=== PATIENT | female | born 1975 | race African-American/Black ===

== ENCOUNTER → 2016-03-30 | Outpatient (REF) | payer MEDICAID ==
[2016-03-30 15:52] LABS: MEAN CORPUSCULAR HEMOGLOBIN 23.9 pg (27.0-33.0); MEAN CORPUSCULAR HGB CONC 29.9 g/dl (32.0-36.5); MEAN CORPUSCULAR VOLUME 79.9 fl (80.0-96.0); RED CELL DISTRIBUTION WIDTH 19.4 % (11.5-14.5); WHITE BLOOD COUNT 10.2 K/mm3 (4.0-10.0)
[2016-03-30 15:54] LABS: ALBUMIN 3.4 GM/DL (3.2-5.2); ALBUMIN/GLOBULIN RATIO 0.89 (1.00-1.93); ALKALINE PHOSPHATASE 95 U/L (45-117); ALT/SGPT 18 U/L (12-78); ANION GAP 11 MEQ/L (8-16); AST/SGOT 13 U/L (15-37); BILIRUBIN,TOTAL 0.4 MG/DL (0.2-1.0); BLOOD UREA NITROGEN 9 MG/DL (7-18); CALCIUM LEVEL 8.8 MG/DL (8.5-10.1); CARBON DIOXIDE LEVEL 27 MEQ/L (21-32); CHLORIDE LEVEL 104 MEQ/L (98-107); CHOLESTEROL LEVEL 228 MG/DL (<200); CREATININE FOR GFR 0.96 MG/DL (0.55-1.02); GLOMERULAR FILTRATION RATE > 60.0 (>58); GLUCOSE, FASTING 127 MG/DL (70-105); SODIUM LEVEL 142 MEQ/L (136-145); TOTAL PROTEIN 7.2 GM/DL (6.4-8.2); TRIGLYCERIDES LEVEL 263 MG/DL (<150)
== END ==
LOC: M SFHCLACO 15:13
PROVIDERS: ATTEND Physician Assistant
DX: J96.01 Acute respiratory failure with hypoxia (principal); I10 Essential (primary) hypertension; Z68.43 Body mass index [BMI] 50.0-59.9, adult; E11.65 Type 2 diabetes mellitus with hyperglycemia; I82.532 Chronic embolism and thrombosis of left popliteal vein; Z79.01 Long term (current) use of anticoagulants

== ENCOUNTER → 2016-04-14 | Outpatient (REF) | payer MEDICAID ==
[2016-04-14 16:00] LABS: INR 2.2
== END ==
LOC: M SFHCLACO 13:49
PROVIDERS: ATTEND Physician Assistant
DX: Z79.01 Long term (current) use of anticoagulants (principal)

== ENCOUNTER → 2016-05-02 | Outpatient (REF) | payer MEDICAID ==
[2016-05-02 15:33] LABS: INR 1.71
== END ==
LOC: M SFHCLACO 10:20
PROVIDERS: ATTEND Physician Assistant
DX: Z51.81 Encounter for therapeutic drug level monitoring (principal); Z79.01 Long term (current) use of anticoagulants

== ENCOUNTER → 2016-05-11 | Outpatient (REF) | payer OTHER ==
[2016-05-11 15:02] LABS: INR 1.97
== END ==
LOC: M SFHCLACO 10:43
PROVIDERS: ATTEND Physician Assistant
DX: Z51.81 Encounter for therapeutic drug level monitoring (principal); Z79.01 Long term (current) use of anticoagulants

== ENCOUNTER → 2016-05-23 | Outpatient (REF) | payer OTHER ==
[2016-05-23 16:31] LABS: INR 4.02
== END ==
LOC: M SFHCLACO 13:27
PROVIDERS: ATTEND Physician Assistant
DX: Z51.81 Encounter for therapeutic drug level monitoring (principal); Z79.01 Long term (current) use of anticoagulants

== ENCOUNTER → 2016-06-06 | Outpatient (REF) | payer OTHER ==
[2016-06-06 16:22] LABS: INR 3.13
== END ==
LOC: M SFHCLACO 15:21
PROVIDERS: ATTEND Physician Assistant
DX: Z51.81 Encounter for therapeutic drug level monitoring (principal); Z79.01 Long term (current) use of anticoagulants

== ENCOUNTER → 2016-07-25 | Outpatient (REF) | payer OTHER ==
[2016-07-25 15:59] LABS: ALBUMIN/GLOBULIN RATIO 1.08 (1.00-1.93); ALKALINE PHOSPHATASE 63 U/L (45-117); ALT/SGPT 20 U/L (12-78); ANION GAP 7 MEQ/L (8-16); AST/SGOT 11 U/L (15-37); BILIRUBIN,TOTAL 0.3 MG/DL (0.2-1.0); BLOOD UREA NITROGEN 15 MG/DL (7-18); CALCIUM LEVEL 9.5 MG/DL (8.5-10.1); CARBON DIOXIDE LEVEL 28 MEQ/L (21-32); CHLORIDE LEVEL 100 MEQ/L (98-107); CHOLESTEROL LEVEL 208 MG/DL (<200); GLOMERULAR FILTRATION RATE > 60.0 (>58); GLUCOSE, FASTING 136 MG/DL (70-105); SODIUM LEVEL 135 MEQ/L (136-145); TOTAL PROTEIN 7.7 GM/DL (6.4-8.2); TRIGLYCERIDES LEVEL 248 MG/DL (<150)
== END ==
LOC: M SFHCLACO 10:46
PROVIDERS: ATTEND Physician Assistant
DX: I10 Essential (primary) hypertension (principal); E11.65 Type 2 diabetes mellitus with hyperglycemia; E78.2 Mixed hyperlipidemia

== ENCOUNTER → 2016-10-17 | Outpatient (REF) | payer OTHER ==
[2016-10-17 15:53] LABS: ALBUMIN 3.7 GM/DL (3.2-5.2); ALBUMIN/GLOBULIN RATIO 0.95 (1.00-1.93); ALKALINE PHOSPHATASE 66 U/L (45-117); ALT/SGPT 18 U/L (12-78); ANION GAP 6 MEQ/L (8-16); AST/SGOT 9 U/L (15-37); BILIRUBIN,TOTAL 0.3 MG/DL (0.2-1.0); BLOOD UREA NITROGEN 8 MG/DL (7-18); CALCIUM LEVEL 8.6 MG/DL (8.5-10.1); CARBON DIOXIDE LEVEL 29 MEQ/L (21-32); CHLORIDE LEVEL 104 MEQ/L (98-107); CHOLESTEROL LEVEL 186 MG/DL (<200); CREATININE FOR GFR 0.97 MG/DL (0.55-1.02); GLOMERULAR FILTRATION RATE > 60.0 (>58); GLUCOSE, FASTING 174 MG/DL (70-105); SODIUM LEVEL 139 MEQ/L (136-145); TOTAL PROTEIN 7.6 GM/DL (6.4-8.2); TRIGLYCERIDES LEVEL 281 MG/DL (<150)
== END ==
LOC: M SFHCLACO 10:29
PROVIDERS: ATTEND Physician Assistant
DX: E11.65 Type 2 diabetes mellitus with hyperglycemia (principal); E78.2 Mixed hyperlipidemia; I10 Essential (primary) hypertension

== ENCOUNTER → 2019-11-27 | Outpatient (REF) | payer OTHER ==
[2019-11-27 14:30] LABS: BASO # 0.1 10^3/uL (0.0-0.2); BASO % 0.6 % (0.0-1.0); EOS # 0.2 10^3/uL (0.0-0.5); EOS % 2.8 % (0.0-3.0); LYMPH # 2.3 10^3/uL (1.5-5.0); MEAN CORPUSCULAR HEMOGLOBIN 30.1 pg (27.0-33.0); MEAN CORPUSCULAR HGB CONC 31.6 g/dl (32.0-36.5); MEAN CORPUSCULAR VOLUME 95.2 fl (80.0-96.0); MONO # 0.4 10^3/uL (0.0-0.8); MONO % 4.8 % (0.0-5.0); NEUTROPHILS % 62.3 % (36.0-66.0); PLATELET COUNT, AUTOMATED 170 10^3/uL (150-450); RED BLOOD COUNT 6.51 10^6/uL (4.00-5.40); WHITE BLOOD COUNT 7.9 10^3/uL (4.0-10.0)
[2019-11-27 14:42] LABS: HEMOGLOBIN 19.6 g/dl (12.0-15.5)
[2019-11-27 14:47] LABS: APPEARANCE, URINE CLOUDY (CLEAR); BACTERIA, URINE AUTO 3+ (NEGATIVE); BILIRUBIN, URINE AUTO NEGATIVE (NEGATIVE); BLOOD, URINE BLOOD NEGATIVE (NEGATIVE); COLOR, URINE YELLOW (YELLOW); GLUCOSE, URINE (UA) AUTO 1+ mg/dL (NEGATIVE); KETONE, URINE AUTO NEGATIVE (NEGATIVE); LEUKOCYTE ESTERASE, URINE AUTO TRACE (NEGATIVE); MUCUS, URINE SMALL (NEGATIVE); NITRITE, URINE AUTO NEGATIVE (NEGATIVE); PROTEIN, URINE AUTO 3+ mg/dL (NEGATIVE); RBC, URINE AUTO 7 /HPF (0-3); SPECIFIC GRAVITY URINE AUTO 1.017 (1.002-1.035); SQUAMOUS EPITHELIAL CELL UR AU 2 /HPF (0-6); UROBILINOGEN, URINE AUTO 0.2 mg/dL (0.0-2.0); WBC, URINE AUTO 28 /HPF (0-3)
[2019-11-27 15:13] LABS: HEMOGLOBIN A1c 10.1 %
[2019-11-27 15:43] LABS: CREATININE, URINE 91.7 MG/DL; MAU/CREAT RATIO 12213.7 MCG/MG (0.0-30.0)
[2019-11-27 16:32] LABS: ALBUMIN 3.4 GM/DL (3.2-5.2); ALT/SGPT 16 U/L (12-78); BILIRUBIN,TOTAL 0.8 MG/DL (0.2-1.0); BLOOD UREA NITROGEN 15 MG/DL (7-18); CALCIUM LEVEL 9.1 MG/DL (8.5-10.1); CARBON DIOXIDE LEVEL 35 MEQ/L (21-32); CHLORIDE LEVEL 94 MEQ/L (98-107); CHOLESTEROL LEVEL 244 MG/DL (<200); GLOMERULAR FILTRATION RATE > 60.0 (>58); GLUCOSE, FASTING 316 MG/DL (70-100); HDL CHOLESTEROL 31 MG/DL (>40); LDL CHOLESTEROL 158 MG/DL (<100); NON-HDL-C 213 MG/DL; POTASSIUM SERUM 5.1 MEQ/L (3.5-5.1); SODIUM LEVEL 133 MEQ/L (136-145); TOTAL 25(OH) VITAMIN D 11.9 NG/ML (30.0-100.0); TOTAL PROTEIN 7.8 GM/DL (6.4-8.2); TRIGLYCERIDES LEVEL 274 MG/DL (<150)
[2019-12-08 12:07] LABS: ANTI THROMBIN 3 ANTIGEN IMMUNO 102 % (72-124); ANTI THROMBIN 3 FUNCT ACTIVITY 110 % (75-135); PROTEIN C ANTIGEN 123 % (60-150); PROTEIN C FUNCTIONAL ACTIVITY 153 % (73-180); PROTEIN S ANTIGEN FREE 144 % (57-157); PROTEIN S ANTIGEN TOTAL 149 % (60-150); PROTEIN S FUNCTIONAL ACTIVITY 117 % (63-140)
== END ==
LOC: M SFHCADAM 10:45
PROVIDERS: ATTEND Physician Assistant Medical
DX: E11.65 Type 2 diabetes mellitus with hyperglycemia (principal); I82.532 Chronic embolism and thrombosis of left popliteal vein; E66.01 Morbid (severe) obesity due to excess calories

== ENCOUNTER 2020-01-23 13:42 | Inpatient (IN) | payer OTHER ==
[~2020-01-23] VITALS: Ht 157.5 cm; Wt 82.0 kg
[2020-01-23] MEDS ORDERED: ATOR40TA75 PO (14:04)
[2020-01-23] MEDS ORDERED: BASA100I SC (14:04)
[2020-01-23] MEDS ORDERED: VENTAER INH (14:04)
[2020-01-23] MEDS ORDERED: OMEP40CA97 PO (14:04)
[2020-01-23] MEDS ORDERED: FLUT1INH2 INH (14:04)
[2020-01-23] MEDS ORDERED: NYST1POW9 (14:04)
[2020-01-23] MEDS ORDERED: LISI20TA33 PO (14:04)
[2020-01-23] MEDS ORDERED: methylPREDNISolone 125MG 2ML VIAL IV ONE (14:30)
[2020-01-23 14:37] LABS: BASO # 0.1 10^3/uL (0.0-0.2); BASO % 0.7 % (0.0-1.0); EOS % 0.4 % (0.0-3.0); HEMATOCRIT 59.4 % (36.0-47.0); HEMOGLOBIN 18.3 g/dl (12.0-15.5); LYMPH # 2.4 10^3/uL (1.5-5.0); LYMPH % 25.5 % (24.0-44.0); MEAN CORPUSCULAR HEMOGLOBIN 31.4 pg (27.0-33.0); MEAN CORPUSCULAR HGB CONC 30.8 g/dl (32.0-36.5); MEAN CORPUSCULAR VOLUME 102.1 fl (80.0-96.0); MONO # 0.6 10^3/uL (0.0-0.8); MONO % 6.2 % (0.0-5.0); NEUTROPHILS # 6.2 10^3/uL (1.5-8.5); NEUTROPHILS % 65.7 % (36.0-66.0); PLATELET COUNT, AUTOMATED 207 10^3/uL (150-450); RED BLOOD COUNT 5.82 10^6/uL (4.00-5.40); WHITE BLOOD COUNT 9.5 10^3/uL (4.0-10.0)
--- NOTE | 2020-01-23 14:57 | REP ---
INDICATION: DYSPNEA/COUGH. COMPARISON: None. TECHNIQUE: SINGLE PORTABLE AP VIEW OF THE CHEST WAS PERFORMED. FINDINGS: There is moderate cardiomegaly. There is vascular congestion. Mildly prominent interstitial markings may represent mild interstitial edema. No definite consolidation is seen. There is mild calcification of the thoracic aorta. IMPRESSION: Moderate cardiomegaly with vascular congestion. Possible mild interstitial edema. <Electronically signed by Alonso Devine > 01/23/20 [id number]
[2020-01-23 15:09] LABS: ALBUMIN 3.5 GM/DL (3.2-5.2); ALT/SGPT 35 U/L (12-78); BILIRUBIN,DIRECT 0.3 MG/DL (0.0-0.2); BILIRUBIN,TOTAL 0.9 MG/DL (0.2-1.0); BLOOD UREA NITROGEN 21 MG/DL (7-18); CALCIUM LEVEL 8.7 MG/DL (8.5-10.1); CARBON DIOXIDE LEVEL 34 MEQ/L (21-32); CHLORIDE LEVEL 103 MEQ/L (98-107); CK-MB VALUE MASS 2.1 NG/ML (<3.6); CPK CREATINE PHOSPHOKINASE 48 U/L (26-192); CREATININE FOR GFR 1.01 MG/DL (0.55-1.30); GLOMERULAR FILTRATION RATE > 60.0 (>58); GLUCOSE, FASTING 156 MG/DL (70-100); MB/CK RELATIVE INDEX 4.38 (< OR =4); NT-PRO BNP 5646 PG/ML (<125); POTASSIUM SERUM 3.9 MEQ/L (3.5-5.1); SODIUM LEVEL 142 MEQ/L (136-145); TOTAL PROTEIN 7.6 GM/DL (6.4-8.2)
[2020-01-23] MEDS ORDERED: FUROSEMIDE 100MG/10ML VIAL (J1940) IV ONE (15:15)
[2020-01-23 15:25] LABS: HCG, SERUM QUALITATIVE NEGATIVE (NEGATIVE)
[2020-01-23] MEDS ORDERED: ALBUTEROL SULFATE 2.5 MG/0.5 ML INH NEB SOLN INH ONE (15:45)
[2020-01-23] MEDS ORDERED: DEXTROSE 50% 50 ML SYRINGE IV PRN (16:30)
[2020-01-23] MEDS ORDERED: GLUCAGON INJ 1MG VIAL SC PRN (16:30)
[2020-01-23] MEDS ORDERED: GLUCOSE 4GM CHEW TABLET PO PRN (16:30)
[2020-01-23] MEDS ORDERED: AMLO1TAB24 PO (16:34)
[2020-01-23] MEDS ORDERED: LEVO250T12 PO (16:34)
--- NOTE | 2020-01-23 16:36 | HPEPDOC ---
[facility] Medical History & Physical Date of Admission Jan 23, 2020 Date of Service: Jan 23, 2020 Primary Care Physician: KRISTINE CALLAWAY PA-C Attending Physician: JAIMIE VARGAS MD History and Physical CHIEF COMPLAINT: SOB HISTORY OF PRESENT ILLNESS: Patient is a 44-year-old -[place] female with a past medical history significant for IDDDM, HTN, HLD, Morbid Obesity and nicotine dependence who presents emergency department via EMS from [facility] for further evaluation. Per ED report, presented to her systems mechanic for evaluation of sleep apnea. Patient was found to have an SPO2 in the 70s. When she presents emergency department she continued to complain of feeling "hot and tired". No recent illnesses are as patient is aware. She is complaining of productive cough with clear sputum. In the emergency department, she was found to be afebrile, slightly tachycardic with a pulse of 101. Respiratory rate 28. Blood pressure 200/112 and maintaining a saturation of 77% on room air. Patient was placed on a nasal cannula and maintained a saturation of 93%. Placed on BiPAP with FiO2 50. CBC does demonstrate some polycythemia with an H/H of 18.3/59.4. MCV of 102.1, and an elevated RDW of 18. CMP showing a sodium of 142, potassium of 3.9. BUN/Cr of 21/1.01. No chronic kidney disease. Lactic of 0.9. Elevation of liver enzymes. Troponins of 0.1, proBNP of 5646. Tqlme-dn-jcgm blood gas showing a pH of 7.2, PO2 of 69, PCO2 of 92.6. Chest x-ray was ordered and shows cardiomegaly with vascular congestion. Possible mild essential edema. Given patient's worsening respiratory status, the hospitalist team was contacted to admit the patient further evaluation and management. PAST MEDICAL HISTORY: Hypertension Hyperlipidemia Insulin-dependent diabetes mellitus Morbid obesity Asthma, hx of status epilepticus History of acute respiratory failure, prolonged intubation with tracheotomy, 2017 DVT, provoked in 2017 HIT Nicotine dependence Hirsutism Nicotine dependence Remote history of crack cocaine use #Of historical note, patient was hospitalized from 02/21/2016 until 03/24/2016 for acute hypoxic and hypercarbic respiratory failure. She was found unresponsive by her boyfriend and was not breathing. EMS was contacted. In the hospital, she was found to have methicillin sensitive pneumonia complicated by status asthmaticus, and acute kidney injury with hyperkalemia and hyperphosphatemia that required hemodialysis for a short period. She was intubated and was not able to be weaned off of the vent due to obesity hypoventilation syndrome. She had a tracheostomy placed on 03/06/2016, and eventually was able to be removed from the ventilator. She was able to have the trach closed on 05/25/2016. PAST SURGICAL HISTORY: 3 Tonsillectomy Cholecystectomy Ventral hernia repair with hx of wound dehiscence Partial colectomy secondary to diverticulitis SOCIAL HISTORY: Given patient's current clinical condition, it was quite difficult to elicit an appropriate social history. As such, the history that follows was found in the medical record: Patient is a current smoker. She reports smokes approximately 1/2 PPD. She does not drink alcohol. Denies any recreational drug use. She is currently unemployed and does not work. She is but . Patient's healthcare proxy is her daughter, Naz Kirkland. FAMILY HISTORY: Father: Coronary artery disease Mother: Hypertension, CAD, diabetes Siblings: Alive, hypertension and cardiomyopathy Children: Plans, alive, healthy ALLERGIES: Sulfonamide antibiotics, codeine, humalog REVIEW OF SYSTEMS: Given patient's current clinical condition, a limited ROS was able to be obtained. CONSTITUTIONAL: Patient denies any recent fever or chills HEENT: Denies headache, vision changes CARDIOVASCULAR: Denies chest pain or palpitations RESPIRATORY: Reports long-standing SOB, productive-cough with clear sputum. GASTROINTESTINAL: Denies abdominal pain, diarrhea, constipation, blood stool. GENITOURINARY: Denies urinary changes MUSCULOSKELETAL: Denies muscle or joint aches and pains NEUROLOGICAL: Denies numbness or tingling in hands or arms. Legs HEMATOLOGIC/LYMPHATIC: Denies easy bruising HOME MEDICATIONS: Please see below. PHYSICAL EXAMINATION: VITAL SIGNS: Please see below GENERAL APPEARANCE: Patient is interviewed and examined in the emergency department. Patient was found to be in bed on BiPAP. She appeared quite fatigued but was easily arousable. She was able to open her eyes and to answer yes and no to questions. She was able to participate in physical examination. HEENT: Normocephalic, atraumatic, EMOI, are nonicteric without conjunctival injection or pallor. Her membranes do appear dry. Notable hirsutism. CARDIOVASCULAR: Heart sounds severely limited by patient's body habitus. Patient's pulse is regular. Unable to evaluate for JVD. LUNGS: Lung sounds limited by body habitus and sounds of mechanical ventilation. ABDOMEN: Obese, nondistended, nontender EXTREMITIES: No lower extremity edema appreciated bilaterally. NEUROLOGICAL: Arousable, able to follow commands. Able to move both upper and lower extremities, strength 5 out of 5. PSYCHIATRIC: Patient did appear anxious LABORATORY DATA: See below. IMAGING: Chest x-ray (01/23/20] is: Moderate cardiomegaly with vascular congestion. Possible mild interstitial edema. MICROBIOLOGY: Respiratory virus panel (01/23/20): Human Raynaud/enterovirus Blood cultures (01/23/20): Pending ASSESSMENT: Patient is a 44-year-old female with past medical history significant for diastolic congestive heart failure, diabetes, hypertension and morbid obesity presented to the emergency department from her systems mechanic's for hypoxia and shortness of breath. PLAN: #Acute on chronic hypercapnic hypoxemic respiratory failure -Unclear etiology, CHF exacerbation and underlying TALA/pickwickian contributing. -Patient found to be extremely hypoxemic in the outpatient clinic. -This persisted upon presentation emergency department -BiPAP started in the ED. ICU BiPAP management per neon tube pumper. We appreciate his assistance with the management of this patient. Repeat ABG in 1 hr #CHF, exacerbation -Potential exacerbation secondary to viral infection, though infectious etiology remains low in the differential given patient remains afebrile without leukocytosis. Her calcitonin pending for possible underlying bacterial cause. -Patient denies any history or known diagnosis of heart failure. BNP elevated. -Unable to locate a recent echocardiogram. Cardiomegaly on CXR. Urgent echo pending. -S/P 80 IV Lasix in ED. CXR supports vascular congestion. Continue on 80mg IV Q8H. -c/w home medications -2 gram sodium diet #Polycythemia -Patient was found to have an elevated H&H on recent outpatient lab works on 11/27/19. His consistent with the findings today in the emergency department. -Suspect this to be reactive, secondary to both patient's chronic chronic hypoxemia and her severe untreated TALA. -Continue to monitor #History of HIT -During review of patient's medical records, mention of a PMHx of HIT was noted. -Requesting old records. -Hold heparins at this time. -PF4/Heparin antibody ordered -Fondaparinux 2.5mg SC QD #Asthma, intermittent -History of status asthmaticus leading to prolonged intubation -Outpatient treatment with only AirDuo -Unable to find spirometry records #IDDM -A1c of 10.1 in 11/27/19 -AC/HS SSI -Will hold home basal -Consistent carb diet #HTN -Hypertensive in the ED -Continue with home medications -BP meds increased by PCP on 12/22/19 from 10 mg to 20 mg #Sleep apnea vs. obesity hypoventilation syndrome -Patient was at Pulmonary office for evaluation -Reports history of apneic events #GERD -Omeprazole #HLD -Continue home statin #Obesity -BMI of 57. -Significantly complicating care #History of DVT -Antiphospholipid panel performed as an outpatient with mild abdomen. -Patient scheduled for repeat on 02/21/20. DVT PROPHYLAXIS: History of HIT, will hold heparins Fondaparinux 2.5mg SC QD CODE STATUS: FULL CODE DISPOSITION: ICU, downgrade pending clinical improvement Vital Signs Vital Signs Date Time Temp Pulse Resp B/P (MAP) Pulse Ox O2 Delivery O2 Flow Rate FiO2 01/23/20 15:55 50 01/23/20 15:37 Nasal Cannula 6.0 01/23/20 13:56 97.8 101 28 200/112 77 Laboratory Data Labs 24H Laboratory Tests 2 01/23/20 13:58: Immature Granulocyte % (Auto) 1.5, Neutrophils (%) (Auto) 65.7, Lymphocytes (%) (Auto) 25.5, Monocytes (%) (Auto) 6.2H, Eosinophils (%) (Auto) 0.4, Basophils (%) (Auto) 0.7, Neutrophils # (Auto) 6.2, Lymphocytes # (Auto) 2.4, Monocytes # (Auto) 0.6, Eosinophils # (Auto) 0.0, Basophils # (Auto) 0.1, Nucleated Red Blood Cells % (auto) 2.3H, Anion Gap 5L, Glomerular Filtration Rate > 60.0, Lactic Acid Level 0.9, Calcium Level 8.7, Total Bilirubin 0.9, Direct Bilirubin 0.3H, Aspartate Amino Transf (AST/SGOT) 22, Alanine Aminotransferase (ALT/SGPT) 35, Alkaline Phosphatase 97, Total Creatine Kinase 48, Creatine Kinase MB 2.1, Creatine Kinase MB Relative Index 4.38H, Troponin I 0.10, UN-Kkk-C-Type Natriuretic Peptide 5646H, Total Protein 7.6, Albumin 3.5, Albumin/Globulin Ratio 0.9L, Human Chorionic Gonadotropin, Qual NEGATIVE 01/23/20 15:05: POC pH (Misc Panel) 7.208*L, POC Base Excess (Misc Panel) 9.0H, POC Saturated Percent O2 (Misc) 88L, POC pO2 (Misc Panel) 69.0L, POC pCO2 (Misc Panel) 92.6*H, POC HCO3 (Misc Panel) 36.9H, POC Total CO2 (Misc Panel) 40.0H CBC/BMP Laboratory Tests 01/23/20 13:58 Microbiology Microbiology 01/23/20 Respiratory Virus Panel (PCR) (SHENG) - Final, Complete Human Rhinovirus/Enterovirus 01/23/20 Blood Culture, Received Pending 01/23/20 Blood Culture, Received Pending Home Medications Scheduled Amlodipine Besylate (Amlodipine Besylate) 5 Mg Tablet, 5 MG PO DAILY HAS NOT STARTED MEDICATION Atorvastatin Calcium (Atorvastatin Calcium) 40 Mg Tablet, 40 MG PO DAILY Fluticasone Propion/Salmeterol (Fluticasone-Salmeterol 113-14) 1 Each Aer.pow.ba, 1 PUFF INH BID Insulin Glargine,Hum.rec.anlog (Basaglar Kwikpen U-100) 100 Unit/1 Ml Insuln.pen, 45 UNIT SC QHS Levofloxacin (Levofloxacin) 250 Mg Tablet, 250 MG PO DAILY HAS NOT STARTED MEDICATION Lisinopril (Lisinopril) 20 Mg Tablet, 20 MG PO DAILY Omeprazole (Omeprazole) 40 Mg Capsule.dr, 40 MG PO DAILY Scheduled PRN Albuterol Sulfate (Ventolin Hfa) 18 Gm Hfa.aer.ad, 2 PUFF INH Q4H PRN for wheezing Allergies Coded Allergies: codeine (Verified Allergy, Unknown, hives, 01/23/20) Sulfa (Sulfonamide Antibiotics) (Verified Adverse Reaction, Unknown, "it affected my liver", 01/23/20) A-FIB/CHADSVASC A-FIB History Current/History of A-Fib/PAF?: No Current PO Anticoag Therapy: No GME ATTESTATION GME ATTESTATION My faculty preceptor for this patient encounter was physically present during the encounter and was fully available. All aspects of the patient interview, examination, medical decision making process, and medical care plan development were reviewed and approved by the faculty preceptor. The faculty preceptor is aware and concurs with the plan as stated in the body of this note and will attest to such by his/her cosignature. GALILEA ROMERO DO Jan 23, 2020 16:36
[2020-01-23] MEDS ORDERED: NICOTINE 14 MG/24 HR TRANSDERMAL TD ONE (17:00)
[2020-01-23] MEDS ORDERED: HumaLOG INSULIN (NovoLOG) PER UNIT SC SCH ×2 (17:30→21:00)
[2020-01-23 17:52] LABS: ABG BASE EXCESS 3.3 (-2.0-2.0); ABG O2 SATURATION 91.8 % (95.0-99.0); ABG PARTIAL PRESSURE O2 71.2 mmHg (75.0-100.0); ABG STANDARD HCO3 27.2 MEQ/L (22.0-26.0)
[2020-01-23 17:54] LABS: ABG PARTIAL PRESSURE CO2 99.3 mmHg (35.0-45.0); ABG pH (ARTERIAL) 7.189 UNITS (7.350-7.450)
[2020-01-23 18:00] VITALS: BP 186/102
[2020-01-23] MEDS ORDERED: ALBUTEROL 90 MCG/ACT 8GM HFA INHALER INH PRN (18:00)
[2020-01-23] MEDS: IPRATROPIUM 0.5MG/ALBUTEROL 2.5MG INH SOL UD 3ML (DUONEB) NEB SCH ×2 (18:31→23:28)
[2020-01-23] MEDS ORDERED: MIDAZOLAM INJ 2MG/2ML VIAL (J2250 PER 1MG) As Ordered ONE ×4 (18:35→19:03)
[2020-01-23 19:00] VITALS: BP 206/118
[2020-01-23] MEDS ORDERED: PROPOFOL 1,000 MG/100 ML VIAL As Ordered ONE (19:07)
[2020-01-23] MEDS ORDERED: MIDAZOLAM INJ 2MG/2ML VIAL (J2250 PER 1MG) IV STA (19:24)
--- NOTE | 2020-01-23 19:57 | REP ---
INDICATION: intubation. COMPARISON: Portable chest 2:44 p.m. 01/23/2020. TECHNIQUE: SINGLE PORTABLE AP VIEW OF THE CHEST WAS PERFORMED. FINDINGS: There is placement of an endotracheal tube. The tip is at the oneal. There appears to be new consolidative opacity in the left lung representing atelectasis and or infiltrate. The heart is enlarged. No infiltrate is seen in the right lung. IMPRESSION: Endotracheal tube tip is at the oneal. There is consolidative atelectasis/infiltrate in the left lung. <Electronically signed by Alonso Devine > 01/23/201952
[2020-01-23 20:00] VITALS: BP_SYST 140; BP_SYST 154; BP_DIAS 106; BP_DIAS 86
[2020-01-23 20:26] LABS: ABG HCO3 32.8 MEQ/L (22.0-26.0); ABG O2 SATURATION 88.3 % (95.0-99.0); ABG PARTIAL PRESSURE CO2 53.1 mmHg (35.0-45.0); ABG PARTIAL PRESSURE O2 50.7 mmHg (75.0-100.0); ABG STANDARD HCO3 29.5 MEQ/L (22.0-26.0); ABG TOTAL CO2 34.4 MEQ/L (22.0-29.0); ABG pH (ARTERIAL) 7.408 UNITS (7.350-7.450)
[2020-01-23 20:49] LABS: INR 1.11; PROTHROMBIN TIME 14.5 SECONDS (12.5-14.3)
[2020-01-23 20:50] LABS: PARTIAL THROMBOPLASTIN TIME 44.7 SECONDS (24.2-38.5)
[2020-01-23] MEDS: propofoL 1,000 MG in IV 1 EA IV SCH ×3 (20:55→22:21)
[2020-01-23 21:00] VITALS: BP 142/83
[2020-01-23] MEDS ORDERED: ENOXAPARIN 40MG/0.4ML SYRINGE (J1650 PER 10MG) SC SCH (21:00)
[2020-01-23] MEDS: FUROSEMIDE 100MG/10ML VIAL (J1940) IV SCH (21:22)
[2020-01-23] MEDS: FONDAPARINUX SODIUM 2.5 MG/0.5 ML SYR (J1652 PER 0.5MG) SC SCH (21:24)
[2020-01-23] MEDS: methylPREDNISolone 125MG 2ML VIAL IV SCH (21:24)
[2020-01-23] MEDS: CHLORHEXIDINE GLUCONATE 0.12 % 15ML UDC (PERIDEX ORAL RINSE) MT SCH (21:38)
[2020-01-23] MEDS: HumuLIN R (REGULAR) INSULIN (NovoLIN R) **100U/ML** PER UNIT SC SCH (21:52)
[2020-01-23 22:00] VITALS: BP 153/88
[2020-01-23 23:30] VITALS: BP 164/89
[2020-01-24] VITALS (34 sets, daily range): BP systolic 124–183; BP diastolic 58–95
[2020-01-24] MEDS: propofoL 1,000 MG in IV 1 EA IV SCH ×14 (00:13→23:52)
[2020-01-24] MEDS: HumuLIN R (REGULAR) INSULIN (NovoLIN R) **100U/ML** PER UNIT SC SCH ×5 (00:31→23:53)
[2020-01-24] MEDS: FUROSEMIDE 100MG/10ML VIAL (J1940) IV SCH (02:00)
[2020-01-24] MEDS: methylPREDNISolone 125MG 2ML VIAL IV SCH ×3 (02:10→18:41)
[2020-01-24] MEDS: IPRATROPIUM 0.5MG/ALBUTEROL 2.5MG INH SOL UD 3ML (DUONEB) NEB SCH ×5 (03:37→20:54)
[2020-01-24 04:41] LABS: HEMATOCRIT 55.5 % (36.0-47.0); HEMOGLOBIN 17.5 g/dl (12.0-15.5); MEAN CORPUSCULAR HEMOGLOBIN 30.4 pg (27.0-33.0); MEAN CORPUSCULAR HGB CONC 31.5 g/dl (32.0-36.5); MEAN CORPUSCULAR VOLUME 96.4 fl (80.0-96.0); PLATELET COUNT, AUTOMATED 222 10^3/uL (150-450); RED BLOOD COUNT 5.76 10^6/uL (4.00-5.40); WHITE BLOOD COUNT 8.5 10^3/uL (4.0-10.0)
[2020-01-24 05:15] LABS: ALBUMIN 3.2 GM/DL (3.2-5.2); BILIRUBIN,TOTAL 1.6 MG/DL (0.2-1.0); CALCIUM LEVEL 8.6 MG/DL (8.5-10.1); CREATININE FOR GFR 1.52 MG/DL (0.55-1.30); GLOMERULAR FILTRATION RATE 47.5 (>58); MAGNESIUM LEVEL 1.7 MG/DL (1.8-2.4); POTASSIUM SERUM 3.6 MEQ/L (3.5-5.1); TOTAL PROTEIN 7.1 GM/DL (6.4-8.2)
[2020-01-24 06:03] LABS: ABG BASE EXCESS 8.4 (-2.0-2.0); ABG HCO3 26.7 MEQ/L (22.0-26.0); ABG O2 SATURATION 96.5 % (95.0-99.0); ABG PARTIAL PRESSURE CO2 23.3 mmHg (35.0-45.0); ABG STANDARD HCO3 32.2 MEQ/L (22.0-26.0); ABG TOTAL CO2 27.4 MEQ/L (22.0-29.0)
[2020-01-24 06:05] LABS: ABG pH (ARTERIAL) 7.677 UNITS (7.350-7.450)
[2020-01-24] MEDS: MAG SULF 1GM/100ML (MAG RUN) 1 GM in IV 1 EA IV SCH ×4 (06:15→09:00)
[2020-01-24] MEDS ORDERED: ATORVASTATIN 20 MG TAB PO SCH (09:00)
[2020-01-24] MEDS ORDERED: OMEPRAZOLE 20 MG CAP PO SCH (09:00)
[2020-01-24] MEDS ORDERED: amLODIPine 5 MG TAB PO SCH (09:00)
[2020-01-24] MEDS ORDERED: ENOXAPARIN 40MG/0.4ML SYRINGE (J1650 PER 10MG) SC SCH (09:00)
--- NOTE | 2020-01-24 09:04 | REP ---
INDICATION: ETT. COMPARISON: 01/23/2020. TECHNIQUE: SINGLE PORTABLE AP VIEW OF THE CHEST WAS PERFORMED. FINDINGS: Endotracheal tube is again noted. The tip is 2 cm above the oneal. A nasogastric tube traverses into the stomach. The distal end is not visualized. Cardiomegaly is again noted. There is subsegmental atelectasis in the perihilar regions bilaterally left greater than right. Consolidative opacity in the left lung has improved with mild residual. There is mild elevation left hemidiaphragm. IMPRESSION: There is no tracheal tube a nasogastric tube as above. Cardiomegaly. Bilateral atelectatic changes left greater than right. The consolidative opacity presumably representing consolidative atelectasis in the left lung has improved with mild residual. <Electronically signed by Alonso Devine > 01/24/20 [id number]
--- NOTE | 2020-01-24 09:35 | ECGEPIP ---
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
[2020-01-24 09:38] LABS: ABG BASE EXCESS 9.4 (-2.0-2.0); ABG HCO3 33.9 MEQ/L (22.0-26.0); ABG PARTIAL PRESSURE CO2 44.1 mmHg (35.0-45.0); ABG PARTIAL PRESSURE O2 77.1 mmHg (75.0-100.0); ABG STANDARD HCO3 33.2 MEQ/L (22.0-26.0); ABG TOTAL CO2 35.3 MEQ/L (22.0-29.0); ABG pH (ARTERIAL) 7.504 UNITS (7.350-7.450)
[2020-01-24] MEDS ORDERED: FUROSEMIDE 100MG/10ML VIAL (J1940) IV SCH (10:00)
[2020-01-24] MEDS: amLODIPine 5 MG TAB NG SCH (11:25)
[2020-01-24] MEDS: PANTOPRAZOLE 40MG VIAL (C9113 PER 1) IV SCH (11:26)
[2020-01-24] MEDS: FONDAPARINUX SODIUM 2.5 MG/0.5 ML SYR (J1652 PER 0.5MG) SC SCH (11:27)
[2020-01-24] MEDS: CHLORHEXIDINE GLUCONATE 0.12 % 15ML UDC (PERIDEX ORAL RINSE) MT SCH ×2 (11:42→21:18)
[2020-01-24 12:32] LABS: ABG BASE EXCESS 7.1 (-2.0-2.0); ABG HCO3 33.6 MEQ/L (22.0-26.0); ABG O2 SATURATION 90.3 % (95.0-99.0); ABG PARTIAL PRESSURE CO2 52.6 mmHg (35.0-45.0); ABG PARTIAL PRESSURE O2 59.3 mmHg (75.0-100.0); ABG STANDARD HCO3 30.7 MEQ/L (22.0-26.0); ABG TOTAL CO2 35.2 MEQ/L (22.0-29.0); ABG pH (ARTERIAL) 7.423 UNITS (7.350-7.450)
[2020-01-24] MEDS: MIDAZOLAM INJ 2MG/2ML VIAL (J2250 PER 1MG) IV PRN ×5 (17:41→21:01)
[2020-01-24] MEDS ORDERED: MORPHINE 2 MG/ML 1ML VIAL (J2270) As Ordered ONE (18:04)
[2020-01-24] MEDS: MORPHINE 2 MG/ML 1ML VIAL (J2270) IV PRN ×2 (18:08→19:01)
--- NOTE | 2020-01-24 18:48 | REP ---
INDICATION: Post intubation. COMPARISON: 01/24/2020, 6:20 a.m. TECHNIQUE: SINGLE PORTABLE AP VIEW OF THE CHEST WAS PERFORMED. FINDINGS: Bilateral atelectatic changes appear stable. The heart is again noted to be enlarged. There is calcification and tortuosity of the thoracic aorta. The mediastinal silhouette is unchanged. Endotracheal tube is unchanged in position. The previously noted nasogastric tube is not visualized. IMPRESSION: Removal of nasogastric tube. Otherwise stable exam. <Electronically signed by Alonso Devine > 01/24/20 [id number]
[2020-01-24] MEDS: MIDAZOLAM HCL 100 MG in D5W 80 ML IV SCH (20:30)
[2020-01-24] MEDS ORDERED: LEVEMIR (INSULIN DETEMIR) 1 UNITS/0.01ML SC SCH (21:00)
[2020-01-25] VITALS (24 sets, daily range): BP systolic 122–168; BP diastolic 63–90
[2020-01-25] MEDS: propofoL 1,000 MG in IV 1 EA IV SCH ×15 (01:36→23:08)
[2020-01-25] MEDS: methylPREDNISolone 125MG 2ML VIAL IV SCH ×3 (03:12→18:13)
[2020-01-25] MEDS: NYSTATIN 100,000 UNITS/GM TOPICAL PWD 15 GM TOP PRN (03:20)
[2020-01-25 04:52] LABS: BASO % 0.1 % (0.0-1.0); HEMATOCRIT 54.1 % (36.0-47.0); HEMOGLOBIN 16.4 g/dl (12.0-15.5); LYMPH % 9.9 % (24.0-44.0); MEAN CORPUSCULAR HEMOGLOBIN 30.5 pg (27.0-33.0); MEAN CORPUSCULAR HGB CONC 30.3 g/dl (32.0-36.5); MEAN CORPUSCULAR VOLUME 100.7 fl (80.0-96.0); MONO # 0.5 10^3/uL (0.0-0.8); MONO % 5.3 % (0.0-5.0); NEUTROPHILS # 8.1 10^3/uL (1.5-8.5); NEUTROPHILS % 84.1 % (36.0-66.0); PLATELET COUNT, AUTOMATED 233 10^3/uL (150-450); RED BLOOD COUNT 5.37 10^6/uL (4.00-5.40); WHITE BLOOD COUNT 9.6 10^3/uL (4.0-10.0)
[2020-01-25] MEDS: IPRATROPIUM 0.5MG/ALBUTEROL 2.5MG INH SOL UD 3ML (DUONEB) NEB SCH ×6 (05:11→23:26)
[2020-01-25 05:19] LABS: ALBUMIN 3.4 GM/DL (3.2-5.2); BILIRUBIN,TOTAL 0.9 MG/DL (0.2-1.0); CALCIUM LEVEL 9.2 MG/DL (8.5-10.1); CREATININE FOR GFR 2.15 MG/DL (0.55-1.30); GLOMERULAR FILTRATION RATE 31.8 (>58); MAGNESIUM LEVEL 2.7 MG/DL (1.8-2.4); PHOSPHORUS LEVEL 8.9 MG/DL (2.5-4.9); POTASSIUM SERUM 3.5 MEQ/L (3.5-5.1); TOTAL PROTEIN 6.9 GM/DL (6.4-8.2)
[2020-01-25 05:49] LABS: ABG HCO3 33.2 MEQ/L (22.0-26.0); ABG O2 SATURATION 96.2 % (95.0-99.0); ABG PARTIAL PRESSURE CO2 56.7 mmHg (35.0-45.0); ABG PARTIAL PRESSURE O2 85.4 mmHg (75.0-100.0); ABG STANDARD HCO3 29.9 MEQ/L (22.0-26.0); ABG pH (ARTERIAL) 7.386 UNITS (7.350-7.450)
[2020-01-25] MEDS: HumuLIN R (REGULAR) INSULIN (NovoLIN R) **100U/ML** PER UNIT SC SCH ×4 (05:58→23:33)
[2020-01-25] MEDS: FONDAPARINUX SODIUM 2.5 MG/0.5 ML SYR (J1652 PER 0.5MG) SC SCH (08:06)
[2020-01-25] MEDS: amLODIPine 5 MG TAB NG SCH (08:07)
[2020-01-25] MEDS: CHLORHEXIDINE GLUCONATE 0.12 % 15ML UDC (PERIDEX ORAL RINSE) MT SCH ×2 (09:23→20:12)
--- NOTE | 2020-01-25 09:51 | REP ---
INDICATION: ETT. COMPARISON: 01/24/2020. TECHNIQUE: SINGLE PORTABLE AP VIEW OF THE CHEST WAS PERFORMED. FINDINGS: There is cardiomegaly. Very mild linear discoid atelectasis is seen in the right lung base. Mild patchy parenchymal opacity in the left base is unchanged. There is calcification of the thoracic aorta. The mediastinal silhouette is unchanged. Endotracheal tube is seen with the tip 2.3 cm above the oneal. Nasogastric tube traverses into the stomach. IMPRESSION: Stable exam. <Electronically signed by Alonso Devine > 01/25/20 0958
[2020-01-25] MEDS: PANTOPRAZOLE 40MG VIAL (C9113 PER 1) IV SCH (12:03)
[2020-01-25] MEDS: cefTRIAXone SOD 1 GM in D5W MINI-BAG PLUS 50 ML IV SCH (14:09)
[2020-01-25] MEDS: MIDAZOLAM INJ 2MG/2ML VIAL (J2250 PER 1MG) IV PRN ×2 (14:13→22:02)
[2020-01-25] MEDS: NS 1,000 ML IV SCH (14:29)
[2020-01-25] MEDS: KETAMINE HCL 200 MG/20 ML VIAL IV PRN (15:22)
--- NOTE | 2020-01-25 15:51 | CCN ---
CRITICAL CARE NOTE DATE: 01/25/2020 SUBJECTIVE: The patient is seen in the intensive care unit intubated, mechanically ventilated, sedate with propofol and Versed. Having pulled her endotracheal tube yesterday, her sedation has been increased. This is hospital day #4, endotracheal tube day#3. OBJECTIVE: VITAL SIGNS: At bedside, her temperature is 97, pulse rate 91, respirations 18, blood pressure 124/65. I and O for the past 24 hours 1775 in, 1390 out; since midnight 705 in, 370 out. GENERAL APPEARANCE: At bedside, she is ill-appearing. HEENT: Her oral mucosa is moist. Endotracheal tube is at 24 cm. Orogastric tube is in good position. Tube feed is infusing. NECK: Roca and supple. Evidence of previous tracheostomy. HEART: Sounds are distant, but regular. LUNGS: Breath sounds coarse. Diminished in the left base. Chest is otherwise symmetric and moves symmetrically. ABDOMEN: Obese with a huge midline hernia. Bowel sounds are appreciated right lower quadrant. EXTREMITIES: Cool. Pulses diminished, but palpable. DIAGNOSTIC STUDIES: Her white cell count is 9.6 up from 8.5. Hemoglobin is down to 16.4, hemoglobin 54.1, platelet count 223,000. Differential white cell count shows 84% neutrophils, but there are 5.3% monocytes as well. Her electrolytes are sodium 141, potassium 3.5, chloride 99, CO2 of 35, BUN 38, creatinine 2.15 up from 1.52, glucose is 209, range up to 258. Calcium is 9.2, phosphorus is up to 8.9, and magnesium is up to 2.7. ALT 21, AST 12, alkaline phosphatase 77, but the LDH is 441. Albumin is 3.4. Arterial blood gases show a pH of 7.38, pCO2 of 56, and pO2 of 85. This is on pressure control mode of ventilation. Inspiratory pressure of 14 over expiratory of 5 with an FiO2 of 0.45. Chest imaging shows tubes and lines to be in good position. Aeration of the left lower lobe is somewhat better, but there remains to be some atelectasis there. Microbiology cultures: Sputum gram strain is positive for gram positive. Urinalysis was dirty, but the culture is pending and the smear is positive for rhinovirus. MEDICATIONS: On review, she is receiving amlodipine 5 mg a day, DuoNebs, propofol, Solu-Medrol every 8 hours, fondaparinux 2.5 daily, ASSESSMENT AND PLAN: The primary problem requiring critical attention is acute hypoxic hypercarbic respiratory failure. She is responding to pressure control ventilation. We will continue supportive care and follow gas exchange. Infectious disease: Smears were positive for enterovirus and there are gram-positives in her sputum. We will begin Rocephin empirically pending cultures. Urine culture is also pending. Mucous plugging: Left lower lobe remains somewhat atelectatic. We will continue with heat and humidity through the ventilator circuit. Asthma: The patient has been receiving steroids since admission and aggressive beta agonist. Air exchange has improved to some degree. Obesity hypoventilation syndrome: Her carbon dioxide is about at baseline. I will continue surveillance; however, given the patient's body habitus, she will likely require her tracheostomy be replaced. Acute kidney injury: I will increase her IV fluids and follow closely. Her lung compliance is good. I am not terribly concerned at this moment about congestive heart failure. Sedation: The patient's requirement for sedation is very high. We added intermittent doses of ketamine last evening. She has not required any of these thus far. Diabetes mellitus: Her blood sugars are in excess of our target. We will increase her long-acting insulin dose and continue fingerstick blood sugars and coverage. Nutritional support: We will increase her tube feedings to 60 mL/hour. Deep vein thrombosis (DVT) prophylaxis: This is being addressed with fondaparinux as the patient has a history of heparin-induced thrombocytopenia. Records to document this history remain pending. Ulcer prophylaxis: This is being addressed with Protonix. The patient's condition is critical. Prognosis is guarded. One hour and 37 minutes was spent in the provision of bedside critical care and coordination exclusive of procedure time. K[facility]ER[facility]OCKER HOSPITALShanthi
--- NOTE | 2020-01-25 15:51 | RO ---
OPERATIVE NOTE DATE OF OPERATION: 01/23/2020 PREOPERATIVE DIAGNOSIS: Respiratory failure with hypoxia. POSTOPERATIVE DIAGNOSIS: Respiratory failure with hypoxia. PROCEDURE PERFORMED: Emergent endotracheal tube independent. PROCEDURE NOTE: The patient was seen in the intensive care unit with progressive respiratory failure, worsening arterial blood gases and progressive somnolence. A Glidescope and direct vision laryngoscope were prepared and placed into the patient's pharynx. She received Versed for sedation. The upper airway was very congested. The epiglottis was visualized. The vocal cords were briefly visualized. There were copious bloody secretions appreciated in the upper airway. Two attempts were made unsuccessfully to place an endotracheal tube. The patient was bagged once again to obtain saturations and on the third attempt with significant effort, a #8 inch tracheal tube was placed through the vocal cords and into the trachea against significant resistance. The balloon was inflated. CO2 was appreciated on the monitor and good bilateral breath sounds were appreciated. A post-procedural chest x-ray has been performed. The results are pending and the patient was now connected to a mechanical ventilator. There were no complications.
[2020-01-25] MEDS ORDERED: LEVEMIR (INSULIN DETEMIR) 1 UNITS/0.01ML SC SCH (21:00)
--- NOTE | 2020-01-25 21:15 | CCN ---
CRITICAL CARE NOTE DATE: 01/24/2020 The patient is seen in the intensive care unit (ICU) intubated, mechanically ventilated, sedate with propofol and critically ill. This is hospital day #2, endotracheal tube day #2. Over the course of the night, she has responded to mechanical ventilation. Minute ventilation has improved to some extent. Her temperature is 98.6, pulse rate is 84, respirations 20/20 delivered, blood pressure 160/83. Intake and output for the past 24 hours: 320 in, 2325 out. Since midnight, 390 in, 920 out. At bedside, she is ill appearing. Her pupils are equal and respond to light. Oral mucosa is pink. Upper pharyngeal aperture is quite crowded. The endotracheal tube is at 26 cm. There is an orogastric tube in good position draining bilious secretions. Neck is very thick. There is evidence of remote tracheostomy scar. Heart sounds are distant but regular, monitor showing a sinus rhythm. Breath sounds are coarse. Less wheeze this morning, but coarse large airway sounds are appreciated bilaterally. Chest is symmetric, moves symmetrically. Abdomen is morbidly obese with a massive midline hernia. There are some bowel sounds in the right lower quadrant. Extremities: Left lower extremity shows bogginess. There is no gross edema. Some superficial varicosities are appreciated in the left lower extremity compared to the right. DIAGNOSTIC STUDIES: Laboratory studies were reviewed. Her sodium is 142, potassium 3.6, chloride 101, CO2 is 29, BUN is 26, creatinine is up to 1.52. Glucose is 199 with a range of 219-199. Her calcium is 8.6. Magnesium was down to 1.7. Bilirubin is up to 1.6. Liver enzymes remain normal at AST 29, ALT 30, alkaline phosphatase 92, albumin is 3.2. The white cell count is down slightly at 8.5, hemoglobin is down to 17.5, hematocrit 55.5, platelet count 222,000. Nucleated red cells measured 2.3%. Arterial blood gases this morning showed a pH of 7.67, pCO2 of 23, pO2 of 63 on pressure control mode of ventilation. Urinalysis has returned with 1+ protein, leukocyte esterase 2 positive, elevated white cells, and 2+ bacteria. Microbiology studies: Urine culture is pending. There are two blood cultures pending, and there is a sputum culture pending. Nasopharyngeal swab was positive for rhinovirus/enterovirus. Chest x-ray shows some better aeration. There is scattered atelectasis, but the left lower lobe is more inflated this morning. Endotracheal tube remains deep but above the oneal. Formal report of the x-ray is pending. On medications review, she is receiving: - Norvasc 5 mg a day - Lipitor 40 mg a daily - Lasix 60 eery 8 hours - Solu-Medrol 80 every 8 hours - DuoNeb every 4 hours - Prilosec orally - propofol drip The primary problem requiring critical attention is acute respiratory failure, type 2, with hypoxemia/hypercarbia. She is responding to mechanical ventilatory support. I will adjust the mechanical ventilator to reduce minute ventilation and recheck arterial blood gases. Congestive heart failure: Echocardiogram results are pending; however, verbal report indicates a very large inferior vena cava, thickened ventricles, but a retained ejection fraction. She diuresed well with Lasix. Her creatinine is up, however. I will hold Lasix at this point to allow for some equilibration. Asthma: The patient is receiving beta agonists and intravenous (IV) steroids. Still congested but less wheezy today. Will continue with this approach. Mucous plugging: Likely related to prolonged and excessive tobacco use. Her chest x-ray does show better aeration in the left lower lobe. Will continue with humidification of the ventilator circuit. From an infectious disease standpoint, her nasal swab was positive for rhinovirus/enterovirus. Procalcitonin was up some. Sputum and urine cultures are pending. There has been no fever and no white count. We will hold antibiotic therapy pending a source. Obesity hypoventilation syndrome: Given the very crowded upper airway, we may have to consider replacement of tracheostomy tube pending medical stabilization. Hypertension: Patient's blood pressures are better controlled. At this point we will continue with Norvasc. Likely some blood pressure control is being achieved with the propofol sedation as well. Diabetes: Her disease has been poorly controlled. A1cs have been quite elevated. I will add back some long-acting insulin in an effort to reduce her blood sugars and will continue with fingerstick blood sugars and coverage. Nutritional support will be initiated with tube feedings. We will use Glucerna. Erythrocythemia is likely secondary to chronic hypoxemia of various courses. Her hemoglobin is down some despite diuresis. Hypomagnesemia. We will replace and recheck. Vascular access is poor. She is not a good candidate for a central line. I will ask to place a peripherally inserted central catheter (PICC) line. Deep venous thrombosis (DVT) prophylaxis is being addressed with fondaparinux due to a questionable history of heparin-induced thrombocytopenia. Records from her previous hospitalizations are pending. Ulcer prophylaxis. We will change to IV Protonix. I have discussed the case in detail with the attending physician. The patient's condition is critical. Prognosis is guarded. One hour and 53 minutes was spent in the provision of bedside critical care and coordination, exclusive of an procedure time.
--- NOTE | 2020-01-25 21:15 | CCN ---
CRITICAL CARE NOTE DATE: 01/24/2020 TIME: 5:30 p.m. I was called to evaluate this 44-year-old female admitted for evaluation in light of hypoxemia and depressed level of consciousness. On my arrival, she is poorly responsive, unable to answer questions. On accessing the electronic health record, I have identified a past medical history of hypertension, diabetes, asthma, chronic left deep venous thrombosis (DVT), active smoking, prior cocaine use, diverticulitis, partial colectomy for diverticular disease, incisional hernia, and gastroesophageal reflux disease. At bedside, she is ill appearing, poorly responsive. Her temperature is 97.6, pulse rate 91, respirations 22, blood pressure 197/93. HEENT: Her pupils are midplane to small and do react to light. There is a face mask in place. Neck is krueger and supple She is hirsute. There is no meningismus. Heart sounds are regular, albeit somewhat distant. Breath sounds are diminished bilaterally. There are bilateral rales. Abdomen is soft and obese with intact bowel sounds quite distant. Extremities are edematous. Peripheral pulses are palpable times four. Her white cell count is 9.5, hemoglobin 18.3, hematocrit 59.4, platelet count 207,000. Differential white cell count shows 65.7 neutrophils. The electrolytes are sodium 142, potassium 3.9, chloride 103, CO2 is 34, BUN is 21, creatinine 1.01, glucose 156, lactic acid 0.9, calcium 8.7 with an albumin of 3.5. Her AST is 22, Alt 35, alkaline phosphatase 97. CPK 48. Troponin is 0.1. Brain natriuretic peptide 5646. An arterial blood gas showed a pH of 7.20, pCO2 of 92, pO2 of 69. Chest imaging was reviewed. She has an enlarged heart shadow, and pulmonary edema is noted bilaterally. The primary problem requiring critical attention is acute respiratory failure with hypoxemia and hypercarbia. We will initiate noninvasive positive pressure ventilation and recheck an arterial blood gas. If her CO2 continues to rise, endotracheal tube intubation and mechanical ventilation will be necessary. Congestive heart failure: I have discussed with the primary team and would recommend aggressive diuresis. History of deep venous thrombosis (DVT), left. Though I suspect her gas exchange abnormalities are related primarily to congestive heart failure, embolic disease is possible, and pending stability it may be helpful to obtain an ultrasound study of her lower extremities. Obesity hypoventilation syndrome: Her serum bicarbonate is elevated, as is her serum hemoglobin, suggesting longstanding poor gas exchange. It is likely she will require bilevel positive airway pressure (BiPAP) at night going forward. I reviewed the case with the emergency department staff, admitting attending physician, and I agree with admission to the intensive care unit. I reviewed the case otherwise with the intensive care unit (ICU) team and will facilitate admission to the intensive care unit for ventilator support and close monitoring. One hour and 24 minutes was spent in the provision of bedside critical care and coordination, exclusive of any procedure time.
[2020-01-25] MEDS: MORPHINE 2 MG/ML 1ML VIAL (J2270) IV PRN (22:40)
[2020-01-25] MEDS: MIDAZOLAM HCL 100 MG in D5W 80 ML IV SCH (23:03)
[2020-01-26] VITALS (29 sets, daily range): BP systolic 115–185; BP diastolic 57–99
[2020-01-26] MEDS: NS 1,000 ML IV SCH ×2 (00:35→14:14)
[2020-01-26] MEDS: propofoL 1,000 MG in IV 1 EA IV SCH ×14 (00:36→23:58)
[2020-01-26] MEDS: methylPREDNISolone 125MG 2ML VIAL IV SCH ×3 (02:01→18:04)
[2020-01-26] MEDS: IPRATROPIUM 0.5MG/ALBUTEROL 2.5MG INH SOL UD 3ML (DUONEB) NEB SCH ×6 (03:09→23:40)
[2020-01-26 05:34] LABS: BASO % 0.1 % (0.0-1.0); HEMOGLOBIN 17.3 g/dl (12.0-15.5); LYMPH # 0.6 10^3/uL (1.5-5.0); LYMPH % 4.6 % (24.0-44.0); MEAN CORPUSCULAR HEMOGLOBIN 31.5 pg (27.0-33.0); MEAN CORPUSCULAR HGB CONC 30.9 g/dl (32.0-36.5); MONO # 0.7 10^3/uL (0.0-0.8); MONO % 5.5 % (0.0-5.0); NEUTROPHILS # 10.8 10^3/uL (1.5-8.5); NEUTROPHILS % 89.3 % (36.0-66.0); PLATELET COUNT, AUTOMATED 214 10^3/uL (150-450); RED BLOOD COUNT 5.49 10^6/uL (4.00-5.40); WHITE BLOOD COUNT 12.1 10^3/uL (4.0-10.0)
[2020-01-26 05:53] LABS: ALBUMIN 3.4 GM/DL (3.2-5.2); BILIRUBIN,TOTAL 0.7 MG/DL (0.2-1.0); CALCIUM LEVEL 8.9 MG/DL (8.5-10.1); CREATININE FOR GFR 2.12 MG/DL (0.55-1.30); GLOMERULAR FILTRATION RATE 32.3 (>58); MAGNESIUM LEVEL 2.7 MG/DL (1.8-2.4); PHOSPHORUS LEVEL 8.5 MG/DL (2.5-4.9); POTASSIUM SERUM 3.9 MEQ/L (3.5-5.1); TOTAL PROTEIN 7.2 GM/DL (6.4-8.2)
[2020-01-26 05:56] LABS: ABG BASE EXCESS 5.5 (-2.0-2.0); ABG HCO3 33.7 MEQ/L (22.0-26.0); ABG O2 SATURATION 92.4 % (95.0-99.0); ABG PARTIAL PRESSURE O2 66.6 mmHg (75.0-100.0); ABG STANDARD HCO3 29.3 MEQ/L (22.0-26.0); ABG TOTAL CO2 35.7 MEQ/L (22.0-29.0); ABG pH (ARTERIAL) 7.353 UNITS (7.350-7.450)
[2020-01-26 05:59] LABS: ABG PARTIAL PRESSURE CO2 62.1 mmHg (35.0-45.0)
[2020-01-26] MEDS: HumuLIN R (REGULAR) INSULIN (NovoLIN R) **100U/ML** PER UNIT SC SCH ×3 (06:02→18:04)
--- NOTE | 2020-01-26 08:16 | REP ---
INDICATION: ETT. COMPARISON: 01/25/2020. TECHNIQUE: Single AP view of the chest performed portably with the patient upright. FINDINGS: The patient is rotated. Cardiac size is enlarged. The cardiac silhouette obscures the left lung inferiorly. The left upper lobe is clear. The right lung is clear. The tip of the endotracheal to terminates just above the oneal and is not selectively within either right or left main stem bronchus. The nasogastric tube terminates satisfactorily in the abdominal left upper quadrant. IMPRESSION: Cardiomegaly, unchanged. Visualized lung sheets are clear. Patient is rotated. Endotracheal tube and nasogastric tube as described. <Electronically signed by Alonso Melton > 01/26/20 0842
[2020-01-26] MEDS: FONDAPARINUX SODIUM 2.5 MG/0.5 ML SYR (J1652 PER 0.5MG) SC SCH (08:47)
[2020-01-26] MEDS: amLODIPine 5 MG TAB NG SCH (08:48)
[2020-01-26] MEDS: CHLORHEXIDINE GLUCONATE 0.12 % 15ML UDC (PERIDEX ORAL RINSE) MT SCH ×2 (10:09→21:08)
[2020-01-26] MEDS: PANTOPRAZOLE 40MG VIAL (C9113 PER 1) IV SCH (10:09)
[2020-01-26] MEDS: METOCLOPRAMIDE INJ 10MG/2ML VIAL (J2765 PER 1) IV SCH ×3 (11:00→21:15)
--- NOTE | 2020-01-26 12:11 | CCN ---
CRITICAL CARE NOTE DATE: 01/26/2020 SUBJECTIVE: The patient is seen in the intensive care unit, intubated, mechanically ventilated, sedate with propofol, Versed, and intermittent ketamine. Over the past 24 hours, she had required increasing doses of ketamine. Her tube feed tolerance has been poor. OBJECTIVE: VITAL SIGNS: At bedside, her temperature is 98.5, T-max for the past 24 hours 99, pulse rate 110, respirations 33, blood pressure 152/80. Oxygen saturation is 93% on 45% oxygen. I and O for the past 24 hours 2687 in, 1475 out; since midnight 1240 in, 405 out. Central venous pressure is pending. GENERAL APPEARANCE: She is ill-appearing. NECK: Her endotracheal tube is at 23 cm. Neck is krueger. No stridor. Orogastric tube is in place. Tube feeds infusing. HEART: Sounds are regular. LUNGS: Breath sounds coarse, but better air exchange than yesterday. Chest is symmetric and moves symmetrically. ABDOMEN: Soft with a very large midline hernia. EXTREMITIES: Edematous. Pulses are palpable. DIAGNOSTIC STUDIES: Sodium is 141, potassium 3.9, chloride is 101. CO2 of 34. BUN is up at 45. Creatinine is stable at 2.12. Glucose was 220. Her phosphorus is 8.5, magnesium is 2.7, LDH 400, albumin 3.4. White cell count is up to 12.1 from 9.6. Differential white cell count shows 89% neutrophils. Hemoglobin is 17.3, hematocrit 56, platelet count 214,000. Arterial blood gases show a pH of 7.35, pCO2 of 62, pO2 of 66 on pressure control mode of ventilation. Chest imaging shows cardiomegaly. No new infiltrates. Endotracheal and NG tubes in good position. Infectious disease: The patient has positive nasal swab for enterovirus. Sputum culture is showing Staph and strep; sensitivities are pending. MEDICATIONS: On review, she is receiving DuoNebs, Solu-Medrol 80 mg every eight hours, Arixtra 2.5 mg a day, Versed as needed, propofol drip, Versed drip, ketamine as needed, Protonix 40 mg a day, and saline IV at 80 mL/hour. ASSESSMENT AND PLAN: The primary problem requiring critical attention is acute hypoxic hypercarbic respiratory failure. She is currently compensated on the current ventilator settings. We will continue to monitor gas exchange. Infectious disease: The patient is positive for enterovirus and gram-positives. This is day #2 of Rocephin. White cell count is up slightly, but she has not had a fever. We will await sensitivities. Asthma: The patient is receiving beta agonist and steroids. There is no overt wheezing. Mucous plugging: I suspect that this is related to bronchorrhea. Anticipated with smoking cessation the aeration of her left lower lobe is slightly improved. Congestive heart failure: The patient has become a bit positive on fluids. Will cautiously reduce her saline to 60 mL/hour. Acute on chronic renal failure: Creatinine is stable at 2.1. Hypertension: Controlled with current medications. Glycemic control is less than optimal. I will increase her daily detemir. Deep vein thrombosis (DVT) prophylaxis is in place with fondaparinux pending the results of her other antibody studies for heparin antibody. Ulcer prophylaxis is being addressed with Protonix. Nutritional support: We are attempting to supply her with sufficient nutrition; however, diabetic gastroparesis is complicating this. We will begin Reglan. Her condition is critical. Prognosis is guarded. I have discussed the case with the ENT service who will be visiting her today to consider placement of a tracheostomy tube. I will attempt once again today to reach her daughter, who is her health care proxy, to update her on her status. One hour and 31 minutes was spent in the provision of bedside critical care and coordination excluding any procedure time. DIRK
[2020-01-26] MEDS: cefTRIAXone SOD 1 GM in D5W MINI-BAG PLUS 50 ML IV SCH (13:14)
[2020-01-26] MEDS: MORPHINE 2 MG/ML 1ML VIAL (J2270) IV PRN (14:10)
[2020-01-26] MEDS: KETAMINE HCL 200 MG/20 ML VIAL IV PRN (14:24)
[2020-01-26] MEDS: MIDAZOLAM INJ 2MG/2ML VIAL (J2250 PER 1MG) IV PRN (15:22)
--- NOTE | 2020-01-26 16:27 | ECHO ---
DATE OF PROCEDURE: 01/23/2020 Age: 44 Gender: Female Height: 5 feet 2 inches Weight: 313 pounds REFERRING PHYSICIAN: Luc Bravo M.D. INDICATION: Cardiomyopathy. MEASUREMENTS: 2D Measurements: Aortic root 3.5 cm Proximal ascending aorta 3.5 cm Left atrium 4.1 cm Intraventricular septum 1.75 cm Posterior wall 1.67 cm Left ventricle diastole 4.7 cm Doppler Measurements: No aortic stenosis No aortic regurgitation Aortic valve velocity 124 cm/s LVOT velocity 77.0 cm/s No mitral stenosis No mitral regurgitation Mitral E velocity 93.0 cm/s Mitral A velocity 60 cm/s Mitral deceleration time 240 msec Trace tricuspid regurgitation Mild pulmonic regurgitation Pulmonic velocity 138 cm/s Pulmonary artery acceleration time 95 msec consistent with mild pulmonary hypertension. MITRAL ANNULAR TISSUE DOPPLER E prime septal 4.6 cm/s, E prime lateral no valid DESCRIPTION: Rhythm was sinus with a wide mostly monomorphic QRS complex. Image quality was fair. This was a 2D, M-mode, color flow Doppler, and pulsed wave Doppler examination including mitral annular tissue Doppler. CONCLUSIONS: 1. Moderately-severe concentric left ventricular hypertrophy with mildly hyperdynamic left ventricular (LV) systolic function. Left ventricular ejection fraction (LVEF) 70% by visual estimate. No paradoxical septal motion. No regional wall motion abnormalities of the left ventricle. Restrictive diastolic filling pattern (grade 3 or 4 left ventricular (LV) diastolic dysfunction filling pattern). 2. Suggestive of mild elevation of pulmonary artery systolic pressure. Normal right ventricle size and systolic function. 3. Dilated inferior vena cava (2.7 cm), with marked reduction of respiratory variation suggestive of elevated central venous pressure of at least 20 mmHg. 4. Mild left atrial dilatation. 5. Small circumferential pericardial effusion without diastolic chamber collapse and no significant respiratory variation of intracardiac velocities. ADDITIONAL COMMENTS/RECOMMENDATIONS: Results of this echocardiogram were explained by telephone to Dr. Ralf Pace. [facility] CENTERShanthi
[2020-01-26] MEDS: MIDAZOLAM HCL 100 MG in D5W 80 ML IV SCH (21:00)
[2020-01-26] MEDS: LEVEMIR (INSULIN DETEMIR) 1 UNITS/0.01ML SC SCH (21:08)
[2020-01-27] VITALS (26 sets, daily range): BP systolic 113–207; BP diastolic 57–105
[2020-01-27] MEDS: HumuLIN R (REGULAR) INSULIN (NovoLIN R) **100U/ML** PER UNIT SC SCH ×4 (00:12→17:37)
[2020-01-27] MEDS: propofoL 1,000 MG in IV 1 EA IV SCH ×12 (01:38→22:29)
[2020-01-27] MEDS: NS 1,000 ML IV SCH ×2 (01:38→19:30)
[2020-01-27] MEDS: methylPREDNISolone 125MG 2ML VIAL IV SCH (03:37)
[2020-01-27] MEDS: METOCLOPRAMIDE INJ 10MG/2ML VIAL (J2765 PER 1) IV SCH ×4 (03:38→22:03)
[2020-01-27] MEDS: IPRATROPIUM 0.5MG/ALBUTEROL 2.5MG INH SOL UD 3ML (DUONEB) NEB SCH ×5 (04:00→23:43)
[2020-01-27 04:29] LABS: BASO % 0.1 % (0.0-1.0); HEMATOCRIT 55.7 % (36.0-47.0); HEMOGLOBIN 16.5 g/dl (12.0-15.5); LYMPH # 1.1 10^3/uL (1.5-5.0); LYMPH % 9.5 % (24.0-44.0); MEAN CORPUSCULAR HEMOGLOBIN 30.1 pg (27.0-33.0); MEAN CORPUSCULAR HGB CONC 29.6 g/dl (32.0-36.5); MEAN CORPUSCULAR VOLUME 101.5 fl (80.0-96.0); MONO # 0.9 10^3/uL (0.0-0.8); MONO % 7.6 % (0.0-5.0); NEUTROPHILS # 9.6 10^3/uL (1.5-8.5); NEUTROPHILS % 82.4 % (36.0-66.0); PLATELET COUNT, AUTOMATED 193 10^3/uL (150-450); RED BLOOD COUNT 5.49 10^6/uL (4.00-5.40); WHITE BLOOD COUNT 11.6 10^3/uL (4.0-10.0)
[2020-01-27 05:10] LABS: ALBUMIN 3.1 GM/DL (3.2-5.2); BILIRUBIN,TOTAL 0.5 MG/DL (0.2-1.0); CALCIUM LEVEL 8.6 MG/DL (8.5-10.1); CREATININE FOR GFR 1.96 MG/DL (0.55-1.30); GLOMERULAR FILTRATION RATE 35.4 (>58); PHOSPHORUS LEVEL 6.5 MG/DL (2.5-4.9); TOTAL PROTEIN 6.7 GM/DL (6.4-8.2)
[2020-01-27 06:33] LABS: ABG BASE EXCESS 2.4 (-2.0-2.0); ABG HCO3 30.6 MEQ/L (22.0-26.0); ABG O2 SATURATION 92.6 % (95.0-99.0); ABG PARTIAL PRESSURE O2 66.8 mmHg (75.0-100.0); ABG STANDARD HCO3 26.5 MEQ/L (22.0-26.0); ABG TOTAL CO2 32.4 MEQ/L (22.0-29.0); ABG pH (ARTERIAL) 7.322 UNITS (7.350-7.450)
[2020-01-27 06:36] LABS: ABG PARTIAL PRESSURE CO2 60.4 mmHg (35.0-45.0)
[2020-01-27] MEDS: CHLORHEXIDINE GLUCONATE 0.12 % 15ML UDC (PERIDEX ORAL RINSE) MT SCH ×2 (07:56→20:18)
[2020-01-27] MEDS: amLODIPine 5 MG TAB NG SCH (07:57)
[2020-01-27] MEDS: FONDAPARINUX SODIUM 2.5 MG/0.5 ML SYR (J1652 PER 0.5MG) SC SCH (07:57)
--- NOTE | 2020-01-27 08:12 | REP ---
INDICATION: ETT. COMPARISON: Portable chest dated 01/26/2020. TECHNIQUE: Single AP view of the chest performed portably with the patient semi upright. FINDINGS: The patient is again rotated but not quite as much as on the comparison study. There is cardiomegaly, unchanged. The heart obscures the inferior left lung as previously. The left upper lobe is clear as previously. There is increased density inferomedially in the right lung, artifact from positioning versus right lung infiltrate. The remainder of the right lung is clear. The endotracheal tube tip is above the oneal at the level of the aortic arch in satisfactory location, unchanged. The nasogastric tube terminates in the abdominal left upper quadrant. The precise location of the NG tube tip is excluded at the inferior film margin. IMPRESSION: Probable new infiltrate inferomedially in the right lung. Patient rotated. Cardiomegaly. ETT and NG tubes as described. <Electronically signed by Alonso Melton > 01/27/20 0809
[2020-01-27] MEDS: MIDAZOLAM INJ 2MG/2ML VIAL (J2250 PER 1MG) IV PRN (08:45)
[2020-01-27] MEDS: MORPHINE 2 MG/ML 1ML VIAL (J2270) IV PRN ×2 (08:47→14:23)
[2020-01-27] MEDS: KETAMINE HCL 200 MG/20 ML VIAL IV PRN ×2 (09:34→14:22)
[2020-01-27] MEDS ORDERED: LIDOCAINE 1% MDV 20ML VIAL As Ordered ONE ×2 (10:06→15:03)
--- NOTE | 2020-01-27 10:55 | IPNPDOC ---
Text Note Date of Service The patient was seen on 01/27/20. NOTE Patient remains stable and ventilated with ET tube Plan is still for OR in 48 hours for tracheotomy Still awaiting confirmation of stocking of special length tubes. Will follow. VS,Fishbone, I+O VS, Fishbone, I+O Laboratory Tests 01/27/20 04:11 Vital Signs Date Time Temp Pulse Resp B/P (MAP) Pulse Ox O2 Delivery O2 Flow Rate FiO2 01/27/20 08:57 32 01/27/20 08:47 91 Ventilator 01/27/20 08:00 45 01/27/20 08:00 98.6 97 160/88 (112) 01/23/20 15:37 6.0 I&O- Last 24 Hours up to 6 AM 01/27/20 06:00 Intake Total 4468 ml Output Total 1580 ml Balance 2888 ml DANNY LAMAS MD Jan 27, 2020 10:55
[2020-01-27] MEDS: PANTOPRAZOLE 40MG VIAL (C9113 PER 1) IV SCH (11:05)
[2020-01-27] MEDS: methylPREDNISolone 40MG 1ML VIAL IV SCH ×2 (11:05→17:45)
[2020-01-27] MEDS: cefTRIAXone SOD 1 GM in D5W MINI-BAG PLUS 50 ML IV SCH (12:49)
--- NOTE | 2020-01-27 15:26 | CCN ---
CRITICAL CARE NOTE DATE: 01/27/2020 SUBJECTIVE: The patient is seen in the intensive care unit intubated, mechanically ventilated, sedate, critically ill. This is hospital day #5, ICU day #4, endotracheal tube day #4. OBJECTIVE: VITAL SIGNS: At bedside, her temperature is 98.4, pulse rate 98, respirations 19, blood pressure 149/68. I and O for the past 24 hours 4499 in, 1575 out; since midnight 1209 in, 410 out. GENERAL APPEARANCE: She is ill-appearing, intermittently anxious requiring large doses of sedation. HEENT: Oral mucosa is pink. Her endotracheal tube is at 23 cm. Orogastric tube is in position with tube feeds flowing. NECK: Roca. HEART: Sounds distant, but regular. LUNGS: Breath sounds diminished in the bases with scattered rhonchi. ABDOMEN: Soft and obese with a massive midline hernia. EXTREMITIES: Pulses are diminished, but palpable. All four extremities do move spontaneously. DIAGNOSTIC STUDIES: Her white cell count is down slightly at 11.6, hemoglobin is down at 16.5, hematocrit 55.7, platelet count is down at 193,000. Differential white cell count shows 82% neutrophils. Electrolytes are sodium 142, potassium 4.0, chloride 104, CO2 of 35, BUN up slightly at 54, but creatinine is down slightly at 1.96. Glucose is 174 ranged as high as 239. Her phosphorus is up slightly at 6.5, AST 5, ALT 16, LDH 307. Albumin 3.1. Arterial blood gases show a pH of 7.32, pCO2 of 60, pO2 of 66. This is on a pressure control mode of ventilation rate of 16 peak of 14/PEEP 5, 45% FiO2. Heparin-associated antibodies were negative. On review of imaging studies, there is significant cardiomegaly. The left base is poorly visualized. There may be a new infiltrate in the right or accentuation of previously seen lung markings. On review of microbiology studies, her sputum is showing Staph and strep. Urine showing E. coli. Her nasal smear shows Enterococcus. MEDICATIONS: On review, she is receiving DuoNeb, fondaparinux. Propofol drip, Versed drip, and intermittent ketamine for sedation. Protonix 40 mg a day, Norvasc 5 mg a day, morphine, ceftriaxone 1 gram once daily, Reglan 5 mg every six hours, Solu-Medrol 80 mg every eight hours, detemir 25 units at bedtime. ASSESSMENT/PLAN: The primarily problem requiring critical attention is type 2 hypercarbic-hypoxic respiratory failure. Arterial blood gases are compensated on pressure control. We will continue with the current ventilator settings pending plans for tracheostomy on 01/28. From an infectious disease standpoint, she has Escherichia coli in her urine and possibly a right lower lobe pneumonia. Staph and strep are growing. She is on Rocephin that appears to be responding; we will await sensitivities. Asthma: I am not hearing wheeze today and her minute volumes are acceptable. I will reduce the Solu-Medrol to 40 mg every eight hours. Mucous plugging secondary to an expected bronchorrhea from smoking. Heat and humidity are being supplied via the ventilator circuit. Nurses note moderate amounts of secretions on suctioning. Obesity hypoventilation syndrome: The patient's CO2 is elevated at baseline. Congestive heart failure with diastolic dysfunction and significant left ventricular hypertrophy: I will decrease intravenous (IV) fluids some as her balance is positive. Acute kidney injury: Creatinine is slightly down. Will continue to monitor. Hypertension: Her blood pressures are reasonably controlled with Norvasc. I am reluctant to increase the dose much given her kidney dysfunction. Diabetes mellitus: Glucose control is okay. I will continue with detemir at 25 units a day. I expect her blood sugars may improve by reducing the steroid dose. Deep vein thrombosis (DVT) prophylaxis: This is with fondaparinux. Nutrition: The patient is tolerating tube feedings with the addition of Reglan. We will increase to optimal dose. Ulcer prophylaxis: This is being addressed with Protonix. I have reviewed the case with the ENT service who are making plans to obtain needed supplies in order that we might proceed with tracheostomy on the . I have discussed the case with the patient's daughter, Devi Fulton, who understands the complexity and severity of her mother's illness. One hour and 38 minutes was spent in the provision of bedside critical care and coordination exclusive to any procedure time.
[2020-01-27] MEDS ORDERED: LIDOCAINE 1% MDV 20ML VIAL XX ONE (16:15)
--- NOTE | 2020-01-27 17:18 | REP ---
PROCEDURE NAME: PICC LINE INSERTION W/SITERITE CLINICAL INFORMATION: poor peripheral access. COMPARISON: None. PROCEDURE DESCRIPTION: The procedure was performed by AMY Bronson, under the direct supervision of Dr. Sevilla. The risks and benefits of the procedure were explained to the patient's daughter who is also her healthcare proxy and an informed consent was obtained verbally. Directly prior to the start of the procedure a formal time-out was completed in the patient's room, as this procedure was done portably. The left basilic vein was localized using ultrasound guidance. The skin was prepped and draped in sterile fashion. One mL of 1% lidocaine 10 mg/mL was used as a local anesthetic. Using ultrasound guidance the left basilic vein was cannulated, and a 0.018 guidewire was inserted and advanced to the level of SVC using portable x-ray guidance. The needle was removed and a 5.5 British dilator and peel-away sheath was inserted over the guidewire. A 5.5 British dual lumen catheter was cut to a length of 45 cm. The dilator was removed and the catheter was inserted over the guidewire with the tip ending at the level of the SVC. The peel-away sheath was removed and the catheter was flushed with heparinized saline as per hospital protocol. The catheter was affixed to the skin and a sterile dressing was applied. The patient tolerated the procedure well and there were no immediate complications. CONCLUSION: PICC line insertion into the left basilic vein. No fluoroscopy time was utilized for this procedure. Imaging guidance was obtained using serial portable chest x-rays. <Electronically signed by Kathryn Ervin > 01/27/20 1623 <Electronically signed by Jamie Sevilla > 01/27/20 [id number]
[2020-01-27] MEDS: SODIUM CHLORIDE 0.9% INJ 10 ML SYR IV SCH (17:37)
[2020-01-27] MEDS: MIDAZOLAM HCL 100 MG in D5W 80 ML IV SCH (20:03)
[2020-01-27] MEDS: LEVEMIR (INSULIN DETEMIR) 1 UNITS/0.01ML SC SCH (20:20)
[2020-01-28] VITALS (27 sets, daily range): BP systolic 112–185; BP diastolic 55–100; O2SAT 93–96
[2020-01-28] MEDS: propofoL 1,000 MG in IV 1 EA IV SCH ×13 (00:07→22:45)
[2020-01-28] MEDS: HumuLIN R (REGULAR) INSULIN (NovoLIN R) **100U/ML** PER UNIT SC SCH ×4 (00:08→17:31)
[2020-01-28] MEDS: IPRATROPIUM 0.5MG/ALBUTEROL 2.5MG INH SOL UD 3ML (DUONEB) NEB SCH ×6 (03:11→23:46)
[2020-01-28] MEDS: METOCLOPRAMIDE INJ 10MG/2ML VIAL (J2765 PER 1) IV SCH ×4 (03:40→22:45)
[2020-01-28] MEDS: methylPREDNISolone 40MG 1ML VIAL IV SCH ×3 (03:40→18:22)
[2020-01-28 05:43] LABS: BASO % 0.1 % (0.0-1.0); HEMATOCRIT 54.3 % (36.0-47.0); HEMOGLOBIN 16.5 g/dl (12.0-15.5); LYMPH # 1.2 10^3/uL (1.5-5.0); LYMPH % 10.7 % (24.0-44.0); MEAN CORPUSCULAR HEMOGLOBIN 31.1 pg (27.0-33.0); MEAN CORPUSCULAR HGB CONC 30.4 g/dl (32.0-36.5); MEAN CORPUSCULAR VOLUME 102.5 fl (80.0-96.0); MONO % 8.2 % (0.0-5.0); NEUTROPHILS # 9.3 10^3/uL (1.5-8.5); NEUTROPHILS % 80.7 % (36.0-66.0); PLATELET COUNT, AUTOMATED 194 10^3/uL (150-450); WHITE BLOOD COUNT 11.5 10^3/uL (4.0-10.0)
[2020-01-28 05:49] LABS: ABG BASE EXCESS 2.5 (-2.0-2.0); ABG HCO3 30.1 MEQ/L (22.0-26.0); ABG O2 SATURATION 93.1 % (95.0-99.0); ABG PARTIAL PRESSURE CO2 56.9 mmHg (35.0-45.0); ABG PARTIAL PRESSURE O2 64.8 mmHg (75.0-100.0); ABG STANDARD HCO3 26.5 MEQ/L (22.0-26.0); ABG TOTAL CO2 31.8 MEQ/L (22.0-29.0); ABG pH (ARTERIAL) 7.341 UNITS (7.350-7.450)
[2020-01-28 06:01] LABS: ALBUMIN 2.8 GM/DL (3.2-5.2); BILIRUBIN,TOTAL 0.6 MG/DL (0.2-1.0); CALCIUM LEVEL 8.3 MG/DL (8.5-10.1); CREATININE FOR GFR 1.86 MG/DL (0.55-1.30); GLOMERULAR FILTRATION RATE 37.6 (>58); PHOSPHORUS LEVEL 6.1 MG/DL (2.5-4.9); POTASSIUM SERUM 4.5 MEQ/L (3.5-5.1); TOTAL PROTEIN 6.3 GM/DL (6.4-8.2)
[2020-01-28] MEDS: SODIUM CHLORIDE 0.9% INJ 10 ML SYR IV SCH ×2 (06:14→17:31)
[2020-01-28] MEDS: CHLORHEXIDINE GLUCONATE 0.12 % 15ML UDC (PERIDEX ORAL RINSE) MT SCH ×2 (07:48→21:08)
[2020-01-28] MEDS: amLODIPine 5 MG TAB NG SCH (07:48)
[2020-01-28] MEDS: FONDAPARINUX SODIUM 2.5 MG/0.5 ML SYR (J1652 PER 0.5MG) SC SCH (07:49)
--- NOTE | 2020-01-28 08:53 | REP ---
INDICATION: ETT. COMPARISON: 01/27/2020. TECHNIQUE: Single AP view of the chest performed portably with the patient sitting. FINDINGS: The patient is not rotated on the current study. There is marked cardiomegaly, unchanged. There is interstitial coarsening, however no focal infiltrates are identified. No pleural effusions are identified. There is a 1.5 cm nodule like density in the left costophrenic angle as an interval change, nonspecific, artifact in gown /clothing versus lung nodule. The ET tube tip remains in satisfactory position above the oneal at the level of the aortic arch. The NG tube terminates in the abdominal left upper quadrant however the precise location of the distal tip is again excluded at the inferior film margin. IMPRESSION: Cardiomegaly, unchanged. Interstitial coarsening. No focal infiltrate. Nodule like density left costophrenic angle, artifact versus true lung nodule. ETT and NGT as described. <Electronically signed by Alonso Melton > 01/28/20 0849
[2020-01-28] MEDS: PANTOPRAZOLE 40MG VIAL (C9113 PER 1) IV SCH (09:48)
--- NOTE | 2020-01-28 10:26 | IPNPDOC ---
Text Note Date of Service The patient was seen on 01/28/20. NOTE Plan is Trach tomorrow, Custom tube ordered from [facility] to be overnighted but should be here in AM. Will confirm Please hold any anticoagulation ie Heparin until after procedure if tolerated and safe. VS,Fishbone, I+O VS, Fishbone, I+O Laboratory Tests 01/28/20 04:47 Vital Signs Date Time Temp Pulse Resp B/P (MAP) Pulse Ox O2 Delivery O2 Flow Rate FiO2 01/28/20 10:00 91 18 128/62 (84) 93 Ventilator 45 01/28/20 08:00 99.0 01/23/20 15:37 6.0 I&O- Last 24 Hours up to 6 AM 01/28/20 06:00 Intake Total 3977.1 ml Output Total 1545 ml Balance 2432.1 ml DANNY LAMAS MD Jan 28, 2020 10:26
[2020-01-28] MEDS: cefTRIAXone SOD 1 GM in D5W MINI-BAG PLUS 50 ML IV SCH (12:36)
--- NOTE | 2020-01-28 16:47 | CCN ---
CRITICAL CARE NOTE DATE: 01/28/2020 SUBJECTIVE: The patient is seen in the Intensive Care Unit intubated and mechanically ventilated, sedate with Propofol and Versed. This is ICU day #6, endotracheal tube day #6. A PICC was placed in the left arm yesterday and is infusing well. She is receiving tube feeds at 60 mL per hour. OBJECTIVE: At bedside she is ill-appearing, sedate. Temperature is 99, T-max for the past 24 hours 99.4, pulse rate 103, respirations 20, blood pressure 162/74. Oxygen saturation 94% on 45% oxygen. Input and outpatient for the past 24 hours 4420 in, 1565 out, since midnight 1017 in, 490 out. HEENT: Oral mucosa is pink. Endotracheal tube is at 23 cm. Orogastric tube is in place infusing with tube feedings. Neck is krueger. Heart sounds regular, distant. Breath sounds diminished, coarse but no overt wheezing. Abdomen is obese with a large midline hernia. Extremities are cool. Pulses diminished. Left calf is slightly more firm than the right consistent with prior history of DVT. DIAGNOSTIC STUDIES: Her white cell count remains stable at 11.5, hemoglobin is 16.5, hematocrit 54.3, platelet count is 194,000. Differential white cell count shows 80.7 neutrophils. Sodium is 144, potassium 4.5, chloride 107, CO2 33, BUN 66, creatinine 1.89, glucose 143. Calcium is 8.3 and an albumin is 2.8. Her phosphorus is 6.1 down from 6.5. ALT 14, AST 14 and alkaline phosphatase 52. LDH is 415. CPK is 288. Arterial blood gasses show a pH of 7.34, pCO2 56, pO2 64. On review of imaging there is some improvement in aeration in the left base. Tubes and lines are in good position. On medications review, she is receiving subcutaneous Heparin 5000 every 8 hours, Solu-Medrol 40 mg every 8 hours, Reglan 5 every 6 hours, Ceftriaxone 1 gm every 24 hours, this is day number three, Versed and Propofol drips, DuoNebs with Albuterol and Atrovent, insulin via sliding scale. ASSESSMENT AND PLAN: The primary problem requiring critical attention is [id number] hypoxic hypercarbic respiratory failure. The patient does best on pressure control and gas exchange is acceptable at this time. Infectious Disease: The patient has a urinary tract infection with Escherichia (E.) coli, has pneumonia with Staph strep and enterovirus. This is day number three of Rocephin. Asthma: Lung sounds are coarse but there is no overt wheezing. At this point she is receiving steroids and beta agonist. Mucus plugging secondary to prolonged tobacco abuse. Heat and humidity through the ventilator circuit are addressing this. Obesity hypoventilation syndrome: The patient is scheduled for replacement of her tracheostomy tube tomorrow morning. I appreciate the assistance of the ENT service. Congestive heart failure: Fluids are quite positive. I will decrease fluid administration intravenously. Acute kidney injury: Creatinine is borderline. Urine output is adequate. Hypertension: Adequately controlled on current medications. Diabetes: Blood sugar is acceptable with long-acting insulin and sliding scale. DVT prophylaxis: We have changed to subcutaneous Heparin and will hold the morning dose in anticipation of surgery. Ulcer prophylaxis is being addressed with Protonix. I have reached out to the patient's daughter and left a voice mail message. She has been in communication with nursing. The patient's condition is critical. Prognosis is guarded. One hour and 53 minutes were spent in the provision of bedside critical care and coordination exclusive of any time spent for the performance of procedures.
[2020-01-28] MEDS: MORPHINE 2 MG/ML 1ML VIAL (J2270) IV PRN (17:38)
[2020-01-28] MEDS: LEVEMIR (INSULIN DETEMIR) 1 UNITS/0.01ML SC SCH (21:08)
[2020-01-28] MEDS: MIDAZOLAM HCL 100 MG in D5W 80 ML IV SCH (21:37)
[2020-01-29] VITALS (24 sets, daily range): BP systolic 121–178; BP diastolic 58–93; O2SAT 92–93
[2020-01-29] MEDS: HumuLIN R (REGULAR) INSULIN (NovoLIN R) **100U/ML** PER UNIT SC SCH ×4 (00:25→17:21)
[2020-01-29] MEDS: propofoL 1,000 MG in IV 1 EA IV SCH ×11 (00:26→23:22)
[2020-01-29] MEDS: methylPREDNISolone 40MG 1ML VIAL IV SCH ×3 (03:46→18:11)
[2020-01-29] MEDS: METOCLOPRAMIDE INJ 10MG/2ML VIAL (J2765 PER 1) IV SCH ×4 (03:46→22:24)
[2020-01-29] MEDS: IPRATROPIUM 0.5MG/ALBUTEROL 2.5MG INH SOL UD 3ML (DUONEB) NEB SCH ×5 (05:06→19:36)
[2020-01-29] MEDS: SODIUM CHLORIDE 0.9% INJ 10 ML SYR IV SCH ×2 (05:42→17:21)
[2020-01-29 06:04] LABS: BASO % 0.1 % (0.0-1.0); HEMATOCRIT 55.4 % (36.0-47.0); HEMOGLOBIN 16.8 g/dl (12.0-15.5); LYMPH # 1.1 10^3/uL (1.5-5.0); LYMPH % 8.7 % (24.0-44.0); MEAN CORPUSCULAR HEMOGLOBIN 30.8 pg (27.0-33.0); MEAN CORPUSCULAR HGB CONC 30.3 g/dl (32.0-36.5); MEAN CORPUSCULAR VOLUME 101.5 fl (80.0-96.0); MONO % 8.3 % (0.0-5.0); NEUTROPHILS % 82.6 % (36.0-66.0); PLATELET COUNT, AUTOMATED 199 10^3/uL (150-450); RED BLOOD COUNT 5.46 10^6/uL (4.00-5.40); WHITE BLOOD COUNT 12.1 10^3/uL (4.0-10.0)
[2020-01-29 06:04] LABS: ABG HCO3 28.5 MEQ/L (22.0-26.0); ABG O2 SATURATION 91.4 % (95.0-99.0); ABG PARTIAL PRESSURE CO2 50.6 mmHg (35.0-45.0); ABG PARTIAL PRESSURE O2 63.8 mmHg (75.0-100.0); ABG pH (ARTERIAL) 7.368 UNITS (7.350-7.450)
[2020-01-29 06:44] LABS: ALBUMIN 2.7 GM/DL (3.2-5.2); BILIRUBIN,TOTAL 0.5 MG/DL (0.2-1.0); CREATININE FOR GFR 1.66 MG/DL (0.55-1.30); GLOMERULAR FILTRATION RATE 42.9 (>58); PHOSPHORUS LEVEL 5.9 MG/DL (2.5-4.9); POTASSIUM SERUM 4.9 MEQ/L (3.5-5.1); TOTAL PROTEIN 6.1 GM/DL (6.4-8.2)
--- NOTE | 2020-01-29 07:45 | REP ---
INDICATION: ETT. COMPARISON: 01/28/2020. TECHNIQUE: Single AP view of the chest performed portably with the patient upright. FINDINGS: There is marked cardiomegaly, unchanged. There is an infiltrate inferiorly in the right upper lobe as an interval change. There is an infiltrate in the right lower lobe as an interval change. The nodular density in the left costophrenic angle on the comparison study is obscured on the current examination. In the ETT and NG tube remain in satisfactory locations, unchanged. IMPRESSION: New right upper lobe and right lower lobe infiltrates. No other interval change. <Electronically signed by Alonso Melton > 01/29/20 [id number]
[2020-01-29] MEDS: CHLORHEXIDINE GLUCONATE 0.12 % 15ML UDC (PERIDEX ORAL RINSE) MT SCH ×2 (09:08→21:07)
[2020-01-29] MEDS: amLODIPine 5 MG TAB NG SCH (09:09)
--- NOTE | 2020-01-29 10:31 | CCN ---
DATE: 01/23/2020 Patient seen shortly after transfer from the emergency department to the intensive care unit. She remains severely lethargic. Her temperature is 97, pulse rate 88, respirations 27, blood pressure 186/102 (noninvasive ventilation is in place via full face mask, there is some mask leak). Heart sounds are regular and distant. Breath sounds revealing diffuse coarse wheeze at this point. Air exchange is limited and she is becoming asynchronous with a noninvasive ventilator. Stat arterial blood gas was requested. The results have now returned with a pH of 7.18, pCO2 of 99, pO2 of 71. There is clear urine draining in the Leonard catheter. The primary problem requiring critical attention is acute respiratory failure. The patient continues to deteriorate despite aggressive measures and noninvasive ventilation. We will give her a stat nebulized treatment and we will increase ventilating pressures. The patient is reevaluated after these interventions and is no better. We will proceed with emergency intubation and begin mechanical ventilatory support. One hour and 15 minutes were spent in the provision of bedside critical care and coordination, exclusive of any procedure time. DIRK
--- NOTE | 2020-01-29 10:35 | CCN ---
DATE: 01/24/2020 TIME: 0540 p.m. SUBJECTIVE: I was called stat to the bedside. The patient had become light on sedation and pulled her endotracheal tubes. Saturation levels precipitously fell and a MAX cart was called. Bag valve mask ventilation was initiated with some improvement in oxygen saturation. Anesthesia responded promptly to the code and were able to replace the endotracheal tube. She is now sedate once again with propofol. OBJECTIVE: VITAL SIGNS: Temperature 98, pulse rate 85, respirations 27/16 delivered, blood pressure 132/72. HEENT: The endotracheal tube is at 24 cm. Her mucosa is moist. There is no stridor and no air leak. HEART: Sounds are regular. LUNGS: Breath sounds coarse and diminished with expiratory wheeze, more so on the right than the left. ABDOMEN: Soft with a massive midline hernia. EXTREMITIES: Pulses are palpable x4. I will continue with propofol for sedation to a Max level 3. Will adjust the mechanical ventilator to deliver adequate minute ventilation and monitor gas exchange. 41 minutes was spent in the provision of bedside critical care and coordination, exclusive of any procedure time. DIRK
--- NOTE | 2020-01-29 11:41 | IPNPDOC ---
Text Note Date of Service The patient was seen on 01/29/20. NOTE Plan for Trach has been postponed because of concerns of call coverage over the weekend starting in 24 hours. One week per month there is no call coverage for the ENT service so elective surgeries are avoided. Also, I had ordered a custom extended Shiley tube which is coming in today and had not arrived at OR when I last checked. I have discussed with Dr. Garcia and he is prepared to proceed on Sunday at 10:30 AM. Sorry for the delay and inconvenience. VS,Fishbone, I+O VS, Fishbone, I+O Laboratory Tests 01/29/20 05:23 Vital Signs Date Time Temp Pulse Resp B/P (MAP) Pulse Ox O2 Delivery O2 Flow Rate FiO2 01/29/20 09:09 87 121/58 01/29/20 09:00 92 Ventilator 45 01/29/20 08:00 99.7 18 01/23/20 15:37 6.0 I&O- Last 24 Hours up to 6 AM 01/29/20 05:59 Intake Total 3094.2 ml Output Total 1994 ml Balance 1099.2 ml DANNY LAMAS MD Jan 29, 2020 11:41
[2020-01-29] MEDS: cefTRIAXone SOD 1 GM in D5W MINI-BAG PLUS 50 ML IV SCH (13:20)
[2020-01-29] MEDS: PANTOPRAZOLE 40MG VIAL (C9113 PER 1) IV SCH (13:21)
--- NOTE | 2020-01-29 13:21 | CCN ---
CRITICAL CARE NOTE DATE: 01/29/2020 SUBJECTIVE: The patient is seen in the intensive care unit intubated, mechanically ventilated, sedate with propofol and p.r.n. Versed, critically ill. This is hospital day #7, endotracheal tube day #5. OBJECTIVE: VITAL SIGNS: At bedside, her temperature is 98.6, pulse rate 91, respirations 20, blood pressure 142/80. FiO2 of 0.45 yields a saturation of 92%. I and O for the past 24 hours 3315 in, 1930 out; since might 300 in, 370 out. GENERAL APPEARANCE: She is ill-appearing. HEENT: Oral mucosa is pink. The neck is quite krueger. There is an endotracheal tube at 24 cm. Orogastric tube in place with tube feeds infusing. HEART: Sounds are regular without appreciable murmur and somewhat distant. RESPIRATORY: Breath sounds are diminished and difficult to appreciate in the bases. ABDOMEN: Soft with a very large midline hernia. EXTREMITIES: Pulsatile x4. DIAGNOSTIC STUDIES: Her white blood cell count is stable at 12.1, hemoglobin 16.8, hematocrit 55.4, platelet count 199,000. Differential white cell count shows 82% neutrophils. Electrolytes are sodium 144, potassium 4.9, chloride 106, CO2 of 30, BUN 71, creatinine is down at 1.66, and glucose is 132 range 132 to 249. Her calcium is 8.0, phosphorus 5.9, AST 15, ALT 13, LDH down to 371, and the albumin is 2.7. Arterial blood gases show a pH of 7.36, pCO2 of 50, and pO2 of 63 on a pressure control mode of ventilation. The microbiology studies have shown Strep agalactiae and Staph aureus in her sputum oxacillin sensitive and E. coli in the urine pansensitive. She also has Enterovirus in the nasopharynx. MEDICATIONS: On review, this is day #3 of ceftriaxone. She receives Solu-Medrol 40 mg every eight hours, detemir 25 units at bedtime, Reglan 5 mg every six hours, propofol drip, Versed drip, ketamine p.r.n., sliding scale insulin. ASSESSMENT AND PLAN: The primary problem requiring critical attention is hypoxemic hypercarbic respiratory failure. The patient has done better from a ventilatory standpoint on pressure control. Her gas exchange is at its expected baseline at this point. We will continue with the current ventilator setting and follow gas exchange. She is on oximetry and continuous end-tidal CO2 monitoring. Infectious disease: She has both urinary tract and respiratory tract infections (E. coli, Staph strep, and Enterovirus). This is day #4 of IV Rocephin, her white cell count is stable, and there has been no fever. X-ray shows some increasing atelectasis in the right base, possibly early infiltrate. Asthma: The patient has a history of asthma. Early on, her breath sounds were very coarse with wheeze and now, they are less wheezy. Some mucous plugging was encountered previously. We will continue with steroids and beta agonist. Obesity hypoventilation syndrome: The patient was deteriorating progressively prior to her admission to the hospital and as she had a prior history of tracheostomy, we will arrange for this to be replaced. I have spoken with the ENT service. Unfortunately, the special tracheostomy tube that was ordered has not arrived and they are now planning for tracheostomy to be performed on Sunday. Congestive heart failure: Her gas exchange is acceptable. We decreased IV fluids yesterday and her fluid balance is better today than it had been in the past. Lung compliance remains good. Acute kidney injury: Her creatinine is down today at 1.66. Hypertension: She is intermittently hypertensive now with optimal sedation. Her blood pressures are acceptable. Diabetes: Blood sugars reasonably controlled with long-acting and short-acting insulin by scale. Deep vein thrombosis (DVT) prophylaxis: Will continue with subcutaneous heparin holding it prior to the surgery. Ulcer prophylaxis being addressed with Protonix. Nutritional support is being addressed with tube feedings. She is now tolerating them with the addition of Reglan to address what is felt to be diabetic gastroparesis. Family has been in communication with nursing and has been updated. Her condition is critical. Prognosis is guarded. One and 40 minutes were spent in the provision of bedside critical care and coordination exclusive of procedure time. DIRK
[2020-01-29] MEDS: LEVEMIR (INSULIN DETEMIR) 1 UNITS/0.01ML SC SCH (21:07)
[2020-01-29] MEDS: MIDAZOLAM HCL 100 MG in D5W 80 ML IV SCH (22:43)
[2020-01-30] VITALS (27 sets, daily range): BP systolic 122–192; BP diastolic 60–103; O2SAT 92
[2020-01-30] MEDS: IPRATROPIUM 0.5MG/ALBUTEROL 2.5MG INH SOL UD 3ML (DUONEB) NEB SCH ×7 (00:22→23:08)
[2020-01-30] MEDS: HumuLIN R (REGULAR) INSULIN (NovoLIN R) **100U/ML** PER UNIT SC SCH ×4 (00:35→18:07)
[2020-01-30] MEDS: MIDAZOLAM INJ 2MG/2ML VIAL (J2250 PER 1MG) IV PRN (00:36)
[2020-01-30] MEDS: propofoL 1,000 MG in IV 1 EA IV SCH ×12 (00:49→21:59)
[2020-01-30] MEDS: methylPREDNISolone 40MG 1ML VIAL IV SCH ×3 (02:24→18:08)
[2020-01-30] MEDS: METOCLOPRAMIDE INJ 10MG/2ML VIAL (J2765 PER 1) IV SCH ×4 (04:21→22:18)
[2020-01-30 05:10] LABS: BASO % 0.1 % (0.0-1.0); HEMATOCRIT 55.1 % (36.0-47.0); HEMOGLOBIN 16.6 g/dl (12.0-15.5); LYMPH # 0.9 10^3/uL (1.5-5.0); MEAN CORPUSCULAR HEMOGLOBIN 30.1 pg (27.0-33.0); MEAN CORPUSCULAR HGB CONC 30.1 g/dl (32.0-36.5); MEAN CORPUSCULAR VOLUME 99.8 fl (80.0-96.0); MONO % 8.3 % (0.0-5.0); NEUTROPHILS # 10.3 10^3/uL (1.5-8.5); PLATELET COUNT, AUTOMATED 231 10^3/uL (150-450); RED BLOOD COUNT 5.52 10^6/uL (4.00-5.40); WHITE BLOOD COUNT 12.2 10^3/uL (4.0-10.0)
[2020-01-30 05:37] LABS: ALBUMIN 2.9 GM/DL (3.2-5.2); BILIRUBIN,TOTAL 0.6 MG/DL (0.2-1.0); CALCIUM LEVEL 8.6 MG/DL (8.5-10.1); CREATININE FOR GFR 1.55 MG/DL (0.55-1.30); GLOMERULAR FILTRATION RATE 46.4 (>58); PHOSPHORUS LEVEL 5.7 MG/DL (2.5-4.9); TOTAL PROTEIN 6.6 GM/DL (6.4-8.2)
[2020-01-30] MEDS: SODIUM CHLORIDE 0.9% INJ 10 ML SYR IV SCH ×2 (06:00→17:31)
[2020-01-30] MEDS: HEPARIN SOD (PORCINE) 5000UNITS/ML 1ML VIAL/SYRINGE SQ SCH ×3 (06:10→22:17)
[2020-01-30 06:28] LABS: ABG BASE EXCESS 2.6 (-2.0-2.0); ABG HCO3 28.4 MEQ/L (22.0-26.0); ABG O2 SATURATION 89.1 % (95.0-99.0); ABG PARTIAL PRESSURE CO2 47.4 mmHg (35.0-45.0); ABG STANDARD HCO3 26.5 MEQ/L (22.0-26.0); ABG TOTAL CO2 29.9 MEQ/L (22.0-29.0); ABG pH (ARTERIAL) 7.396 UNITS (7.350-7.450)
--- NOTE | 2020-01-30 08:07 | REP ---
INDICATION: ETT. COMPARISON: Comparison radiograph January 29, 2020. TECHNIQUE: Portable upright AP chest radiograph. FINDINGS: Endotracheal tube is seen in good position. A left-sided PICC line is seen in place. NG tube courses into the left upper quadrant. There is moderate cardiomegaly. The patient is rotated to the right for the current exposure. There are increased markings in the left perihilar region. The right lung is less well seen.. IMPRESSION: Cardiomegaly again observed. Endotracheal and nasogastric tubes in good position. Increased pleuroparenchymal markings on the left.. <Electronically signed by Jamie Sevlila > 01/30/20 [id number]
[2020-01-30] MEDS: CHLORHEXIDINE GLUCONATE 0.12 % 15ML UDC (PERIDEX ORAL RINSE) MT SCH ×2 (09:17→20:34)
[2020-01-30] MEDS: amLODIPine 5 MG TAB NG SCH (09:18)
[2020-01-30] MEDS: PANTOPRAZOLE 40MG VIAL (C9113 PER 1) IV SCH (10:17)
[2020-01-30] MEDS: cefTRIAXone SOD 1 GM in D5W MINI-BAG PLUS 50 ML IV SCH (13:07)
--- NOTE | 2020-01-30 14:39 | CCN ---
CRITICAL CARE NOTE DATE: 01/30/2020 Critical care time was 52 minutes. This excludes all procedures. SUBJECTIVE: Critical care attendance needed for severe hypoxic hypercarbic respiratory failure in a morbidly obese patient with cardiomegaly, congestive heart failure, history of asthma, and obesity hypoventilation. Overnight the patient had some twitching movements. They did not appear to be myoclonic in nature, did not appear to be seizure activity and there was no significant tightening of the limbs. No lower extremity myoclonus. The patient is sedated on mechanical ventilation. She did pull out her tube partial way last night. However, it was easily advanced without any desaturation. This morning she remains hypoxic on mechanical ventilation requiring tracheostomy which is scheduled for early next week. She is hospital day number eight, endotracheal tube intubation day number six. PHYSICAL EXAM: Vital signs: Temperature is 99.4, pulse is 87, respiratory rate is 18, blood pressure is 122/60 with an oxygen saturation of 92% on 0.50 FiO2. General appearance: Ill-appearing on mechanical ventilation. HEENT: Oral and nasal mucosa pink and moist without lesions. Mucous membranes are moist. Oral opening is small. Oral gastric tube is in place. Neck is thick in circumference, difficult to assess JVP. Cardiac: Distant S1, S2 without audible murmur, rub, or gallop. There is peripheral edema. Pulmonary: Breath sounds are decreased throughout, especially difficult to auscultate at the bases. No dullness to percussion. No rhonchi or wheeze. Abdomen: Very large with a very large midline hernia. No masses or other lesions. No discernible hepatosplenomegaly. Extremities: No cyanosis or clubbing but there is edema. Skin is dark without cyanosis. No rashes or jaundice. Laboratory evaluation shows a white blood cell count of 12.2, hemoglobin 16.6, platelet count 231, with an arterial blood gas with pH of 7.39, pCO2 47, PaO2 of 59 on mechanical ventilation. Sodium is 145, potassium 5.0, chloride 107, bicarb 29, BUN 76, creatinine 1.55 with a glucose of 149, phosphorus 5.7. LDH 299. CK 287, albumin 2.9. Sputum cultures as mentioned on yesterday's note grew B. strep and Staph aureus. Urine culture had Escherichia (E.) coli. Chest x-ray this morning shows cardiomegaly with some shifting of cardiac silhouette to the right. No evidence of pneumothorax or new infiltrate. Endotracheal tube is in good position. IMPRESSION: 1. Primary problem requiring critical care attention is a hypoxemic hypercarbic respiratory failure. Continues on mechanical ventilation. Awaiting tracheostomy. She has traditionally been a difficult intubation per report. With the degree of obesity hypoventilation I do not think she will do well without a tracheostomy. The patient is on day number five of antibiotic therapy with ceftriaxone for positive respiratory cultures, tracheitis without overt pneumonia. There is evidence of E. coli in the urine. Therefore she is being covered without any change or increase in leukocytosis. 2. Asthma. Patient with a history of asthma. Early on breath sounds were very coarse, wheezing. I do not auscultate any wheezes today. We will continue with nebulized therapy. The patient continues on Solu-Medrol. We will start to taper this as tolerated. 3. Obesity hypoventilation syndrome. The patient continues to deteriorate at home. She did have a prior tracheostomy which I believe requires replacement. Plan is for Sunday. 4. CHF. No evidence of volume overload today. 5. Acute kidney injury. Creatinine is at 1.55 with a BUN of 76. No indication for dialysis. 6. Hypertension, intermittently hypertensive. We will add p.r.n. hydralazine. 7. Diabetes. Blood sugars under 200. 8. Nutrition, on tube feeds with Reglan. 9. DVT prophylaxis with Heparin. 10. GI prophylaxis with Protonix. The patient's prognosis remains guarded.
[2020-01-30] MEDS: ACETAMINOPHEN 325 MG/10.15 ML UDC GT PRN (20:33)
[2020-01-30] MEDS: LEVEMIR (INSULIN DETEMIR) 1 UNITS/0.01ML SC SCH (20:34)
[2020-01-30] MEDS ORDERED: METOPROLOL TART 25 MG TABLET NG ONE (22:15)
[2020-01-30] MEDS: MORPHINE 2 MG/ML 1ML VIAL (J2270) IV PRN (22:35)
[2020-01-31] VITALS (44 sets, daily range): BP systolic 108–183; BP diastolic 64–97; O2SAT 94–96
[2020-01-31] MEDS: MIDAZOLAM HCL 100 MG in D5W 80 ML IV SCH ×2 (00:03→21:30)
[2020-01-31] MEDS: HumuLIN R (REGULAR) INSULIN (NovoLIN R) **100U/ML** PER UNIT SC SCH ×5 (00:11→23:49)
[2020-01-31] MEDS: propofoL 1,000 MG in IV 1 EA IV SCH ×14 (00:55→21:23)
[2020-01-31] MEDS: ACETAMINOPHEN 325 MG/10.15 ML UDC GT PRN ×3 (00:56→20:03)
[2020-01-31] MEDS: IPRATROPIUM 0.5MG/ALBUTEROL 2.5MG INH SOL UD 3ML (DUONEB) NEB SCH ×6 (03:24→23:25)
[2020-01-31] MEDS: methylPREDNISolone 40MG 1ML VIAL IV SCH ×3 (03:28→23:49)
[2020-01-31] MEDS: METOCLOPRAMIDE INJ 10MG/2ML VIAL (J2765 PER 1) IV SCH ×4 (03:29→21:23)
[2020-01-31 04:41] LABS: BASO % 0.1 % (0.0-1.0); HEMATOCRIT 53.9 % (36.0-47.0); HEMOGLOBIN 16.7 g/dl (12.0-15.5); LYMPH # 1.6 10^3/uL (1.5-5.0); LYMPH % 14.8 % (24.0-44.0); MONO # 1.1 10^3/uL (0.0-0.8); MONO % 10.5 % (0.0-5.0); NEUTROPHILS # 7.9 10^3/uL (1.5-8.5); NEUTROPHILS % 74.1 % (36.0-66.0); PLATELET COUNT, AUTOMATED 225 10^3/uL (150-450); RED BLOOD COUNT 5.39 10^6/uL (4.00-5.40); WHITE BLOOD COUNT 10.6 10^3/uL (4.0-10.0)
[2020-01-31 05:07] LABS: ALBUMIN 2.6 GM/DL (3.2-5.2); BILIRUBIN,TOTAL 0.5 MG/DL (0.2-1.0); CALCIUM LEVEL 8.2 MG/DL (8.5-10.1); CREATININE FOR GFR 1.57 MG/DL (0.55-1.30); GLOMERULAR FILTRATION RATE 45.7 (>58); PHOSPHORUS LEVEL 5.5 MG/DL (2.5-4.9); POTASSIUM SERUM 4.8 MEQ/L (3.5-5.1); TOTAL PROTEIN 6.1 GM/DL (6.4-8.2)
[2020-01-31] MEDS: SODIUM CHLORIDE 0.9% INJ 10 ML SYR IV SCH ×2 (05:11→17:57)
[2020-01-31] MEDS: HEPARIN SOD (PORCINE) 5000UNITS/ML 1ML VIAL/SYRINGE SQ SCH ×3 (05:11→21:26)
[2020-01-31 06:27] LABS: ABG BASE EXCESS 2.1 (-2.0-2.0); ABG HCO3 26.5 MEQ/L (22.0-26.0); ABG O2 SATURATION 96.6 % (95.0-99.0); ABG PARTIAL PRESSURE CO2 40.7 mmHg (35.0-45.0); ABG PARTIAL PRESSURE O2 83.3 mmHg (75.0-100.0); ABG STANDARD HCO3 26.3 MEQ/L (22.0-26.0); ABG TOTAL CO2 27.8 MEQ/L (22.0-29.0); ABG pH (ARTERIAL) 7.432 UNITS (7.350-7.450)
--- NOTE | 2020-01-31 07:51 | REP ---
INDICATION: ETT COMPARISON: 01/30/2020, 01/29/2020 TECHNIQUE: Portable AP view of the chest FINDINGS: Endotracheal tube 1.5 cm above the oneal. Nasogastric tube courses below the left hemidiaphragm. Left PICC line with tip in the SVC. Lung sheets demonstrate mildly improved aeration although continued evidence for perihilar and bilateral lower lobe infiltrates remain obvious. Small layering effusions cannot be excluded. No pneumothorax. The mediastinum and cardiac silhouette are stable with cardiomegaly again suggested. The skeletal structures are intact. IMPRESSION: 1. Endotracheal tube 1.5 cm above the oneal. 2. Mildly improved aeration with continued perihilar and lower lobe opacities. Small layering effusions cannot be excluded. <Electronically signed by Marlo Gleason > 01/31/20 1711
[2020-01-31] MEDS: CHLORHEXIDINE GLUCONATE 0.12 % 15ML UDC (PERIDEX ORAL RINSE) MT SCH ×2 (08:24→20:02)
[2020-01-31] MEDS: amLODIPine 5 MG TAB NG SCH (08:24)
[2020-01-31] MEDS: PANTOPRAZOLE 40MG VIAL (C9113 PER 1) IV SCH (10:08)
[2020-01-31] MEDS ORDERED: FUROSEMIDE 40MG/4ML VIAL (J1940) IV ONE (12:00)
[2020-01-31] MEDS: hydrALAZINE 20MG/ML 1ML VIAL (J0360 PER 20MG) IV SCH ×3 (12:53→23:49)
[2020-01-31] MEDS: PIPERACILLIN/TAZOBACTAM SOD 4.5 GM in D5W MINI-BAG PLUS 50 ML IV SCH ×3 (12:55→23:50)
--- NOTE | 2020-01-31 13:48 | CCN ---
CRITICAL CARE NOTE DATE: 01/31/2020 CRITICAL CARE TIME: 64 minutes. This excludes all procedures. Overnight the patient was spiking fevers, having episodes of hypertension, and actually had an episode of hypoxia. Fevers have been trending down to now 100.4 rectally; however, this is with Tylenol. Hypertension improved with treatment with metoprolol, and hypoxia improved with increased positive end-expiratory pressure (PEEP). Patient is fairly large and likely needs increased positive respiratory pressure. This morning patient is sedated on mechanical ventilation. Is not moving at this point in time. Airway is somewhat compromised, therefore waiting for tracheostomy. No evidence of seizure activity. PHYSICAL EXAMINATION: Temperature is 100.4, pulse is 90, respiratory rate is 18, blood pressure is 150/77, oxygen saturation ranging 94%-99% on 0.60 FiO2. PEEP of 10. Patient has been net positive at least 6 liters since January 25. HEENT: Sclerae clear and anicteric. Pupils equal, reactive to light. Mucous membranes are moist. She is hirsute. Neck is large in circumference. No mass or palpable thyromegaly. Difficult to assess jugular venous pressure (JVP). CARDIAC: Distant S1, S2 without audible murmur, rub, or gallop. No peripheral edema. PULMONARY: Decreased breath sounds throughout without rales, rhonchi, or wheezes. No dullness to percussion. ABDOMEN: Obese with very large ventral midline hernia. No masses or other lesions. NO discernible hepatosplenomegaly; however, difficult to assess due to body habitus. EXTREMITIES: No cyanosis or clubbing, but there is some edema. SKIN: Dark. No rashes, jaundice, or bruising. NEUROLOGIC: No tremor or seizure activity. LABORATORY EVALUATION: White blood cell count 10.6, hemoglobin 16.7, platelet count of 225. Sodium 146, potassium 4.8, chloride 110, bicarbonate 27, BUN 79, creatinine 1.57 with an arterial blood gas of 7.43, pCO2 of 40, PaO2 of 83. Chest x-ray shows some vascular congestion. Some fluid in the fissure. IMPRESSION: The main issue for this patient is her acute on chronic hypoxic hypercarbic respiratory failure with obesity hypoventilation. PEEP adjusted yesterday. Waiting for tracheostomy. 1. Acute hypoxic respiratory failure. Continue mechanical ventilation. PEEP increased, as mentioned above. 2. Fever. We will repeat blood cultures. Expand antibiotic therapy. Will obtain procalcitonin. 3. Abnormal chest x-ray with volume overload. History of congestive heart failure (CHF). Net positive 6 liters over the past few days. Therefore, added Lasix. 4. Hypertension. Added as-needed hydralazine. Increase Norvasc. With the addition of Lasix hopefully this will improve her blood pressure control, especially with the sedation that she is on. 5. Hypernatremia. 6. Acute kidney injury. Creatinine is 1.57. 7. Hyperglycemia. Glucose is averaging less than 180. No indication for increased therapy; however, I am decreasing Solu-Medrol today. 8. History of asthma. No bronchospasm on exam. Will decrease Solu-Medrol. 9. Gastrointestinal (GI) prophylaxis. Patient is on Protonix. 10. Deep venous thrombosis (DVT) prophylaxis with heparin. 11. Nutrition. Patient is on tube feeds with Reglan. Prognosis remains guarded. Critical care time as mentioned above.
[2020-01-31] MEDS ORDERED: VANCOMYCIN HCL 1,000 MG, VIAL MATE ADAPTER 1 EACH in D5W 250 ML IV ONE (14:00)
[2020-01-31] MEDS: VANCOMYCIN HCL 1,000 MG, VIAL MATE ADAPTER 1 EACH in D5W 250 ML IV SCH (14:55)
[2020-01-31] MEDS: LEVEMIR (INSULIN DETEMIR) 1 UNITS/0.01ML SC SCH (20:03)
[2020-02-01] VITALS (64 sets, daily range): BP systolic 77–171; BP diastolic 42–92; O2SAT 95–99
[2020-02-01] MEDS: ACETAMINOPHEN 325 MG/10.15 ML UDC GT PRN ×2 (00:04→04:44)
[2020-02-01] MEDS: VANCOMYCIN HCL 1,000 MG, VIAL MATE ADAPTER 1 EACH in D5W 250 ML IV SCH (00:57)
[2020-02-01] MEDS: propofoL 1,000 MG in IV 1 EA IV SCH ×6 (00:58→20:09)
[2020-02-01] MEDS: IPRATROPIUM 0.5MG/ALBUTEROL 2.5MG INH SOL UD 3ML (DUONEB) NEB SCH ×6 (04:01→23:24)
[2020-02-01] MEDS: METOCLOPRAMIDE INJ 10MG/2ML VIAL (J2765 PER 1) IV SCH ×5 (04:40→21:19)
[2020-02-01] MEDS: hydrALAZINE 20MG/ML 1ML VIAL (J0360 PER 20MG) IV SCH (05:04)
[2020-02-01] MEDS: SODIUM CHLORIDE 0.9% INJ 10 ML SYR IV SCH ×2 (05:04→17:40)
[2020-02-01] MEDS: HEPARIN SOD (PORCINE) 5000UNITS/ML 1ML VIAL/SYRINGE SQ SCH ×3 (05:29→21:19)
[2020-02-01] MEDS: PIPERACILLIN/TAZOBACTAM SOD 4.5 GM in D5W MINI-BAG PLUS 50 ML IV SCH ×4 (05:29→23:45)
[2020-02-01] MEDS ORDERED: NS 1,000 ML IV ONE (05:45)
[2020-02-01 05:59] LABS: BASO # 0.1 10^3/uL (0.0-0.2); BASO % 0.5 % (0.0-1.0); EOS % 0.1 % (0.0-3.0); HEMATOCRIT 53.2 % (36.0-47.0); HEMOGLOBIN 15.8 g/dl (12.0-15.5); LYMPH # 1.4 10^3/uL (1.5-5.0); LYMPH % 13.2 % (24.0-44.0); MEAN CORPUSCULAR HEMOGLOBIN 29.9 pg (27.0-33.0); MEAN CORPUSCULAR HGB CONC 29.7 g/dl (32.0-36.5); MEAN CORPUSCULAR VOLUME 100.6 fl (80.0-96.0); MONO # 0.9 10^3/uL (0.0-0.8); MONO % 8.5 % (0.0-5.0); NEUTROPHILS # 8.3 10^3/uL (1.5-8.5); PLATELET COUNT, AUTOMATED 237 10^3/uL (150-450); RED BLOOD COUNT 5.29 10^6/uL (4.00-5.40); WHITE BLOOD COUNT 10.8 10^3/uL (4.0-10.0)
[2020-02-01] MEDS: HumuLIN R (REGULAR) INSULIN (NovoLIN R) **100U/ML** PER UNIT SC SCH ×4 (06:06→23:45)
[2020-02-01 06:28] LABS: CALCIUM LEVEL 8.2 MG/DL (8.5-10.1); CREATININE FOR GFR 1.98 MG/DL (0.55-1.30); PHOSPHORUS LEVEL 5.4 MG/DL (2.5-4.9); POTASSIUM SERUM 4.4 MEQ/L (3.5-5.1)
[2020-02-01 06:29] LABS: ALBUMIN 2.5 GM/DL (3.2-5.2); BILIRUBIN,TOTAL 0.8 MG/DL (0.2-1.0); TOTAL PROTEIN 6.1 GM/DL (6.4-8.2)
[2020-02-01] MEDS: CHLORHEXIDINE GLUCONATE 0.12 % 15ML UDC (PERIDEX ORAL RINSE) MT SCH ×2 (08:15→21:18)
[2020-02-01 08:54] LABS: ABG BASE EXCESS 0.8 (-2.0-2.0); ABG HCO3 23.8 MEQ/L (22.0-26.0); ABG O2 SATURATION 95.8 % (95.0-99.0); ABG PARTIAL PRESSURE CO2 33.9 mmHg (35.0-45.0); ABG PARTIAL PRESSURE O2 77.6 mmHg (75.0-100.0); ABG STANDARD HCO3 25.1 MEQ/L (22.0-26.0); ABG TOTAL CO2 24.8 MEQ/L (22.0-29.0); ABG pH (ARTERIAL) 7.464 UNITS (7.350-7.450)
--- NOTE | 2020-02-01 09:04 | REP ---
INDICATION: tube placement COMPARISON: 01/31/2020 TECHNIQUE: Portable AP view of the chest FINDINGS: Endotracheal tube 1.5 cm above the oneal. Nasogastric tube courses below left hemidiaphragm. Stable cardiomegaly. Diffuse right-sided alveolar infiltrates and left lower lobe/retrocardiac consolidation may be slightly increased from prior examination. Effusion cannot be excluded. IMPRESSION: 1. Endotracheal tube approaching the oneal and may warrant repositioning. 2. Limited by poor inspiratory effort although bilateral airspace disease as noted above may be slightly increased from prior examination. Effusions cannot be excluded. <Electronically signed by Marlo Gleason > 02/01/20 0901
[2020-02-01] MEDS: methylPREDNISolone 40MG 1ML VIAL IV SCH ×2 (10:51→23:45)
[2020-02-01] MEDS: PANTOPRAZOLE 40MG VIAL (C9113 PER 1) IV SCH (10:53)
--- NOTE | 2020-02-01 11:01 | CCN ---
CRITICAL CARE NOTE DATE: 02/01/2020 Critical are time was 63 minutes, this excludes all procedures. SUBJECTIVE: I was called early this morning for hypotension with a systolic blood pressure of 77. The patient does remain on propofol. Antihypertensives were actually added yesterday because she was so hypertensive, as needed hydralazine and Norvasc was increased to 10. Lasix was also given; therefore, I felt she might be dry. Gave her a liter of fluid, check the lactate, the lactate is normal. No evidence of septic shock at this point in time, although she has a fever. Fever could be drug related, but antibiotics were extended yesterday. White blood cell count is down to 10.8. The patient has no triple lumen catheters, but does have a PICC line in the left arm. She is remains on heparin for deep venous thrombosis (DVT) prophylaxis. She has a cooling blanket. After the 1 liter of saline, her blood pressure is now systolic 130. Once sedation was lifted, she had some twitching. No new findings. She has a slightly high residual this morning. Remains on mechanical ventilation. Arterial blood gas is still pending. PHYSICAL EXAMINATION: Temperature is 102.2, pulse is 85, respiratory rate is 18, blood pressure is 121/63 with a mean arterial pressure of 82 with an oxygen saturation of 97% on 0.40 FiO2. General: The patient is sedated on mechanical ventilation, does move with lightening of sedation. He has tenuous airway; therefore, sedation is being cautiously lifting during sedation vacation trials. HEENT: Sclerae clear and anicteric. Pupils are equal and reactive to light, but small approximately 3 to 4 mm. Mucus membranes are moist. Tongue is midline. Positive hirsutism. Neck is supple. No tracheal deviation. Lymphs: No cervical, supraclavicular or axillary adenopathy. Cardiac: Regular S1, S2 without rub, murmur or gallop. No discernible elevated jugular venous pressure (JVP). Pulmonary: Decreased breath sounds at the bases, otherwise clear on auscultation without rales, rhonchi or wheezes. Abdomen: Soft, nontender, non-distended with a large ventral hernia. Extremities: No cyanosis, clubbing or edema. LABORATORY EVALUATION: Shows a white blood cell count of 10.8, hemoglobin 15.8, platelet count 237. Sodium is 145, potassium is 4.4, chloride is 108, bicarbonate of 27, BUN 80, creatinine of 1.98, lactate of 1.4, albumin if 2.5. Chest x-ray is also pending. IMPRESSION: Critical illness. Critical attention required for: 1. Severe hypoxic, hypercarbic respiratory failure secondary to obesity, hyperventilation with possible tracheitis on antibiotic therapy. 2. Hypernatremia. Sodium down to 145 today. Will add additional free water to feeding tube. 3. Difficult airway, difficult extubation, prolonged mechanical ventilation on last visit requiring tracheostomy, awaiting trach. 4. Fever persisted. Will obtain another blood culture. No evidence of infection elsewhere on broad-spectrum antibiotics. Procalcitonin was ordered. If this is negative, may try off antibiotics to see if this is an antibiotic-induced fever, although a little high for an antibiotic-induced fever. 5. Hypotension. The patient actually had difficulty with hypotension. Therefore, antihypertensives were stopped yesterday, may be secondary to the amount of sedation that is required. 6. Acute kidney injury slightly worse today at 1.98 likely from Lasix administration yesterday. Fluids were added today. 7. History of bronchospasm and asthma. No evidence of bronchospasm on examination. Will continue to decrease Solu-Medrol. Will wait until after tracheostomy in order to prevent any respiratory complications around the time of tracheostomy. 8. Gastrointestinal prophylaxis on Protonix. 9. Deep venous thrombosis (DVT) prophylaxis with heparin. 10.Nutrition on tube feeds with Reglan. 11.History of congestive heart failure (CHF), does not appear to be decompensated today. Oxygen saturation improved. 12.Diabetes. Blood sugars remain less than 180. Overall prognosis is guarded. Critical care time as mentioned above.
[2020-02-01] MEDS ORDERED: BISACODYL 10 MG SUPP PR PRN (11:15)
[2020-02-01] MEDS ORDERED: VANCOMYCIN HCL 1,000 MG, VIAL MATE ADAPTER 1 EACH in D5W 250 ML IV SCH (16:00)
[2020-02-01] MEDS: MIDAZOLAM HCL 100 MG in D5W 80 ML IV SCH (19:40)
[2020-02-01] MEDS: LEVEMIR (INSULIN DETEMIR) 1 UNITS/0.01ML SC SCH (21:19)
[2020-02-02] VITALS (23 sets, daily range): BP systolic 103–165; BP diastolic 59–90; O2SAT 96–97
[2020-02-02] MEDS: propofoL 1,000 MG in IV 1 EA IV SCH ×5 (00:02→22:18)
[2020-02-02] MEDS: IPRATROPIUM 0.5MG/ALBUTEROL 2.5MG INH SOL UD 3ML (DUONEB) NEB SCH ×6 (03:29→23:14)
[2020-02-02] MEDS: HEPARIN SOD (PORCINE) 5000UNITS/ML 1ML VIAL/SYRINGE SQ SCH ×3 (05:02→22:20)
[2020-02-02] MEDS: PIPERACILLIN/TAZOBACTAM SOD 4.5 GM in D5W MINI-BAG PLUS 50 ML IV SCH ×3 (05:02→18:02)
[2020-02-02] MEDS: SODIUM CHLORIDE 0.9% INJ 10 ML SYR IV SCH ×2 (05:02→18:03)
[2020-02-02] MEDS: METOCLOPRAMIDE INJ 10MG/2ML VIAL (J2765 PER 1) IV SCH ×4 (05:02→22:20)
[2020-02-02 05:16] LABS: HEMATOCRIT 51.6 % (36.0-47.0); HEMOGLOBIN 16.3 g/dl (12.0-15.5); MEAN CORPUSCULAR HGB CONC 31.6 g/dl (32.0-36.5); MEAN CORPUSCULAR VOLUME 98.1 fl (80.0-96.0); PLATELET COUNT, AUTOMATED 234 10^3/uL (150-450); RED BLOOD COUNT 5.26 10^6/uL (4.00-5.40); WHITE BLOOD COUNT 10.8 10^3/uL (4.0-10.0)
[2020-02-02 05:43] LABS: ABG BASE EXCESS 0.5 (-2.0-2.0); ABG HCO3 22.1 MEQ/L (22.0-26.0); ABG O2 SATURATION 94.4 % (95.0-99.0); ABG PARTIAL PRESSURE CO2 28.7 mmHg (35.0-45.0); ABG PARTIAL PRESSURE O2 69.5 mmHg (75.0-100.0); ABG STANDARD HCO3 24.8 MEQ/L (22.0-26.0); ABG pH (ARTERIAL) 7.505 UNITS (7.350-7.450)
[2020-02-02 05:43] LABS: ALBUMIN 2.4 GM/DL (3.2-5.2); BILIRUBIN,TOTAL 0.9 MG/DL (0.2-1.0); CALCIUM LEVEL 8.1 MG/DL (8.5-10.1); CREATININE FOR GFR 1.65 MG/DL (0.55-1.30); GLOMERULAR FILTRATION RATE 43.2 (>58); POTASSIUM SERUM 4.5 MEQ/L (3.5-5.1); TOTAL PROTEIN 5.7 GM/DL (6.4-8.2)
[2020-02-02] MEDS: HumuLIN R (REGULAR) INSULIN (NovoLIN R) **100U/ML** PER UNIT SC SCH ×3 (05:50→18:03)
[2020-02-02] MEDS: CHLORHEXIDINE GLUCONATE 0.12 % 15ML UDC (PERIDEX ORAL RINSE) MT SCH ×2 (09:00→20:03)
--- NOTE | 2020-02-02 09:40 | REP ---
INDICATION: respiratory failure COMPARISON: 02/01/2020 TECHNIQUE: Portable AP view of the chest FINDINGS: Endotracheal tube 3 cm above the oneal. Nasogastric tube courses below left hemidiaphragm. Left perihilar and left lower lobe consolidation as well as medial right basilar atelectasis/consolidation are suggested. The cardiac silhouette is stable and within normal limits for portable technique. No pneumothorax. Skeletal structures are intact. IMPRESSION: 1. Lines and tubes in satisfactory position. 2. Primarily left lower lobe consolidation and medial right basilar atelectasis/consolidation <Electronically signed by Marlo Gleason > 02/02/20 0941
[2020-02-02] MEDS: PANTOPRAZOLE 40MG VIAL (C9113 PER 1) IV SCH (10:01)
[2020-02-02] MEDS: methylPREDNISolone 40MG 1ML VIAL IV SCH ×2 (10:01→22:20)
[2020-02-02] MEDS ORDERED: LIDOCAINE W/EPINEPHRINE 1% 20ML VIAL As Ordered ONE (10:21)
--- NOTE | 2020-02-02 10:44 | CCN ---
CRITICAL CARE NOTE DATE: 02/02/2020 CRITICAL CARE TIME: 1 hour and 7 minutes. SUBJECTIVE: Overnight patient's fever has defervesced. Leukocytosis has decreased. Blood pressure is adequate with a mean arterial pressure of 86. On sedation vacation, patient is opening her eyes. She is not yet following commands. Anticoagulation and tube feeds are held for procedure today. COVID is negative for the OR. OBJECTIVE: Vital signs: Temperature 97.8, pulse 76-82, respiratory rate 18, blood pressure 119/70 with a MAP of 86, oxygen saturation 97% on 0.40 FiO2. General: Awake, alert, and oriented. Affect and mood appropriate. Nutrition and hygiene good. Does not appear to be in distress but still sedated. HEENT: Evidence of thrush. Neck: Supple. No tracheal deviation or mass. Lymphs: No cervical, supraclavicular, or axillary adenopathy. Cardiac: Regular S1 and S2 without audible murmur, rub, or gallop. No elevated JVP but difficult to discern due to body habitus. Pulmonary: Decreased without rales, rhonchi, or wheezes. Minimal mucous secretions suctioned without any evidence of hemorrhage. Abdomen: Obese, soft, nontender with large ventral hernia. Extremities: No cyanosis, clubbing, or edema. Laboratory evaluation shows a white blood cell count of 10.8, hemoglobin 16.3, platelet count 234. Sodium 143, potassium 4.5, chloride 109, bicarb 25, BUN 79, creatinine 1.65, glucose 198. Blood cultures are negative x2. Calcium 8.1, albumin 2.4. Chest x-ray shows some improvement of the infiltrate. Some shifting of the mediastinal silhouette likely due to positioning. Endotracheal tube is in good position. ASSESSMENT/PLAN: 1. Severe hypoxic hypercarbic respiratory failure from morbid obesity awaiting trach today. 2. Hypernatremia, improved with added free water to tube feeds. 3. Fever, now afebrile. Antibiotics broadened, likely secondary to pneumonia. 4. Leukocytosis, decreased. Will continue to monitor for signs of sepsis. 5. Acute kidney injury. Creatinine decreased today. BUN slightly elevated. 6. GI prophylaxis with Protonix. 7. DVT prophylaxis with heparin. 8. Diabetes. Adequate blood glucose control. Average blood sugars less than 200. 9. Nutrition. Will start nutrition after trach is placed.
[2020-02-02] MEDS: NYSTATIN 500,000 U/5 ML SUSP UDC PO SCH ×2 (11:39→18:02)
[2020-02-02] MEDS: VANCOMYCIN HCL 1,000 MG, VIAL MATE ADAPTER 1 EACH in D5W 250 ML IV SCH (13:00)
[2020-02-02] MEDS ORDERED: ROCURONIUM BROMIDE 50 MG/5 ML VIAL As Ordered ONE (13:18)
[2020-02-02] MEDS ORDERED: fentaNYL 100 MCG/2 ML INJECTION (J3010) As Ordered ONE (13:18)
[2020-02-02] MEDS ORDERED: ONDANSETRON 4MG/2ML VIAL As Ordered ONE (13:18)
[2020-02-02] MEDS ORDERED: ONDANSETRON 4MG/2ML VIAL IV PRN (15:00)
[2020-02-02] MEDS ORDERED: METOCLOPRAMIDE INJ 10MG/2ML VIAL (J2765 PER 1) IV PRN (15:00)
[2020-02-02] MEDS ORDERED: MEPERIDINE INJ 25 MG/ML VIAL (J2175) IV PRN (15:00)
[2020-02-02] MEDS ORDERED: LR 1,000 ML IV SCH (15:00)
[2020-02-02] MEDS ORDERED: fentaNYL 100 MCG/2 ML INJECTION (J3010) IV PRN (15:00)
[2020-02-02] MEDS: LEVEMIR (INSULIN DETEMIR) 1 UNITS/0.01ML SC SCH (20:03)
[2020-02-02] MEDS: MIDAZOLAM HCL 100 MG in D5W 80 ML IV SCH (20:58)
[2020-02-03] VITALS (22 sets, daily range): BP systolic 106–154; BP diastolic 59–89
[2020-02-03] MEDS: PIPERACILLIN/TAZOBACTAM SOD 4.5 GM in D5W MINI-BAG PLUS 50 ML IV SCH ×4 (00:28→17:25)
[2020-02-03] MEDS: NYSTATIN 500,000 U/5 ML SUSP UDC PO SCH ×5 (00:28→22:56)
[2020-02-03] MEDS: HumuLIN R (REGULAR) INSULIN (NovoLIN R) **100U/ML** PER UNIT SC SCH ×4 (00:41→17:49)
[2020-02-03] MEDS: propofoL 1,000 MG in IV 1 EA IV SCH ×7 (00:57→22:56)
[2020-02-03] MEDS: IPRATROPIUM 0.5MG/ALBUTEROL 2.5MG INH SOL UD 3ML (DUONEB) NEB SCH ×5 (03:20→20:00)
[2020-02-03] MEDS: NYSTATIN 100,000 UNITS/GM TOPICAL PWD 15 GM TOP PRN (04:11)
[2020-02-03] MEDS: METOCLOPRAMIDE INJ 10MG/2ML VIAL (J2765 PER 1) IV SCH ×3 (04:31→16:58)
[2020-02-03 04:44] LABS: HEMATOCRIT 51.3 % (36.0-47.0); HEMOGLOBIN 15.4 g/dl (12.0-15.5); MEAN CORPUSCULAR HEMOGLOBIN 29.8 pg (27.0-33.0); MEAN CORPUSCULAR VOLUME 99.4 fl (80.0-96.0); PLATELET COUNT, AUTOMATED 227 10^3/uL (150-450); RED BLOOD COUNT 5.16 10^6/uL (4.00-5.40); WHITE BLOOD COUNT 11.6 10^3/uL (4.0-10.0)
[2020-02-03 05:22] LABS: ALBUMIN 2.5 GM/DL (3.2-5.2); BILIRUBIN,TOTAL 0.9 MG/DL (0.2-1.0); CALCIUM LEVEL 8.6 MG/DL (8.5-10.1); CREATININE FOR GFR 1.82 MG/DL (0.55-1.30); GLOMERULAR FILTRATION RATE 38.6 (>58); POTASSIUM SERUM 4.1 MEQ/L (3.5-5.1); TOTAL PROTEIN 6.6 GM/DL (6.4-8.2)
[2020-02-03 05:41] LABS: ABG BASE EXCESS -0.6 (-2.0-2.0); ABG HCO3 23.3 MEQ/L (22.0-26.0); ABG O2 SATURATION 96.8 % (95.0-99.0); ABG PARTIAL PRESSURE CO2 36.8 mmHg (35.0-45.0); ABG PARTIAL PRESSURE O2 89.7 mmHg (75.0-100.0); ABG STANDARD HCO3 23.9 MEQ/L (22.0-26.0); ABG TOTAL CO2 24.5 MEQ/L (22.0-29.0)
[2020-02-03] MEDS: SODIUM CHLORIDE 0.9% INJ 10 ML SYR IV SCH ×2 (05:51→18:45)
[2020-02-03] MEDS: HEPARIN SOD (PORCINE) 5000UNITS/ML 1ML VIAL/SYRINGE SQ SCH ×3 (05:51→22:12)
--- NOTE | 2020-02-03 08:39 | REP ---
INDICATION: respiratory failure COMPARISON: 02/02/2020 TECHNIQUE: Portable AP view of the chest FINDINGS: Examination is limited by positioning and underpenetration. Newly placed tracheostomy terminates approximately 2.7 cm from the oneal. Nasogastric tube courses below the left hemidiaphragm. Mild right basilar airspace disease along with moderate left lower lobe/retrocardiac consolidation and possible small left effusion are again noted. No obvious pneumothorax. Visualized skeletal structures are intact. IMPRESSION: 1. Tracheostomy 2.7 cm from the oneal. 2. Bibasilar opacities/consolidations (left greater than right) similar to prior examination. <Electronically signed by Marlo Gleason > 02/03/20 0885
--- NOTE | 2020-02-03 08:39 | CCN ---
CRITICAL CARE NOTE DATE: 02/03/2020 SUBJECTIVE: Ms. Varela is seen in the ICU. She is status post trach yesterday. She tolerated the procedure. No fevers overnight. She is on mechanical ventilation and currently sedated. OBJECTIVE: VITAL SIGNS: Temperature 98.0, pulse 89, respiratory rate 18, blood pressure 125/69. Pulse ox 98%. She is on pressure controlled mechanical ventilation. GENERAL: Patient is sedate on mechanical ventilation. HEENT: Head is normocephalic atraumatic. Moist mucous membranes. NECK: Patient has tracheostomy. Dressing in place with no obvious erythema of the surrounding skin. CHEST: Clear to auscultation bilaterally. No wheezes, rales, or rhonchi. No accessory muscle. HEART: Regular rate and rhythm. S1, S2. No murmurs. ABDOMEN: Obese. Positive bowel sounds, soft, and nontender. EXTREMITIES: No clubbing, cyanosis, or edema. SKIN: Warm and dry. LABORATORY DATA: PH 7.420, pCO2 of 36.8, pO2 of 89.7. WBC 11.6, hemoglobin 15.4, hematocrit 51.3, platelets 227,000. Sodium 143, potassium 4.1, chloride 111, carbon dioxide 26, BUN 79, creatinine 1.82, glucose 195, calcium 8.6, total bilirubin 0.9, AST 17, ALT 21, alkaline phosphatase 38, total protein 6.6, albumin 2.5. ASSESSMENT AND PLAN: 1. Severe hypoxic hypercarbic respiratory failure from morbid obesity. The patient is status post trach yesterday. She remains on mechanical ventilation. The plan will be to obtain a chest x-ray today. Continue to monitor. 2. Leukocytosis. WBCs are up slightly to 11.6 from 10.8 yesterday. Continue to monitor closely. The patient is on Zosyn and vancomycin. 3. Acute kidney injury. The patient's creatinine is 1.82 today. Continue to monitor. She did get a little Lasix two days ago. She may be a little dry. Total critical care time, excuding all procedures, was [address] [facility]
[2020-02-03] MEDS: CHLORHEXIDINE GLUCONATE 0.12 % 15ML UDC (PERIDEX ORAL RINSE) MT SCH ×2 (09:10→22:14)
[2020-02-03] MEDS: PANTOPRAZOLE 40MG VIAL (C9113 PER 1) IV SCH (11:20)
[2020-02-03] MEDS: methylPREDNISolone 40MG 1ML VIAL IV SCH ×2 (11:21→22:13)
[2020-02-03] MEDS: ACETAMINOPHEN 325 MG/10.15 ML UDC GT PRN (11:45)
[2020-02-03] MEDS: VANCOMYCIN HCL 1,000 MG, VIAL MATE ADAPTER 1 EACH in D5W 250 ML IV SCH (13:12)
[2020-02-03] MEDS: MIDAZOLAM HCL 100 MG in D5W 80 ML IV SCH (18:05)
[2020-02-03 21:16] LABS: CALCIUM LEVEL 8.4 MG/DL (8.5-10.1); CREATININE FOR GFR 1.6 MG/DL (0.55-1.30); GLOMERULAR FILTRATION RATE 44.8 (>58); MAGNESIUM LEVEL 2.6 MG/DL (1.8-2.4); TROPONIN I 0.11 NG/ML (< 0.10)
--- NOTE | 2020-02-03 21:54 | CCN ---
CRITICAL CARE NOTE DATE: 02/03/2020 Called to patient's bedside for run of ventricular tachycardia. Patient had 16 beat run of ventricular tachycardia. Electrolytes were no potassium or magnesium abnormalities. Troponin mildly elevated at 0.11. Therefore, will obtain EKG. Will serially trend her troponins. There has been no further ventricular tachycardia. She is on two potential agents that can cause QT prolongation. I have stopped her Reglan and changed her Zosyn to ceftriaxone. Will continue to monitor for further rhythm abnormalities. If this occurs again may decide to load with amiodarone. This was discussed with bedside nurse. An additional 37 minutes of critical care time was performed in addition to the 43 minutes that was done this morning. This excludes all procedures.
[2020-02-03] MEDS: LEVEMIR (INSULIN DETEMIR) 1 UNITS/0.01ML SC SCH (22:11)
[2020-02-03] MEDS: cefTRIAXone SOD 1 GM in D5W MINI-BAG PLUS 50 ML IV SCH (22:13)
[2020-02-04] VITALS (19 sets, daily range): BP systolic 117–188; BP diastolic 61–96
[2020-02-04] MEDS: HumuLIN R (REGULAR) INSULIN (NovoLIN R) **100U/ML** PER UNIT SC SCH ×5 (00:39→23:32)
[2020-02-04] MEDS: IPRATROPIUM 0.5MG/ALBUTEROL 2.5MG INH SOL UD 3ML (DUONEB) NEB SCH ×6 (00:47→20:26)
[2020-02-04] MEDS: propofoL 1,000 MG in IV 1 EA IV SCH ×6 (03:53→23:09)
[2020-02-04 05:39] LABS: HEMATOCRIT 49.5 % (36.0-47.0); HEMOGLOBIN 14.9 g/dl (12.0-15.5); MEAN CORPUSCULAR HGB CONC 30.1 g/dl (32.0-36.5); MEAN CORPUSCULAR VOLUME 99.8 fl (80.0-96.0); PLATELET COUNT, AUTOMATED 216 10^3/uL (150-450); RED BLOOD COUNT 4.96 10^6/uL (4.00-5.40); WHITE BLOOD COUNT 9.7 10^3/uL (4.0-10.0)
[2020-02-04 05:59] LABS: ABG BASE EXCESS -2.5 (-2.0-2.0); ABG HCO3 19.8 MEQ/L (22.0-26.0); ABG O2 SATURATION 97.8 % (95.0-99.0); ABG PARTIAL PRESSURE CO2 28.6 mmHg (35.0-45.0); ABG PARTIAL PRESSURE O2 98.5 mmHg (75.0-100.0); ABG STANDARD HCO3 22.4 MEQ/L (22.0-26.0); ABG TOTAL CO2 20.7 MEQ/L (22.0-29.0); ABG pH (ARTERIAL) 7.459 UNITS (7.350-7.450)
[2020-02-04 06:03] LABS: ALBUMIN 2.5 GM/DL (3.2-5.2); BILIRUBIN,TOTAL 0.8 MG/DL (0.2-1.0); CALCIUM LEVEL 8.5 MG/DL (8.5-10.1); CREATININE FOR GFR 1.51 MG/DL (0.55-1.30); GLOMERULAR FILTRATION RATE 47.9 (>58); TOTAL PROTEIN 6.6 GM/DL (6.4-8.2); TROPONIN I 0.09 NG/ML (< 0.10)
[2020-02-04] MEDS: SODIUM CHLORIDE 0.9% INJ 10 ML SYR IV SCH ×2 (06:48→18:19)
[2020-02-04] MEDS: HEPARIN SOD (PORCINE) 5000UNITS/ML 1ML VIAL/SYRINGE SQ SCH ×3 (06:48→21:22)
[2020-02-04] MEDS: NYSTATIN 500,000 U/5 ML SUSP UDC PO SCH ×3 (06:48→18:17)
--- NOTE | 2020-02-04 08:13 | REP ---
INDICATION: respiratory failure COMPARISON: 02/03/2020 TECHNIQUE: Portable AP view of the chest FINDINGS: Tracheostomy in satisfactory position. Nasogastric tube courses below left hemidiaphragm. Left subclavian catheter with tip in the brachiocephalic/SVC. Visualized portions of the mediastinum and cardiac silhouette are stable. Left lower lobe/retrocardiac consolidation and effusion along with right basilar atelectasis again noted and essentially unchanged. IMPRESSION: No significant change from prior examination. Left lower lobe consolidation and right basilar atelectasis/airspace disease again noted. <Electronically signed by Marlo Gleason > 02/04/20 [id number]
[2020-02-04] MEDS: CHLORHEXIDINE GLUCONATE 0.12 % 15ML UDC (PERIDEX ORAL RINSE) MT SCH ×2 (08:21→21:20)
[2020-02-04] MEDS: MORPHINE 2 MG/ML 1ML VIAL (J2270) IV PRN (08:37)
[2020-02-04] MEDS ORDERED: METOPROLOL 5 MG/5 ML VIAL IV STA (10:09)
[2020-02-04] MEDS: methylPREDNISolone 40MG 1ML VIAL IV SCH ×2 (10:19→23:32)
[2020-02-04] MEDS: PANTOPRAZOLE 40MG VIAL (C9113 PER 1) IV SCH (10:19)
--- NOTE | 2020-02-04 12:00 | CCN ---
CRITICAL CARE NOTE DATE: 02/04/2020 SUBJECTIVE: Ms. Varela is seen in the ICU. She remains on mechanical ventilation. She is sedated. Nursing notes that the patient really has not been tolerating tube feeds. The patient did have a run of V-tach last night that Dr. Hoover was called in for. The patient just had a 16 beat run of V-tach, but had no further episodes of V-tach after that. Potential medications that could cause QT prolongation including Reglan and Zosyn were stopped. Nursing notes no further episodes of V-tach. The patient's blood pressure has been trending up and is high this morning. She is not currently on any antihypertensive medications. Nursing notes no fevers. OBJECTIVE: VITAL SIGNS: Temperature 98.4, pulse 89, respiratory rate 18, blood pressure 188/96, pulse ox 100%. The patient is on mechanical ventilation set at pressure control with a rate of 18, PEEP of 10, and FiO2 of 40%. GENERAL: The patient is sedate on mechanical ventilation. HEENT: Head is normocephalic, atraumatic. Moist mucous membranes. NECK: The patient has a trach. There is bleeding around the site of the trach. CHEST: Clear to auscultation bilaterally. No wheezes, rales, or rhonchi. HEART: Regular rate and rhythm. S1, S2. No murmurs. ABDOMEN: Obese. Abdominal hernia noted. Positive bowel sounds, soft, and nontender. EXTREMITIES: No clubbing, cyanosis, or edema. SKIN: Warm and dry. LABORATORY DATA: WBC 9.7, hemoglobin 14.9, hematocrit 49.5, platelets 216,000. Sodium 144, potassium 4.0, chloride is 112, carbon dioxide is 23, BUN 68, creatinine 1.51, glucose 150, calcium 8.5, total bilirubin 0.8, AST 20, ALT 24, alkaline phosphatase is 47, total protein 6.6, albumin 2.5. Troponin I was 0.11 and then 0.11 and then 0.09 this morning. ASSESSMENT AND PLAN: 1. Severe hypoxic and hypercarbic respiratory failure from morbid obesity. The patient is status post trach. She remains sedated on mechanical ventilation. We will try to start to wake her up. 2. Ventricular tachycardia (V-tach). The patient did have a run of V-tach last night and potential QT prolonged medications of Reglan and Zosyn were both stopped. She has had no further episodes of V-tach. Continue to monitor closely. 3. Hypertension. The patient's blood pressure has trended up. She will be restarted on antihypertensives. She will be given a dose of metoprolol tartrate 5 mg intravenous (IV) now. She will also be placed on metoprolol tartrate 50 mg p.o. b.i.d. and amlodipine 10 mg p.o. daily. 4. Acute kidney injury. The patient's creatinine is 1.51 today, which is down from 1.82 yesterday. Continue to monitor. 5. Nutrition. The patient is getting tube feeds. She still has residuals around 120. The plan would be to consider restarting Reglan tomorrow if she continues to not tolerate tube feeds. TOTAL CRITICAL CARE TIME: Excluding all procedures was 63 minutes.
--- NOTE | 2020-02-04 12:00 | CCN ---
CRITICAL CARE ADDENDUM DATE: 02/04/2020 ADDENDUM: Dr. Hoover attempted to place the patient on pressure ventilation, which she did not tolerate with tidal volumes down into the 200 to 300s. She was returned to the prior vent settings, which was pressure control. Would try to avoid Versed in this patient and just try propofol. Will continue to monitor.
[2020-02-04] MEDS: METOPROLOL TART 50 MG TAB PO SCH (21:21)
[2020-02-04] MEDS: cefTRIAXone SOD 1 GM in D5W MINI-BAG PLUS 50 ML IV SCH (21:21)
[2020-02-04] MEDS: LEVEMIR (INSULIN DETEMIR) 1 UNITS/0.01ML SC SCH (21:22)
[2020-02-05] VITALS (19 sets, daily range): BP systolic 136–171; BP diastolic 69–127
[2020-02-05] MEDS: IPRATROPIUM 0.5MG/ALBUTEROL 2.5MG INH SOL UD 3ML (DUONEB) NEB SCH ×6 (00:30→19:19)
[2020-02-05] MEDS: NYSTATIN 500,000 U/5 ML SUSP UDC PO SCH ×5 (00:45→23:50)
[2020-02-05] MEDS: propofoL 1,000 MG in IV 1 EA IV SCH ×2 (03:11→07:12)
[2020-02-05 05:29] LABS: HEMATOCRIT 50.2 % (36.0-47.0); HEMOGLOBIN 14.8 g/dl (12.0-15.5); MEAN CORPUSCULAR HEMOGLOBIN 29.7 pg (27.0-33.0); MEAN CORPUSCULAR HGB CONC 29.5 g/dl (32.0-36.5); MEAN CORPUSCULAR VOLUME 100.6 fl (80.0-96.0); PLATELET COUNT, AUTOMATED 201 10^3/uL (150-450); RED BLOOD COUNT 4.99 10^6/uL (4.00-5.40); WHITE BLOOD COUNT 10.9 10^3/uL (4.0-10.0)
[2020-02-05 05:50] LABS: ABG BASE EXCESS -3.3 (-2.0-2.0); ABG HCO3 21.6 MEQ/L (22.0-26.0); ABG O2 SATURATION 98.1 % (95.0-99.0); ABG PARTIAL PRESSURE CO2 38.6 mmHg (35.0-45.0); ABG PARTIAL PRESSURE O2 112.2 mmHg (75.0-100.0); ABG STANDARD HCO3 21.7 MEQ/L (22.0-26.0); ABG TOTAL CO2 22.7 MEQ/L (22.0-29.0); ABG pH (ARTERIAL) 7.365 UNITS (7.350-7.450)
[2020-02-05 05:54] LABS: ALBUMIN 2.7 GM/DL (3.2-5.2); BILIRUBIN,TOTAL 0.8 MG/DL (0.2-1.0); CALCIUM LEVEL 9.2 MG/DL (8.5-10.1); CREATININE FOR GFR 1.35 MG/DL (0.55-1.30); GLOMERULAR FILTRATION RATE 54.5 (>58); POTASSIUM SERUM 4.9 MEQ/L (3.5-5.1); TOTAL PROTEIN 6.4 GM/DL (6.4-8.2)
[2020-02-05] MEDS: HEPARIN SOD (PORCINE) 5000UNITS/ML 1ML VIAL/SYRINGE SQ SCH ×3 (06:34→21:44)
[2020-02-05] MEDS: SODIUM CHLORIDE 0.9% INJ 10 ML SYR IV SCH ×2 (06:35→17:38)
[2020-02-05] MEDS: HumuLIN R (REGULAR) INSULIN (NovoLIN R) **100U/ML** PER UNIT SC SCH ×4 (06:36→23:49)
[2020-02-05] MEDS: METOPROLOL TART 50 MG TAB PO SCH ×2 (08:30→21:39)
[2020-02-05] MEDS: CHLORHEXIDINE GLUCONATE 0.12 % 15ML UDC (PERIDEX ORAL RINSE) MT SCH ×2 (08:31→21:39)
--- NOTE | 2020-02-05 08:42 | REP ---
INDICATION: respiratory failure COMPARISON: 02/04/2020, 01/31/2020 TECHNIQUE: Portable AP view of the chest FINDINGS: Tracheostomy tube approximately 4 cm above the oneal. Nasogastric tube courses below left hemidiaphragm. Left PICC line with tip in the SVC. Stable cardiomegaly with possible left lower lobe/retrocardiac opacity. Remainder lung sheets demonstrate improved aeration with decreased infiltrates. Right hemithorax is relatively clear. No pneumothorax. Skeletal structures intact. IMPRESSION: 1. Lines and tubes in satisfactory position. 2. Stable cardiomegaly. 3. Improved aeration. Cannot exclude residual opacity in the left lower lobe/retrocardiac region. <Electronically signed by Marlo Gleason > 02/05/20 [id number]
[2020-02-05 10:46] LABS: MAGNESIUM LEVEL 2.6 MG/DL (1.8-2.4)
--- NOTE | 2020-02-05 11:29 | CCN ---
CRITICAL CARE NOTE DATE: 02/05/2020 SUBJECTIVE: Postop day #3 from tracheostomy. The patient remains sedated on mechanical ventilation only on propofol so that she can be weaned easier. Slightly more hyperglycemic this morning. No fevers overnight. OBJECTIVE: VITAL SIGNS: Temperature 97.9, pulse 89, respiratory rate 18, blood pressure 150/86 with a MAP of 110. Oxygen saturation is 98% on 0.40 pressure control ventilation. Glucerna is at 1.2 calories at 30 mL/hour. GENERAL: The patient is sedated on mechanical ventilation. Minimal diaphoresis. HEENT: Sclerae clear and nonicteric. Pupils equal and reactive to light. Mucous membranes are moist. Tongue is midline. Hirsute. NECK: Large in circumference with 7.[address] Slight amount of cuff leak auscultated. LYMPH: No cervical, supraclavicular, or axillary adenopathy. CARDIAC: Distant S1, S2 without audible murmur, rub, or gallop. No significant pitting edema. PULMONARY: Decreased breath sounds throughout without rales, rhonchi, or wheezes. No dullness to percussion. No accessory muscle use. ABDOMEN: Obese with a large ventral hernia. Normoactive bowel sounds. Positive bowel movement yesterday. EXTREMITIES: No cyanosis, clubbing, or edema. SKIN: No rash, jaundice, or bruising. LABORATORY EVALUATION: Shows a white blood cell count of 10.9, hemoglobin 14.8, platelet count of 201,000. Sodium is 143, potassium is 4.9, chloride 112, bicarb of 24, BUN of 71, creatinine of 1.35 with a glucose of 171. IMAGING: Chest x-ray shows cardiomegaly without significant infiltrate or mass with some vascular congestion. ASSESSMENT AND PLAN: 1. Hypoxic hypercarbic respiratory failure requiring trach for obesity hypoventilation. Trach trials will start as soon as the patient is able to tolerate pressure support. Was unable to tolerate pressure support ventilation yesterday. Will continue efforts towards weaning off mechanical ventilation. 2. Pneumonia. Will treat for another two days with antibiotics. White blood cell count is trending down. Chest x-ray is now clear. There is no evidence of hypotension from sepsis. 3. Acute kidney injury. Creatinine 1.35. No indication for dialysis at this point in time. 4. Hypertension. Currently on Norvasc and metoprolol. 5. Hyperglycemia. I have increased Levemir. 6. Hypoalbuminemia. Tube feeds are being titrated up as she has had very high residuals and some intolerance to tube feeds. Reglan was initially on hold because of her episode of ventricular tachycardia without electrolyte abnormalities. Therefore, this may need to be added if the patient has continued issues with gastroparesis. 7. Gastrointestinal (GI) prophylaxis with Protonix. 8. DVT prophylaxis with heparin.
[2020-02-05] MEDS: PANTOPRAZOLE 40MG VIAL (C9113 PER 1) IV SCH (13:10)
[2020-02-05] MEDS: methylPREDNISolone 40MG 1ML VIAL IV SCH ×2 (13:10→22:03)
--- NOTE | 2020-02-05 19:38 | ECGEPIP ---
[facility] Test Date: 2020-02-03 Pat Name: ABEL DIGGS Department: Room: [place] [address] Gender: Female Email Marketing Executive: AYAAN GALINDOB: 1975 Requested By: REYNOLD Fonseca Order Number: [id number] Reading MD: Ralf Blunt Measurements Intervals [place] Rate: 84 P: 59 CT: 176 QRS: -70 QRSD: 129 T: 69 QT: 376 QTc: 445 Interpretive Statements SINUS RHYTHM POSSIBLE LEFT ATRIAL ENLARGEMENT LEFT BUNDLE BRANCH BLOCK Similar to tracing done 01-23-20 Electronically Signed on 02-05-2020 19:38:29 EST by Ralf Blunt
[2020-02-05] MEDS: LEVEMIR (INSULIN DETEMIR) 1 UNITS/0.01ML SC SCH (21:42)
[2020-02-05] MEDS: cefTRIAXone SOD 1 GM in D5W MINI-BAG PLUS 50 ML IV SCH (21:44)
[2020-02-06] VITALS (18 sets, daily range): BP systolic 133–182; BP diastolic 64–90; O2SAT 98–99
[2020-02-06] MEDS: IPRATROPIUM 0.5MG/ALBUTEROL 2.5MG INH SOL UD 3ML (DUONEB) NEB SCH ×6 (00:50→19:46)
[2020-02-06 05:38] LABS: ABG BASE EXCESS -4.2 (-2.0-2.0); ABG HCO3 20.2 MEQ/L (22.0-26.0); ABG O2 SATURATION 99.2 % (95.0-99.0); ABG PARTIAL PRESSURE CO2 35.4 mmHg (35.0-45.0); ABG PARTIAL PRESSURE O2 164.8 mmHg (75.0-100.0); ABG STANDARD HCO3 21.1 MEQ/L (22.0-26.0); ABG TOTAL CO2 21.3 MEQ/L (22.0-29.0); ABG pH (ARTERIAL) 7.374 UNITS (7.350-7.450)
[2020-02-06 05:41] LABS: HEMATOCRIT 48.6 % (36.0-47.0); HEMOGLOBIN 14.9 g/dl (12.0-15.5); MEAN CORPUSCULAR HEMOGLOBIN 30.8 pg (27.0-33.0); MEAN CORPUSCULAR HGB CONC 30.7 g/dl (32.0-36.5); MEAN CORPUSCULAR VOLUME 100.4 fl (80.0-96.0); PLATELET COUNT, AUTOMATED 203 10^3/uL (150-450); RED BLOOD COUNT 4.84 10^6/uL (4.00-5.40)
[2020-02-06] MEDS: HumuLIN R (REGULAR) INSULIN (NovoLIN R) **100U/ML** PER UNIT SC SCH ×3 (06:01→18:27)
[2020-02-06] MEDS: NYSTATIN 500,000 U/5 ML SUSP UDC PO SCH ×3 (06:02→18:27)
[2020-02-06] MEDS: HEPARIN SOD (PORCINE) 5000UNITS/ML 1ML VIAL/SYRINGE SQ SCH ×3 (06:02→22:02)
[2020-02-06] MEDS: SODIUM CHLORIDE 0.9% INJ 10 ML SYR IV SCH ×2 (06:03→18:28)
[2020-02-06 06:14] LABS: ALBUMIN 2.5 GM/DL (3.2-5.2); ALT/SGPT 23 U/L (12-78); BILIRUBIN,TOTAL 0.7 MG/DL (0.2-1.0); BLOOD UREA NITROGEN 64 MG/DL (7-18); CALCIUM LEVEL 8.5 MG/DL (8.5-10.1); CARBON DIOXIDE LEVEL 21 MEQ/L (21-32); CHLORIDE LEVEL 119 MEQ/L (98-107); CREATININE FOR GFR 0.97 MG/DL (0.55-1.30); GLOMERULAR FILTRATION RATE > 60.0 (>58); GLUCOSE, FASTING 148 MG/DL (70-100); POTASSIUM SERUM 4.1 MEQ/L (3.5-5.1); SODIUM LEVEL 148 MEQ/L (136-145); TOTAL PROTEIN 5.8 GM/DL (6.4-8.2)
--- NOTE | 2020-02-06 07:50 | REP ---
INDICATION: respiratory failure COMPARISON: Multiple examinations dating through 01/27/2020 TECHNIQUE: Portable AP view of the chest FINDINGS: Tracheostomy in stable position. Nasogastric tube courses below the left hemidiaphragm. Left central venous catheter with tip in the brachiocephalic vein unchanged. The mediastinum and cardiac silhouette are stable. Cardiomegaly again noted. Evaluation of the lung field is limited due to underpenetration and positioning. However, improved aeration is suggested bilaterally. The right hemithorax is relatively clear. IMPRESSION: 1. Lines and tubes as described above remains stable. 2. Findings suggest improved aeration. <Electronically signed by Marlo Gleason > 02/06/20 0738
[2020-02-06] MEDS: PANTOPRAZOLE 40MG VIAL (C9113 PER 1) IV SCH (09:54)
[2020-02-06] MEDS: NYSTATIN 100,000 UNITS/GM TOPICAL PWD 15 GM TOP PRN (09:54)
[2020-02-06] MEDS: CHLORHEXIDINE GLUCONATE 0.12 % 15ML UDC (PERIDEX ORAL RINSE) MT SCH ×2 (09:54→20:31)
[2020-02-06] MEDS: METOPROLOL TART 50 MG TAB PO SCH ×2 (09:55→20:30)
[2020-02-06] MEDS: methylPREDNISolone 40MG 1ML VIAL IV SCH ×2 (09:56→22:02)
[2020-02-06 15:17] LABS: CLOSTRIDIUM DIFFICILE PCR NEGATIVE (NEGATIVE)
[2020-02-06 16:20] LABS: BLOOD UREA NITROGEN 73 MG/DL (7-18); CALCIUM LEVEL 9.8 MG/DL (8.5-10.1); CARBON DIOXIDE LEVEL 23 MEQ/L (21-32); CHLORIDE LEVEL 116 MEQ/L (98-107); CREATININE FOR GFR 1.14 MG/DL (0.55-1.30); GLOMERULAR FILTRATION RATE > 60.0 (>58); GLUCOSE, FASTING 187 MG/DL (70-100); POTASSIUM SERUM 4.4 MEQ/L (3.5-5.1); SODIUM LEVEL 145 MEQ/L (136-145)
[2020-02-06] MEDS: LEVEMIR (INSULIN DETEMIR) 1 UNITS/0.01ML SC SCH (20:31)
[2020-02-06] MEDS: cefTRIAXone SOD 1 GM in D5W MINI-BAG PLUS 50 ML IV SCH (22:02)
[2020-02-07] VITALS (15 sets, daily range): BP systolic 160–192; BP diastolic 74–93; O2SAT 95
[2020-02-07] MEDS: IPRATROPIUM 0.5MG/ALBUTEROL 2.5MG INH SOL UD 3ML (DUONEB) NEB SCH ×6 (00:24→20:31)
[2020-02-07] MEDS: NYSTATIN 500,000 U/5 ML SUSP UDC PO SCH ×4 (01:03→18:15)
[2020-02-07] MEDS: HumuLIN R (REGULAR) INSULIN (NovoLIN R) **100U/ML** PER UNIT SC SCH ×4 (01:04→18:15)
[2020-02-07 06:26] LABS: HEMATOCRIT 49.6 % (36.0-47.0); HEMOGLOBIN 15.3 g/dl (12.0-15.5); MEAN CORPUSCULAR HEMOGLOBIN 30.7 pg (27.0-33.0); MEAN CORPUSCULAR HGB CONC 30.8 g/dl (32.0-36.5); MEAN CORPUSCULAR VOLUME 99.6 fl (80.0-96.0); PLATELET COUNT, AUTOMATED 199 10^3/uL (150-450); RED BLOOD COUNT 4.98 10^6/uL (4.00-5.40); WHITE BLOOD COUNT 11.4 10^3/uL (4.0-10.0)
[2020-02-07 06:51] LABS: ALT/SGPT 24 U/L (12-78); BILIRUBIN,TOTAL 0.6 MG/DL (0.2-1.0); BLOOD UREA NITROGEN 67 MG/DL (7-18); CALCIUM LEVEL 9.3 MG/DL (8.5-10.1); CARBON DIOXIDE LEVEL 22 MEQ/L (21-32); CHLORIDE LEVEL 117 MEQ/L (98-107); CREATININE FOR GFR 1.17 MG/DL (0.55-1.30); GLOMERULAR FILTRATION RATE > 60.0 (>58); GLUCOSE, FASTING 179 MG/DL (70-100); POTASSIUM SERUM 4.5 MEQ/L (3.5-5.1); SODIUM LEVEL 148 MEQ/L (136-145); TOTAL PROTEIN 6.9 GM/DL (6.4-8.2)
[2020-02-07 06:54] LABS: ABG BASE EXCESS -3.5 (-2.0-2.0); ABG HCO3 20.3 MEQ/L (22.0-26.0); ABG O2 SATURATION 99.5 % (95.0-99.0); ABG PARTIAL PRESSURE CO2 33.3 mmHg (35.0-45.0); ABG PARTIAL PRESSURE O2 192.6 mmHg (75.0-100.0); ABG STANDARD HCO3 21.7 MEQ/L (22.0-26.0); ABG TOTAL CO2 21.3 MEQ/L (22.0-29.0); ABG pH (ARTERIAL) 7.403 UNITS (7.350-7.450)
[2020-02-07] MEDS: SODIUM CHLORIDE 0.9% INJ 10 ML SYR IV SCH ×2 (07:13→18:16)
[2020-02-07] MEDS: HEPARIN SOD (PORCINE) 5000UNITS/ML 1ML VIAL/SYRINGE SQ SCH ×3 (07:14→22:08)
--- NOTE | 2020-02-07 07:38 | CCN ---
CRITICAL CARE NOTE DATE: 02/06/2020 START TIME: 929 STOP TIME: 1012 SUBJECTIVE: I attended Pam Varela here in the intensive care unit. The patient was examined, chart reviewed, and I spoke at length with the nurse at the bedside. The patient's is awake, alert, and follows commands. She denies any significant dyspnea. OBJECTIVE: VITAL SIGNS: T-max overnight 97.8, blood pressure 140 to 160 systolic, heart rate generally in the 70s to 90s with a sinus mechanism and a respiratory rate between 16 and 24 without obvious accessory muscle use. INTAKE AND OUTPUT: Ldmwopba-lv-wzykswas 1075 mL in with 2250 mL out. She is still having some intermittent diarrhea. GENERAL: She is easily arousable, alert, and responds appropriately. HEENT: Pupils react. Sclerae clear. Trach site shows some mild bloody secretions, but is otherwise benign in appearance. There is no obvious leak. CHEST: Shows diminished, but symmetric expansion. There are some dependent crackles, but no convincing rhonchus or wheeze. No obvious egophony, although exam is difficult in view of her body habitus. CARDIAC: Distant, but regular. Peripheral pulses palpable. No obvious edema. ABDOMEN: Morbidly obese and soft with active bowel sounds. No convincing organomegaly or masses. EXTREMITIES: No cyanosis or clubbing. NEUROLOGIC: Grossly nonfocal as outlined above. LABORATORY DATA: Most recently laboratories show a white blood cell count of 13.0, hemoglobin 14.9, platelet count 233,000. Sodium 148, potassium 4.1, chloride 119, glucose 148. Blood gas done on pressure support of 15, PEEP of 10, and FiO2 of 40% has a pH of 7.374, pCO2 of 35.4, and a PaO2 of 164.8, saturation 99.2%. No new culture results. Blood cultures done on the are negative to date. IMAGING: Done today shows no new findings. She is somewhat rotated and I cannot comment adequately on the left base. ASSESSMENT AND PLAN: The most pressing problems requiring my presence at the bedside: 1. Acute on chronic respiratory failure both hypoxemic and hypercapnic. 2. Underlying pneumonitis. 3. Acute kidney injury. 4. Hypertension, hyperglycemia, and hypoalbuminemia. At this point, she is tolerating pressure support mode, but tidal volumes remain in and around 400 and I think this will be a slow process. She is having some issues as far as electrolytes mainly on the basis of her diarrhea. We will supplement as her need be. I want to take special care to not volume overload her. I believe once we get the point we are able to mobilize her a little bit more, then we will make some progress with ventilator weaning; but for now, she is marginal in that regard. We will continue her current antimicrobials. She is on ulcer and DVT prophylaxis. She is tolerating tube feeds; but again, she had some diarrhea that has slowed down somewhat this morning and we will keep a close eye on that. I did discuss the plan with her and she nods agreement. We will proceed as outlined above. I left the bedside at 1012 hours. CRITICAL CARE TIME: 42 minutes at the bedside not including procedures.
--- NOTE | 2020-02-07 08:16 | REP ---
INDICATION: respiratory failure COMPARISON: 02/06/2020 TECHNIQUE: Portable AP view of the chest FINDINGS: Tracheostomy in satisfactory position. Nasogastric tube courses below the left hemidiaphragm. The mediastinum and cardiac silhouette are stable. Right hemithorax is relatively clear although trace right basilar atelectasis cannot be excluded. Left perihilar and retrocardiac opacity is again suggested. No obvious effusion. No pneumothorax. Skeletal structures are stable. IMPRESSION: 1. Lines and tubes in satisfactory stable position. 2. Left perihilar opacity and basilar atelectasis cannot be excluded. <Electronically signed by Marlo Gleason > 02/07/20 0871
[2020-02-07] MEDS: CHLORHEXIDINE GLUCONATE 0.12 % 15ML UDC (PERIDEX ORAL RINSE) MT SCH ×2 (09:02→22:09)
[2020-02-07] MEDS: ACETAMINOPHEN 325 MG/10.15 ML UDC GT PRN ×2 (09:03→22:47)
--- NOTE | 2020-02-07 10:06 | CCN ---
CRITICAL CARE NOTE DATE: 02/07/2020 START TIME: 909 STOP TIME: 946 SUBJECTIVE: I again attended Pam Varela here in the intensive care unit. The patient has been examined and chart reviewed. OBJECTIVE: VITAL SIGNS: T-max overnight 98.2, blood pressure generally 160/70 systolic, respiratory rate 18-22 without accessory muscle, heart rates generally in the 60s to 90s with a sinus mechanism. INTAKE AND OUTPUT: Iiyarpzq-qp-oskrumeq 1750 mL in with 2175 mL out. GENERAL APPEARANCE: She is sedate, but easily arousable. She does interact appropriately. HEENT: Pupils react. Sclerae clear. Trach site shows some mild oozing. CHEST: Shows diminished, but symmetric expansion. There is no significant rhonchi. No wheeze. CARDIAC: Distant, but regular. Peripheral pulses palpable. Trace edema. ABDOMEN: Morbidly obese. There are active bowel sounds. EXTREMITIES: Show no cyanosis or clubbing. NEUROLOGIC: As outlined above, and she does move all extremities. MEDICATIONS: List has been reviewed. She remains on Rocephin. She also remains on low dose Solu-Medrol at 30 mg IV q. 12 hours. Remains on metoprolol and amlodipine for her hypertension. She is receiving intermittent sedatives and so far has tolerated those. IMAGING: Chest x-ray done this morning and compared to prior films shows no significant change. No acute abnormalities. Her right base has cleared nicely. I am able to see the diaphragm through the cardiac shadow at the left base. LABORATORY DATA: Most laboratories show a sodium of 148, K of 4.5, chloride 117, CO2 of 22, BUN 67, creatinine 1.17, glucose 179. White blood cell count 11.4, hemoglobin 15.3, platelet count 199,000. No differential today. Blood gas done on pressure support mode of 15, PEEP of 10, FiO2 of 40% has a pH of 7.43, pCO2 of 33.3, and pO2 of 192.6. Saturation 99.5%. ASSESSMENT AND PLAN: Most pressing problems requiring my presence at the bedside: 1. Acute on chronic respiratory failure both hypoxemia and hypercapnic. 2. Pneumonitis. 3. Pickwickian syndrome. 4. Acute kidney injury. 5. Hypertension. 6. Hyperglycemia. 7. Hypoalbuminemia. At this point, she is tolerating her pressure support wean, but we clearly need her to be stronger, and I do not think we will make much headway until she is able to be mobilized. She is tolerating enteral feeds. She remains on ulcer and DVT prophylaxis. We will continue her broad-spectrum antimicrobials for now for a full 10-14 days. She has had much less trouble with secretions and her x-rays cleared nicely. My hopes is that we can avoid jail daily ventilation, but at least for now, even when mobile, I suspect she will need nighttime ventilation in the terminal carman, and we will get Emergency Department Nurse involved sooner rather than later for discharge planning. For now, we will continue as outlined above. Her prognosis remains guarded at best regarding the ability to wean. I left the bedside at 0947 hours. CRITICAL CARE TIME: 37 minutes at the bedside not including procedures.
[2020-02-07] MEDS: PANTOPRAZOLE 40MG VIAL (C9113 PER 1) IV SCH (11:59)
[2020-02-07] MEDS: methylPREDNISolone 40MG 1ML VIAL IV SCH ×2 (12:00→22:06)
[2020-02-07] MEDS: MORPHINE 2 MG/ML 1ML VIAL (J2270) IV PRN ×3 (14:17→22:07)
[2020-02-07] MEDS: cefTRIAXone SOD 1 GM in D5W MINI-BAG PLUS 50 ML IV SCH (22:06)
[2020-02-07] MEDS: METOPROLOL TART 50 MG TAB NG SCH (22:08)
[2020-02-07] MEDS: LEVEMIR (INSULIN DETEMIR) 1 UNITS/0.01ML SC SCH (22:09)
[2020-02-08] VITALS (15 sets, daily range): BP systolic 140–176; BP diastolic 63–92; O2SAT 97
[2020-02-08] MEDS: IPRATROPIUM 0.5MG/ALBUTEROL 2.5MG INH SOL UD 3ML (DUONEB) NEB SCH ×6 (00:19→20:52)
[2020-02-08] MEDS: NYSTATIN 500,000 U/5 ML SUSP UDC PO SCH ×4 (01:11→18:15)
[2020-02-08] MEDS: HumuLIN R (REGULAR) INSULIN (NovoLIN R) **100U/ML** PER UNIT SC SCH ×4 (01:11→18:15)
[2020-02-08] MEDS: MORPHINE 2 MG/ML 1ML VIAL (J2270) IV PRN ×6 (01:31→15:02)
[2020-02-08] MEDS: ACETAMINOPHEN 325 MG/10.15 ML UDC GT PRN ×2 (02:27→23:27)
[2020-02-08 04:37] LABS: HEMATOCRIT 50.8 % (36.0-47.0); HEMOGLOBIN 15.2 g/dl (12.0-15.5); MEAN CORPUSCULAR HEMOGLOBIN 30.2 pg (27.0-33.0); MEAN CORPUSCULAR HGB CONC 29.9 g/dl (32.0-36.5); MEAN CORPUSCULAR VOLUME 100.8 fl (80.0-96.0); PLATELET COUNT, AUTOMATED 186 10^3/uL (150-450); RED BLOOD COUNT 5.04 10^6/uL (4.00-5.40); WHITE BLOOD COUNT 11.1 10^3/uL (4.0-10.0)
[2020-02-08 05:09] LABS: ALBUMIN 3.3 GM/DL (3.2-5.2); BILIRUBIN,TOTAL 0.5 MG/DL (0.2-1.0); CALCIUM LEVEL 9.9 MG/DL (8.5-10.1); CREATININE FOR GFR 1.27 MG/DL (0.55-1.30); GLOMERULAR FILTRATION RATE 58.4 (>58); TOTAL PROTEIN 7.5 GM/DL (6.4-8.2)
[2020-02-08] MEDS: SODIUM CHLORIDE 0.9% INJ 10 ML SYR IV SCH ×2 (06:00→18:00)
[2020-02-08 06:06] LABS: ABG BASE EXCESS -5.3 (-2.0-2.0); ABG HCO3 19.5 MEQ/L (22.0-26.0); ABG O2 SATURATION 97.7 % (95.0-99.0); ABG PARTIAL PRESSURE CO2 36.3 mmHg (35.0-45.0); ABG PARTIAL PRESSURE O2 98.1 mmHg (75.0-100.0); ABG STANDARD HCO3 20.2 MEQ/L (22.0-26.0); ABG TOTAL CO2 20.7 MEQ/L (22.0-29.0); ABG pH (ARTERIAL) 7.349 UNITS (7.350-7.450)
[2020-02-08] MEDS: HEPARIN SOD (PORCINE) 5000UNITS/ML 1ML VIAL/SYRINGE SQ SCH ×2 (06:49→14:40)
--- NOTE | 2020-02-08 07:29 | REP ---
INDICATION: respiratory failure COMPARISON: 02/07/2020 TECHNIQUE: Portable AP view of the chest FINDINGS: Tracheostomy in satisfactory position. Left-sided central line with tip in the SVC/brachiocephalic confluence. Nasogastric tube courses below left hemidiaphragm. The mediastinum and cardiac silhouette are stable. Right hemithorax is well aerated and clear. Visualized portions of the left lung appear well aerated and clear. Left basilar/retrocardiac and perihilar opacity and small left effusion again cannot be excluded. No pneumothorax. Skeletal structures are stable. IMPRESSION: 1. Left perihilar and basilar opacities along with small left pleural effusion again cannot be excluded and remain essentially unchanged in appearance. <Electronically signed by Marlo Gleason > 02/08/20 0756
[2020-02-08] MEDS: CHLORHEXIDINE GLUCONATE 0.12 % 15ML UDC (PERIDEX ORAL RINSE) MT SCH ×2 (08:16→21:21)
[2020-02-08] MEDS: METOPROLOL TART 50 MG TAB NG SCH ×2 (08:19→21:23)
[2020-02-08] MEDS ORDERED: SILVER NITRATE APPLICATOR TOP ONE (10:30)
--- NOTE | 2020-02-08 10:51 | CCN ---
CRITICAL CARE NOTE DATE: 02/08/2020 START TIME: 40 STOP TIME: 1014 SUBJECTIVE: I again attended Pam Varela here in the intensive care unit. The patient has been examined and chart is reviewed. I spoke at length with the nurses at the bedside. She has had some bleeding around her trach site overnight. Due to the lack of availability of ENT coverage, who performed her tracheostomy, Dr. Garnica from thoracic surgery has graciously agreed to evaluate this site for me. OBJECTIVE: VITAL SIGNS: T-max overnight 100.8, blood pressure 140s to 170s, heart rate 80s to 90s with a sinus mechanism. Respiratory rate 17 to at times the upper 20s and at one point hit 35, but currently approximately 18-22 without accessory muscle use. INTAKE AND OUTPUT: Zkyqbkyc-fp-jqwydgvp 1540 mL in with 2025 mL out. GENERAL APPEARANCE: She is awake, alert, and appropriate. Moves all extremities. HEENT: Pupils react, sclerae clear. Trachea is in the midline. There is some fresh bloody drainage around her trach site. CHEST: Shows symmetric expansion with decreased breath sounds at the bases, left mildly greater than right, but no convincing egophony or rubs. CARDIAC: Distant, but regular. Peripheral pulses are palpable. Left upper extremity is more edematous than the right and does have a PICC line in place. Pulses are palpable. ABDOMEN: Morbidly obese and soft. There are active bowel sounds. No convincing organomegaly or masses. EXTREMITIES: Show her left upper extremity edema as outlined above. NEUROLOGIC: Grossly nonfocal. MEDICATION REVIEW: She remains on intermittent Versed and morphine. She has insulin coverage. She remains on broad-spectrum antimicrobials in the form of Rocephin. She is on metoprolol and Norvasc for blood pressure control. LABORATORY DATA: No new culture data. Last blood culture from the unremarkable. Most recent laboratories show white blood cell count 11.1, hemoglobin 15.2, platelet count 186,000. Sodium 148, K 5.0, chloride 117, CO2 of 22, BUN 67, creatinine 1.27. Arterial blood gas done this morning on pressure support mode PSV 15, PEEP 10, FiO2 of 40% has a pH of 7.349, pCO2 of 36.3, and a pO2 of 98.1. IMAGING: Chest x-ray is quite rotated, but I do believe she has persistent difficulties in the retrocardiac area. ASSESSMENT AND PLAN: Most pressing problems requiring my presence at the bedside: 1. Acute on chronic hypercapnic and hypoxemic respiratory failure now status post tracheostomy with continued need for ventilatory support. 2. Obstructive sleep apnea syndrome. 3. Left upper extremity edema. 4. Bleeding at the trach site. 5. Diabetes mellitus. 6. Hypertension. 7. Underlying pneumonitis. 8. Renal insufficiency, improved. At this point, we will make some mild ventilator changes in hopes of achieving some element of weaning in the future. I believe it will take being able to actually mobilize her for that to happen, but we will try gentle decreases in pressure support in hopes of achieving that goal. For recruitment and prevention of atelectasis, we will leave her PEEP as is for now. She has had some bleeding from the trach site and as outlined above, I have no ENT coverage this weekend, and therefore, Dr. Garnica from thoracic surgery will evaluate her trach site for us. It appears to be some superficial bleeding and my hopes is that just local control is all that is necessary. She is hemodynamically stable and her hemoglobin is stable as well. She has some edema of the left upper extremity where she has a PICC line in place. We will get a bedside ultrasound of that today. If there is any question of clot, we will have to establish other IV access and probably anticoagulate her, which makes evaluation and control of her trach site even more imperative. She remains mildly hypernatremic. She is auto-diuresing somewhat. She is getting free water down her tube, but I will add a little D5W in hopes of preventing a further rise in this; especially since she is mildly hyperchloremic as well. She remains on ulcer and DVT prophylaxis. We will proceed as outlined above. There is still likelihood of compromise in view of her severe comorbid and prehospital difficulties. CRITICAL CARE TIME: I left the bedside at 1014 hours. There were 34 minutes of critical care time spent at the bedside not including procedures.
[2020-02-08] MEDS: PANTOPRAZOLE 40MG VIAL (C9113 PER 1) IV SCH (11:40)
[2020-02-08] MEDS: D5W 1,000 ML IV SCH (11:40)
[2020-02-08] MEDS: methylPREDNISolone 40MG 1ML VIAL IV SCH ×2 (11:41→23:27)
--- NOTE | 2020-02-08 13:32 | RO ---
OPERATIVE NOTE DATE OF OPERATION: 02/02/2020 PREOPERATIVE DIAGNOSIS: Hypoxic hypercarbic respiratory failure requiring tracheostomy for obesity, hypoventilation. POSTOPERATIVE DIAGNOSIS: Hypoxic hypercarbic respiratory failure requiring tracheostomy for obesity, hypoventilation. PROCEDURE PERFORMED: Open tracheostomy. SURGEON: Jarad Garcia MD BIOTECH PRODUCTION SPECIALIST: Wei Henry MD CLINICAL PREAMBLE: This 44-year-old woman presented to the emergency department with acute respiratory failure. The patient was eventually intubated. The patient had a history of previous tracheostomy. As patient requires a prolonged ventilatory support, management options including tracheostomy have been discussed. The consent had been obtained from the daughter of the patient over the phone. OR NARRATION: The patient was brought into the operating room from ICU in stable condition. On the ICU bed, the patient received anesthesia via the current existing ventilatory circuit. At this time, the patient's neck was extended. The head was supported to allow exposure of the anterior neck. The sternal notch and thyroid notch were identified. At this time, a horizontal curvilinear incision was fashioned in the anterior mid area where the previous scar of the tracheostomy was present. The incision was carried through the subcutaneous and fibrofatty tissue. The strap muscles were identified in the midline and dissected to allow retraction laterally. Dense scar tissue was encountered and carefully dissected away from the anterior midline position. The dense scar tissue was encountered over the anterior surface of the tracheal wall at the level of the second and third tracheal ring. The scar tissue was then carefully dissected away and the tracheal tube cuff was then clearly visualized. At this time, Anesthesia was asked to withdraw the tube up to the level of the cricoid cartilage. A cricoid hook was used to elevate the cricoid cartilage and the trachea to allow the full visualization of the tracheal stoma. The #7 Shiley XLT cuffed tracheostomy tube was then successfully inserted into the tracheal lumen under direct visualization. At this time, the ventilatory circuit was exchanged onto the new tracheostomy tube. Good CO2 return was obtained. At this time, the tracheostomy flange was sutured to the anterior neck skin at each corner. Velcro tracheostomy tie was then applied as well. A tracheostomy sponge was then applied on the tracheostomy incision site as well. At the end of the procedure, the sponge and instrument counts were correct. No complication was encountered. Estimated blood loss was less than 10 mL. General anesthesia was reversed and the patient was then transferred back to the ICU in stable condition.
[2020-02-08] MEDS: NORCO, ANEXSIA 5/325MG TABLET (HYDROcodone/ACETAMINOPHEN) FT PRN ×2 (14:41→23:29)
--- NOTE | 2020-02-08 15:30 | REP ---
INDICATION: LUE edema with PICC line in place COMPARISON: None TECHNIQUE: Portable real time horn scale and color Doppler evaluation of the left upper extremity using linear high-frequency transducer. FINDINGS: Examination is limited by body habitus and portable technique. Occlusive thrombus is identified within the left axillary and left basilic veins. Visualized left brachial vein appears patent. Remainder of the left upper extremity venous structures could not be evaluated. IMPRESSION: 1. Evidence for occlusive thrombus in the left axillary and basilic veins. <Electronically signed by Marlo Gleason > 02/08/20 [id number]
[2020-02-08] MEDS: ENOXAPARIN 120MG/0.8ML SYRINGE (J1650 PER 10MG) SC SCH (18:15)
[2020-02-08] MEDS: LEVEMIR (INSULIN DETEMIR) 1 UNITS/0.01ML SC SCH (21:22)
[2020-02-08] MEDS: cefTRIAXone SOD 1 GM in D5W MINI-BAG PLUS 50 ML IV SCH (21:23)
[2020-02-09] VITALS (16 sets, daily range): BP systolic 115–159; BP diastolic 57–80
[2020-02-09] MEDS: IPRATROPIUM 0.5MG/ALBUTEROL 2.5MG INH SOL UD 3ML (DUONEB) NEB SCH ×6 (00:28→20:31)
[2020-02-09] MEDS: HumuLIN R (REGULAR) INSULIN (NovoLIN R) **100U/ML** PER UNIT SC SCH ×4 (01:02→18:36)
[2020-02-09] MEDS: NYSTATIN 500,000 U/5 ML SUSP UDC PO SCH ×4 (01:02→18:36)
[2020-02-09] MEDS: SODIUM CHLORIDE 0.9% INJ 10 ML SYR IV SCH ×2 (05:10→18:37)
[2020-02-09] MEDS: MORPHINE 2 MG/ML 1ML VIAL (J2270) IV PRN ×2 (06:00→10:40)
[2020-02-09 06:09] LABS: ABG pH (ARTERIAL) 7.345 UNITS (7.350-7.450)
[2020-02-09 06:10] LABS: ABG HCO3 22.6 MEQ/L (22.0-26.0); ABG O2 SATURATION 98.6 % (95.0-99.0); ABG PARTIAL PRESSURE CO2 42.3 mmHg (35.0-45.0); ABG PARTIAL PRESSURE O2 128.6 mmHg (75.0-100.0); ABG TOTAL CO2 23.9 MEQ/L (22.0-29.0)
[2020-02-09 06:24] LABS: BILIRUBIN,TOTAL 0.8 MG/DL (0.2-1.0); CREATININE FOR GFR 1.29 MG/DL (0.55-1.30); GLOMERULAR FILTRATION RATE 57.4 (>58); POTASSIUM SERUM 5.6 MEQ/L (3.5-5.1)
[2020-02-09] MEDS: D5W 1,000 ML IV SCH (06:29)
[2020-02-09] MEDS: ENOXAPARIN 120MG/0.8ML SYRINGE (J1650 PER 10MG) SC SCH ×2 (06:29→18:36)
--- NOTE | 2020-02-09 08:02 | REP ---
INDICATION: respiratory failure COMPARISON: 02/08/2020 TECHNIQUE: Portable AP view of the chest FINDINGS: Tracheostomy overlies the airway in stable position. Nasogastric tube courses below left hemidiaphragm. Previously identified PICC line appears to have been removed. Left perihilar and lower lobe opacities suggesting areas of consolidation/mass and pleural effusion again identified and essentially unchanged. IMPRESSION: 1. Previously noted left PICC line has been removed. 2. Left perihilar and lower lobe opacities unchanged. <Electronically signed by Marlo Gleason > 02/09/20 0751
[2020-02-09] MEDS: ACETAMINOPHEN 325 MG/10.15 ML UDC GT PRN (08:11)
[2020-02-09] MEDS: METOPROLOL TART 50 MG TAB NG SCH ×2 (08:12→20:19)
[2020-02-09] MEDS: CHLORHEXIDINE GLUCONATE 0.12 % 15ML UDC (PERIDEX ORAL RINSE) MT SCH ×2 (08:13→20:19)
--- NOTE | 2020-02-09 08:18 | RO ---
OPERATIVE NOTE DATE OF OPERATION: 02/08/2020 PREPROCEDURE DIAGNOSIS: Bleeding tracheostomy site. POSTPROCEDURE DIAGNOSIS: Bleeding tracheostomy site. PROCEDURE: Wound exploration. INDICATIONS FOR PROCEDURE: I was asked to see Mr. Varela by Dr. Valdes of the pulmonary service to look at her tracheostomy as it was bleeding. ENT was not available to look at the tracheostomy. Dr. Garcia of ENT undertook the procedure. DESCRIPTION OF PROCEDURE: The tracheostomy wound was larger than usual secondary to a difficult tracheostomy going through scar tissue. There was considerable clot in the depths of the wound and this was all removed both by mechanical debridement and suction. After careful inspection, I could not find an active bleeding point. The wound was therefore packed with Surgicel and then further packed with a gauze sponge 4x4. The patient tolerated the procedure well.
--- NOTE | 2020-02-09 10:11 | IPN ---
PROGRESS NOTE DATE: 02/09/2020 SUBJECTIVE: I again attended Pam Varela here in the intensive care unit. She remains sedated and mechanically ventilated through an existing tracheostomy. OBJECTIVE: VITAL SIGNS: T-max overnight 99.1, blood pressure 150 to the 160s, heart rate generally 80s to the low 100s with a sinus mechanism, respiratory rate generally in the 20s without accessory muscle use. INTAKE AND OUTPUT: Ejumjwsz-su-gteqyejm 3290 mL in with 2365 mL out. Yesterday she was found to have a significant thrombus in the left upper extremity. PICC line was removed and she was started on full-dose Lovenox. She has much less oozing from her tracheostomy site. MOST RECENT LABORATORIES: Sodium 147, K 5.6, chloride 116, CO2 of 22, BUN 69, creatinine 1.29, glucose of 170. AST 49, ALT 38, albumin 3.0. White blood cell count 11.1, hemoglobin 15.2, platelet count 186,000. Blood gas done on a pressure support mode, pressure support of 12, PEEP of 10, shows a pH of 7.345, pCO2 42.3, PaO2 of 128.6. Chest x-ray is markedly rotated this morning. Right chest is clear. I cannot make definitive comments about the left base in view of how the film was taken. She is more comfortable on the oral pain medications. MEDICATIONS: Medications have been reviewed. She is on full-dose Lovenox. Insulin coverage by sliding scale. She remains on Rocephin. She is on metoprolol and Norvasc. She remains on pain medications outlined above. PHYSICAL EXAM: GENERAL APPEARANCE: She is sedate, but arousable. Intermittently follows some commands. HEENT: Pupils react. Sclerae clear. Trach site shows no fresh bleeding today. Intermittent secretions. CHEST: Fairly clear anteriorly. Decreased at the bases, left greater than right. No convincing egophony or wheeze. No rubs. CARDIAC: Distant, but regular. Peripheral pulses are diminished. Edema is unchanged. ABDOMEN: Morbidly obese. I believe there are bowel sounds in the distance. Organomegaly and masses difficult in view of body habitus. EXTREMITIES: Her extremities show much less edema in the left upper extremity today. NEUROLOGIC: As outlined above. IMPRESSION: 1. Acute on chronic hypoxemic and hypercapnic respiratory failure now ventilator dependent. 2. Left upper extremity deep venous thrombosis (DVT). 3. Diabetes mellitus. 4. Morbid obesity. 5. Pickwickian syndrome. 6. Suspect severe obstructive sleep apnea (TALA). 7. Hypertension. 8. Global deconditioning. RECOMMENDATIONS: At this point we will decrease her sedation as needed and ask physical therapy and occupational therapy to become re-involved. If we are not able to strengthen her and get her mobilized, then the chances of weaning her from the ventilator are slim to none. She will remain on Lovenox for her left upper extremity DVT. Hopefully we can get a new PICC line on the other side, especially for her IV antibiotics Her potassium is elevated this morning, etiology of this is unclear and we will repeat her lab work. If it is remains I may have nephrology evaluate her as well. She is not on any medications that should be responsible for this. Her pain is much better today and we will decrease her medications as able. She does have the anteflexion boots on and again as outlined above, I will have physical therapy become involved with her more aggressively. Glucoses are under control. She is tolerating her tube feeds. Overall she remains marginal as far as her progress. We will proceed as outlined above. Prognosis is guarded at best. Further recommendations will be made in the progress records as new information becomes available.
[2020-02-09] MEDS: PANTOPRAZOLE 40MG VIAL (C9113 PER 1) IV SCH (10:40)
[2020-02-09] MEDS: methylPREDNISolone 40MG 1ML VIAL IV SCH ×2 (10:40→22:53)
[2020-02-09 12:45] LABS: CALCIUM LEVEL 9.8 MG/DL (8.5-10.1); CREATININE FOR GFR 1.25 MG/DL (0.55-1.30); GLOMERULAR FILTRATION RATE 59.5 (>58)
[2020-02-09] MEDS ORDERED: LIDOCAINE 1% MDV 20ML VIAL As Ordered ONE (13:06)
--- NOTE | 2020-02-09 15:50 | REP ---
INDICATION: poor IV access. COMPARISON: None. TECHNIQUE: The procedure was performed under the direct supervision of Dr. Sevilla. The risks and benefits of the procedure were explained and informed consent was obtained by healthcare proxy. The procedure was performed in the ICU at the bedside. The right basilic vein was localized using ultrasound guidance. The skin was prepped and draped in a sterile fashion. 2% lidocaine was used as a local anesthetic. Using ultrasound guidance the basilic vein was cannulated and a 0.018 guidewire was inserted. The needle was removed and a 5.5 [place] dilator and peel-away sheath was inserted over the guide wire. A 5.5 [place] dual lumen catheter was cut to length of 42 cm. The dilator was removed and the catheter was inserted over the guide wire. A portable chest x-ray was performed and the image demonstrates the catheter to be coiled on itself in the SVC. The catheter was retested and another portable chest x-ray was performed. The image demonstrates the tip of the catheter to be in the SVC. The peel-away sheath was removed and the catheter was flushed with heparinized saline as per Hospital protocol. The catheter was affixed to the skin and a sterile dressing was applied. The patient tolerated the procedure well and there were no immediate complications. FINDINGS: None IMPRESSION: PICC line insertion at the bedside. Right basilic vein with the tip ending in the SVC. <Electronically signed by Brandin Conrad > 02/09/20 1544 <Electronically signed by Jamie Sevilla > 02/09/20 1549
[2020-02-09] MEDS: LEVEMIR (INSULIN DETEMIR) 1 UNITS/0.01ML SC SCH (20:18)
[2020-02-09] MEDS: NORCO, ANEXSIA 5/325MG TABLET (HYDROcodone/ACETAMINOPHEN) FT PRN (20:19)
[2020-02-09] MEDS: cefTRIAXone SOD 1 GM in D5W MINI-BAG PLUS 50 ML IV SCH (22:53)
[2020-02-10] VITALS (12 sets, daily range): BP systolic 137–172; BP diastolic 66–86; O2SAT 97–100
[2020-02-10] MEDS: NYSTATIN 500,000 U/5 ML SUSP UDC PO SCH ×5 (00:49→23:52)
[2020-02-10] MEDS: HumuLIN R (REGULAR) INSULIN (NovoLIN R) **100U/ML** PER UNIT SC SCH ×5 (00:49→23:58)
[2020-02-10] MEDS: NYSTATIN 100,000 UNITS/GM TOPICAL PWD 15 GM TOP PRN (00:52)
[2020-02-10] MEDS: IPRATROPIUM 0.5MG/ALBUTEROL 2.5MG INH SOL UD 3ML (DUONEB) NEB SCH ×6 (00:53→19:57)
[2020-02-10] MEDS: D5W 1,000 ML IV SCH (04:19)
[2020-02-10 05:05] LABS: HEMATOCRIT 48.1 % (36.0-47.0); HEMOGLOBIN 14.9 g/dl (12.0-15.5); MEAN CORPUSCULAR HEMOGLOBIN 31.1 pg (27.0-33.0); MEAN CORPUSCULAR VOLUME 100.4 fl (80.0-96.0); PLATELET COUNT, AUTOMATED 142 10^3/uL (150-450); RED BLOOD COUNT 4.79 10^6/uL (4.00-5.40); WHITE BLOOD COUNT 13.7 10^3/uL (4.0-10.0)
[2020-02-10 05:31] LABS: ABG BASE EXCESS -3.2 (-2.0-2.0); ABG HCO3 21.3 MEQ/L (22.0-26.0); ABG O2 SATURATION 97.4 % (95.0-99.0); ABG PARTIAL PRESSURE CO2 36.8 mmHg (35.0-45.0); ABG PARTIAL PRESSURE O2 94.3 mmHg (75.0-100.0); ABG STANDARD HCO3 21.8 MEQ/L (22.0-26.0); ABG TOTAL CO2 22.4 MEQ/L (22.0-29.0)
[2020-02-10 05:37] LABS: ALBUMIN 2.8 GM/DL (3.2-5.2); BILIRUBIN,TOTAL 0.7 MG/DL (0.2-1.0); CALCIUM LEVEL 8.9 MG/DL (8.5-10.1); CREATININE FOR GFR 1.27 MG/DL (0.55-1.30); GLOMERULAR FILTRATION RATE 58.4 (>58); POTASSIUM SERUM 4.9 MEQ/L (3.5-5.1); TOTAL PROTEIN 7.1 GM/DL (6.4-8.2)
[2020-02-10] MEDS: ENOXAPARIN 120MG/0.8ML SYRINGE (J1650 PER 10MG) SC SCH ×2 (05:46→17:32)
[2020-02-10] MEDS: SODIUM CHLORIDE 0.9% INJ 10 ML SYR IV SCH ×2 (05:47→17:32)
[2020-02-10] MEDS: NORCO, ANEXSIA 5/325MG TABLET (HYDROcodone/ACETAMINOPHEN) FT PRN ×2 (05:48→17:33)
--- NOTE | 2020-02-10 07:42 | REP ---
INDICATION: respiratory failure COMPARISON: 02/09/2020 TECHNIQUE: Portable AP view of the chest FINDINGS: Tracheostomy and nasogastric tube in stable satisfactory position. New right PICC line with tip in the SVC. The mediastinum and cardiac silhouette are stable and within normal limits for portable technique. The lung sheets again suggest left lower lobe opacity and medial right basilar opacity. No new areas of consolidation or effusion. No pneumothorax. IMPRESSION: 1. Lines and tubes in satisfactory position. 2. Continued left lower lobe/retrocardiac and medial right basilar opacities suspected. 3. No new acute process. <Electronically signed by Marlo Gleason > 02/10/20 0761
[2020-02-10] MEDS: METOPROLOL TART 50 MG TAB NG SCH ×2 (08:27→21:06)
[2020-02-10] MEDS: CHLORHEXIDINE GLUCONATE 0.12 % 15ML UDC (PERIDEX ORAL RINSE) MT SCH ×2 (08:27→21:06)
[2020-02-10] MEDS: methylPREDNISolone 40MG 1ML VIAL IV SCH ×2 (10:32→23:51)
[2020-02-10] MEDS: PANTOPRAZOLE 40MG VIAL (C9113 PER 1) IV SCH (10:32)
--- NOTE | 2020-02-10 11:09 | CCN ---
PULMONARY CRITICAL PROGRESS NOTE DATE: 02/10/2020 SUBJECTIVE: I attended to Pam Varela here in the Intensive Care Unit. Patient has been examined and chart reviewed. She is on minimal sedation. She is getting pain medications. She is much more awake, alert and interactive this morning. She complains of some left arm pain, but no other significant issues. T-max overnight 99.3, blood pressure 130-160s, heart rate generally 70s-90s with a sinus mechanism, respiratory rate anywhere from 19-22 without accessory muscle use, currently 94% saturated on 35% FiO2. Most recent laboratories show white blood cell count of 13.7, hemoglobin 14.9, platelet count 142,000, no differential this morning. Sodium 145, K 4.9, chloride 113, CO2 25, BUN 71 and creatinine stable at 1.27, glucose 237. Albumin 2.8. Blood gas done this morning on a pressure support mode of 12, PEEP of 10, FiO2 of 35%: pH 7.380, PCO2 36.8, PO2 94.3. Chest x-ray again rotated and shows no significant acute changes. I do believe there is persistent left basilar atelectasis. OBJECTIVE: On exam she is awake, alert and appropriate. She responds to questioning. HEENT: Membranes are moist. Pupils react, sclerae clear. Neck: Trach site shows no active bleeding. Chest: Fairly clear anteriorly. Expansion, although diminished, is symmetric. Maybe some dependent opening crackles. Exam difficult due to her body habitus. Cardiac: Distant, but regular. Peripheral pulses diminished, but I believe are palpable. Abdomen: Morbidly obese, soft, bowel sounds are heard in the distance. Extremities: Without cyanosis or clubbing. She has much less edema in the left upper extremity compared to 2 days ago. Neurologically: Outlined above. IMPRESSIONS: 1. Acute on chronic respiratory failure, hypoxemic and hypercapnic. 2. Hypertension. 3. Left upper extremity DVT. 4. Diabetes mellitus. 5. Pneumonia. 6. TALA now with repeat tracheostomy. 7. Renal insufficiency. PLAN: At this point we will her current antimicrobials. She remains on dose adjusted Lovenox per recommendations of pharmacy for a left upper extremity DVT. Glucose control is reasonable. She remains on ulcer prophylaxis as well. Physical therapy has been consulted and I believe that she will not be able to be off the vent even to a trach collar until she is able to be up out of bed and mobile, at least up in a chair. She is tolerating enteral feeds. Her other bowel and urinary function and have been stable. At this point we will proceed as outlined above. My hope is that we will be able to achieve weaning at some point, but she needs to be much more conditioned I believe first to achieve that. Further recommendations will be made in the progress record as new information becomes available.
[2020-02-10] MEDS: LEVEMIR (INSULIN DETEMIR) 1 UNITS/0.01ML SC SCH (21:07)
[2020-02-10] MEDS: cefTRIAXone SOD 1 GM in D5W MINI-BAG PLUS 50 ML IV SCH (22:50)
[2020-02-11] VITALS (16 sets, daily range): BP systolic 159–195; BP diastolic 73–91; O2SAT 96–100
[2020-02-11] MEDS: D5W 1,000 ML IV SCH ×2 (01:49→18:50)
[2020-02-11] MEDS: IPRATROPIUM 0.5MG/ALBUTEROL 2.5MG INH SOL UD 3ML (DUONEB) NEB SCH ×6 (04:15→19:23)
[2020-02-11 05:42] LABS: ALBUMIN 2.9 GM/DL (3.2-5.2); ALT/SGPT 42 U/L (12-78); BILIRUBIN,TOTAL 0.7 MG/DL (0.2-1.0); BLOOD UREA NITROGEN 64 MG/DL (7-18); CARBON DIOXIDE LEVEL 26 MEQ/L (21-32); CHLORIDE LEVEL 111 MEQ/L (98-107); CREATININE FOR GFR 1.13 MG/DL (0.55-1.30); GLOMERULAR FILTRATION RATE > 60.0 (>58); GLUCOSE, FASTING 233 MG/DL (70-100); POTASSIUM SERUM 4.8 MEQ/L (3.5-5.1); SODIUM LEVEL 143 MEQ/L (136-145); TOTAL PROTEIN 6.8 GM/DL (6.4-8.2)
[2020-02-11] MEDS: NYSTATIN 500,000 U/5 ML SUSP UDC PO SCH ×3 (07:33→18:26)
[2020-02-11] MEDS: HumuLIN R (REGULAR) INSULIN (NovoLIN R) **100U/ML** PER UNIT SC SCH ×3 (07:34→18:26)
[2020-02-11] MEDS: ENOXAPARIN 120MG/0.8ML SYRINGE (J1650 PER 10MG) SC SCH (07:34)
[2020-02-11] MEDS: SODIUM CHLORIDE 0.9% INJ 10 ML SYR IV SCH ×2 (07:35→18:27)
--- NOTE | 2020-02-11 08:19 | REP ---
INDICATION: respiratory failure COMPARISON: 02/10/2020 TECHNIQUE: Portable AP view of the chest FINDINGS: Tracheostomy is satisfactory stable position. Nasogastric tube extends below the left hemidiaphragm. Right PICC line with tip in the SVC. Stable cardiomegaly along with perihilar and left lower lobe/retrocardiac opacities again suspected. No new acute process appreciated. IMPRESSION: 1. Lines and tubes in stable satisfactory position. 2. Stable opacities. <Electronically signed by Marlo Gleason > 02/11/20 0895
[2020-02-11] MEDS: CHLORHEXIDINE GLUCONATE 0.12 % 15ML UDC (PERIDEX ORAL RINSE) MT SCH ×2 (10:07→20:41)
[2020-02-11] MEDS: METOPROLOL TART 50 MG TAB NG SCH (10:09)
[2020-02-11] MEDS: PANTOPRAZOLE 40MG VIAL (C9113 PER 1) IV SCH (10:09)
[2020-02-11] MEDS: methylPREDNISolone 40MG 1ML VIAL IV SCH ×2 (10:09→22:19)
--- NOTE | 2020-02-11 10:22 | CCN ---
PULMONARY PROGRESS NOTE DATE: 02/11/2020 SUBJECTIVE: I again attended to Pam Varela in the Intensive Care Unit. Patient was seen and examined, chart reviewed. I spoke at length with the nurse at the bedside. She is much more awake, alert and interactive today. Answers questions appropriately and smiles and nods with interactions. T-max overnight 99.3, blood pressure generally in the 140s-150s systolic, heart rate in the 80s with a sinus mechanism, respiratory rate generally in the low to mid 20s without accessory muscle use. Ins and outs midnight to midnight 2850 mL in with 1865 mL out. She has had less in the way of diarrhea. Most recent laboratories currently are pending regarding her white count. Sodium 143, K 4.8, chloride 111, CO2 26, BUN 64, creatinine down to 1.13, glucose 233. AST 39, ALT 42. Albumin 2.9. No new blood gas this morning. Chest x-ray shows no new changes. I do believe there is atelectasis in the retrocardiac area persistent. PHYSICAL EXAM: On exam she is awake, alert and appropriate. HEENT: Pupils react, sclerae clear. Membranes are moist. Neck: Trach site shows some bloody secretions this morning with only minimal oozing. Chest: Diminished, but symmetric expansion. Fairly clear anteriorly. There are decreased breath sounds at the extreme left base, but no other focal adventitious breath sounds were identified. Cardiac: Distant, but regular. Peripheral pulses palpable. No significant edema. Extremities: Left upper extremity shows continued improvement. Without cyanosis or clubbing. Abdomen: Morbidly obese, soft, active bowel sounds, no organomegaly or masses. Neurologically: She is awake, alert and appropriate. Although globally weak does move all extremities. Psychiatric: With a reasonably normal mood and affect today. IMPRESSIONS: 1. Acute on chronic hypoxemic and hypercapnic respiratory failure. 2. Pickwickian syndrome. 3. Obstructive sleep apnea syndrome. 4. Now status post tracheostomy for a combination of the above. 5. Diabetes mellitus. 6. Global deconditioning. 7. Left upper extremity DVT. 8. Pneumonitis, improving. RECOMMENDATIONS: Medication list has been reviewed. She remains on low dose steroids which are being weaned slowly. She remains on Rocephin. We have been able to wean her morphine since the addition of hydrocodone. She remains on ulcer prophylaxis. She is on adjusted for weight Lovenox and I spoke with pharmacy this morning to see if we can decrease that dose somewhat in view of her bleeding around her trach. She does have some intermittent bloody secretions undoubtedly from her tracheostomy. Glucose control is reasonable. She has had improvement in her electrolytes. We will make some mild adjustments in her ventilator in hopes of slowly improving respiratory muscle conditioning. Physical therapy has been ordered to work with her and we will have to see the status of that. Clearly I do not believe she will progress to being able to stay off ventilatory support unless we can improve her overall muscle conditioning. Hopefully in the next several days she will be able to try a trach collar, but even on 12 of pressure support her tidal volumes are only in the 400s. At this point we will proceed as outlined above. Further recommendations will be made in the progress record as new information becomes available.
[2020-02-11] MEDS ORDERED: METOPROLOL TART 50 MG TAB NG ONE (14:30)
[2020-02-11] MEDS: ENOXAPARIN 100MG/1ML SYRINGE (J1650 PER 10MG) SC SCH (18:26)
[2020-02-11] MEDS: LEVEMIR (INSULIN DETEMIR) 1 UNITS/0.01ML SC SCH (20:41)
[2020-02-11] MEDS: METOPROLOL TARTRATE 100 MG TAB NG SCH (20:42)
[2020-02-11] MEDS: MORPHINE 2 MG/ML 1ML VIAL (J2270) IV PRN (22:18)
[2020-02-11] MEDS: cefTRIAXone SOD 1 GM in D5W MINI-BAG PLUS 50 ML IV SCH (22:19)
[2020-02-12] VITALS (13 sets, daily range): BP systolic 163–197; BP diastolic 79–92
[2020-02-12] MEDS: IPRATROPIUM 0.5MG/ALBUTEROL 2.5MG INH SOL UD 3ML (DUONEB) NEB SCH ×6 (00:26→20:06)
[2020-02-12] MEDS: HumuLIN R (REGULAR) INSULIN (NovoLIN R) **100U/ML** PER UNIT SC SCH ×5 (00:40→23:52)
[2020-02-12] MEDS: NYSTATIN 500,000 U/5 ML SUSP UDC PO SCH ×5 (00:40→23:31)
[2020-02-12] MEDS: NORCO, ANEXSIA 5/325MG TABLET (HYDROcodone/ACETAMINOPHEN) FT PRN (00:41)
[2020-02-12] MEDS: MORPHINE 2 MG/ML 1ML VIAL (J2270) IV PRN ×2 (01:01→04:23)
[2020-02-12] MEDS: ENOXAPARIN 100MG/1ML SYRINGE (J1650 PER 10MG) SC SCH ×2 (06:38→17:41)
[2020-02-12] MEDS: SODIUM CHLORIDE 0.9% INJ 10 ML SYR IV SCH ×2 (06:38→17:41)
[2020-02-12 06:45] LABS: HEMATOCRIT 46.6 % (36.0-47.0); HEMOGLOBIN 14.6 g/dl (12.0-15.5); MEAN CORPUSCULAR HEMOGLOBIN 30.7 pg (27.0-33.0); MEAN CORPUSCULAR HGB CONC 31.3 g/dl (32.0-36.5); MEAN CORPUSCULAR VOLUME 97.9 fl (80.0-96.0); PLATELET COUNT, AUTOMATED 106 10^3/uL (150-450); RED BLOOD COUNT 4.76 10^6/uL (4.00-5.40)
[2020-02-12 07:10] LABS: ALT/SGPT 47 U/L (12-78); BILIRUBIN,TOTAL 0.6 MG/DL (0.2-1.0); BLOOD UREA NITROGEN 63 MG/DL (7-18); CALCIUM LEVEL 9.1 MG/DL (8.5-10.1); CARBON DIOXIDE LEVEL 25 MEQ/L (21-32); CHLORIDE LEVEL 109 MEQ/L (98-107); CREATININE FOR GFR 1.05 MG/DL (0.55-1.30); GLOMERULAR FILTRATION RATE > 60.0 (>58); GLUCOSE, FASTING 202 MG/DL (70-100); POTASSIUM SERUM 4.5 MEQ/L (3.5-5.1); SODIUM LEVEL 141 MEQ/L (136-145); TOTAL PROTEIN 6.6 GM/DL (6.4-8.2)
[2020-02-12] MEDS: METOPROLOL TARTRATE 100 MG TAB NG SCH ×2 (08:17→20:15)
[2020-02-12] MEDS: CHLORHEXIDINE GLUCONATE 0.12 % 15ML UDC (PERIDEX ORAL RINSE) MT SCH ×2 (08:17→20:15)
[2020-02-12] MEDS ORDERED: FLUCONAZOLE 50MG TABLET PO SCH (09:00)
[2020-02-12] MEDS: FLUCONAZOLE IV SCH (09:12)
[2020-02-12] MEDS: **hydrALAZINE HCL** 25 MG TAB PO SCH ×2 (09:12→21:41)
--- NOTE | 2020-02-12 10:15 | IPN ---
PULMONARY AND CRITICAL CARE PROGRESS NOTE DATE: 02/12/2020 SUBJECTIVE: I attended Pam Varela here in the Intensive Care Unit. The patient was examined and chart reviewed. I spoke at length this morning as well with her daughter who is her health care proxy; Devi Kirkland, at [phone]. This morning she remains awake, alert, comfortable, and appropriately interactive. T-max overnight 98.9, blood pressure 170 to 190 systolic. Heart rate generally in the 70s to 90s with a sinus mechanism, respiratory rate 18 to about 20 with tidal volumes between 300 and 350 ml on a pressure support of 12 and a PEEP of 8. Pulse oximetry 93 to 98% on 30% FIO2. No chest x-ray or blood gas this morning. Other laboratories showed a white blood cell count of 12.0, hemoglobin 14.6, platelet count of 106,000. Sodium 141, K of 4.5, chloride 109, CO2 25, BUN 63, creatinine 1.05, glucose 202. Albumin of 3.0. Diarrhea has stopped. We have been able to remove her rectal tube. PHYSICAL EXAMINATION: GENERAL: She is awake, alert and appropriate. Remains globally weak. HEENT: Pupils react, sclerae clear. Neck: Trach site still has some mild oozing. Chest: Diminished, but symmetric expansion. Fairly clear anteriorly. There are decreased breath sounds at the bases, left greater than right. No convincing rhonchus. Cardiac: Distant, but regular. Peripheral pulses palpable. Trace edema. Abdomen: Morbidly obese, soft, active bowel sounds, no convincing organomegaly or masses. Extremities: No obvious cyanosis or clubbing. No significant edema. Her left upper extremity is markedly improved. Neurologically: She is awake, alert and appropriate. Psychiatric: Normal mood and affect today. MEDICATIONS: Her medication list has been reviewed. We increased her metoprolol yesterday to 100 mg twice daily. She remains on Norvasc 10 mg daily and hydralazine was added this morning. She remains on Ceftriaxone and Diflucan. Glucose has been under reasonable control. IMMPRESSION: 1. Acute on chronic respiratory failure, both hypoxemic and hypercapnic. 2. Pickwickian syndrome. 3. History of obstructive apnea sleep syndrome. 4. Diabetes mellitus. 5. Hypertension. 6. Global deconditioning. RECOMMENDATIONS: I had a long discussion with her daughter this morning who tells me that hypertension has been an issue in the past but she has never been terribly complaint. At one point she was told she had sleep apnea, had a tracheostomy in the past but reportedly had a sleep study done at [facility] which did not demonstrate this. We do not have access to that study. Her biggest issue right now is overall global deconditioning. I discussed with her daughter my concern is that until she can be mobile and with increased overall strength and conditioning we will not have significant success in being able to keep her off of ventilatory support. There is a very high likelihood she may actually require nighttime ventilatory support down the road especially in view of her physiology. We have added hydralazine to her Norvasc and Metoprolol. Additional agents may be needed and certainly agents such as Clonidine may be better served before adding either an JOSÉ MIGUEL inhibitor or an ARB. She remains fully anticoagulated for her left upper extremity DVT. She still has some oozing around her trach site but her hemoglobin has been stable. She remains on ulcer prophylaxis. She had a significant right sided infiltrate which has cleared nicely. Will continue her Rocephin for now. I do believe she has atelectasis in the retrocardiac area and again until we are able to have her up and about that will be a problem. At this point we will proceed as outlined above. She remains overall critically ill. Further recommendations will be made in the progress record as new information becomes available.
[2020-02-12] MEDS: PANTOPRAZOLE 40MG VIAL (C9113 PER 1) IV SCH (10:51)
[2020-02-12] MEDS: methylPREDNISolone 40MG 1ML VIAL IV SCH ×2 (10:51→23:32)
[2020-02-12] MEDS: LEVEMIR (INSULIN DETEMIR) 1 UNITS/0.01ML SC SCH (20:18)
[2020-02-12] MEDS: cefTRIAXone SOD 1 GM in D5W MINI-BAG PLUS 50 ML IV SCH (21:44)
[2020-02-13] VITALS (18 sets, daily range): BP systolic 154–185; BP diastolic 69–90
[2020-02-13] MEDS: IPRATROPIUM 0.5MG/ALBUTEROL 2.5MG INH SOL UD 3ML (DUONEB) NEB SCH ×6 (00:47→21:21)
[2020-02-13 06:14] LABS: ABG BASE EXCESS -2.1 (-2.0-2.0); ABG HCO3 20.6 MEQ/L (22.0-26.0); ABG PARTIAL PRESSURE CO2 30.2 mmHg (35.0-45.0); ABG PARTIAL PRESSURE O2 81.4 mmHg (75.0-100.0); ABG STANDARD HCO3 22.7 MEQ/L (22.0-26.0); ABG TOTAL CO2 21.5 MEQ/L (22.0-29.0); ABG pH (ARTERIAL) 7.452 UNITS (7.350-7.450)
[2020-02-13] MEDS: HumuLIN R (REGULAR) INSULIN (NovoLIN R) **100U/ML** PER UNIT SC SCH ×4 (06:45→23:56)
[2020-02-13] MEDS: ENOXAPARIN 100MG/1ML SYRINGE (J1650 PER 10MG) SC SCH ×2 (06:45→18:13)
[2020-02-13] MEDS: NYSTATIN 500,000 U/5 ML SUSP UDC PO SCH ×4 (06:46→23:56)
[2020-02-13] MEDS: SODIUM CHLORIDE 0.9% INJ 10 ML SYR IV SCH ×2 (06:47→18:15)
[2020-02-13] MEDS: CHLORHEXIDINE GLUCONATE 0.12 % 15ML UDC (PERIDEX ORAL RINSE) MT SCH ×2 (08:10→20:55)
[2020-02-13] MEDS: METOPROLOL TARTRATE 100 MG TAB NG SCH ×2 (08:11→21:02)
[2020-02-13] MEDS: **hydrALAZINE HCL** 25 MG TAB PO SCH ×3 (08:11→20:56)
[2020-02-13] MEDS: FLUCONAZOLE IV SCH (08:12)
[2020-02-13 08:31] LABS: HEMATOCRIT 46.7 % (36.0-47.0); HEMOGLOBIN 14.2 g/dl (12.0-15.5); MEAN CORPUSCULAR HEMOGLOBIN 29.6 pg (27.0-33.0); MEAN CORPUSCULAR HGB CONC 30.4 g/dl (32.0-36.5); MEAN CORPUSCULAR VOLUME 97.5 fl (80.0-96.0); PLATELET COUNT, AUTOMATED 126 10^3/uL (150-450); RED BLOOD COUNT 4.79 10^6/uL (4.00-5.40); WHITE BLOOD COUNT 10.7 10^3/uL (4.0-10.0)
--- NOTE | 2020-02-13 08:39 | REP ---
INDICATION: Resp Failure COMPARISON: 02/11/2020 TECHNIQUE: Portable AP view of the chest FINDINGS: Tracheostomy, nasogastric tube, and right PICC line are in stable satisfactory position. Large area of opacification involving the left hemithorax is again noted and possibly increased from prior examination. Finding likely includes areas of consolidation/collapse and pleural effusion. No pneumothorax. Right hemithorax is clear. IMPRESSION: Increasing opacity involving the left hemithorax suspected. <Electronically signed by Marlo Gleason > 02/13/20 0803
[2020-02-13 08:49] LABS: ALBUMIN 2.9 GM/DL (3.2-5.2); ALT/SGPT 43 U/L (12-78); BILIRUBIN,TOTAL 0.6 MG/DL (0.2-1.0); BLOOD UREA NITROGEN 63 MG/DL (7-18); CALCIUM LEVEL 9.1 MG/DL (8.5-10.1); CARBON DIOXIDE LEVEL 24 MEQ/L (21-32); CHLORIDE LEVEL 109 MEQ/L (98-107); CREATININE FOR GFR 1.02 MG/DL (0.55-1.30); GLOMERULAR FILTRATION RATE > 60.0 (>58); GLUCOSE, FASTING 200 MG/DL (70-100); POTASSIUM SERUM 4.5 MEQ/L (3.5-5.1); SODIUM LEVEL 139 MEQ/L (136-145); TOTAL PROTEIN 6.9 GM/DL (6.4-8.2)
[2020-02-13 09:22] LABS: MAGNESIUM LEVEL 2.4 MG/DL (1.8-2.4); PHOSPHORUS LEVEL 5.4 MG/DL (2.5-4.9)
[2020-02-13] MEDS: PANTOPRAZOLE 40MG VIAL (C9113 PER 1) IV SCH (11:25)
[2020-02-13] MEDS: methylPREDNISolone 40MG 1ML VIAL IV SCH ×2 (11:26→22:22)
[2020-02-13 11:50] LABS: ABG BASE EXCESS -0.3 (-2.0-2.0); ABG HCO3 23.1 MEQ/L (22.0-26.0); ABG O2 SATURATION 94.4 % (95.0-99.0); ABG PARTIAL PRESSURE CO2 34.3 mmHg (35.0-45.0); ABG PARTIAL PRESSURE O2 68.9 mmHg (75.0-100.0); ABG STANDARD HCO3 24.2 MEQ/L (22.0-26.0); ABG TOTAL CO2 24.1 MEQ/L (22.0-29.0); ABG pH (ARTERIAL) 7.446 UNITS (7.350-7.450)
[2020-02-13] MEDS: NORCO, ANEXSIA 5/325MG TABLET (HYDROcodone/ACETAMINOPHEN) FT PRN (12:46)
--- NOTE | 2020-02-13 16:42 | CCN ---
CRITICAL CARE NOTE DATE: 02/13/2020 Ms. Varela was seen and examined this morning during bedside rounds. Patient did not have any acute events noted overnight. This morning she is awake and alert and following commands appropriately. She denies any chest pain. No abdominal pain currently. No nausea or vomiting. She has not had any fevers. She did not have any bowel movement overnight. PHYSICAL EXAMINATION: VITAL SIGNS: Temperature 98.7, pulse 89, respirations 31, blood pressure 163/77, oxygen saturation 96% on 30% FiO2. Intake 2.4, output 1.9, net positive 460 mL. GENERAL: Patient is an obese female who is lying in bed. Appears awake, alert, and oriented. She does not appear to be in any acute respiratory distress. She does have global weakness. HEENT: Normocephalic, atraumatic. Pupils are reactive. Moist mucous membranes. NECK: Shows tracheostomy site with dried blood around the trach site with packed gauze and Surgicel. CARDIAC: Regular rate and rhythm, normal S1, S2. Somewhat distant heart Sounds. Unable to clearly appreciate any murmurs. RESPIRATORY: Diminished breath sounds on the left base. There is no wheezing noted and no significant rhonchi. ABDOMEN: Morbidly obese, soft, nontender. There is a palpable hernia, which is easily reducible. EXTREMITIES: No significant lower extremity edema noted bilaterally. The left upper extremity swelling has improved. There is no tenderness there. She has a right peripherally inserted central catheter (PICC) line in place with the dressing site appearing clean, dry, and intact. LABORATORY DATA: WBC 10.7, hemoglobin 14.2, platelets 126. Chemistry: Sodium is 139, potassium 4.5, chloride 109, bicarbonate 24, BUN 63, creatinine 1.02, glucose 200. AST and ALT within normal limits.. Albumin 2.9. ABG: A pH 7.452, pCO2 of 30.2, pO2 of 81.4. IMAGING: Chest x-ray this morning shows tracheostomy in place. There is a right PICC line in place. There is some increased left lower lobe opacity/consolidation, some of which may be due to positioning. ASSESSMENT AND PLAN: Ms. Varela is a 44-year-old female with a past medical history of insulin-dependent diabetes, hypertension, hyperlipidemia, morbid obesity, history of prior deep venous thrombosis (DVT), history of obstructive sleep apnea (TALA)/obesity hypoventilation syndrome (OHS) with a previous history of tracheostomy, who presented with acute on chronic hypoxemic respiratory failure and acute on chronic hypercapnic respiratory failure, requiring intubation and mechanical ventilation. Patient has had a prolonged hospitalization with difficulty weaning from the ventilator. She had a tracheostomy placed for her chronic respiratory failure by ENT. She has had some issues with bleeding from her tracheostomy site, as she is on full anticoagulation for a left upper extremity deep venous thrombosis (DVT). 1. Acute on chronic hypoxemic and hypercarbic respiratory failure, status post intubation and mechanical ventilation and now on tracheostomy. - Patient has been tolerating pressure support on the ventilator, however, with significant positive end-expiratory pressure (PEEP) and pressure support of 12 over PEEP of 8 with tidal volumes in the 350 range. As her mental status has improved, and while she is deconditioned, her strength has also improved slightly. Will attempt weaning patient from the ventilator to trach collar if tolerated. - Will get arterial blood gas (ABG) while patient is on the trach collar and continue her on trach collar as tolerated and place back on ventilator with pressure support for desaturation or respiratory distress as well as at bedtime. - Patient is continued on antibiotics with ceftriaxone as well as fluconazole. Her previous right-sided infiltrate had improved; however, she does have some increased atelectasis on the left side. She has been afebrile and does not have increased leukocytosis and suspect the atelectasis is due to positioning, as patient is frequently found on her left side down. - Will get a wedge and attempt to position the patient with the left side up as well as using a directional suctioning catheter. Will also attempt to get patient into a sitting position with her bed and continue working with occupational therapy (OT)/physical therapy (PT) for mobilization. - Patient has been on steroids with Solu-Medrol 30 mg twice a day since her admission. Will start weaning her steroids down to Solu-Medrol 20 mg twice a day and with a slow taper and wean. - Continue with nebulized bronchodilators. - Continue with chlorhexidine mouthwash and ventilator bundle care with head of bed elevation. 2. Tube feeds. Patient is on Glucerna tube feeds while intubated via a nasogastric (NG) tube. If she is able to be weaned to trach collar and tolerating that for most of the day, she may be able to tolerate a speech and swallow evaluation. Otherwise, she may need a potential percutaneous endoscopic gastrostomy (PEG) tube placement for feeding. Given her previous history of tracheostomy, she likely will have a prolonged course in terms of weaning. - Patient does have hyperphosphatemia. Will change her tube feeds to Nepro tube feeds for lower phosphorus content. She has been tolerating tube feeds on the current rate, so will continue with the current rate. - Will continue monitoring residuals. - Will cont patient on long-acting insulin at 40 units at bedtime with sliding-scale coverage. 3. Hypertension. Patient has continued to have episodes of hypertension and has continued to require adjustment of her antihypertensive medications. She is on metoprolol as well as amlodipine and hydralazine. Will increase hydralazine to 25 mg three times a day. 4. Upper extremity DVT, prior history of DVT in lower extremity. - Continue patient with anticoagulation with Lovenox. She is on somewhat lower dosing given continued bleeding from her tracheostomy, but she is on 90 mg twice a day. 5. GI ppx - protonix Code status. Full code. TOTAL CRITICAL CARE TIME SPENT, NOT INCLUDING PROCEDURES: Approximately 45 minutes. MTDD
[2020-02-13] MEDS: LEVEMIR (INSULIN DETEMIR) 1 UNITS/0.01ML SC SCH (20:55)
[2020-02-13] MEDS: cefTRIAXone SOD 1 GM in D5W MINI-BAG PLUS 50 ML IV SCH (22:21)
[2020-02-14] VITALS (29 sets, daily range): BP systolic 146–204; BP diastolic 55–92
[2020-02-14] MEDS: IPRATROPIUM 0.5MG/ALBUTEROL 2.5MG INH SOL UD 3ML (DUONEB) NEB SCH ×6 (00:58→20:11)
[2020-02-14 06:11] LABS: HEMATOCRIT 47.1 % (36.0-47.0); HEMOGLOBIN 14.6 g/dl (12.0-15.5); MEAN CORPUSCULAR HEMOGLOBIN 29.9 pg (27.0-33.0); MEAN CORPUSCULAR VOLUME 96.5 fl (80.0-96.0); PLATELET COUNT, AUTOMATED 115 10^3/uL (150-450); RED BLOOD COUNT 4.88 10^6/uL (4.00-5.40); WHITE BLOOD COUNT 12.3 10^3/uL (4.0-10.0)
[2020-02-14] MEDS: ENOXAPARIN 100MG/1ML SYRINGE (J1650 PER 10MG) SC SCH ×2 (06:48→18:51)
[2020-02-14] MEDS: NYSTATIN 500,000 U/5 ML SUSP UDC PO SCH ×4 (06:48→23:55)
[2020-02-14] MEDS: SODIUM CHLORIDE 0.9% INJ 10 ML SYR IV SCH ×2 (06:49→18:52)
[2020-02-14 06:50] LABS: ALBUMIN 3.1 GM/DL (3.2-5.2); ALT/SGPT 43 U/L (12-78); BILIRUBIN,TOTAL 0.6 MG/DL (0.2-1.0); BLOOD UREA NITROGEN 69 MG/DL (7-18); CALCIUM LEVEL 9.2 MG/DL (8.5-10.1); CARBON DIOXIDE LEVEL 25 MEQ/L (21-32); CHLORIDE LEVEL 111 MEQ/L (98-107); CREATININE FOR GFR 1.09 MG/DL (0.55-1.30); GLOMERULAR FILTRATION RATE > 60.0 (>58); GLUCOSE, FASTING 236 MG/DL (70-100); POTASSIUM SERUM 4.3 MEQ/L (3.5-5.1); SODIUM LEVEL 144 MEQ/L (136-145); TOTAL PROTEIN 6.7 GM/DL (6.4-8.2)
[2020-02-14] MEDS: HumuLIN R (REGULAR) INSULIN (NovoLIN R) **100U/ML** PER UNIT SC SCH ×4 (06:56→23:55)
[2020-02-14] MEDS: METOPROLOL TARTRATE 100 MG TAB NG SCH ×2 (08:39→21:22)
[2020-02-14] MEDS: **hydrALAZINE HCL** 25 MG TAB PO SCH ×3 (08:41→21:21)
[2020-02-14] MEDS: CHLORHEXIDINE GLUCONATE 0.12 % 15ML UDC (PERIDEX ORAL RINSE) MT SCH ×2 (08:41→21:22)
[2020-02-14] MEDS: FLUCONAZOLE IV SCH (08:41)
[2020-02-14] MEDS: methylPREDNISolone 40MG 1ML VIAL IV SCH ×2 (10:38→22:51)
[2020-02-14] MEDS: PANTOPRAZOLE 40MG VIAL (C9113 PER 1) IV SCH (10:39)
[2020-02-14] MEDS ORDERED: hydrALAZINE 20MG/ML 1ML VIAL (J0360 PER 20MG) IV ONE (11:15)
[2020-02-14] MEDS ORDERED: hydrALAZINE 20MG/ML 1ML VIAL (J0360 PER 20MG) IV PRN (12:45)
--- NOTE | 2020-02-14 13:21 | CCN ---
CRITICAL CARE NOTE DATE: 02/14/2020 SUBJECTIVE: The patient was seen and examined this morning during bedside rounds. There were no acute events noted overnight. The patient continues to be hypertensive, however and she was started on additional lisinopril for antihypertensive medication this morning. Yesterday, the patient was able to be weaned off the ventilator to a trach collar, which she tolerated for approximately three hours before having desaturation and fatigued and was back on the ventilator at pressure support settings, which she has continued on the for past few days. The patient is awake and alert and following commands appropriately. She denies any chest pain. No abdominal pain. No nausea or vomiting. She is weak still, but is able to squeeze her hands and does try to wiggle toes. OBJECTIVE: VITAL SIGNS: Temperature 97.8, pulse 96, respirations 30, blood pressure 180/92, O2 saturation 96% on 30% FiO2. INTAKE AND OUTPUT: In 1.8 liters, out 1.4 liters. GENERAL: The patient is an obese female who is lying in bed, appears awake, alert, and oriented. She does have global weakness. HEENT: Normocephalic, atraumatic. Pupils reactive. Mucous membranes noted. NECK: Shows a tracheostomy with dry blood around the trach site and gauze. CARDIAC: Regular rate and rhythm. Normal S1, S2 with distant heart sounds. Unable to clearly appreciate any murmurs. PULMONARY: Diminished breath sounds bilaterally, more on the left base. There is no wheezing or rhonchi noted. ABDOMEN: Morbidly obese, soft, and nontender. There is a palpable hernia, which is reducible. EXTREMITIES: There is no significant lower extremity edema noted bilaterally. The left upper extremity swelling has improved. There is a right PICC line in place. LABORATORY DATA: WBC 12.3, hemoglobin 14.6, platelets 115,000. Chemistries: sodium 144, potassium 4.3, chloride 111, bicarb 25, BUN 16, creatinine 1.09, glucose 236. AST and ALT within normal limits. Albumin is 3.1. ASSESSMENT AND PLAN: Ms. Varela is a 44-year-old female with a past medical history of insulin-dependent diabetes, hypertension, hyperlipidemia, morbid obesity, prior history of deep vein thrombosis (DVT), obstructive sleep apnea (TALA)/obesity hypoventilation syndrome (OHS) with a previous history of tracheostomy, who presented with acute on chronic hypoxemia and hypercarbic respiratory failure requiring intubation and mechanical ventilation initially. The patient has had a prolonged hospital stay and difficulty weaning from the ventilator requiring tracheostomy placement. Acute on chronic hypoxemia and hypercarbic respiratory failure status post tracheostomy. - The patient had been doing well on pressure support on the ventilator for the past few days. Yesterday, she was able to tolerate trach collar for three hours before desatting, having fatigue, and being placed back on the ventilator on pressure support settings. - Will attempt to place the patient back on trach collar again today for as long as tolerated. Will place her back on the ventilator for desaturation or respiratory distress, as well as at bedtime. She will be on pressure support on a setting of 12 over a PEEP of 8 and continue to titrate FiO2 as tolerated. - The patient is on ceftriaxone and Fluconazole for previous pneumonia. Her chest x-ray yesterday showed that the right-sided infiltrate had improved; however, she did have some increased atelectasis on the left side. We have been positioning the patient and she has been doing well with suctioning and suspect most of the atelectasis on the left side is due to positioning as she is frequently found with her left side down. - Will continue with suctioning and positioning, as well as with occupational therapy (OT) and physical therapy (PT) for mobilization. - Will get a chest x-ray tomorrow for evaluation. The patient will get imaging q. 48 hours and arterial blood gases (ABGs) as needed. - The patient is on Solu-Medrol weaned down to 20 mg b.i.d. Will attempt to wean her further with Solu-Medrol tomorrow to 20 mg daily, if tolerated. - Continue with nebulized bronchodilators. - Continue with chlorhexidine mouth wash and vent bundle care with head of bed elevation. Gastrointestinal (GI). The patient is on tube feeds, which she has been tolerating well. They were changed to Nepro tube feeds yesterday given her hyperphosphatemia. Will continue with tube feeds and monitoring residuals. - If the patient is unable to tolerate trach collar for most of the day and speech evaluation, then she will likely need percutaneous endoscopic gastrostomy (PEG) tube placement. - Will continue with long-acting insulin at 40 units at bedtime with sliding scale coverage. Hypertension. The patient has continued hypertension despite being on amlodipine, hydralazine, and metoprolol. Will add additional lisinopril at 10 mg daily and titrate up to 20 mg, depending on her response and renal function. The patient will also be given IV hydralazine p.r.n. as needed. The patient did also initially have acute kidney injury (JAZZ) and was getting diuresed. She appears to be net positive for the past few days and will closely monitor if she needs addition of diuretics with monitoring of her renal function. Upper extremity deep vein thrombosis (DVT) with a prior history of lower extremity DVT. - The patient will need continued anticoagulation even on discharge. She is currently on Lovenox on a somewhat lower dosage given bleeding issues from her tracheostomy. She is on 90 mg b.i.d. Gastrointestinal (GI) prophylaxis with Protonix. Code status: Full code. CRITICAL CARE TIME: Total time spent not including procedures approximately 40 minutes. STEVEND
[2020-02-14] MEDS: NORCO, ANEXSIA 5/325MG TABLET (HYDROcodone/ACETAMINOPHEN) FT PRN (21:20)
[2020-02-14] MEDS: LEVEMIR (INSULIN DETEMIR) 1 UNITS/0.01ML SC SCH (21:20)
[2020-02-14] MEDS: cefTRIAXone SOD 1 GM in D5W MINI-BAG PLUS 50 ML IV SCH (21:22)
[2020-02-15] VITALS (31 sets, daily range): BP systolic 138–174; BP diastolic 66–92; O2SAT 93–98
[2020-02-15] MEDS: IPRATROPIUM 0.5MG/ALBUTEROL 2.5MG INH SOL UD 3ML (DUONEB) NEB SCH ×6 (00:17→20:07)
[2020-02-15] MEDS: ENOXAPARIN 100MG/1ML SYRINGE (J1650 PER 10MG) SC SCH ×2 (05:55→17:12)
[2020-02-15] MEDS: SODIUM CHLORIDE 0.9% INJ 10 ML SYR IV SCH ×2 (05:55→17:13)
[2020-02-15] MEDS: NYSTATIN 500,000 U/5 ML SUSP UDC PO SCH ×3 (05:56→17:11)
[2020-02-15 05:59] LABS: HEMATOCRIT 48.3 % (36.0-47.0); HEMOGLOBIN 14.9 g/dl (12.0-15.5); MEAN CORPUSCULAR HEMOGLOBIN 30.2 pg (27.0-33.0); MEAN CORPUSCULAR HGB CONC 30.8 g/dl (32.0-36.5); MEAN CORPUSCULAR VOLUME 97.8 fl (80.0-96.0); PLATELET COUNT, AUTOMATED 120 10^3/uL (150-450); RED BLOOD COUNT 4.94 10^6/uL (4.00-5.40); WHITE BLOOD COUNT 14.3 10^3/uL (4.0-10.0)
[2020-02-15] MEDS: HumuLIN R (REGULAR) INSULIN (NovoLIN R) **100U/ML** PER UNIT SC SCH ×3 (06:06→17:11)
[2020-02-15 06:34] LABS: ALBUMIN 3.1 GM/DL (3.2-5.2); ALT/SGPT 43 U/L (12-78); BILIRUBIN,TOTAL 0.6 MG/DL (0.2-1.0); BLOOD UREA NITROGEN 77 MG/DL (7-18); CALCIUM LEVEL 9.1 MG/DL (8.5-10.1); CARBON DIOXIDE LEVEL 25 MEQ/L (21-32); CHLORIDE LEVEL 112 MEQ/L (98-107); CREATININE FOR GFR 1.17 MG/DL (0.55-1.30); GLOMERULAR FILTRATION RATE > 60.0 (>58); GLUCOSE, FASTING 251 MG/DL (70-100); POTASSIUM SERUM 4.3 MEQ/L (3.5-5.1); SODIUM LEVEL 143 MEQ/L (136-145); TOTAL PROTEIN 6.9 GM/DL (6.4-8.2)
[2020-02-15] MEDS: **hydrALAZINE HCL** 25 MG TAB PO SCH ×3 (08:31→20:30)
[2020-02-15] MEDS: FLUCONAZOLE IV SCH (08:32)
[2020-02-15] MEDS: CHLORHEXIDINE GLUCONATE 0.12 % 15ML UDC (PERIDEX ORAL RINSE) MT SCH ×2 (08:32→20:29)
[2020-02-15] MEDS: METOPROLOL TARTRATE 100 MG TAB NG SCH ×2 (08:32→20:30)
[2020-02-15] MEDS: NORCO, ANEXSIA 5/325MG TABLET (HYDROcodone/ACETAMINOPHEN) FT PRN (08:33)
--- NOTE | 2020-02-15 08:55 | REP ---
INDICATION: trach COMPARISON: 02/13/2020 TECHNIQUE: Portable AP view of the chest FINDINGS: Tracheostomy in stable position. Nasogastric tube courses below left hemidiaphragm. Right PICC line with tip in the SVC. Stable cardiomegaly and diffuse left perihilar/lower lobe consolidations unchanged from prior examination. Right hemithorax is clear. IMPRESSION: 1. Lines and tubes in stable satisfactory position. 2. Cardiomegaly and left perihilar/lower lobe consolidations unchanged. <Electronically signed by Marlo Gleason > 02/15/20 0851
[2020-02-15] MEDS: PANTOPRAZOLE 40MG VIAL (C9113 PER 1) IV SCH (12:26)
[2020-02-15] MEDS: methylPREDNISolone 40MG 1ML VIAL IV SCH (12:27)
--- NOTE | 2020-02-15 16:47 | CCN ---
CRITICAL CARE NOTE DATE: 02/15/2020 Patient was seen and examined this morning during bedside rounds. Patient did not have any acute events overnight. This morning, patient appears somewhat more uncomfortable and restless. She denies any pain, however, and she is awake and alert and following commands appropriately. Patient has generalized weakness and is unable to hold a pen or marker for writing or to point with her finger to images on the communication sheets. Patient was able to tolerate trach collar yesterday for 4 hours before having fatigue and desaturation. Today, however, patient was placed on trach collar in the morning but was complaining of difficulty breathing. She did have lavage and suction of large mucus plugs and dried blood clots. PHYSICAL EXAMINATION: VITAL SIGNS: Temperature 99.2, pulse 101, respirations 26, blood pressure 150/82, oxygen saturation 100% on 40% FiO2. Intake 2.2 liters, output 2 liters, net positive 240 mL. GENERAL: Patient is a morbidly obese female who is lying in bed, appears awake and alert. She does have global weakness in her extremities. HEENT: Normocephalic, atraumatic. Pupils reactive. Moist mucous membranes noted. Neck is supple, there is a tracheostomy in place with some dry blood oozing around the trach site with gauze packed. CARDIAC: Regular rate and rhythm, normal S1, S2 with distant heart sounds. Unable to clearly appreciate any murmurs. PULMONARY: Diminished breath sounds bilaterally, more on the left base. There is some increased rhonchi noted as well on exam but no significant wheezing or rales. ABDOMEN: Morbidly obese, soft, nontender. There is a palpable hernia which is reducible. EXTREMITIES: There is no significant lower extremity edema noted bilaterally. Patient's left upper extremity swelling has improved. There is a right peripherally inserted central catheter (PICC) line in place with the dressing clean, dry, and intact. LABORATORY DATA: WBC 14.3, hemoglobin 14.9, platelets 120. Chemistry: Sodium is 143, potassium 4.3, chloride 112, bicarbonate 25, BUN 77, creatinine is 1.17, glucose is 251, albumin 3.1. IMAGING: Chest x-ray: There is a tracheostomy in position. There is a right PICC line in place. There is cardiomegaly. There is persistent right lower lobe consolidation. ASSESSMENT AND PLAN: Ms. Varela is a 44-year-old female with a past medical history of insulin-dependent diabetes, hypertension, hyperlipidemia, morbid obesity, prior history of deep venous thrombosis (DVT), obstructive sleep apnea (TALA)/obesity hypoventilation syndrome (OHS), with a previous history of tracheostomy who presented with acute on chronic hypoxemic and hypercarbic respiratory failure requiring intubation and mechanical ventilation and ultimately tracheostomy. Acute on chronic hypoxemic and hypercarbic respiratory failure status post tracheostomy. - Patient has been continued on pressure support mode on the ventilator which she has been tolerating well. We have attempted in the past few days to place patient on trach collar which she is able to tolerate for a few hours before having issues with fatigue and desaturation. Today, she had more difficulty tolerating the trach collar due to sensation of difficulty breathing. She did appear to have more rhonchi and some dried blood clot secretions on suctioning. - Will continue to attempt to place patient on trach collar throughout the day as tolerated. She will be on the ventilator for desaturation and respiratory distress as well as bedtime on pressure support mode with settings of 12 over positive end-expiratory pressure (PEEP) of 8 and weaned down FiO2 as tolerated. - Patient's chest x-ray continues to show persistent left-sided opacity and infiltrate. When she did have her tracheostomy placed, patient did have significant bleeding postoperatively and suspect she does have some dried blood secretions and clots. She is also frequently on her left side down as well although we have been positioning her more now with the left side up and with suctioning have been able to get out some good amounts of clot and secretions. - Will continue with positioning and suctioning. We did discuss with the patient, however, that she may potentially need a bronchoscopy for clearance although she is somewhat resistant. - Patient is on ceftriaxone and fluconazole for antibiotics. She does have persistent leukocytosis and a low-grade temperature but no fever. Her procalcitonin today is mildly elevated. Will continue with antibiotics for now. Patient also does have a nasogastric (NG) tube that has been in place for almost 2 weeks and suspect she may have a component of sinusitis as well. - Will continue to wean down steroids. Will change patient to Solu-Medrol 20 mg IV daily. - Continue with nebulized bronchodilators. - Continue with chlorhexidine mouthwash and vent bundle care with head of bed elevation. Gastrointestinal (GI). Patient is on nasogastric (NG) tube feeds with Nepro which she has been tolerating. As patient is having difficulty weaning to trach collar, she will need a percutaneous endoscopic gastrostomy (PEG) tube placement for feeding as her NG tube has been in now for almost 2 weeks since she had her trach placed. - Patient has a history of insulin-dependent diabetes. Her finger stick glucoses have improved so will continue with insulin long-acting coverage as well as sliding scale coverage and finger stick glucose checks. Hypertension. Patient has a history of hypertension which has required significant medications to control. With the addition of lisinopril yesterday she did have improvement in her blood pressure and only mild increase in her creatinine. Will continue with amlodipine, hydralazine, metoprolol, and lisinopril with as needed hydralazine as needed. - Will continue to monitor renal function as well as her intake and output. Patient is still mildly net positive but does not appear overtly fluid overloaded. If there is concern then she may need potential diuretics. Upper extremity deep venous thrombosis (DVT) with a previous history of lower extremity DVT. - Patient is on anticoagulation currently with Lovenox at a somewhat lower dosage given issues of bleeding with her tracheostomy. Gastrointestinal (GI) prophylaxis Protonix. Code status. FULL CODE. Total critical care time spent not including procedures approximately 40 minutes.
[2020-02-15] MEDS: LEVEMIR (INSULIN DETEMIR) 1 UNITS/0.01ML SC SCH (20:31)
[2020-02-15] MEDS: ACETAMINOPHEN 325 MG/10.15 ML UDC GT PRN (20:32)
[2020-02-15] MEDS: cefTRIAXone SOD 1 GM in D5W MINI-BAG PLUS 50 ML IV SCH (21:59)
[2020-02-16] VITALS (14 sets, daily range): BP systolic 134–158; BP diastolic 73–89; O2SAT 98
[2020-02-16] MEDS: HumuLIN R (REGULAR) INSULIN (NovoLIN R) **100U/ML** PER UNIT SC SCH ×4 (00:34→18:10)
[2020-02-16] MEDS: NYSTATIN 500,000 U/5 ML SUSP UDC PO SCH ×4 (00:34→18:08)
[2020-02-16] MEDS: NORCO, ANEXSIA 5/325MG TABLET (HYDROcodone/ACETAMINOPHEN) FT PRN (00:35)
[2020-02-16] MEDS: IPRATROPIUM 0.5MG/ALBUTEROL 2.5MG INH SOL UD 3ML (DUONEB) NEB SCH ×6 (01:18→19:03)
[2020-02-16 05:10] LABS: HEMATOCRIT 48.2 % (36.0-47.0); HEMOGLOBIN 14.7 g/dl (12.0-15.5); MEAN CORPUSCULAR HEMOGLOBIN 30.1 pg (27.0-33.0); MEAN CORPUSCULAR HGB CONC 30.5 g/dl (32.0-36.5); MEAN CORPUSCULAR VOLUME 98.8 fl (80.0-96.0); PLATELET COUNT, AUTOMATED 132 10^3/uL (150-450); RED BLOOD COUNT 4.88 10^6/uL (4.00-5.40); WHITE BLOOD COUNT 15.4 10^3/uL (4.0-10.0)
[2020-02-16 05:20] LABS: ALBUMIN 3.1 GM/DL (3.2-5.2); ALT/SGPT 40 U/L (12-78); BILIRUBIN,TOTAL 0.5 MG/DL (0.2-1.0); BLOOD UREA NITROGEN 72 MG/DL (7-18); CALCIUM LEVEL 9.5 MG/DL (8.5-10.1); CARBON DIOXIDE LEVEL 25 MEQ/L (21-32); CHLORIDE LEVEL 111 MEQ/L (98-107); CREATININE FOR GFR 1.11 MG/DL (0.55-1.30); GLOMERULAR FILTRATION RATE > 60.0 (>58); GLUCOSE, FASTING 166 MG/DL (70-100); POTASSIUM SERUM 3.7 MEQ/L (3.5-5.1); SODIUM LEVEL 144 MEQ/L (136-145); TOTAL PROTEIN 6.6 GM/DL (6.4-8.2)
[2020-02-16] MEDS: MORPHINE 2 MG/ML 1ML VIAL (J2270) IV PRN ×6 (05:23→22:30)
[2020-02-16] MEDS: ENOXAPARIN 100MG/1ML SYRINGE (J1650 PER 10MG) SC SCH ×2 (05:24→18:09)
[2020-02-16] MEDS: SODIUM CHLORIDE 0.9% INJ 10 ML SYR IV SCH ×2 (05:24→18:10)
[2020-02-16] MEDS: methylPREDNISolone 40MG 1ML VIAL IV SCH (08:31)
[2020-02-16] MEDS: CHLORHEXIDINE GLUCONATE 0.12 % 15ML UDC (PERIDEX ORAL RINSE) MT SCH ×2 (08:31→20:13)
[2020-02-16] MEDS: ACETAMINOPHEN 325 MG/10.15 ML UDC GT PRN (08:32)
[2020-02-16] MEDS: METOPROLOL TARTRATE 100 MG TAB NG SCH ×2 (08:36→20:16)
[2020-02-16] MEDS: FLUCONAZOLE IV SCH (08:38)
[2020-02-16] MEDS: **hydrALAZINE HCL** 25 MG TAB NG SCH ×3 (08:59→20:17)
[2020-02-16] MEDS: NYSTATIN 100,000 UNITS/GM TOPICAL PWD 15 GM TOP PRN (11:09)
[2020-02-16] MEDS: PANTOPRAZOLE 40MG VIAL (C9113 PER 1) IV SCH (12:05)
--- NOTE | 2020-02-16 15:22 | CCN ---
CRITICAL CARE NOTE DATE: 02/16/2020 SUBJECTIVE: Patient was seen and examined this morning during bedside rounds. Overnight, patient did not have any acute events except for an episode where her tracheostomy tube had come out slightly. It was able to be repositioned and patient did not have any respiratory distress during this and no desaturation, it was resecured. Patient has not had any fevers overnight. She denies any complaints currently. OBJECTIVE: VITAL SIGNS: Temperature 98.2, pulse 73, respirations 19, blood pressure 148/80, O2 saturation 100% on 40% FiO2. INTAKE AND OUTPUT: In 2.2, out 1.9, net positive 350 mL. GENERAL: Patient is a morbidly obese female who is lying in bed, appears awake and alert. She does have global weakness in her extremities. HEENT: Normocephalic, atraumatic. Pupils are reactive. Moist mucous membranes noted. NECK: Supple. There is a tracheostomy in place with some bloody secretions oozing around the trach site with packed gauze. CARDIAC: Regular rate and rhythm. Normal S1, S2 with distant heart sounds. Unable to appreciate any murmurs. PULMONARY: Diminished breath sounds bilaterally more so on the left base. There are some rhonchi occasionally, but no wheezing or rales. ABDOMEN: Morbidly obese, soft, and nontender. There is a palpable hernia, which is reducible. EXTREMITIES: There is no significant lower extremity edema noted bilaterally. Patient has generalized weakness in all four extremities. There is a right PICC line in place with a dressing clean, dry, and intact. LABORATORY DATA: WBC 15.4, hemoglobin 14.7, platelets 132,0000. Chemistries: sodium 144, potassium 3.7, chloride 111, bicarb 25, BUN 72, creatinine 1.11, glucose 106. AST and ALT within normal limits. Albumin 3.1. ASSESSMENT AND PLAN: Ms. Varela is a 44-year-old female with a past medical history of insulin-dependent diabetes, hypertension, hyperlipidemia, morbid obesity, prior history of deep vein thrombosis (DVT), obstructive sleep apnea (TALA)/obesity hypoventilation syndrome (OHS) with a previous history of tracheostomy placement, who presented with acute on chronic hypoxemia and hypercarbic respiratory failure requiring intubation and mechanical ventilation and ultimately tracheostomy placement. Acute on chronic hypoxemic hypercarbic respiratory failure status post tracheostomy. - Patient has been continued on pressor support mode on the ventilator, which she has been tolerating well. She was also able to tolerate trach collar for a few hours during the day, although she does require the ventilator due to fatigue and desaturation. - Patient will be continued to attempt to be weaned from the ventilator as much as tolerated to trach collar. She should be on the ventilator for respiratory distress or desaturation and at bedtime with settings of 12/8. - Will continue positioning with the patient left side up as she does have persistent left-sided atelectasis on her imaging. She was able to have more suctioning of blood clots and this morning, she does have some blood tinged sputum on suctioning. - Continue with ceftriaxone and Fluconazole. Patient does have persistent leukocytosis, which may also be in the setting of possible sinusitis given her nasogastric (NG) tube placed that has been in place for almost two weeks now. - Will continue to wean down her steroids. She is on Solu-Medrol 20 mg IV daily currently. - Continue with nebulized bronchodilators. - Continue with chlorhexidine mouthwash and vent bundle care with head bed elevation. Gastrointestinal. Patient is on nasogastric (NG) tube feeds with Nepro, which he is tolerating. - Patient's daughter was updated on her status and is agreeable for placement of a percutaneous endoscopic gastrostomy tube (PEG) or jejunostomy tube (J) for feeding. - Continue fingerstick glucose checks with long-acting insulin and sliding scale coverage for history of insulin-dependent diabetes. - Hypertension. Patient's blood pressure has been more controlled now. She is on lisinopril, amlodipine, hydralazine, and metoprolol. - Will continue to monitor renal function, as well as her ins and outs. She does have an elevated BUN, but does continue to have good urine output. - Prior history of deep vein thrombosis (DVT) with an upper extremity DVT on this admission. - Continue anticoagulation with Lovenox, although at a somewhat lower dosage given issues of bleeding with her tracheostomy. She will need lifelong anticoagulation at this point. Gastrointestinal (GI) prophylaxis with Protonix. Code status: FULL CODE. Patient will likely need placement in a [facility] intermedi[facility] acute care facility, which we did discuss with the daughter and updated her on her status. CRITICAL CARE TIME: Total time spent not including procedures approximately 40 minutes.
[2020-02-16 19:47] LABS: ABG BASE EXCESS -3.6 (-2.0-2.0); ABG HCO3 21.5 MEQ/L (22.0-26.0); ABG O2 SATURATION 97.7 % (95.0-99.0); ABG PARTIAL PRESSURE CO2 39.2 mmHg (35.0-45.0); ABG PARTIAL PRESSURE O2 100.9 mmHg (75.0-100.0); ABG STANDARD HCO3 21.5 MEQ/L (22.0-26.0); ABG TOTAL CO2 22.7 MEQ/L (22.0-29.0); ABG pH (ARTERIAL) 7.357 UNITS (7.350-7.450)
[2020-02-16] MEDS: LEVEMIR (INSULIN DETEMIR) 1 UNITS/0.01ML SC SCH (20:17)
[2020-02-16] MEDS: cefTRIAXone SOD 1 GM in D5W MINI-BAG PLUS 50 ML IV SCH (22:29)
[2020-02-17] VITALS (24 sets, daily range): BP systolic 84–138; BP diastolic 50–78; O2SAT 99
[2020-02-17] MEDS: NYSTATIN 500,000 U/5 ML SUSP UDC PO SCH ×4 (00:23→18:09)
[2020-02-17] MEDS: HumuLIN R (REGULAR) INSULIN (NovoLIN R) **100U/ML** PER UNIT SC SCH ×4 (00:23→18:09)
[2020-02-17] MEDS: MORPHINE 2 MG/ML 1ML VIAL (J2270) IV PRN ×8 (00:26→22:06)
[2020-02-17] MEDS: IPRATROPIUM 0.5MG/ALBUTEROL 2.5MG INH SOL UD 3ML (DUONEB) NEB SCH ×6 (04:00→19:55)
[2020-02-17] MEDS: ENOXAPARIN 100MG/1ML SYRINGE (J1650 PER 10MG) SC SCH (04:46)
[2020-02-17] MEDS: NORCO, ANEXSIA 5/325MG TABLET (HYDROcodone/ACETAMINOPHEN) FT PRN (05:04)
[2020-02-17] MEDS: SODIUM CHLORIDE 0.9% INJ 10 ML SYR IV SCH ×2 (05:05→18:09)
--- NOTE | 2020-02-17 08:02 | REP ---
INDICATION: trach COMPARISON: 02/15/2020 TECHNIQUE: Portable AP view of the chest FINDINGS: Endotracheal tube in satisfactory position. Right PICC line with tip in the SVC. Stable cardiomegaly. Left perihilar and lower lobe consolidation along with medial right basilar atelectasis/consolidation are similar to prior examination. No new acute process appreciated. IMPRESSION: No significant change from prior examination. <Electronically signed by Marlo Gleason > 02/17/20 0218
[2020-02-17] MEDS: CHLORHEXIDINE GLUCONATE 0.12 % 15ML UDC (PERIDEX ORAL RINSE) MT SCH ×2 (08:18→20:57)
[2020-02-17] MEDS: methylPREDNISolone 40MG 1ML VIAL IV SCH (08:19)
[2020-02-17] MEDS: FLUCONAZOLE IV SCH (08:25)
[2020-02-17] MEDS: **hydrALAZINE HCL** 25 MG TAB NG SCH (09:00)
[2020-02-17] MEDS: METOPROLOL TARTRATE 100 MG TAB NG SCH ×2 (09:00→20:58)
[2020-02-17] MEDS: PANTOPRAZOLE 40MG VIAL (C9113 PER 1) IV SCH (12:14)
[2020-02-17 13:00] LABS: BASO # 0.1 10^3/uL (0.0-0.2); BASO % 0.4 % (0.0-1.0); EOS % 0.2 % (0.0-3.0); HEMATOCRIT 47.7 % (36.0-47.0); HEMOGLOBIN 14.4 g/dl (12.0-15.5); LYMPH # 1.1 10^3/uL (1.5-5.0); LYMPH % 7.1 % (24.0-44.0); MEAN CORPUSCULAR HEMOGLOBIN 30.1 pg (27.0-33.0); MEAN CORPUSCULAR HGB CONC 30.2 g/dl (32.0-36.5); MEAN CORPUSCULAR VOLUME 99.6 fl (80.0-96.0); MONO # 0.7 10^3/uL (0.0-0.8); MONO % 4.1 % (0.0-5.0); NEUTROPHILS # 13.7 10^3/uL (1.5-8.5); NEUTROPHILS % 86.4 % (36.0-66.0); PLATELET COUNT, AUTOMATED 130 10^3/uL (150-450); RED BLOOD COUNT 4.79 10^6/uL (4.00-5.40); WHITE BLOOD COUNT 15.9 10^3/uL (4.0-10.0)
[2020-02-17 13:31] LABS: CALCIUM LEVEL 9.8 MG/DL (8.5-10.1); CREATININE FOR GFR 1.5 MG/DL (0.55-1.30); GLOMERULAR FILTRATION RATE 48.2 (>58); MAGNESIUM LEVEL 2.7 MG/DL (1.8-2.4); PHOSPHORUS LEVEL 5.9 MG/DL (2.5-4.9); POTASSIUM SERUM 4.6 MEQ/L (3.5-5.1)
[2020-02-17] MEDS ORDERED: busPIRone 5 MG TAB PO SCH (16:00)
[2020-02-17] MEDS: busPIRone 5 MG TAB NG SCH ×2 (17:13→20:57)
[2020-02-17 17:45] LABS: RSV AMPLIFICATION NEGATIVE (NEGATIVE)
[2020-02-17] MEDS: NS 0.45% 1,000 ML IV SCH (20:57)
[2020-02-17] MEDS: LEVEMIR (INSULIN DETEMIR) 1 UNITS/0.01ML SC SCH (20:58)
[2020-02-17] MEDS: cefTRIAXone SOD 1 GM in D5W MINI-BAG PLUS 50 ML IV SCH (21:00)
[2020-02-18] VITALS (24 sets, daily range): BP systolic 89–142; BP diastolic 36–81; O2SAT 96–100
[2020-02-18] MEDS: MORPHINE 2 MG/ML 1ML VIAL (J2270) IV PRN ×5 (00:29→21:06)
[2020-02-18] MEDS: IPRATROPIUM 0.5MG/ALBUTEROL 2.5MG INH SOL UD 3ML (DUONEB) NEB SCH ×6 (00:33→20:44)
[2020-02-18] MEDS: NYSTATIN 500,000 U/5 ML SUSP UDC PO SCH ×4 (01:39→18:37)
[2020-02-18] MEDS: HumuLIN R (REGULAR) INSULIN (NovoLIN R) **100U/ML** PER UNIT SC SCH ×4 (01:39→18:00)
[2020-02-18] MEDS: SODIUM CHLORIDE 0.9% INJ 10 ML SYR IV SCH ×2 (05:33→18:38)
[2020-02-18 05:37] LABS: BASO # 0.1 10^3/uL (0.0-0.2); BASO % 0.4 % (0.0-1.0); EOS # 0.1 10^3/uL (0.0-0.5); EOS % 0.7 % (0.0-3.0); HEMATOCRIT 46.3 % (36.0-47.0); HEMOGLOBIN 13.8 g/dl (12.0-15.5); LYMPH # 2.6 10^3/uL (1.5-5.0); LYMPH % 16.2 % (24.0-44.0); MEAN CORPUSCULAR HEMOGLOBIN 29.9 pg (27.0-33.0); MEAN CORPUSCULAR HGB CONC 29.8 g/dl (32.0-36.5); MEAN CORPUSCULAR VOLUME 100.2 fl (80.0-96.0); MONO # 1.1 10^3/uL (0.0-0.8); MONO % 7.1 % (0.0-5.0); NEUTROPHILS % 74.4 % (36.0-66.0); PLATELET COUNT, AUTOMATED 121 10^3/uL (150-450); RED BLOOD COUNT 4.62 10^6/uL (4.00-5.40); WHITE BLOOD COUNT 16.1 10^3/uL (4.0-10.0)
[2020-02-18 05:49] LABS: INR 1.09; PARTIAL THROMBOPLASTIN TIME 22.5 SECONDS (24.2-38.5); PROTHROMBIN TIME 14.3 SECONDS (12.5-14.3)
[2020-02-18 06:00] LABS: CALCIUM LEVEL 9.6 MG/DL (8.5-10.1); CREATININE FOR GFR 1.35 MG/DL (0.55-1.30); GLOMERULAR FILTRATION RATE 54.5 (>58); POTASSIUM SERUM 4.2 MEQ/L (3.5-5.1)
[2020-02-18] MEDS ORDERED: LIDOCAINE 2% 100MG/5ML SDV (FOR ANES.) As Ordered ONE (07:12)
[2020-02-18] MEDS ORDERED: propofoL 200 MG/20 ML VIAL As Ordered ONE (07:12)
--- NOTE | 2020-02-18 08:38 | IPNPDOC ---
Text Note Date of Service The patient was seen on 02/18/20. NOTE No acute events overnight. Plan is for bedside PEG tube placement today in the ICU. Consent was obtained by the daughter over the phone yesterday AYAAN CHIANG A) 44y/o with dysphagia secondary to trach P) bedside PEG placement today no changes to H+P. David Campbell DO VS,Fishbone, I+O VS, Fishbone, I+O Laboratory Tests 02/17/20 12:39 02/18/20 05:19 Vital Signs Date Time Temp Pulse Resp B/P (MAP) Pulse Ox O2 Delivery O2 Flow Rate FiO2 02/18/20 04:24 102 37 96 40 02/18/20 04:24 Ventilator 02/18/20 00:29 118/64 02/17/20 16:00 97.2 02/17/20 14:36 10.0 I&O- Last 24 Hours up to 6 AM 02/18/20 06:00 Intake Total 2520 ml Output Total 945 ml Balance 1575 ml AYANNA CAMPBELL DO Feb 18, 2020 08:38
[2020-02-18] MEDS: methylPREDNISolone 40MG 1ML VIAL IV SCH (09:19)
[2020-02-18] MEDS: FLUCONAZOLE IV SCH (09:20)
[2020-02-18] MEDS: PANTOPRAZOLE 40MG VIAL (C9113 PER 1) IV SCH (09:20)
[2020-02-18] MEDS: CHLORHEXIDINE GLUCONATE 0.12 % 15ML UDC (PERIDEX ORAL RINSE) MT SCH ×2 (09:21→20:39)
[2020-02-18] MEDS: busPIRone 5 MG TAB NG SCH ×3 (09:22→20:39)
[2020-02-18] MEDS: METOPROLOL TARTRATE 100 MG TAB NG SCH (09:24)
[2020-02-18] MEDS: NS 0.45% 1,000 ML IV SCH (10:30)
--- NOTE | 2020-02-18 15:33 | RO ---
OPERATIVE NOTE DATE OF OPERATION: 02/18/2020 PREOPERATIVE DIAGNOSIS: Obesity hypoventilation syndrome with dysphagia. POSTOPERATIVE DIAGNOSIS: Obesity hypoventilation syndrome with dysphagia. PROCEDURE: Bedside placement of PEG tube with upper endoscopy. SURGEON: Alonso Campbell DO SKIN PILER: None. ANESTHESIA: IV sedation with propofol with TANKMAN at the bedside and also 5 mL of 1% Lidocaine local to the abdominal wall. COMPLICATIONS: None. ESTIMATED BLOOD LOSS: 2 mL. INDICATIONS FOR PROCEDURE: The patient is a 44-year-old female with dysphagia and currently has a trach in place. The recommendation is to proceed with PEG tube. Risks and benefits of the procedure not limited to, but including bleeding, infection, damage to surrounding structures, and need for further surgery were discussed in detail with the patient and the patient's daughter and consent was obtained. DESCRIPTION OF PROCEDURE: The patient's upper abdomen was sterilely prepped and draped with chlorhexidine. Next, a time-out was done with a bedside nurse to confirm proper patient and proper procedure. Following that once she was sedated, the endoscope was passed down through the esophagus into the stomach. The entire stomach was examined. I was able to palpate over the epigastric abdominal wall and visualize directly through the gastric lumen. Next, Lidocaine was injected into the skin and subcutaneous tissue to the abdominal wall. An 11-blade scalpel was then used to make a 1 cm incision and a cannulation needle was passed through the abdominal wall into the stomach. The guidewire was then passed through the needle, grabbed with a snare, and brought out through the mouth. The 20-Upper Sorbian feeding tube was then passed over top of the guidewire and brought out through the abdominal wall. A bumper was placed at the abdominal wall and the caps were placed on the feeding tube. The patient tolerated the feeding tube placement well and was awakened from anesthesia in stable condition.
--- NOTE | 2020-02-18 16:07 | CR ---
CONSULTATION DATE: 02/17/2020 REASON FOR CONSULTATION: Percutaneous endoscopic gastrostomy (PEG) tube placement. HISTORY OF PRESENT ILLNESS: Patient is a 44-year-old female, currently in the hospital for pneumonia. She is trached due to a history of obesity hypoventilation syndrome. She is still having difficulty with weaning off of the ventilator, and she has had an nasogastric (NG) tube in for 2 weeks now for tube feeds. They would like to have a feeding tube placed so they can transition her to a long-term rehabilitation. Patient is able to answer a few questions just by shaking her head. The rest of the history was obtained from the chart, and I was also able to talk to her daughter, Devi, on the phone, who is her power of consumer attorney. MEDICAL HISTORY: 1. Hypertension. 2. Hyperlipidemia. 3. Diabetes. 4. Morbid obesity. 5. Asthma. 6. Deep venous thrombosis (DVT). 7. Nicotine dependence. 8. Hirsutism. SURGICAL HISTORY: 1. section. 2. Tonsillectomy. 3. Cholecystectomy. 4. Ventral hernia repair with wound dehiscence. 5. Partial colectomy secondary to diverticulitis. FAMILY HISTORY: Noncontributory. SOCIAL HISTORY: Denies drug, alcohol, tobacco abuse. ALLERGIES: SULFA, CODEINE, HUMALOG. MEDICATIONS: Please see medications rec. REVIEW OF SYSTEMS: Difficult to obtain at this time. Patient denies any complaints and no abdominal pains. PHYSICAL EXAMINATION: Patient is awake and alert. VITAL SIGNS: Stable. Temperature 97.6, pulse 98, respirations 22, blood pressure 96/50, pulse oximetry 98% on the ventilator. HEENT: Pupils equal, round and reactive to light. HEART: S1, S2, regular rate and rhythm. LUNGS: Decreased breath sounds bilateral. ABDOMEN: Soft, nontender, nondistended, obese. Very large ventral incisional hernia that is nontender. EXTREMITIES: Bilateral lower extremity pitting edema. LABORATORY DATA: White count 15.9, hemoglobin 14.4, platelets 130. ASSESSMENT AND PLAN: Patient is a 44-year-old female with obesity hypoventilation syndrome, currently on trach with an NG tube in place with tube feeds running. Recommendation is to proceed with PEG tube placement. Risks and benefits of the procedure not limited to, but including, bleeding, infection, damage to surrounding structures, need for further surgery were discussed in detail with the patient as well as the patient's daughter, Devi Kirkland, over the phone. Informed consent was obtained with phone consent. Procedure will be planned for tomorrow early afternoon at the bedside.
--- NOTE | 2020-02-18 20:20 | CCN ---
CRITICAL CARE NOTE DATE: 02/18/2020 SUBJECTIVE: The patient was seen and examined this morning during bedside rounds. The patient did not have any acute events noted overnight. Today, she does continue to have episodes where she has been flailing her arms around. When asked, she cannot quantify exactly why she is moving her arms and she appears to indicate that she just does this periodically. She does sometimes want to be adjusted in her position, but she is denying any pain or anxiety currently. The patient has not had any fevers overnight. OBJECTIVE: VITAL SIGNS: Temperature 99, pulse 104, blood pressure 120/68, O2 saturation 99% on 40% FiO2. INTAKE AND OUTPUT: In 2.9, out 1.3. GENERAL: The patient is a morbidly obese female who is lying in bed, appears awake and alert. She does have weakness more in her lower extremities than in her upper extremities, but she does follow commands appropriately. HEENT: Normocephalic, atraumatic. Pupils reactive. Moist mucous membranes. NECK: Supple. There is a tracheostomy in place with some dry bloody secretions. Oozing around the trach site with packed gauze. CARDIAC: Regular rate and rhythm. Normal S1, S2 with distant heart sounds. Unable to appreciate any murmurs. PULMONARY: Diminished breath sounds bilaterally. There has been improvement in her rhonchi. There are still some occasional rhonchi, but no wheezing or rales. ABDOMEN: Morbidly obese, soft, and nontender. There is a palpable hernia, which is reducible. EXTREMITIES: There is no lower extremity edema in the bilateral lower extremities. The patient has a right PICC line in place with a dressing, which is clean, dry, and intact. LABORATORY DATA: WBC 16.1, platelets 13.8, hemoglobin is . Chemistries with sodium 143, potassium 4.2, chloride 112, bicarb 25, BUN 87, creatinine 1.35, glucose 158. INR is 1.09. COVID test was negative. ASSESSMENT AND PLAN: Ms. Varela is a 44-year-old female with a past medical history of insulin-dependent diabetes, hypertension, hyperlipidemia, morbid obesity, prior history of deep vein thrombosis (DVT), obstructive sleep apnea (TALA)/obesity hypoventilation syndrome (OHS) with a previous tracheostomy placement, who presented with acute on chronic hypoxemic and hypercarbic respiratory failure requiring intubation and mechanical ventilation and ultimately tracheostomy placement. Acute on chronic hypoxemia and hypercarbic respiratory failure status post tracheostomy. - The patient has been doing well on the ventilator in pressure support mode at night and with trach collar during the day for a few hours. Will continue to wean her off of the ventilator to trach collar as much as tolerated. She does require the ventilator still at night and when she has episodes of fatigue and desaturations. - The patient's repeat chest x-ray does show improvement in her left-sided airspace disease. She does have some persistent atelectasis on the left side and so we will continue positioning and left side up with suctioning as tolerated. - The patient is still on ceftriaxone and Fluconazole. She has persistent leukocytosis, which suspect is in the setting of possible sinusitis given her nasogastric (NG) tube that has been in place for more than two weeks now. If there is persistent leukocytosis would repeat sputum culture and consider broadening antibiotic coverage for HCA organisms. - Will continue to wean down her steroids. She will need a continued slow taper off steroids. - Continue with nebulized bronchodilator. - Continue with chlorhexidine mouth wash and vent bundle care with head of bed elevation. Gastrointestinal (GI). The patient is on tube feed with Nepro currently, which she has been tolerating. She is planned for a PEG tube placement today by surgery. She has been NPO for the procedure - Continue with fingerstick glucose checks with long-acting insulin and sliding scale coverage. - Hypertension. The patient's blood pressure has been more controlled now. She has had some episodes of hypotension even. Her hydralazine has been discontinued and her metoprolol was decreased. She is still on lisinopril and amlodipine, and we will continue to monitor blood pressure and adjust medications as needed Prior history of deep vein thrombosis (DVT) and with recurrent upper extremity DVT on this admission. - Continue with Lovenox for anticoagulation. Once the patient is closer to discharge, can change her to a direct oral anticoagulant (DOAC). She will need lifelong anticoagulation at this point. GI prophylaxis with Protonix. Code status is FULL CODE. The patient will likely need placement in a care home acute care facility. CRITICAL CARE TIME: Total critical care time spent not including procedures approximately 40 minutes. Patient was signed out to the hospitalist service. Please do not hesitate to call however if there are any questions or concerns. DIRK
[2020-02-18] MEDS: METOPROLOL TART 50 MG TAB NG SCH (20:31)
[2020-02-18] MEDS: LEVEMIR (INSULIN DETEMIR) 1 UNITS/0.01ML SC SCH (20:39)
[2020-02-18] MEDS: cefTRIAXone SOD 1 GM in D5W MINI-BAG PLUS 50 ML IV SCH (21:06)
[2020-02-19] VITALS (22 sets, daily range): BP systolic 106–151; BP diastolic 57–93
[2020-02-19] MEDS: IPRATROPIUM 0.5MG/ALBUTEROL 2.5MG INH SOL UD 3ML (DUONEB) NEB SCH ×7 (00:07→23:46)
[2020-02-19] MEDS: NYSTATIN 500,000 U/5 ML SUSP UDC PO SCH ×4 (00:16→18:13)
[2020-02-19] MEDS: MORPHINE 2 MG/ML 1ML VIAL (J2270) IV PRN ×3 (00:16→20:51)
[2020-02-19] MEDS: HumuLIN R (REGULAR) INSULIN (NovoLIN R) **100U/ML** PER UNIT SC SCH ×4 (00:17→18:14)
[2020-02-19 05:21] LABS: BASO # 0.1 10^3/uL (0.0-0.2); BASO % 0.4 % (0.0-1.0); EOS % 0.2 % (0.0-3.0); HEMATOCRIT 48.7 % (36.0-47.0); HEMOGLOBIN 14.6 g/dl (12.0-15.5); LYMPH # 1.6 10^3/uL (1.5-5.0); LYMPH % 7.9 % (24.0-44.0); MEAN CORPUSCULAR HEMOGLOBIN 29.6 pg (27.0-33.0); MEAN CORPUSCULAR VOLUME 98.6 fl (80.0-96.0); MONO # 1.2 10^3/uL (0.0-0.8); MONO % 5.9 % (0.0-5.0); NEUTROPHILS # 16.9 10^3/uL (1.5-8.5); NEUTROPHILS % 84.5 % (36.0-66.0); PLATELET COUNT, AUTOMATED 140 10^3/uL (150-450); RED BLOOD COUNT 4.94 10^6/uL (4.00-5.40); WHITE BLOOD COUNT 20.1 10^3/uL (4.0-10.0)
[2020-02-19] MEDS: SODIUM CHLORIDE 0.9% INJ 10 ML SYR IV SCH ×2 (05:21→18:14)
[2020-02-19 05:46] LABS: BLOOD UREA NITROGEN 85 MG/DL (7-18); CALCIUM LEVEL 9.4 MG/DL (8.5-10.1); CARBON DIOXIDE LEVEL 22 MEQ/L (21-32); CHLORIDE LEVEL 114 MEQ/L (98-107); CREATININE FOR GFR 1.21 MG/DL (0.55-1.30); GLOMERULAR FILTRATION RATE > 60.0 (>58); GLUCOSE, FASTING 139 MG/DL (70-100); POTASSIUM SERUM 4.6 MEQ/L (3.5-5.1); SODIUM LEVEL 144 MEQ/L (136-145)
[2020-02-19] MEDS: NORCO, ANEXSIA 5/325MG TABLET (HYDROcodone/ACETAMINOPHEN) FT PRN ×2 (07:55→14:37)
[2020-02-19] MEDS: busPIRone 5 MG TAB NG SCH ×3 (07:56→20:52)
[2020-02-19] MEDS: METOPROLOL TART 50 MG TAB NG SCH ×2 (07:57→20:53)
[2020-02-19] MEDS: FLUCONAZOLE IV SCH (07:59)
[2020-02-19] MEDS: methylPREDNISolone 40MG 1ML VIAL IV SCH (08:00)
[2020-02-19] MEDS: CHLORHEXIDINE GLUCONATE 0.12 % 15ML UDC (PERIDEX ORAL RINSE) MT SCH ×2 (09:00→20:50)
--- NOTE | 2020-02-19 09:30 | IPNPDOC ---
Text Note Date of Service The patient was seen on 02/19/20. NOTE No acute events overnight. Nursing have been able to use the feeding tube for meds without any problems. VSSAF NAD abd - soft, nt, nd, obese, PEG tube is in place without any signs of leakage or infection. labs - below A) 44y/o female POD#1 s/p PEG placement at the bedside P) ok to start tube feeds back at her previous goal. will be available as needed. David Campbell DO VS,Zaynab, I+O VS, Fishbone, I+O Laboratory Tests 02/19/20 05:10 Vital Signs Date Time Temp Pulse Resp B/P (MAP) Pulse Ox O2 Delivery O2 Flow Rate FiO2 02/19/20 07:57 133 02/19/20 07:55 28 Ventilator 40 02/19/20 07:55 122/81 02/19/20 06:00 97 40.0 02/19/20 04:00 98.7 I&O- Last 24 Hours up to 6 AM 02/19/20 06:00 Intake Total 130 ml Output Total 1675 ml Balance -1545 ml AYANNA CAMPBELL DO Feb 19, 2020 09:30
[2020-02-19] MEDS: PANTOPRAZOLE 40MG VIAL (C9113 PER 1) IV SCH (12:47)
[2020-02-19] MEDS: ENOXAPARIN 100MG/1ML SYRINGE (J1650 PER 10MG) SC SCH (18:14)
[2020-02-19] MEDS: LEVEMIR (INSULIN DETEMIR) 1 UNITS/0.01ML SC SCH (20:51)
[2020-02-19] MEDS: cefTRIAXone SOD 1 GM in D5W MINI-BAG PLUS 50 ML IV SCH (21:00)
--- NOTE | 2020-02-19 21:45 | IPNPDOC ---
Subjective Date Seen The patient was seen on 02/19/20. Subjective Chief Complaint/HPI Ms. Varela is a 44 year old female who's here with acute hypercapnic hypoxemic respiratory failure s/p peg and trach. Trach was placed by Dr. Garcia on 02/02/2020. PEG was placed by Dr. Campbell on 02/18/2020. When I saw patient in the morning. She was awake and moving limbs. Nurse reported that she can answer yes and no answers, but that is the extent of her communication. Planned to start tube feeds today using new PEG. Objective Physical Examination Eye Exam: Negative: Sclera icteric Neck Exam: Positive: Other (Trach in place. Still has blood around site.) Chest Exam: Positive: Diminished Heart Exam: Positive: Tachycardic, Regular Rhythm Abdomen Exam: Positive: BS Hypoactive, Other (PEG placed epigastric area) Extremity Exam: Positive: Edema Psych Exam: Negative: Mental status NL Assessment /Plan Assessment Ms. Varela is a 44 year old female who's here with acute hypercapnic hypoxemic respiratory failure s/p peg and trach. Currently on Ceftriaxone and Fluconazole for pneumonia. Leukocytosis increasing. May be secondary to surgery vs. worsening pneumonia. May need to expand coverage if WBC continues to increase. Repeat procalcitonin today has increased from 0.65 to 0.95. Otherwise, steroids will need to be weaned down. Ultimately, she will need to be placed at LTAC Plan/VTE VTE Prophylaxis Ordered?: Yes Plan 1. Acute hypercapnic hypoxic respiratory failure -Secondary to obesity hypoventilation syndrome and pneumonia -Trach and PEG -Will need LTAC -On prednisone, will need to wean off prednisone per Pulm (Dr. Whitfield) 2. Pneumonia -CXR demonstrates bilateral consolidations -Leukocytosis increasing. May be 2/2 surgery vs worsening infection -Continue Rocephin and fluconazole 3. Hypertension -BP controlled -Currently on Lopressor, Lisinopril, Hydralazine, and amlodipine 4. DM -Basal insulin and sliding scale insulin 5. DVT ppx -Lovenox Disposition: Patient will ultimately need LTAC. VS, I&O, 24H, Fishbone Vital Signs/I&O Vital Signs Date Time Temp Pulse Resp B/P (MAP) Pulse Ox O2 Delivery O2 Flow Rate FiO2 02/19/20 21:01 23 Ventilator 02/19/20 20:53 120 136/88 02/19/20 19:52 99 40 02/19/20 15:00 97.6 40.0 I&O- Last 24 Hours up to 6 AM 02/19/20 06:00 Intake Total 130 ml Output Total 1675 ml Balance -1545 ml Laboratory Data 24H LABS Laboratory Tests 2 02/19/20 00:11: Bedside Glucose (Misc Panel) 133H 02/19/20 05:00: Procalcitonin 0.95 02/19/20 05:05: Bedside Glucose (Misc Panel) 54L 02/19/20 05:10: Immature Granulocyte % (Auto) 1.1, Neutrophils (%) (Auto) 84.5H, Lymphocytes (%) (Auto) 7.9L, Monocytes (%) (Auto) 5.9H, Eosinophils (%) (Auto) 0.2, Basophils (%) (Auto) 0.4, Neutrophils # (Auto) 16.9H, Lymphocytes # (Auto) 1.6, Monocytes # (Auto) 1.2H, Eosinophils # (Auto) 0.0, Basophils # (Auto) 0.1, Nucleated Red Blood Cells % (auto) 0.0, Anion Gap 8, Glomerular Filtration Rate > 60.0, Héctor cium Level 9.4 02/19/20 05:35: Bedside Glucose (Misc Panel) 130H 02/19/20 10:49: Bedside Glucose (Misc Panel) 202H 02/19/20 18:06: Bedside Glucose (Misc Panel) 179H 02/19/20 20:49: Bedside Glucose (Misc Panel) 194H CBC/BMP Laboratory Tests 02/19/20 05:10 MELANY CROWELL DO Feb 19, 2020 21:45
[2020-02-19] MEDS ORDERED: LORazepam 2 MG/ML VIAL IV STA (22:26)
[2020-02-20] VITALS (26 sets, daily range): BP systolic 92–150; BP diastolic 53–83; O2SAT 91–99
[2020-02-20] MEDS: NYSTATIN 500,000 U/5 ML SUSP UDC PO SCH ×4 (00:18→17:23)
[2020-02-20] MEDS: HumuLIN R (REGULAR) INSULIN (NovoLIN R) **100U/ML** PER UNIT SC SCH ×4 (00:18→17:33)
[2020-02-20] MEDS: IPRATROPIUM 0.5MG/ALBUTEROL 2.5MG INH SOL UD 3ML (DUONEB) NEB SCH ×6 (04:05→23:12)
[2020-02-20] MEDS ORDERED: LORazepam 2 MG/ML VIAL IM STA (04:08)
[2020-02-20] MEDS ORDERED: LORazepam 2 MG/ML VIAL IV STA (04:28)
[2020-02-20 04:55] LABS: BASO # 0.1 10^3/uL (0.0-0.2); BASO % 0.3 % (0.0-1.0); EOS # 0.1 10^3/uL (0.0-0.5); EOS % 0.2 % (0.0-3.0); HEMATOCRIT 47.4 % (36.0-47.0); HEMOGLOBIN 14.2 g/dl (12.0-15.5); LYMPH % 13.9 % (24.0-44.0); MEAN CORPUSCULAR HEMOGLOBIN 29.8 pg (27.0-33.0); MEAN CORPUSCULAR VOLUME 99.4 fl (80.0-96.0); MONO # 1.3 10^3/uL (0.0-0.8); MONO % 5.9 % (0.0-5.0); NEUTROPHILS # 17.2 10^3/uL (1.5-8.5); NEUTROPHILS % 78.5 % (36.0-66.0); PLATELET COUNT, AUTOMATED 153 10^3/uL (150-450); RED BLOOD COUNT 4.77 10^6/uL (4.00-5.40); WHITE BLOOD COUNT 21.9 10^3/uL (4.0-10.0)
[2020-02-20 05:26] LABS: CALCIUM LEVEL 9.4 MG/DL (8.5-10.1); CREATININE FOR GFR 1.54 MG/DL (0.55-1.30); GLOMERULAR FILTRATION RATE 46.8 (>58); POTASSIUM SERUM 4.9 MEQ/L (3.5-5.1)
[2020-02-20] MEDS: ENOXAPARIN 100MG/1ML SYRINGE (J1650 PER 10MG) SC SCH ×2 (05:50→17:23)
[2020-02-20] MEDS: SODIUM CHLORIDE 0.9% INJ 10 ML SYR IV SCH ×2 (05:50→17:24)
[2020-02-20] MEDS: MORPHINE 2 MG/ML 1ML VIAL (J2270) IV PRN ×2 (05:51→11:58)
[2020-02-20] MEDS ORDERED: SODIUM CHLORIDE 0.9% 1000ML IV ONE (06:15)
[2020-02-20] MEDS ORDERED: PIPERACILLIN/TAZOBACTAM SOD 4.5 GM in D5W MINI-BAG PLUS 50 ML IV SCH (06:30)
[2020-02-20] MEDS ORDERED: LACTATED RINGER'S 1000 ML IV ONE (06:30)
[2020-02-20 06:58] LABS: C REACTIVE PROTEIN QUANTITATIV 14.3 MG/DL (0.00-0.30)
[2020-02-20 07:28] LABS: ERYTHROCYTE SEDIMENTATION RATE 43 mm/hr (0-20)
[2020-02-20] MEDS: METOPROLOL TART 50 MG TAB NG SCH ×2 (09:00→20:57)
[2020-02-20] MEDS ORDERED: LR 1,000 ML IV ONE (10:15)
[2020-02-20] MEDS: CHLORHEXIDINE GLUCONATE 0.12 % 15ML UDC (PERIDEX ORAL RINSE) MT SCH ×2 (10:29→21:11)
[2020-02-20] MEDS: busPIRone 5 MG TAB NG SCH ×3 (10:30→21:11)
[2020-02-20] MEDS: methylPREDNISolone 40MG 1ML VIAL IV SCH (10:31)
[2020-02-20] MEDS: FLUCONAZOLE IV SCH (10:31)
[2020-02-20] MEDS: PANTOPRAZOLE 40MG VIAL (C9113 PER 1) IV SCH (10:32)
[2020-02-20] MEDS: LR 1,000 ML IV SCH ×2 (11:39→19:48)
[2020-02-20] MEDS: metroNIDAZOLE 500 MG in IV 1 EA IV SCH ×2 (11:39→19:49)
--- NOTE | 2020-02-20 12:04 | IPNPDOC ---
Date Seen The patient was seen on 02/20/20. Progress Note SUBJECTIVE: - overnight patient became tachycardic, hypotensive with increased oxygen requirements. - She is also tachypneic. - tube feeds were held overnight, vomited feeds yesterday, ?aspiration - moving extremities, doesn't open eyes or follow commands. - she remains on the vent, PS/CPAP, 02/10. OBJECTIVE PHYSICAL EXAMINATION: VITAL SIGNS: Please see below. GENERAL: on mechanical ventilation HEENT: Trach in place CARDIOVASCULAR: Tachycardic RESPIRATORY: scattered rhonchi ABDOMINAL: soft, large hernia EXTREMITIES: no edema NEUROLOGICAL: unable to assess LABORATORY DATA, IMAGING STUDIES, MICROBIOLOGY: Please see below. DVT prophylaxis ordered?: Yes ASSESSMENT AND PLAN: 44 y.o female w/ prolonged hospitalization due to respiratory failure s/p trach & PEG with acute worsening in symptoms overnight after aspiration of tube feeds yesterday. PROBLEMS: 1. Respiratory failure - vent dependent for most of the day, s/p trach & PEG. - tachycardic, hypotensive & tachypneic overnight. - concerned about aspiration pneumonia as patient vomited her tube feeds yesterday. - Repeat blood cultures, Vancomycin, cefepime & Falgyl. - s/p IV fluid bolus overnight, bolus 1L LR now followed by maintenance LR. - will obtain CT chest, abdomen & pelvis. Patient is oliguric today, suspect from hypoperfusion related to sepsis but would like to r/o other pathology given her abdominal anatomy. - continue solu-medrol 15 mg daily for now, will consider stress dose steroids based on clinical progression & workup. 2. HTN: Hold meds until BP improves, will restart BB first. 3. DM: Decrease Lantus to 20 units as tube feeds are on hold, continue sliding scale insulin w/ fingersticks q6h, will adjust regimen as needed. 4. DVT: on Lovenox 90 mg BID, ?underdosed, will adjust based on renal function. DVT Prophylaxis: on full dose Lovenox. GI Prophylaxis: PPI VS, I&O, 24H, Fishbone Vital Signs/I&O Vital Signs Date Time Temp Pulse Resp B/P (MAP) Pulse Ox O2 Delivery O2 Flow Rate FiO2 02/20/20 10:00 130 30 97/56 (70) 90 Ventilator 75.0 02/20/20 10:00 60 02/20/20 08:00 99.3 I&O- Last 24 Hours up to 6 AM 02/20/20 05:59 Intake Total 395 ml Output Total 1060 ml Balance -665 ml Laboratory Data 24H LABS Laboratory Tests 2 02/19/20 18:06: Bedside Glucose (Misc Panel) 179H 02/19/20 20:49: Bedside Glucose (Misc Panel) 194H 02/20/20 00:15: Bedside Glucose (Misc Panel) 157H 02/20/20 04:40: Immature Granulocyte % (Auto) 1.2, Neutrophils (%) (Auto) 78.5H, Lymphocytes (%) (Auto) 13.9L, Monocytes (%) (Auto) 5.9H, Eosinophils (%) (Auto) 0.2, Basophils (%) (Auto) 0.3, Neutrophils # (Auto) 17.2H, Lymphocytes # (Auto) 3.0, Monocytes # (Auto) 1.3H, Eosinophils # (Auto) 0.1, Basophils # (Auto) 0.1, Nucleated Red Blood Cells % (auto) 0.0, Erythrocyte Sedimentation Rate 43H, Anion Gap 6L, Glomerular Filtration Rate 46.8L, Calcium Level 9.4, C-Reactive Protein, Quanti tative 14.30H 02/20/20 06:40: Lactic Acid Level 1.2 CBC/BMP Laboratory Tests 02/20/20 04:40 Microbiology Microbiology 02/20/20 Blood Culture, Received Pending 02/20/20 Blood Culture, Received Pending TITO WERN MD Feb 20, 2020 12:04
[2020-02-20] MEDS: dexmedeTOMidine 200 MCG in IV 1 EA IV SCH ×4 (13:31→22:11)
[2020-02-20] MEDS: CEFEPIME HCL 2 GM in D5W MINI-BAG PLUS 50 ML IV SCH (13:40)
[2020-02-20] MEDS ORDERED: VANCOMYCIN HCL 1,000 MG, VIAL MATE ADAPTER 1 EACH in D5W 250 ML IV ONE (14:00)
[2020-02-20] MEDS ORDERED: VANCOMYCIN HCL 500 MG in D5W MINI-BAG PLUS 100 ML IV ONE (15:00)
--- NOTE | 2020-02-20 15:28 | REP ---
INDICATION: long duration hospital stay.. COMPARISON: Comparison is made with chest x-ray from 17 February 2020.. TECHNIQUE: Helical scanning is acquired. 3 mm axial images are generated. Coronal and sagittal MPR and coronal MIP images are generated. FINDINGS: Preliminary digital sales appointment coordinator radiograph demonstrates tracheostomy tube. Helical CT images show virtually lobar atelectasis in the left lower lobe with air bronchograms. There is segmental atelectatic change in the right lower lobe. The main pulmonary artery appears dilated as do the central pulmonary arteries bilaterally question pulmonary arterial hypertension. Main pulmonary artery measures 4.3 cm in right to left dimension. The ascending aorta measures 3.4 cm in AP dimension. Tracheostomy tube is in good position above the oneal. Some vascular calcification is noted. The lungs are otherwise well inflated. There is no evidence of pleural or pericardial effusion. There is left coronary artery vascular calcification. A small quantity of right pleural fluid is visible. Gaseous distention of the stomach is seen. There is a homogeneous fat density mass in the right adrenal gland consistent with adrenal lipoma or angiomyolipoma. This measures 5 cm in diameter. There is a right sided PICC line in place terminating in the superior vena cava. IMPRESSION: Tracheostomy and PICC lines noted. Virtually lobar atelectasis left lower lobe. Segmental atelectasis right lower lobe. Air bronchograms. Small sliver of pleural fluid on the right. Centrally prominent pulmonary arteries question pulmonary arterial hypertension. Vascular calcification. Gaseous distention of the stomach and a 5 cm benign right adrenal mass. <Electronically signed by Jamie Sevilla > 02/20/20 1521
--- NOTE | 2020-02-20 15:46 | REP ---
INDICATION: large hernia, decreased urine output, worsening sepsis. Postoperative day 2 status post gastrostomy feeding tube placement. COMPARISON: No comparison CT study.. TECHNIQUE: Helical scanning is acquired in 4 mm axial images were reformatted. Coronal and sagittal MPR images were generated and reviewed. FINDINGS: Preliminary digital automatic lathe tender radiograph demonstrates marked gaseous distention of the stomach. There is an ileus pattern in the bowel gas with gaseous distention of multiple small and large bowel loops. There is evidence of a large abdominal hernia presenting over the pelvis on the automatic lathe tender view. On axial helical scans a gastrostomy tube is noted in place. There is a small quantity of free intraperitoneal air along the anterior abdomen centered about the gastrostomy tube. The retention balloon for the gastrostomy tube is in good position along the anterior wall of the stomach. There is air and fluid distention of the duodenal C-loop and the entire small intestine. There is moderate gaseous distention of the right colon. This patient's body habitus would not allow the entire anterior abdomen to fit in the scanned field of view. Small bowel and large bowel loops are seen extending into a large ventral hernia in the lower abdominal midline and draped off to the right. This hernia is is incompletely included in the field of view. A portion of the right and transverse colon are included in this hernia sac in addition to small bowel loops. No obstructive lesion is appreciated in the bowel gas pattern is more consistent with ileus. The ascending, Paddock flexure, transverse and left colon loops are unremarkable. There is a Leonard catheter in the urinary bladder. There are calcifications in the right adnexa adjacent to the uterine fundus which may be a pedunculated fibroid versus calcifications in the right ovary. Kidneys, spleen, and liver are unremarkable. There is a 5 cm homogeneously fat density mass in the right adrenal gland consistent with lipoma versus myelolipoma. IMPRESSION: Moderate ileus pattern in the bowel gas with a marked gaseous distention of the stomach, right colon, and small bowel. No obstructive lesion is seen. A gastrostomy tube is seen in good position. There is a small amount of free intraperitoneal which is felt to be postoperative. This patient had a G-tube placed 2 days prior. No evidence of abscess. Benign right adrenal tumor. Post cholecystectomy. Vascular calcification. Large ventral hernia containing small and large bowel loops. <Electronically signed by Jamie Sevilla > 02/20/20 [id number]
[2020-02-20] MEDS ORDERED: LEVEMIR (INSULIN DETEMIR) 1 UNITS/0.01ML SC SCH (21:00)
[2020-02-21] VITALS (34 sets, daily range): BP systolic 104–168; BP diastolic 58–86
[2020-02-21] MEDS: MORPHINE 2 MG/ML 1ML VIAL (J2270) IV PRN (00:30)
[2020-02-21] MEDS: CEFEPIME HCL 2 GM in D5W MINI-BAG PLUS 50 ML IV SCH ×2 (00:31→13:06)
[2020-02-21] MEDS: NYSTATIN 500,000 U/5 ML SUSP UDC PO SCH ×4 (00:31→17:45)
[2020-02-21] MEDS: dexmedeTOMidine 200 MCG in IV 1 EA IV SCH ×4 (02:56→12:00)
[2020-02-21] MEDS: IPRATROPIUM 0.5MG/ALBUTEROL 2.5MG INH SOL UD 3ML (DUONEB) NEB SCH ×6 (03:24→23:08)
[2020-02-21] MEDS: LR 1,000 ML IV SCH (04:30)
[2020-02-21] MEDS: metroNIDAZOLE 500 MG in IV 1 EA IV SCH ×3 (04:30→20:44)
[2020-02-21] MEDS: ENOXAPARIN 100MG/1ML SYRINGE (J1650 PER 10MG) SC SCH (05:35)
[2020-02-21] MEDS: SODIUM CHLORIDE 0.9% INJ 10 ML SYR IV SCH ×2 (06:00→17:46)
[2020-02-21] MEDS: HumuLIN R (REGULAR) INSULIN (NovoLIN R) **100U/ML** PER UNIT SC SCH ×4 (06:00→17:46)
[2020-02-21 06:13] LABS: BASO % 0.2 % (0.0-1.0); EOS % 0.1 % (0.0-3.0); HEMATOCRIT 41.7 % (36.0-47.0); HEMOGLOBIN 12.7 g/dl (12.0-15.5); LYMPH # 2.1 10^3/uL (1.5-5.0); LYMPH % 12.7 % (24.0-44.0); MEAN CORPUSCULAR HEMOGLOBIN 31.1 pg (27.0-33.0); MEAN CORPUSCULAR HGB CONC 30.5 g/dl (32.0-36.5); MONO % 6.3 % (0.0-5.0); NEUTROPHILS # 13.2 10^3/uL (1.5-8.5); NEUTROPHILS % 79.8 % (36.0-66.0); PLATELET COUNT, AUTOMATED 148 10^3/uL (150-450); RED BLOOD COUNT 4.09 10^6/uL (4.00-5.40); WHITE BLOOD COUNT 16.6 10^3/uL (4.0-10.0)
[2020-02-21 06:30] LABS: CALCIUM LEVEL 9.2 MG/DL (8.5-10.1); CREATININE FOR GFR 1.48 MG/DL (0.55-1.30); POTASSIUM SERUM 5.2 MEQ/L (3.5-5.1)
[2020-02-21 08:35] LABS: ABG BASE EXCESS -3.7 (-2.0-2.0); ABG HCO3 21.9 MEQ/L (22.0-26.0); ABG O2 SATURATION 90.6 % (95.0-99.0); ABG PARTIAL PRESSURE CO2 41.7 mmHg (35.0-45.0); ABG PARTIAL PRESSURE O2 60.8 mmHg (75.0-100.0); ABG STANDARD HCO3 21.3 MEQ/L (22.0-26.0); ABG TOTAL CO2 23.2 MEQ/L (22.0-29.0); ABG pH (ARTERIAL) 7.339 UNITS (7.350-7.450)
[2020-02-21] MEDS: CHLORHEXIDINE GLUCONATE 0.12 % 15ML UDC (PERIDEX ORAL RINSE) MT SCH ×2 (08:49→20:44)
[2020-02-21] MEDS: METOPROLOL TART 50 MG TAB NG SCH ×2 (08:50→20:46)
[2020-02-21] MEDS: busPIRone 5 MG TAB NG SCH ×3 (08:50→21:56)
[2020-02-21] MEDS: FLUCONAZOLE 200 MG in IV 1 EA IV SCH (08:51)
[2020-02-21] MEDS: methylPREDNISolone 40MG 1ML VIAL IV SCH (08:52)
--- NOTE | 2020-02-21 09:06 | REP ---
INDICATION: hypoxemia COMPARISON: 02/17/2020 TECHNIQUE: Portable AP view of the chest FINDINGS: Tracheostomy overlies the airway. Right-sided PICC line in stable position. Stable cardiomegaly is appreciated. Evaluation is otherwise relatively limited and essentially nondiagnostic due to positioning and technique. Lower lobe opacities cannot be excluded no obvious effusion. No obvious pneumothorax. IMPRESSION: Limited examination. Cannot exclude bibasilar opacities. No obvious effusion or pneumothorax. <Electronically signed by Marlo Gleason > 02/21/20 0903
[2020-02-21] MEDS: PANTOPRAZOLE 40MG VIAL (C9113 PER 1) IV SCH (10:49)
--- NOTE | 2020-02-21 11:17 | ECGEPIP ---
[facility] Test Date: 2020-02-20 Pat Name: ABEL DIGGS Department: Room: [place] [address] Gender: Female Final Inspector: CATA : [id number] Requested By: Radha Welsh Order Number: [id number] Reading MD: Cullen Rey Measurements Intervals [place] Rate: 95 P: -28 [place]: 200 QRS: -31 QRSD: 142 T: 106 QT: 307 QTc: 388 Interpretive Statements Sinus tachycardia (recorded rate is incorrect) Left axis deviation Very prominent voltages likely reflective of LEFT VENTRICULAR HYPERTROPHY despite underlying left bundle branch block Increased rate from 02/03/20 Clinical correlation advised Electronically Signed on 02-21-2020 11:17:45 EST by Cullen Rey
[2020-02-21] MEDS ORDERED: D5W 1,000 ML IV SCH (13:00)
[2020-02-21] MEDS ORDERED: VANCOMYCIN HCL 750 MG, VIAL MATE ADAPTER 1 EACH in D5W 250 ML IV SCH (14:00)
[2020-02-21] MEDS ORDERED: VANCOMYCIN HCL 500 MG in D5W MINI-BAG PLUS 100 ML IV SCH (15:00)
[2020-02-21] MEDS ORDERED: FUROSEMIDE 100MG/10ML VIAL (J1940) IV ONE (15:00)
--- NOTE | 2020-02-21 16:00 | CCN ---
CRITICAL CARE NOTE DATE: 02/21/2020 SUBJECTIVE: I was called to the intensive care unit to evaluate this patient for progressive hypoxemia. Admitted on 01/21 with acute on chronic respiratory failure relating to obesity hypoventilation syndrome, asthma, ongoing tobacco use, she also has a history of congestive heart failure, DVT, diabetes, and a massive midline hernia. She has had a prolonged and complicated hospital stay. She had been requiring mechanical ventilatory support and underwent tracheostomy on 02/01. She was weaned off mechanical ventilation to just pressure support with trach collar intermittent use. On 02/17, she had a PEG tube placed and following this, an episode of worsening hypoxemia was seen. Imaging was performed and her oxygen saturations have remained low. OBJECTIVE: VITAL SIGNS: At bedside, her temperature is 97, pulse rate is 89, respirations 33, blood pressure 144/76. INTAKE AND OUTPUT: For the past 24 hours 2870 in and 1200 out; since midnight 1067 in and 660 out. GENERAL APPEARANCE: At bedside, she is ill-appearing. She does respond to voice and follows some simple commands. HEENT: Oral mucosa is pink. Her tracheostomy site is indurated. There are blood secretions in the tracheostomy tube and the ventilator tubing. NECK: [place]. With the cicatrix, the jugular veins are not able to be appreciated. HEART: Sounds are distant, but appear regular. LUNGS: Breath sounds diminished with focal squeaking particularly in the bases, left greater than right, during inspiratory phase. CHEST: Symmetric. There is no accessory muscle engagement. ABDOMEN: Soft and morbidly obese with an enormous midline hernia. DIAGNOSTIC STUDIES: Her white cell count is 16.6 down from 21.9, hemoglobin is down to 12.7, hematocrit 41.7, and platelet count 148,000. Differential white cell count shows 78% neutrophils. Electrolytes are sodium 148, potassium up to 5.2, chloride 119, CO2 of 21, BUN 99, creatinine is down at 1.48 from 1.54, glucose 134. Arterial blood gas showed a pH of 7.33, pCO2 of 41, and pO2 of 60. This is on a pressure support mode of ventilation. Her imaging studies were reviewed and show patchy atelectasis left base most prominently. ASSESSMENT AND PLAN: The primary problem requiring critical attention is hypoxic respiratory failure. I suspect this is multifactorial. Exam suggests mucous plugging, and we will initiate aggressive suctioning with instillation of saline. The patient has an underlying diagnosis of asthma and her steroids have been progressively weaned. I will add an inhaled steroid to address airway inflammation. The patient has severe obesity hypoventilation syndrome and we will increase her pressure window. Some respiratory suppressant medications have been prescribed and I will recommend that they be weaned. Fluid volume This is very difficult to assess clinically; however, she does appear to have some edema and this could certainly complicate her hypoxemia. I will administer a single dose of Lasix and monitor her urine output. Tracheostomy bleeding The patient has had intermittent problems with bleeding from her tracheostomy site and bloody plugs are appreciated in the tubing. It may be necessary to have surgery reevaluate the tracheostomy to determine if there is any cauterization that can be performed. Attempts to initiate tube feeding resulted in aspiration. Previously during hospital stay, she required Reglan for gastroparesis and perhaps this could be restarted. Another consideration would be to replace the G-tube with a J-tube to reduce the risk of aspiration. Deep vein thrombosis (DVT) and ulcer prophylaxis are in place. The patient's condition remains critical. CRITICAL CARE TIME: 97 minutes was spent in the provision of bedside critical care and coordination, excluding any procedure time.
[2020-02-21] MEDS: BUDESONIDE 0.5 MG/2 ML INHALATION SUSPENSION INH SCH (20:19)
--- NOTE | 2020-02-21 20:35 | IPNPDOC ---
Date Seen The patient was seen on 02/21/20. Progress Note SUBJECTIVE: - hypoxemia worsening, requiring increased supplemental oxygen, currently on 70% FiO2 via NC. - CXR obtained w/ possible mucus plugging/PNA - Pulmonary reconsulted to assist with further management. - opens eyes, unable to follow commands. OBJECTIVE PHYSICAL EXAMINATION: VITAL SIGNS: Please see below. GENERAL: on mechanical ventilation HEENT: Trach in place CARDIOVASCULAR: Tachycardic RESPIRATORY: scattered rhonchi ABDOMINAL: soft, large hernia, PEG in place EXTREMITIES: trace edema NEUROLOGICAL: unable to assess LABORATORY DATA, IMAGING STUDIES, MICROBIOLOGY: Please see below. DVT prophylaxis ordered?: Yes ASSESSMENT AND PLAN: 44 y.o female w/ prolonged hospitalization due to respiratory failure s/p trach & PEG with acute worsening in symptoms overnight after aspiration of tube feeds yesterday. PROBLEMS: 1. Acute on chronic Respiratory failure - 2/2 OHS & Asthma - unable to wean off the ventilator, s/p trach & PEG. - vent requirements were decreasing up until ~48 hours ago, likely related to aspiration of tube feeds. - on Vancomycin, cefepime & Falgyl, Procal trending up, repeat cultures pending. - Pulmonary consulted for further assistance. - Currently on PS/CPAP 20/8 @ 70% FiO2 2. HTN: - continue Metoprolol & Norvasc 3. DM: - Decrease Lantus to 10 units as tube feeds are on hold, continue sliding scale insulin w/ fingersticks q6h, will adjust regimen as needed. 4. DVT: - changed Lovenox to 120 mg BID based on current weight. DVT Prophylaxis: on full dose Lovenox. GI Prophylaxis: PPI VS, I&O, 24H, [place] Vital Signs/I&O Vital Signs Date Time Temp Pulse Resp B/P (MAP) Pulse Ox O2 Delivery O2 Flow Rate FiO2 02/21/20 20:20 111 25 98 80 02/21/20 18:30 130/77 (94) Ventilator 80.0 02/21/20 16:00 97.4 I&O- Last 24 Hours up to 6 AM 02/21/20 06:00 Intake Total 3814.8 ml Output Total 1485 ml Balance 2329.8 ml Laboratory Data 24H LABS Laboratory Tests 2 02/21/20 00:16: Bedside Glucose (Misc Panel) 122H 02/21/20 05:45: Immature Granulocyte % (Auto) 0.9, Neutrophils (%) (Auto) 79.8H, Lymphocytes (%) (Auto) 12.7L, Monocytes (%) (Auto) 6.3H, Eosinophils (%) (Auto) 0.1, Basophils (%) (Auto) 0.2, Neutrophils # (Auto) 13.2H, Lymphocytes # (Auto) 2.1, Monocytes # (Auto) 1.0H, Eosinophils # (Auto) 0.0, Basophils # (Auto) 0.0, Nucleated Red Blood Cells % (auto) 0.0, Anion Gap 8, Glomerular Filtration Rate 49.0L, Calcium Level 9.2 02/21/20 05:52: Bedside Glucose (Misc Panel) 131H 02/21/20 08:27: Blood Gas Bicarbonate Standard 21.3L, Arterial Blood pH 7.339L, Arterial Blood Partial Pressure CO2 41.7, Arterial Blood Partial Pressure O2 60.8L, Arterial Blood Total CO2 23.2, Arterial Blood HCO3 21.9L, Arterial Blood Base Excess - 3.7L, Arterial Blood Oxygen Saturation 90.6L, Procalcitonin 1.08 02/21/20 11:46: Bedside Glucose (Misc Panel) 203H 02/21/20 17:40: Bedside Glucose (Misc Panel) 135H CBC/BMP Laboratory Tests 02/21/20 05:45 Microbiology Microbiology 02/20/20 Gram Stain - Final, Resulted 02/20/20 Sputum Culture, Resulted Pending 02/20/20 Blood Culture - Preliminary, Resulted No growth after 24 hours . All specim... 02/20/20 Blood Culture - Preliminary, Resulted No growth after 24 hours . All specim... TITO WREN MD Feb 21, 2020 20:35
[2020-02-21] MEDS: LEVEMIR (INSULIN DETEMIR) 1 UNITS/0.01ML SC SCH (20:45)
[2020-02-21] MEDS: ENOXAPARIN 120MG/0.8ML SYRINGE (J1650 PER 10MG) SC SCH (20:46)
[2020-02-22] VITALS (24 sets, daily range): BP systolic 106–178; BP diastolic 57–89
[2020-02-22] MEDS: CEFEPIME HCL 2 GM in D5W MINI-BAG PLUS 50 ML IV SCH ×2 (00:54→15:30)
[2020-02-22] MEDS: NYSTATIN 500,000 U/5 ML SUSP UDC PO SCH ×3 (00:54→14:12)
[2020-02-22] MEDS: IPRATROPIUM 0.5MG/ALBUTEROL 2.5MG INH SOL UD 3ML (DUONEB) NEB SCH ×6 (03:27→23:23)
[2020-02-22] MEDS: metroNIDAZOLE 500 MG in IV 1 EA IV SCH ×3 (04:29→20:52)
[2020-02-22 04:51] LABS: BASO % 0.2 % (0.0-1.0); EOS # 0.1 10^3/uL (0.0-0.5); EOS % 0.3 % (0.0-3.0); HEMATOCRIT 41.3 % (36.0-47.0); HEMOGLOBIN 12.8 g/dl (12.0-15.5); LYMPH # 2.4 10^3/uL (1.5-5.0); LYMPH % 14.8 % (24.0-44.0); MEAN CORPUSCULAR HEMOGLOBIN 31.1 pg (27.0-33.0); MEAN CORPUSCULAR VOLUME 100.5 fl (80.0-96.0); MONO % 6.2 % (0.0-5.0); NEUTROPHILS # 12.8 10^3/uL (1.5-8.5); NEUTROPHILS % 77.6 % (36.0-66.0); PLATELET COUNT, AUTOMATED 163 10^3/uL (150-450); RED BLOOD COUNT 4.11 10^6/uL (4.00-5.40); WHITE BLOOD COUNT 16.5 10^3/uL (4.0-10.0)
[2020-02-22] MEDS: SODIUM CHLORIDE 0.9% INJ 10 ML SYR IV SCH ×2 (05:34→17:13)
[2020-02-22 05:42] LABS: CALCIUM LEVEL 8.9 MG/DL (8.5-10.1); CREATININE FOR GFR 1.3 MG/DL (0.55-1.30); GLOMERULAR FILTRATION RATE 56.9 (>58); POTASSIUM SERUM 4.3 MEQ/L (3.5-5.1)
[2020-02-22] MEDS: HumuLIN R (REGULAR) INSULIN (NovoLIN R) **100U/ML** PER UNIT SC SCH ×5 (06:00→21:00)
[2020-02-22] MEDS: MORPHINE 2 MG/ML 1ML VIAL (J2270) IV PRN (06:12)
[2020-02-22] MEDS: BUDESONIDE 0.5 MG/2 ML INHALATION SUSPENSION INH SCH ×2 (07:32→19:47)
[2020-02-22] MEDS: ENOXAPARIN 120MG/0.8ML SYRINGE (J1650 PER 10MG) SC SCH ×2 (08:12→20:53)
[2020-02-22] MEDS: FLUCONAZOLE 200 MG in IV 1 EA IV SCH (08:12)
[2020-02-22] MEDS: methylPREDNISolone 40MG 1ML VIAL IV SCH (08:12)
[2020-02-22] MEDS: METOPROLOL TART 50 MG TAB NG SCH ×2 (08:13→20:53)
[2020-02-22] MEDS: CHLORHEXIDINE GLUCONATE 0.12 % 15ML UDC (PERIDEX ORAL RINSE) MT SCH ×2 (08:14→20:52)
[2020-02-22] MEDS: busPIRone 5 MG TAB NG SCH ×3 (08:14→20:52)
--- NOTE | 2020-02-22 09:19 | REP ---
INDICATION: hypoxemia COMPARISON: None. TECHNIQUE: Portable AP view of the chest FINDINGS: Tracheostomy in satisfactory position. Right PICC line with tip in the SVC. Stable cardiomegaly. Moderate right basilar opacity suggesting effusion and atelectasis. IMPRESSION: Right basilar opacity as above. <Electronically signed by Marlo Gleason > 02/22/20 0900
[2020-02-22] MEDS: PANTOPRAZOLE 40MG VIAL (C9113 PER 1) IV SCH (11:17)
--- NOTE | 2020-02-22 13:33 | IPNPDOC ---
Date Seen The patient was seen on 02/22/20. Progress Note SUBJECTIVE: - Doing better today, awake, able to the conversation, without any complaints at this time. Vent requirements of gone down as well, currently on 40% FiO2. OBJECTIVE PHYSICAL EXAMINATION: VITAL SIGNS: Please see below. GENERAL: on mechanical ventilation HEENT: Trach in place CARDIOVASCULAR: S1, S2 RESPIRATORY: scattered rhonchi ABDOMINAL: soft, large hernia, PEG in place EXTREMITIES: trace edema NEUROLOGICAL: unable to assess LABORATORY DATA, IMAGING STUDIES, MICROBIOLOGY: Please see below. DVT prophylaxis ordered?: Yes ASSESSMENT AND PLAN: 44 y.o female w/ prolonged hospitalization due to respiratory failure s/p trach & PEG with acute worsening in symptoms overnight a fter aspiration of tube feeds yesterday. PROBLEMS: 1. Acute on chronic Respiratory failure - 2/2 OHS & Asthma - unable to wean off the ventilator, s/p trach & PEG. - Respiratory status improving over the past 24 hours, currently on 40% FiO2 - Likelihood of infection is lower, more likely mucous plugging with possible aspiration pneumonitis, discontinue vancomycin, will continue cefepime and Flagy l. 2. HTN: - continue Metoprolol & Norvasc 3. DM: -Continue Lantus to 10 units and sliding scale insulin w/ fingersticks q6h, will adjust regimen as needed. 4. DVT: -Continue Lovenox to 120 mg BID based on current weight. DVT Prophylaxis: on full dose Lovenox. GI Prophylaxis: PPI VS, I&O, 24H, Fishbone Vital Signs/I&O Vital Signs Date Time Temp Pulse Resp B/P (MAP) Pulse Ox O2 Delivery O2 Flow Rate FiO2 02/22/20 10:00 85 21 140/83 (102) 95 Ventilator 40 02/22/20 08:00 98.0 02/22/20 01:00 70.0 I&O- Last 24 Hours up to 6 AM 02/22/20 06:00 Intake Total 3235 ml Output Total 3070 ml Balance 165 ml Laboratory Data 24H LABS Laboratory Tests 2 02/21/20 17:40: Bedside Glucose (Misc Panel) 135H 02/22/20 00:38: Bedside Glucose (Misc Panel) 113H 02/22/20 04:35: Immature Granulocyte % (Auto) 0.9, Neutrophils (%) (Auto) 77.6H, Lymphocytes (%) (Auto) 14.8L, Monocytes (%) (Auto) 6.2H, Eosinophils (%) (Auto) 0.3, Basophils (%) (Auto) 0.2, Neutrophils # (Auto) 12.8H, Lymphocytes # (Auto) 2.4, Monocytes # (Auto) 1.0H, Eosinophils # (Auto) 0.1, Basophils # (Auto) 0.0, Nucleated Red Blood Cells % (auto) 0.0, Anion Gap 8, Glomerular Filtration Rate 56.9L, Calcium Level 8.9 CBC/BMP Laboratory Tests 02/22/20 04:35 Microbiology Microbiology 02/20/20 Gram Stain - Final, Complete 02/20/20 Sputum Culture - Final, Complete 02/20/20 Blood Culture - Preliminary, Resulted No Growth after 48 hours. All Specime... 02/20/20 Blood Culture - Preliminary, Resulted No Growth after 48 hours. All Specime... TITO WREN MD Feb 22, 2020 13:33
[2020-02-22] MEDS ORDERED: FUROSEMIDE 40MG/4ML VIAL (J1940) IV ONE (16:00)
[2020-02-22] MEDS: LEVEMIR (INSULIN DETEMIR) 1 UNITS/0.01ML SC SCH (20:54)
[2020-02-22] MEDS ORDERED: HumuLIN R (REGULAR) INSULIN (NovoLIN R) **100U/ML** PER UNIT SC SCH (21:00)
[2020-02-22] MEDS: RAMELTEON 8 MG TAB (ROZEREM) PO PRN (23:13)
[2020-02-22] MEDS: NORCO, ANEXSIA 5/325MG TABLET (HYDROcodone/ACETAMINOPHEN) FT PRN (23:14)
[2020-02-23] VITALS (26 sets, daily range): BP systolic 114–160; BP diastolic 63–91; O2SAT 98
[2020-02-23] MEDS: CEFEPIME HCL 2 GM in D5W MINI-BAG PLUS 50 ML IV SCH ×2 (01:57→12:42)
[2020-02-23] MEDS: IPRATROPIUM 0.5MG/ALBUTEROL 2.5MG INH SOL UD 3ML (DUONEB) NEB SCH ×5 (03:33→20:22)
[2020-02-23] MEDS: metroNIDAZOLE 500 MG in IV 1 EA IV SCH ×3 (04:45→20:35)
[2020-02-23 05:07] LABS: HEMATOCRIT 40.8 % (36.0-47.0); HEMOGLOBIN 12.8 g/dl (12.0-15.5); MEAN CORPUSCULAR HEMOGLOBIN 30.9 pg (27.0-33.0); MEAN CORPUSCULAR HGB CONC 31.4 g/dl (32.0-36.5); MEAN CORPUSCULAR VOLUME 98.6 fl (80.0-96.0); PLATELET COUNT, AUTOMATED 172 10^3/uL (150-450); RED BLOOD COUNT 4.14 10^6/uL (4.00-5.40); WHITE BLOOD COUNT 18.5 10^3/uL (4.0-10.0)
[2020-02-23 05:34] LABS: BLOOD UREA NITROGEN 79 MG/DL (7-18); CALCIUM LEVEL 8.9 MG/DL (8.5-10.1); CARBON DIOXIDE LEVEL 21 MEQ/L (21-32); CHLORIDE LEVEL 112 MEQ/L (98-107); CREATININE FOR GFR 1.02 MG/DL (0.55-1.30); GLOMERULAR FILTRATION RATE > 60.0 (>58); GLUCOSE, FASTING 102 MG/DL (70-100); POTASSIUM SERUM 3.9 MEQ/L (3.5-5.1); SODIUM LEVEL 145 MEQ/L (136-145)
[2020-02-23] MEDS: SODIUM CHLORIDE 0.9% INJ 10 ML SYR IV SCH ×2 (06:38→17:56)
[2020-02-23] MEDS: BUDESONIDE 0.5 MG/2 ML INHALATION SUSPENSION INH SCH ×2 (07:11→20:22)
[2020-02-23] MEDS ORDERED: HumuLIN R (REGULAR) INSULIN (NovoLIN R) **100U/ML** PER UNIT SC SCH (07:30)
[2020-02-23] MEDS: HumuLIN R (REGULAR) INSULIN (NovoLIN R) **100U/ML** PER UNIT SC SCH ×4 (07:40→20:21)
[2020-02-23] MEDS: VANICREAM MOISTURIZING SKIN CREAM 113GM TUBE TOP PRN (08:53)
[2020-02-23] MEDS: CHLORHEXIDINE GLUCONATE 0.12 % 15ML UDC (PERIDEX ORAL RINSE) MT SCH ×2 (08:53→20:38)
[2020-02-23] MEDS: NORCO, ANEXSIA 5/325MG TABLET (HYDROcodone/ACETAMINOPHEN) FT PRN ×2 (08:54→21:50)
[2020-02-23] MEDS: ENOXAPARIN 120MG/0.8ML SYRINGE (J1650 PER 10MG) SC SCH ×2 (08:54→20:38)
[2020-02-23] MEDS: busPIRone 5 MG TAB NG SCH ×3 (08:55→20:37)
[2020-02-23] MEDS: METOPROLOL TART 50 MG TAB NG SCH ×2 (08:56→20:36)
--- NOTE | 2020-02-23 09:42 | CCN ---
CRITICAL CARE NOTE DATE: 02/22/2020 SUBJECTIVE: The patient is seen in the intensive care unit intubated, mechanically ventilated, more comfortable today and with aggressive suctioning, we have been able to wean the oxygen flow rates lower. She has been able to take liquids and now, diet is advancing. OBJECTIVE: VITAL SIGNS: Temperature 98, pulse rate 85, respirations 21, blood pressure 140/83, 40% oxygen is yielding a saturation of 95%. INTAKE AND OUTPUT: For the past 24 hours, 3362 in and 3110 out; since midnight 2120 in and 795 out. GENERAL APPEARANCE: At bedside, she is more comfortable. Synchronized with the ventilator on pressure support mode. She had been off to a trach collar for a period of time and was tolerating this. HEENT: Oral mucosa is pink. NECK: The trach site is clean. There is no longer any active bleeding today. Jugular veins are difficult to appreciate as her neck is quite krue[place]. HEART: Sounds are regular, distant. No appreciable murmur. LUNGS: Breath sounds diminished. Some rhonchi in the right lower lobe, less so on the left side today. ABDOMEN: Soft and obese with a large hernia. EXTREMITIES: Cool. Muscle tone diminished. DIAGNOSTIC STUDIES: Her white count is 16.5, hemoglobin 12.8, hematocrit 41.3, platelet count 163,000. Differential white cell count shows 77.6% neutrophils. Her electrolytes are sodium 146, potassium 4.3, chloride 116, CO2 of 22, BUN 91, creatinine is down to 1.3, and glucose 98. IMAGING STUDIES: Chest imaging shows nothing new to my eye. A formal report is pending. MEDICATIONS: On review, she is receiving multiple antibiotics with Flagyl, fluconazole, Cefepime, vancomycin. She is also on a minimal dose of Solu-Medrol 15 mg a day. Lovenox 120 mg q. 12 hours, budesonide via nebulizer and DuoNeb q. 4 hours. ASSESSMENT AND PLAN: The primary problem requiring critical attention is hypoxic respiratory failure. This is multifactorial. Significant component was mucous plugging. She is responding to aggressive instillation with saline and suctioning, asthma Inhaled steroids were started yesterday and she is tolerating them well. There is no obvious wheezing. We will discontinue the Solu-Medrol, obesity hypoventilation syndrome will continue with ventilator support at bedtime. Fluid volume The patient responded favorably to Lasix yesterday. Her creatinine actually improved. I will give an additional 40 mg today and we will closely monitor intake and output (I&0). Nutritional support The patient has begun to eat with improved ventilatory status and time off ventilation, and she should be able to increase her diet. There was no choking noted and no aspiration noted during swallowing. Deep vein thrombosis (DVT) and ulcer prophylaxis are in place. The patient's condition remains critical. Prognosis is guarded. CRITICAL CARE TIME: 77 minutes was spent in the provision of bedside critical care and coordination, exclusive of any procedure times.
--- NOTE | 2020-02-23 11:19 | IPN ---
PROGRESS NOTE DATE: 02/23/2020 SUBJECTIVE: Pam is seen in the PCU. No change in status today. She is on a vent through a trach, apparently awaiting placement for a ventilator compatible rehab. She has had hypoxic respiratory failure from mucous plugging. She had to be diuresed yesterday for some volume overload. This is the first day I have seen her and the nursing staff thought she was stable. PHYSICAL EXAMINATION: VITAL SIGNS: Afebrile, blood pressure 144/78. O2 saturation 98%. GENERAL: Alert, follows commands. LUNGS: Decreased breath sounds, a few rhonchi. HEART: Regular rhythm. ABDOMEN: Soft, nontender. EXTREMITIES: Trace peripheral edema. LABORATORY DATA: White count is 18.5 (had received Solumedrol yesterday). Hemoglobin 12.8, platelets 172,000. Sodium 125, potassium 3.9, BUN 79, creatinine 1.0, glucose 102. IMPRESSION: 1. Acute on chronic respiratory failure on ventilator trach with a PEG. Pulmonary is following her. She had mucous plugging yesterday. Aggressive pulmonary toilet has been ordered, on IV Cefepime and Metronidazole for presumed aspiration pneumonitis. 2. Hypertension, well-controlled on current regimen. 3. Diabetes/sliding scale insulin with basal insulin. 4. DVT prophylaxis, full dose Lovenox 120 mg b.i.d. has been ordered.
[2020-02-23] MEDS: PANTOPRAZOLE 40MG VIAL (C9113 PER 1) IV SCH (11:40)
--- NOTE | 2020-02-23 13:31 | CCN ---
CRITICAL CARE NOTE DATE: 02/23/2020 SUBJECTIVE: Pam was seen and examined in the intensive care unit this morning. She is currently on BiLevel at night; however, reportedly the patient was placed on the ventilator last night. According to the nursing report, the patient did not have any respiratory distress that required this. The patient is currently off of the ventilator when awake and on trach collar. She does appear comfortable today. She should continue to have aggressive suctioning. She is requiring less oxygen. The patient continues to have liquids. Diet was tried to be advanced to mechanical soft; however, the patient had some difficulty. OBJECTIVE: VITAL SIGNS: Temperature 98.1, pulse 73, respiratory rate 18, pulse oximetry 99% with FiO2 of 30 and trach collar. GENERAL APPEARANCE: The patient appears comfortable. She is not in any acute distress. She is awake, alert, and oriented. HEENT: Mucous membranes are pink and moist. Head is atraumatic/normocephalic. Eyes nonicteric. Trachea is midline. There is a tracheostomy tube in place. CARDIOVASCULAR: There is normal S1, S2. There is a regular rate and rhythm. Heart sounds are somewhat distant. PULMONARY: Patient has bilateral diminished breath sounds. There are some rhonchi scattered on the right. ABDOMEN: Soft and nondistended. She is morbidly obese. There is a large left incisional hernia. There is an area of ecchymosis on the right side where she is receiving her Lovenox shots. EXTREMITIES: They are cool. She has full and equal pulses. She has a foot drop on the right. LABORATORY STUDIES: Hematology: White blood cell 18.5, hemoglobin 12.8, hematocrit 40.8, platelet count 172,000. Chemistries: Sodium 145, potassium 3.9, chloride 112, CO2 of 21, BUN 79, creatinine 1.02, fasting glucose 102, calcium 8.9. INPATIENT MEDICATIONS: - Rozerem 8 mg at bedtime - Lovenox 120 mg q. 12. - Levemir insulin 10 units at h.s. - Pulmicort 0.5 mg required b.i.d. - Cefepime 2 grams every 12 hours - [place] one tab every 6 hours p.r.n. - morphine 2 mg q. 4 hours p.r.n. - Flagyl 500 mg every 8 hours - Lopressor 50 mg b.i.d. - BuSpar 5 mg t.i.d. - Norvasc 10 mg daily - Dulcolax 10 mg daily p.r.n. - Tylenol 650 mg - Protonix 40 mg every 24 hours IV - Nystatin b.i.d. p.r.n. - DuoNeb ever 4 hours required ASSESSMENT AND PLAN: Ms. Varela is a 44-year-old female with morbid obesity and obesity hypoventilation syndrome, who had presented with hypoxic respiratory failure, which is most likely multifactorial. The patient was thought to have some mucous plugging and was given aggressive suctioning and instillation with saline with improvement in her oxygenation. In addition, the patient was to have a G-tube placed previously and was noted to have some aspiration and possibly developed an aspiration pneumonitis versus pneumonia. Currently, the patient remains on trach collar only requiring pressure support at night for her obesity hypoventilation syndrome. 1. Acute hypoxemic respiratory failure. The patient developed hypoxemic respiratory failure likely multifactorial. Her biggest issue is likely her obesity hypoventilation syndrome. She has had a tracheostomy tube placed during her hospitalization. Currently, she is on trach collar and is placed on BiLevel at night. We will get her a Passe-Jarrell valve today to help with speech. Additionally, recommend physical therapy in order to help prevent further atelectasis. Given her recent aspiration, the patient is currently covered with Flagyl and Cefepime. She has remained afebrile. We will complete the course of her antibiotics and then likely discontinue. 2. Deep vein thrombosis (DVT) prophylaxis. The patient is currently on Lovenox. 3. Gastrointestinal (GI) prophylaxis. The patient is on Protonix and will continue. DISPOSITION: The patient has shown some improvement. From respiratory standpoint once she can remain on just pressure support at night Dictated by Mitul Pringle DO in conjunction with Ralf Pace M.D. Dr. Pace: I participated in the mello components of the above documented evaluation and I agree with that which has been documented. She remains critically ill at this time and ICU care is appropriate. Forty minutes was spent in the provision of critical care and coordination of care exclusive of any procedure time. DIRK
[2020-02-23] MEDS: METOCLOPRAMIDE HCL LIQUID 10 MG/10 ML UDC GT SCH ×2 (17:54→20:37)
[2020-02-23] MEDS: LEVEMIR (INSULIN DETEMIR) 1 UNITS/0.01ML SC SCH (20:26)
[2020-02-24] VITALS (16 sets, daily range): BP systolic 118–160; BP diastolic 73–85; O2SAT 94–100
[2020-02-24] MEDS: IPRATROPIUM 0.5MG/ALBUTEROL 2.5MG INH SOL UD 3ML (DUONEB) NEB SCH ×6 (00:16→19:39)
[2020-02-24] MEDS: CEFEPIME HCL 2 GM in D5W MINI-BAG PLUS 50 ML IV SCH ×2 (00:26→14:32)
[2020-02-24] MEDS: RAMELTEON 8 MG TAB (ROZEREM) PO PRN (00:34)
[2020-02-24] MEDS: metroNIDAZOLE 500 MG in IV 1 EA IV SCH ×3 (04:45→20:43)
[2020-02-24] MEDS: SODIUM CHLORIDE 0.9% INJ 10 ML SYR IV SCH ×2 (06:05→18:29)
[2020-02-24 06:22] LABS: BASO # 0.1 10^3/uL (0.0-0.2); BASO % 0.5 % (0.0-1.0); EOS # 0.1 10^3/uL (0.0-0.5); EOS % 1.1 % (0.0-3.0); HEMATOCRIT 39.9 % (36.0-47.0); HEMOGLOBIN 12.6 g/dl (12.0-15.5); LYMPH # 1.9 10^3/uL (1.5-5.0); LYMPH % 16.9 % (24.0-44.0); MEAN CORPUSCULAR HEMOGLOBIN 30.5 pg (27.0-33.0); MEAN CORPUSCULAR HGB CONC 31.6 g/dl (32.0-36.5); MEAN CORPUSCULAR VOLUME 96.6 fl (80.0-96.0); MONO # 0.7 10^3/uL (0.0-0.8); MONO % 5.9 % (0.0-5.0); NEUTROPHILS # 8.2 10^3/uL (1.5-8.5); NEUTROPHILS % 72.2 % (36.0-66.0); PLATELET COUNT, AUTOMATED 168 10^3/uL (150-450); RED BLOOD COUNT 4.13 10^6/uL (4.00-5.40); WHITE BLOOD COUNT 11.3 10^3/uL (4.0-10.0)
[2020-02-24 06:43] LABS: BLOOD UREA NITROGEN 63 MG/DL (7-18); CALCIUM LEVEL 8.8 MG/DL (8.5-10.1); CARBON DIOXIDE LEVEL 23 MEQ/L (21-32); CHLORIDE LEVEL 110 MEQ/L (98-107); CREATININE FOR GFR 0.92 MG/DL (0.55-1.30); GLOMERULAR FILTRATION RATE > 60.0 (>58); GLUCOSE, FASTING 99 MG/DL (70-100); POTASSIUM SERUM 3.9 MEQ/L (3.5-5.1); SODIUM LEVEL 141 MEQ/L (136-145)
[2020-02-24] MEDS: HumuLIN R (REGULAR) INSULIN (NovoLIN R) **100U/ML** PER UNIT SC SCH ×4 (07:30→20:21)
[2020-02-24] MEDS: BUDESONIDE 0.5 MG/2 ML INHALATION SUSPENSION INH SCH ×2 (07:33→19:39)
[2020-02-24] MEDS: ENOXAPARIN 120MG/0.8ML SYRINGE (J1650 PER 10MG) SC SCH ×2 (08:27→20:43)
[2020-02-24] MEDS: busPIRone 5 MG TAB NG SCH ×3 (08:28→20:44)
[2020-02-24] MEDS: CHLORHEXIDINE GLUCONATE 0.12 % 15ML UDC (PERIDEX ORAL RINSE) MT SCH ×2 (08:28→20:43)
[2020-02-24] MEDS: METOCLOPRAMIDE HCL LIQUID 10 MG/10 ML UDC GT SCH ×3 (08:28→20:44)
[2020-02-24] MEDS: METOPROLOL TART 50 MG TAB NG SCH ×2 (08:29→20:44)
[2020-02-24] MEDS: PANTOPRAZOLE 40MG VIAL (C9113 PER 1) IV SCH (12:41)
--- NOTE | 2020-02-24 13:49 | CCN ---
CRITICAL CARE NOTE DATE: 02/24/2020 SUBJECTIVE: Pam was seen and examined this morning in the intensive care unit. There have been no adverse events reported overnight. She is currently on trach collar. She is placed on pressure support at night. The patient herself has no complaints. She does state that she feels somewhat nauseous, which has been a chronic issue due to her gastroparesis. She has been started on Reglan yesterday. The patient's diet continues to be advanced, which she appears to be tolerating well. OBJECTIVE: VITAL SIGNS: Temperature 96.6, pulse 92, respiratory rate 19, blood pressure 128/73, pulse oximetry 97% on room air with trach collar. GENERAL: The patient is awake, alert, and oriented. She is not in any acute distress. She is lying in bed and appears comfortable. HEENT: Atraumatic/normocephalic. Her eyes are nonicteric. Her trachea is midline. She has a tracheostomy tube in place with a Passy-Jarrell valve in place as well. CARDIOVASCULAR: The patient's heart sounds are distant. There is normal S1 and S2. There is a regular rate and rhythm. There are no clicks, rubs, or murmurs auscultated. RESPIRATORY: The patient has somewhat diminished breath sounds overall, but good respiratory effort and there are clear vesicular breath sounds. No wheezes, rhonchi, or rales are noted. ABDOMEN: The patient's abdomen is soft and nondistended. She is morbidly obese. There is a large left-sided incisional hernia present. There are also some areas of ecchymosis on the right lower quadrant where she had received her Lovenox shots. There is some mild tenderness throughout that the patient states is chronic. There is no rebound tenderness or guarding. EXTREMITIES: The patient 's extremities are void of any edema. There are full and equal pulses bilaterally. She does have a right-sided foot drop it appears. NEUROLOGIC: There are no focal neurological deficits. PSYCHIATRIC: Mood and affect appear appropriate for the situation. LABORATORY STUDIES: Hematology: White blood cell 11.3, hemoglobin 12.6, hematocrit 39.9, and platelet count 168,000. Chemistries: Sodium 141, potassium 3.9, chloride 110, CO2 of 23, BUN 63, creatinine 0.92, calcium 8.8. INPATIENT MEDICATIONS: - Reglan 5 mg t.i.d. - Humulin insulin a.c. - Rozerem 8 mg q. h.s. p.r.n. - Lovenox 120 mg q. 12 hours - Levemir insulin 10 units q. h.s. - Pulmicort 0.5 mg required b.i.d. - Cefepime 2 grams every 12 hours - [place] one tab every 6 hours p.r.n. - morphine 2 mg every 4 hours p.r.n. - Flagyl 500 mg every 8 hours - Lopressor 50 mg b.i.d. - BuSpar 5 mg t.i.d. - Norvasc 10 mg daily - Dulcolax 10 mg daily p.r.n. - Tylenol 650 q. 4 hours p.r.n. - Protonix 40 mg every 24 hours - Nystatin b.i.d. p.r.n. - DuoNeb 3 mL every 4 hours ASSESSMENT AND PLAN: Ms. Varela is a 44-year-old female with morbid obesity and obesity hypoventilation syndrome who presented with hypoxic respiratory failure, likely multifactorial. The patient was found to be mucous plugging and had received normal saline instillation and aggressive suctioning of her trach with improvement in oxygenation. Additionally, the patient had a G-tube placed previously and was noted to have aspiration and possibly developed aspiration pneumonitis versus pneumonia. The patient was transferred back to the intensive care unit (ICU) and placed on the ventilator mode. Since that time, the patient has demonstrated improvement and currently on only a trach collar with pressure support at night. 1. Acute hypoxemic and hypercarbic respiratory failure. The patient as stated developed hypoxemic and hypercarbic respiratory failure likely multifactorial. Her biggest issue is likely obesity hypoventilation syndrome with this concomitant aspiration event. She has had a tracheostomy tube earlier on during her hospitalization. She is currently on trach collar at room air. She has been using BiLevel/pressure support at night. She had received a Pass[place] valve yesterday, which does help with her speech. Currently, I will recommend continued physical therapy as a large amount of the patient's issues is with her deconditioning. She did apparently have an aspiration event when placing her G-tube. She is currently covered with Flagyl and Cefepime for aspiration pneumonia, although this does appear to be a pneumonitis; however, this is resolving. Will recommend continuing the course of antibiotics. 2. Aspiration pneumonitis versus pneumonia. As stated previously, the patient had an aspiration event when she was laid to have her G-tube placed. At this time, she is covered with Cefepime and Flagyl. Once she has completed this course, she can be discontinued. Currently on oxygenation is at 100% on room air with trach collar. 3. Nausea and vomiting. The patient had some nausea and vomiting likely secondary to her gastroparesis. She was started on Reglan t.i.d. yesterday. Will continue. 4. Deep vein thrombosis (DVT) prophylaxis. The patient is currently on Lovenox 120 mg. She is on therapeutic dosing as previously in her hospitalization, she had a left arm DVT that was noted. 5. Gastrointestinal (GI) prophylaxis. The patient is continued on Protonix. DISPOSITION: Currently the patient is showing significant clinical improvement. On room air with trach collar, she is satting at 100%. Currently we will transition the patient back to the hospital service and likely sign off, as her oxygenation has improved significantly. The patient will need to continue with physical therapy. Dr. Pace: Much improvement. Her OHS is addressed by the tracheostomy and so long as she has an open airway at night (i.e. no passe' mure valve) she will not require ventilation. Using the valve in the day has allowed her to cough more effectively and clear secretions. She will need surgery for her massive abdominal hernia and she was to be seen in [place] by a surgical group before her respiratory deterioration. It may be prudent to reestablish that connection and see if they would take her now or after rehab. DIRK
--- NOTE | 2020-02-24 20:14 | IPNPDOC ---
Subjective Date Seen The patient was seen on 02/24/20. Subjective Chief Complaint/HPI Does no offer any complaints this morning. no overnight events. Objective Physical Examination General Exam: Positive: Alert, Cooperative, No Acute Distress Eye Exam: Negative: Sclera icteric ENT Exam: Positive: Tongue Midline, Other ENT (tracheostomy) Neck Exam: Positive: Supple, Other (Trach in place. Short neck) Chest Exam: Positive: Diminished Heart Exam: Positive: Rate Normal, Regular Rhythm Abdomen Exam: Positive: Normal bowel sounds, Soft, Other (PEG placed epigastric area) Extremity Exam: Negative: Clubbing, Cyanosis, Edema Psych Exam: Positive: Oriented x 3 Assessment /Plan Assessment 44 y.o female w/ prolonged hospitalization since 01/23/20 due to Acute respiratory failure s/p trach & PEG with acute worsening in symptoms after aspiration of tube feeds recently. Acute on chronic Respiratory failure with hypoxia ad hypercarbia 2/2 OHS & Asthma. Needed prolonged intubation and ventilation now s/p trach with Passy-beatrice valve & PEG. On Pressure support ventilation at night and trach collar during the day. Budesonide nebs and duonebs. Recent Aspiration Pneumonitis continue cefepime and Flagyl. HTN with hypertensive heart disease continue Metoprolol & Norvasc DM: Continue levemir and sliding scale insulin w/ fingersticks q6h, will adjust regimen as needed. Diastolic CHF euvolemic Morbid obesity with Obesity hypoventilation s/p left arm DVT earlier in hospitalization Continue Lovenox BID Depression an insomnia continue current meds. Plan/VTE VTE Prophylaxis Ordered?: Yes VS, I&O, [facility] Signs/I&O Vital Signs Date Time Temp Pulse Resp B/P (MAP) Pulse Ox O2 Delivery O2 Flow Rate FiO2 02/24/20 16:00 35 02/24/20 12:00 98.2 78 20 155/77 (103) 100 Ventilator 02/23/20 20:23 8.0 I&O- Last 24 Hours up to 6 AM0 02/24/20 07:00 Intake Total 1960 ml Output Total 1825 ml Balance 135 ml Laboratory Data 24H LABS Laboratory Tests 2 02/23/20 20:18: Bedside Glucose (Misc Panel) 113H 02/24/20 06:05: Immature Granulocyte % (Auto) 3.4H, Neutrophils (%) (Auto) 72.2H, Lymphocytes (%) (Auto) 16.9L, Monocytes (%) (Auto) 5.9H, Eosinophils (%) (Auto) 1.1, Basophils (%) (Auto) 0.5, Neutrophils # (Auto) 8.2, Lymphocytes # (Auto) 1.9, Monocytes # (Auto) 0.7, Eosinophils # (Auto) 0.1, Basophils # (Auto) 0.1, Nucleated Red Blood Cells % (auto) 0.0, Anion Gap 8, Glomerular Filtration Rate > 60.0, Calcium Level 8.8 02/24/20 12:00: Bedside Glucose (Misc Panel) 121H 02/24/20 17:56: Bedside Glucose (Misc Panel) 128H CBC/BMP Laboratory Tests 02/24/20 06:05 Microbiology Microbiology 02/20/20 Gram Stain - Final, Complete 02/20/20 Sputum Culture - Final, Complete 02/20/20 Blood Culture - Preliminary, Resulted No Growth after 72 hours. All specime... 02/20/20 Blood Culture - Preliminary, Resulted No Growth after 72 hours. All specime... LLOYD BERG MD Feb 24, 2020 20:14
[2020-02-24] MEDS: LEVEMIR (INSULIN DETEMIR) 1 UNITS/0.01ML SC SCH (20:25)
[2020-02-25] VITALS (14 sets, daily range): BP systolic 113–155; BP diastolic 65–84; O2SAT 94–99
[2020-02-25] MEDS: IPRATROPIUM 0.5MG/ALBUTEROL 2.5MG INH SOL UD 3ML (DUONEB) NEB SCH ×6 (00:19→20:08)
[2020-02-25] MEDS: CEFEPIME HCL 2 GM in D5W MINI-BAG PLUS 50 ML IV SCH ×2 (00:29→13:49)
[2020-02-25] MEDS: RAMELTEON 8 MG TAB (ROZEREM) PO PRN ×2 (03:30→21:39)
[2020-02-25] MEDS: metroNIDAZOLE 500 MG in IV 1 EA IV SCH ×3 (03:30→21:36)
[2020-02-25 04:41] LABS: BASO # 0.1 10^3/uL (0.0-0.2); BASO % 0.9 % (0.0-1.0); EOS # 0.1 10^3/uL (0.0-0.5); HEMATOCRIT 44.8 % (36.0-47.0); HEMOGLOBIN 14.1 g/dl (12.0-15.5); LYMPH # 1.7 10^3/uL (1.5-5.0); LYMPH % 13.7 % (24.0-44.0); MEAN CORPUSCULAR HEMOGLOBIN 30.5 pg (27.0-33.0); MEAN CORPUSCULAR HGB CONC 31.5 g/dl (32.0-36.5); MEAN CORPUSCULAR VOLUME 96.8 fl (80.0-96.0); MONO # 0.8 10^3/uL (0.0-0.8); MONO % 6.4 % (0.0-5.0); NEUTROPHILS # 9.2 10^3/uL (1.5-8.5); NEUTROPHILS % 73.2 % (36.0-66.0); PLATELET COUNT, AUTOMATED 202 10^3/uL (150-450); RED BLOOD COUNT 4.63 10^6/uL (4.00-5.40); WHITE BLOOD COUNT 12.6 10^3/uL (4.0-10.0)
[2020-02-25] MEDS: SODIUM CHLORIDE 0.9% INJ 10 ML SYR IV SCH ×2 (04:44→17:32)
[2020-02-25 04:57] LABS: BLOOD UREA NITROGEN 51 MG/DL (7-18); CALCIUM LEVEL 9.4 MG/DL (8.5-10.1); CARBON DIOXIDE LEVEL 25 MEQ/L (21-32); CHLORIDE LEVEL 110 MEQ/L (98-107); CREATININE FOR GFR 0.89 MG/DL (0.55-1.30); GLOMERULAR FILTRATION RATE > 60.0 (>58); GLUCOSE, FASTING 155 MG/DL (70-100); POTASSIUM SERUM 4.3 MEQ/L (3.5-5.1); SODIUM LEVEL 139 MEQ/L (136-145)
[2020-02-25] MEDS: HumuLIN R (REGULAR) INSULIN (NovoLIN R) **100U/ML** PER UNIT SC SCH ×4 (07:03→21:00)
[2020-02-25] MEDS: BUDESONIDE 0.5 MG/2 ML INHALATION SUSPENSION INH SCH ×2 (07:15→20:08)
[2020-02-25] MEDS: METOCLOPRAMIDE HCL LIQUID 10 MG/10 ML UDC GT SCH ×3 (09:50→21:36)
[2020-02-25] MEDS: CHLORHEXIDINE GLUCONATE 0.12 % 15ML UDC (PERIDEX ORAL RINSE) MT SCH ×2 (09:50→21:00)
[2020-02-25] MEDS: busPIRone 5 MG TAB NG SCH ×3 (09:51→21:39)
[2020-02-25] MEDS: PANTOPRAZOLE 40MG VIAL (C9113 PER 1) IV SCH (09:51)
[2020-02-25] MEDS: METOPROLOL TART 50 MG TAB NG SCH ×2 (09:55→21:39)
[2020-02-25] MEDS: ENOXAPARIN 120MG/0.8ML SYRINGE (J1650 PER 10MG) SC SCH ×2 (09:56→21:38)
--- NOTE | 2020-02-25 09:58 | IPNPDOC ---
Subjective Date Seen The patient was seen on 02/25/20. Subjective Chief Complaint/HPI No new complaints this morning. Patient very motivated to work with PT however very dizzy on sitting up. Needs total assist. Objective Physical Examination General Exam: Positive: Alert, Cooperative, No Acute Distress Eye Exam: Negative: Sclera icteric ENT Exam: Positive: Tongue Midline, Other ENT (tracheostomy) Neck Exam: Positive: Supple, Other (Trach in place. Short neck) Chest Exam: Positive: Diminished Heart Exam: Positive: Rate Normal, Regular Rhythm Abdomen Exam: Positive: Normal bowel sounds, Soft, Other (PEG placed epigastric area) Extremity Exam: Negative: Clubbing, Cyanosis, Edema Psych Exam: Positive: Oriented x 3 Assessment /Plan Assessment 44 y.o female w/ prolonged hospitalization since 01/23/20 due to Acute respiratory failure and prolonged ventilation now s/p trach & PEG. Hospitalization was complicated by left upper arm DVT Axillary and basilic veins on 02/08/20, aspiration of tube feeds on 02/20/20 with aspiration pneumonitis. Acute on chronic Respiratory failure with hypoxia and hypercarbia 2/2 Obesity hypoventilation & Asthma. Needed prolonged intubation and ventilation now s/p trach with Passy-beatrice valve & PEG. On Pressure support ventilation at night and trach collar during the day. Budesonide nebs and duonebs. Having oral diet. Aspiration Pneumonitis continue cefepime and Flagyl to finish 7 day course HTN with hypertensive heart disease continue Metoprolol & Norvasc DM Continue levemir and sliding scale insulin w/ fingersticks q6h, will adjust regimen as needed. Diastolic CHF euvolemic Morbid obesity with Obesity hypoventilation pressure support ventilation at night. s/p left arm DVT earlier in hospitalization Continue Lovenox BID Depression an insomnia continue current meds. Immobile and bed bound at present severely deconditioned. Bilateral MPO boots Back care. Continued rehab. Pressure ulcers skin tears on bilateral buttocks, coccyx and right upper back. speciality mattress, 2 hour repositioning. MPO boots. Plan/VTE VTE Prophylaxis Ordered?: Yes VS, I&O, 24H, Fishbone Vital Signs/I&O Vital Signs Date Time Temp Pulse Resp B/P (MAP) Pulse Ox O2 Delivery O2 Flow Rate FiO2 02/25/20 06:00 97 Trach Collar 5.0 28 02/25/20 04:00 96.4 96 20 147/76 (99) I&O- Last 24 Hours up to 6 AM 02/25/20 06:00 Intake Total 300 ml Output Total 950 ml Balance -650 ml Laboratory Data 24H LABS Laboratory Tests 2 02/24/20 12:00: Bedside Glucose (Misc Panel) 121H 02/24/20 17:56: Bedside Glucose (Misc Panel) 128H 02/24/20 19:36: Bedside Glucose (Misc Panel) 111H 02/25/20 04:20: Immature Granulocyte % (Auto) 4.8H, Neutrophils (%) (Auto) 73.2H, Lymphocytes (%) (Auto) 13.7L, Monocytes (%) (Auto) 6.4H, Eosinophils (%) (Auto) 1.0, Basophils (%) (Auto) 0.9, Neutrophils # (Auto) 9.2H, Lymphocytes # (Auto) 1.7, Monocytes # (Auto) 0.8, Eosinophils # (Auto) 0.1, Basophils # (Auto) 0.1, Nucleated Red Blood Cells % (auto) 0.0, Anion Gap 4L, Glomerular Filtration Rate > 60.0, Calcium Level 9.4 CBC/BMP Laboratory Tests 02/25/20 04:20 Microbiology Microbiology 02/20/20 Gram Stain - Final, Complete 02/20/20 Sputum Culture - Final, Complete 02/20/20 Blood Culture - Preliminary, Resulted No Growth after 72 hours. All specime... 02/20/20 Blood Culture - Preliminary, Resulted No Growth after 72 hours. All specime... LLOYD BERG MD Feb 25, 2020 09:58
[2020-02-25 12:07] LABS: BODY FLUID CULTURE Not indicated. (.); LEGIONELLA ANTIGEN URINE Negative (Negative); ORGANISM ID Not indicated. (.); SPECIMEN SOURCE Urine (.); URINE STREP PNEUMONIAE ANTIGEN Negative (Negative)
[2020-02-25] MEDS: ONDANSETRON 4 MG ORAL DISINTEGRATING TAB SL PRN (16:38)
[2020-02-25] MEDS: LEVEMIR (INSULIN DETEMIR) 1 UNITS/0.01ML SC SCH (21:38)
[2020-02-25] MEDS: NORCO, ANEXSIA 5/325MG TABLET (HYDROcodone/ACETAMINOPHEN) FT PRN (21:40)
[2020-02-25 21:59] LABS: CLOSTRIDIUM DIFFICILE PCR NEGATIVE (NEGATIVE)
[2020-02-26] VITALS (14 sets, daily range): BP systolic 94–125; BP diastolic 53–80; O2SAT 94
[2020-02-26] MEDS: IPRATROPIUM 0.5MG/ALBUTEROL 2.5MG INH SOL UD 3ML (DUONEB) NEB SCH ×6 (00:05→21:11)
[2020-02-26] MEDS: CEFEPIME HCL 2 GM in D5W MINI-BAG PLUS 50 ML IV SCH ×2 (00:38→14:27)
[2020-02-26] MEDS: metroNIDAZOLE 500 MG in IV 1 EA IV SCH ×3 (04:22→20:00)
[2020-02-26] MEDS: NORCO, ANEXSIA 5/325MG TABLET (HYDROcodone/ACETAMINOPHEN) FT PRN ×4 (04:23→21:49)
[2020-02-26] MEDS: SODIUM CHLORIDE 0.9% INJ 10 ML SYR IV SCH ×2 (05:45→17:32)
[2020-02-26] MEDS ORDERED: MORPHINE 2 MG/ML 1ML VIAL (J2270) IV ONE (05:45)
[2020-02-26 06:00] LABS: HEMATOCRIT 40.6 % (36.0-47.0); HEMOGLOBIN 12.9 g/dl (12.0-15.5); MEAN CORPUSCULAR HEMOGLOBIN 31.2 pg (27.0-33.0); MEAN CORPUSCULAR HGB CONC 31.8 g/dl (32.0-36.5); MEAN CORPUSCULAR VOLUME 98.1 fl (80.0-96.0); PLATELET COUNT, AUTOMATED 190 10^3/uL (150-450); RED BLOOD COUNT 4.14 10^6/uL (4.00-5.40); WHITE BLOOD COUNT 13.9 10^3/uL (4.0-10.0)
[2020-02-26 06:35] LABS: BLOOD UREA NITROGEN 51 MG/DL (7-18); CALCIUM LEVEL 9.1 MG/DL (8.5-10.1); CARBON DIOXIDE LEVEL 20 MEQ/L (21-32); CHLORIDE LEVEL 110 MEQ/L (98-107); CREATININE FOR GFR 0.98 MG/DL (0.55-1.30); GLOMERULAR FILTRATION RATE > 60.0 (>58); GLUCOSE, FASTING 187 MG/DL (70-100); POTASSIUM SERUM 4.3 MEQ/L (3.5-5.1); SODIUM LEVEL 139 MEQ/L (136-145)
[2020-02-26 07:02] LABS: ATYPICAL LYMPH 5 % (0-5); EOSINOPHILS 2 % (0-3); LYMPHOCYTES 12 % (16-44); METAMYELOCYTES 1 % (0-0); MONOCYTES 9 % (0-5); NEUTROPHILS 70 % (28-66)
[2020-02-26 07:03] LABS: PLATELET ESTIMATE NORMAL (NORMAL)
[2020-02-26] MEDS: BUDESONIDE 0.5 MG/2 ML INHALATION SUSPENSION INH SCH ×2 (07:20→21:12)
[2020-02-26] MEDS: HumuLIN R (REGULAR) INSULIN (NovoLIN R) **100U/ML** PER UNIT SC SCH ×4 (08:07→21:00)
[2020-02-26] MEDS ORDERED: APIXABAN 5 MG TAB (ELIQUIS) PO SCH (09:00)
[2020-02-26] MEDS: CHLORHEXIDINE GLUCONATE 0.12 % 15ML UDC (PERIDEX ORAL RINSE) MT SCH ×2 (09:41→21:47)
[2020-02-26] MEDS: METOCLOPRAMIDE HCL LIQUID 10 MG/10 ML UDC GT SCH ×3 (09:41→21:47)
[2020-02-26] MEDS: PANTOPRAZOLE 40MG VIAL (C9113 PER 1) IV SCH (09:42)
[2020-02-26] MEDS: METOPROLOL TART 50 MG TAB NG SCH ×2 (09:43→21:49)
[2020-02-26] MEDS: busPIRone 5 MG TAB NG SCH ×3 (09:43→21:48)
--- NOTE | 2020-02-26 11:40 | IPNPDOC ---
Subjective Date Seen The patient was seen on 02/26/20. Subjective Chief Complaint/HPI Complains of back pain and persistent nausea. She also has been have loose stools . C diff has been negative. Small amount of blood was noted in the stool yesterday. She has chronic abdominal pain. Hb stable. Objective Physical Examination General Exam: Positive: Alert, Cooperative, No Acute Distress Eye Exam: Negative: Sclera icteric ENT Exam: Positive: Tongue Midline, Other ENT (tracheostomy) Neck Exam: Positive: Supple, Other (Trach in place. Short neck) Chest Exam: Positive: Diminished Heart Exam: Positive: Rate Normal, Regular Rhythm Abdomen Exam: Positive: Normal bowel sounds, Soft, Hernia (very large incisional hernias.), Other (PEG placed epigastric area) Extremity Exam: Positive: Other (significant loss of muscle mass in both the thighs and legs and also inteh upper extremities. ); Negative: Clubbing, Cyanosis, Edema Skin Exam: Positive: Other skin issue (sacral decubitii) Neuro Exam: Positive: Normal Speech, Other (2/5 power in al 4 extremities, decreased tone) Psych Exam: Positive: Oriented x 3 Assessment /Plan Assessment 44 y.o female w/ prolonged hospitalization since 01/23/20 due to Acute respiratory failure and prolonged ventilation now s/p trach & PEG. Hospitalization was complicated by left upper arm DVT Axillary and basilic veins on 02/08/20, aspiration of tube feeds on 02/20/20 with aspiration pneumonitis. Acute on chronic Respiratory failure with hypoxia and hypercarbia 2/2 Obesity hypoventilation & Asthma. Needed prolonged intubation and ventilation now s/p trach with Passy-beatrice valve & PEG. On Pressure support ventilation at night and trach collar during the day. Budesonide nebs and duonebs. Having oral diet. Aspiration Pneumonitis continue cefepime and Flagyl to finish 7 day course Critical care myopathy with functional quadriparesis MPO boots, frequent change of posture, special mattress. PT and OT. HTN with hypertensive heart disease continue Metoprolol & Norvasc DM Continue levemir and sliding scale insulin w/ fingersticks q6h, will adjust regimen as needed. Diastolic CHF euvolemic Morbid obesity with Obesity hypoventilation pressure support ventilation at night. s/p left arm DVT earlier in hospitalization Lovenox was changed to Eliquis. If more blood noted in stools will hold it. Depression an insomnia continue current meds. Immobile and bed bound at present severely deconditioned. Bilateral MPO boots Back care. Continued rehab. Sacral decubitii ulcers 8x 10cm sacral decubitus unstagable. stage 2 small ones on bilateral buttock and thigh crease speciality mattress, 2 hour repositioning. MPO boots. Large abdominal hernias looks incisional hernias with chronic abdominal pain and chronic nausea. Plan/VTE VTE Prophylaxis Ordered?: Yes VS, I&O, 24H, Fishbone Vital Signs/I&O Vital Signs Date Time Temp Pulse Resp B/P (MAP) Pulse Ox O2 Delivery O2 Flow Rate FiO2 02/26/20 05:45 22 02/26/20 04:00 97.9 93 123/70 (87) 98 Trach Collar 5.0 28 I&O- Last 24 Hours up to 6 AM 02/26/20 05:59 Intake Total 1840 ml Output Total 1200 ml Balance 640 ml Laboratory Data 24H LABS Laboratory Tests 2 02/25/20 12:40: Bedside Glucose (Misc Panel) 184H 02/25/20 17:07: Bedside Glucose (Misc Panel) 145H 02/25/20 20:16: Bedside Glucose (Misc Panel) 148H 02/25/20 21:14: Clostridium difficile [id number]-[id number] PRESUMPTIVE NEGATIVE, Clostridium difficile Toxin (PCR) NEGATIVE 02/26/20 05:30: Immature Granulocyte % (Auto) , Neutrophils (%) (Auto) , Nucleated Red Blood Cells % (auto) 0.1H, Neutrophils 70H, Band Neutrophils 1, Lymphocytes (Manual) 12L, Monocytes (Manual) 9H, Eosinophils (Manual) 2, Metamyelocytes 1H, Atypical Lymphocytes 5, Red Blood Cell Morphology NORMAL, Platelet Estimate NORMAL, Anion Gap 9, Glomerular Filtration Rate > 60.0, Calcium Level 9.1 02/26/20 08:03: Bedside Glucose (Misc Panel) 168H CBC/BMP Laboratory Tests 02/26/20 05:30 Microbiology Microbiology 02/20/20 Gram Stain - Final, Complete 02/20/20 Sputum Culture - Final, Complete 02/20/20 Blood Culture - Final, Complete NO GROWTH AFTER 5 DAYS 02/20/20 Blood Culture - Final, Complete NO GROWTH AFTER 5 DAYS LLOYD BERG MD Feb 26, 2020 11:40
--- NOTE | 2020-02-26 12:30 | IPNPDOC ---
Subjective Date Seen The patient was seen on 02/26/20. Subjective Chief Complaint/HPI Feeling Ok except for some intermittent abdominal pain and nausea. She had a small bloody stool last night and another one this morning. Hb stable. Will hold anticoagulation. Objective Physical Examination General Exam: Positive: Alert, Cooperative, No Acute Distress Eye Exam: Negative: Sclera icteric ENT Exam: Positive: Tongue Midline, Other ENT (tracheostomy) Neck Exam: Positive: Supple, Other (Trach in place. Short neck) Chest Exam: Positive: Diminished Heart Exam: Positive: Rate Normal, Regular Rhythm Abdomen Exam: Positive: Normal bowel sounds, Soft, Other (PEG placed epigastric area) Extremity Exam: Negative: Clubbing, Cyanosis, Edema Psych Exam: Positive: Oriented x 3 Assessment /Plan Assessment 44 y.o female w/ prolonged hospitalization since 01/23/20 due to Acute resp iratory failure and prolonged ventilation now s/p trach & PEG. Hospitalization was complicated by left upper arm DVT Axillary and basilic veins on 02/08/20, aspiration of tube feeds on 02/20/20 with aspiration pneumonitis. Acute on chronic Respiratory failure with hypoxia and hypercarbia 2/2 Obesity hypoventilation & Asthma. Needed prolonged intubation and ventilation now s/p trach with Passy-beatrice valve & PEG. On Pressure support ventilation at night and trach collar during the day. Budesonide nebs and duonebs. Having oral diet. Aspiration Pneumonitis continue cefepime and Flagyl to finish 7 day course Critical care myopathy with functional quadriparesis severe loss of muscle mass in the upper and lower extremities. Bilateral MPO boots, Back care. Continued rehab. HTN with hypertensive heart disease continue Metoprolol & Norvasc DM Continue levemir and sliding scale insulin w/ fingersticks q6h, will adjust regimen as needed. Diastolic CHF euvolemic Morbid obesity with Obesity hypoventilation pressure support ventilation at night. s/p left arm DVT earlier in hospitalization Lovenox changed to eliquis. Will hold tonight dose. Depression an insomnia continue current meds. Pressure ulcers Large sacral decubitii skin tears on bilateral buttocks, coccyx and right upper back. speciality mattress, 2 hour repositioning. MPO boots. Plan/VTE VTE Prophylaxis Ordered?: Yes VS, I&O, 24H, Fishbone Vital Signs/I&O Vital Signs Date Time Temp Pulse Resp B/P (MAP) Pulse Ox O2 Delivery O2 Flow Rate FiO2 02/26/20 09:42 95 122/58 02/26/20 05:45 22 02/26/20 04:00 97.9 98 Trach Collar 5.0 28 I&O- Last 24 Hours up to 6 AM 02/26/20 06:00 Intake Total 2080 ml Output Total 1150 ml Balance 930 ml Laboratory Data 24H LABS Laboratory Tests 2 02/25/20 12:40: Bedside Glucose (Misc Panel) 184H 02/25/20 17:07: Bedside Glucose (Misc Panel) 145H 02/25/20 20:16: Bedside Glucose (Misc Panel) 148H 02/25/20 21:14: Clostridium difficile [id number]-NAP1-B1 PRESUMPTIVE NEGATIVE, Clostridium difficile Toxin (PCR) NEGATIVE 02/26/20 05:30: Immature Granulocyte % (Auto) , Neutrophils (%) (Auto) , Nucleated Red Blood Cells % (auto) 0.1H, Neutrophils 70H, Band Neutrophils 1, Lymphocytes (Manual) 12L, Monocytes (Manual) 9H, Eosinophils (Manual) 2, Metamyelocytes 1H, Atypical Lymphocytes 5, Red Blood Cell Morphology NORMAL, Platelet Estimate NORMAL, Anion Gap 9, Glomerular Filtration Rate > 60.0, Calcium Level 9.1 02/26/20 08:03: Bedside Glucose (Misc Panel) 168H CBC/BMP Laboratory Tests 02/26/20 05:30 Microbiology Microbiology 02/20/20 Gram Stain - Final, Complete 02/20/20 Sputum Culture - Final, Complete 02/20/20 Blood Culture - Final, Complete NO GROWTH AFTER 5 DAYS 02/20/20 Blood Culture - Final, Complete NO GROWTH AFTER 5 DAYS LLOYD BERG MD Feb 26, 2020 10:54
[2020-02-26] MEDS: ONDANSETRON 4 MG ORAL DISINTEGRATING TAB SL PRN (18:32)
[2020-02-26] MEDS: LEVEMIR (INSULIN DETEMIR) 1 UNITS/0.01ML SC SCH (21:47)
[2020-02-26] MEDS: RAMELTEON 8 MG TAB (ROZEREM) PO PRN (21:48)
[2020-02-27] VITALS (53 sets, daily range): BP systolic 69–140; BP diastolic 46–82
[2020-02-27] MEDS: IPRATROPIUM 0.5MG/ALBUTEROL 2.5MG INH SOL UD 3ML (DUONEB) NEB SCH ×6 (00:37→20:41)
[2020-02-27] MEDS: CEFEPIME HCL 2 GM in D5W MINI-BAG PLUS 50 ML IV SCH ×2 (01:56→13:45)
[2020-02-27] MEDS: metroNIDAZOLE 500 MG in IV 1 EA IV SCH ×3 (04:00→21:07)
[2020-02-27] MEDS: SODIUM CHLORIDE 0.9% INJ 10 ML SYR IV SCH ×2 (05:20→18:44)
[2020-02-27 05:27] LABS: HEMATOCRIT 39.1 % (36.0-47.0); HEMOGLOBIN 12.3 g/dl (12.0-15.5); MEAN CORPUSCULAR HEMOGLOBIN 30.9 pg (27.0-33.0); MEAN CORPUSCULAR HGB CONC 31.5 g/dl (32.0-36.5); MEAN CORPUSCULAR VOLUME 98.2 fl (80.0-96.0); PLATELET COUNT, AUTOMATED 189 10^3/uL (150-450); RED BLOOD COUNT 3.98 10^6/uL (4.00-5.40)
[2020-02-27 05:45] LABS: BLOOD UREA NITROGEN 58 MG/DL (7-18); CALCIUM LEVEL 8.3 MG/DL (8.5-10.1); CARBON DIOXIDE LEVEL 20 MEQ/L (21-32); CHLORIDE LEVEL 111 MEQ/L (98-107); CREATININE FOR GFR 1.21 MG/DL (0.55-1.30); GLOMERULAR FILTRATION RATE > 60.0 (>58); GLUCOSE, FASTING 161 MG/DL (70-100); POTASSIUM SERUM 4.7 MEQ/L (3.5-5.1); SODIUM LEVEL 138 MEQ/L (136-145)
[2020-02-27 05:56] LABS: ATYPICAL LYMPH 2 % (0-5); BASOPHILS 1 % (0-1); EOSINOPHILS 1 % (0-3); LYMPHOCYTES 15 % (16-44); METAMYELOCYTES 3 % (0-0); MONOCYTES 7 % (0-5); NEUTROPHILS 71 % (28-66)
[2020-02-27 05:57] LABS: PLATELET CLUMPS SMALL AMT; PLATELET ESTIMATE NORMAL (NORMAL)
[2020-02-27] MEDS: ONDANSETRON 4 MG ORAL DISINTEGRATING TAB SL PRN (06:11)
[2020-02-27] MEDS: NORCO, ANEXSIA 5/325MG TABLET (HYDROcodone/ACETAMINOPHEN) FT PRN (06:11)
[2020-02-27] MEDS: BUDESONIDE 0.5 MG/2 ML INHALATION SUSPENSION INH SCH ×2 (07:19→20:41)
[2020-02-27] MEDS: HumuLIN R (REGULAR) INSULIN (NovoLIN R) **100U/ML** PER UNIT SC SCH ×4 (07:30→23:57)
[2020-02-27 07:43] LABS: ABG BASE EXCESS -9.4 (-2.0-2.0); ABG HCO3 19.2 MEQ/L (22.0-26.0); ABG O2 SATURATION 97.4 % (95.0-99.0); ABG PARTIAL PRESSURE CO2 53.3 mmHg (35.0-45.0); ABG PARTIAL PRESSURE O2 99.5 mmHg (75.0-100.0); ABG TOTAL CO2 20.9 MEQ/L (22.0-29.0)
[2020-02-27 07:44] LABS: ABG pH (ARTERIAL) 7.175 UNITS (7.350-7.450)
[2020-02-27] MEDS ORDERED: NS 1,000 ML IV ONE (08:30)
[2020-02-27] MEDS: CHLORHEXIDINE GLUCONATE 0.12 % 15ML UDC (PERIDEX ORAL RINSE) MT SCH ×2 (09:00→21:07)
[2020-02-27] MEDS: GASTROGRAFIN SOLUTION 30ML PO SCH ×2 (09:41→10:14)
[2020-02-27] MEDS: PANTOPRAZOLE 40MG VIAL (C9113 PER 1) IV SCH ×2 (10:40→23:50)
[2020-02-27] MEDS: OCTREOTIDE ACETATE 100MCG/ML VIAL (J2354 PER 25MCG) IV SCH ×2 (10:44→18:47)
[2020-02-27] MEDS ORDERED: ISOVUE-370 76% 100ML VIAL As Ordered ONE (10:51)
--- NOTE | 2020-02-27 11:50 | IPNPDOC ---
Subjective Date Seen The patient was seen on 02/27/20. Subjective Chief Complaint/HPI Patient with chronic abdominal pain and chronic nausea was on anticoagulation with lovenox followed by toby for an upper extremity DVT. Started having bloody stools from yesterday with 1 episode of moreno. Her eliquis was held. Overnight she had 2 more bloody stools. All night she had been uncomfortable and restless. Her Hb remains stable. This am she was noted to be mildy confused, cold and clammy with hypotension. She was given IVF boluses, and ABG done showed severe acidosis. She was connected back to vent. She then had a very large bloody bowel movement. She was ordered for CT abdomen and pelvis and Dr Fischer consulted. Will repeat labs at noon. Noted to have droppig urine output since this morning. Objective Physical Examination General Exam: Positive: Cooperative, Mild Distress Eye Exam: Negative: Sclera icteric ENT Exam: Positive: Tongue Midline, Other ENT (tracheostomy) Neck Exam: Positive: Supple, Other (Trach in place. Short neck) Chest Exam: Positive: Diminished Heart Exam: Positive: Tachycardic, Regular Rhythm; Negative: Gallops, Murmurs, Rubs Telemetry: Positive: No significant arrhythmia Abdomen Exam: Positive: BS Hypoactive, Soft, Hernia, Other (PEG placed epigastric area); Negative: Tenderness Extremity Exam: Negative: Clubbing, Cyanosis, Edema Skin Exam: Positive: Other skin issue (sacral decubitii) Neuro Exam: Positive: Other (2/5 power in al 4 extremities, decreased tone) Assessment /Plan Assessment 44 y.o female w/ prolonged hospitalization since 01/23/20 due to Acute respiratory failure and prolonged ventilation now s/p trach & PEG. Hospitalization was complicated by left upper arm DVT Axillary and basilic veins on 02/08/20, aspiration of tube feeds on 02/20/20 with aspiration pneumonitis. Now she is having GIB. Metabolic and respiratory acidosis ABG this Am with pH of 7.175 with pCO2 of 53. patient was put back on ventilation I think her major issue is GI at present but because of her chronic resp issues she is unable to appropriately compensate for it so the pH went down so much Dr Valdes for vent settings GIB. ? from anticoagulation ? bowel ischemia continue cefipime and metronidazole. lactate OK. CT abd and pelvis with oral contrast. She has a massive incisional hernia. NPO. Gtube to gravity Dr Salinas consulted. Eliquis stopped continue Pantoprazole. Hypotension due to GIB and acidosis IVF boluses Acute on chronic Respiratory failure with hypoxia and hypercarbia 2/2 Obesity hypoventilation & Asthma. Needed prolonged intubation and ventilation now s/p trach with Passy-beatrice valve & PEG. Back on vent support now due to severe combined metabolic and respiratory acidosis. Budesonide nebs and duonebs. Aspiration Pneumonitis continue cefepime and Flagyl Critical care myopathy with functional quadriparesis severe loss of muscle mass in the upper and lower extremities. Bilateral MPO boots, Back care. Continued rehab. HTN with hypertensive heart disease Now hypotensive Hold Metoprolol & Norvasc DM levemir hold as going to be NPO Lispro q 6 hours. Diastolic CHF euvolemic Morbid obesity with Obesity hypoventilation has tracheostomy. s/p left arm DVT earlier in hospitalization Hold eliquis due to GIB. Depression an insomnia Hold meds. . Pressure ulcers Large sacral decubitii skin tears on bilateral buttocks, coccyx and right upper back. speciality mattress, 2 hour repositioning. MPO boots. Plan/VTE VTE Prophylaxis Ordered?: Yes VS, I&O, 24H, Fishbone Vital Signs/I&O Vital Signs Date Time Temp Pulse Resp B/P (MAP) Pulse Ox O2 Delivery O2 Flow Rate FiO2 02/27/20 06:41 20 02/27/20 06:00 100 107/66 (80) 96 Trach Collar 5.0 28 02/27/20 04:00 98.2 I&O- Last 24 Hours up to 6 AM 02/27/20 06:00 Intake Total 2020 ml Output Total 860 ml Balance 1160 ml Laboratory Data 24H LABS Laboratory Tests 2 02/26/20 13:22: Bedside Glucose (Misc Panel) 131H 02/26/20 17:27: Bedside Glucose (Misc Panel) 167H 02/26/20 21:27: Bedside Glucose (Misc Panel) 132H 02/27/20 05:02: Immature Granulocyte % (Auto) , Neutrophils (%) (Auto) , Nucleated Red Blood Cells % (auto) 0.2H, Neutrophils 71H, Lymphocytes (Manual) 15L, Monocytes (Manual) 7H, Eosinophils (Manual) 1, Basophils (Manual) 1, Metamyelocytes 3H, Atypical Lymphocytes 2, Red Blood Cell Morphology NORMAL, Platelet Estimate NORMAL, Clumped Platelets SMALL AMT, Anion Gap 7L, Glomerular Filtration Rate > 60.0, Calcium Level 8.3L 02/27/20 07:26: Bedside Glucose (Misc Panel) 188H 02/27/20 07:28: Blood Gas Bicarbonate Standard 17.0L, Arterial Blood pH 7.175*L, Arterial Blood Partial Pressure CO2 53.3H, Arterial Blood Partial Pressure O2 99.5, Arterial Blood Total CO2 20.9L, Arterial Blood HCO3 19.2L, Arterial Blood Base Excess - 9.4L, Arterial Blood Oxygen Saturation 97.4 02/27/20 08:13: Lactic Acid Level 0.7 CBC/BMP Laboratory Tests 02/27/20 05:02 Microbiology Microbiology 02/20/20 Gram Stain - Final, Complete 02/20/20 Sputum Culture - Final, Complete 02/20/20 Blood Culture - Final, Complete NO GROWTH AFTER 5 DAYS 02/20/20 Blood Culture - Final, Complete NO GROWTH AFTER 5 DAYS LLOYD BERG MD Feb 27, 2020 11:50
--- NOTE | 2020-02-27 12:02 | REP ---
INDICATION: bowel ischemia contrast via G Tube COMPARISON: 02/20/2020. TECHNIQUE: CT Scan of the abdomen and pelvis was performed without intravenous contrast. Oral contrast was administered. Sagittal and coronal reconstruction images performed. FINDINGS: Lung bases: Consolidative infiltrate or atelectasis is again seen in the visualized left lower lobe. The previously noted right lower lobe consolidation has improved with mild residual. There is moderate cardiomegaly. Liver: Grossly unremarkable. Gallbladder: Cholecystectomy. Spleen: Grossly unremarkable.. 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 Pancreas: Grossly unremarkable.. Kidneys: No hydronephrosis or nephrolithiasis. Ureters demonstrate no dilatation or calculus. Small and large bowel: Moderate diffuse dilatation of proximal small bowel is noted, with air and fluid. Multiple air-fluid levels are seen. The stomach is only mildly distended. The large inferior abdominal wall hernia. The dilated small bowel loops extend into the hernia. The more distal loops of ileum are relatively small in caliber. Findings may represent a resolving ileus, but some degree of partial small bowel obstruction within the hernia cannot be excluded. There is no bowel wall thickening. There is no free intraperitoneal air... A gastrostomy tube is present. Free fluid: None. Abdominal aorta: No aneurysm. Adenopathy: None. Appendix: Not inflamed. Osseous structures: There are degenerative changes of the spine. Pelvis: There is a partially calcified fundal uterine fibroid.. There is a Leonard catheter in a collapsed urinary bladder. IMPRESSION: Persistent consolidation in the visualized left lower lung. Improved consolidation right lower lung. Moderate diffuse dilatation of proximal small bowel has improved, as has the distension of the stomach. Small bowel extends into the large anterior abdominal wall hernia with relatively gradual decrease in small bowel caliber and small caliber of loops of distal ileum. The findings may represent resolving ileus, 20 partial small-bowel obstruction in the hernia cannot be excluded. Previously noted free intraperitoneal air has resolved. <Electronically signed by Alonso Devine > 02/27/20 [id number]
[2020-02-27 12:31] LABS: HEMATOCRIT 34.7 % (36.0-47.0); MEAN CORPUSCULAR HEMOGLOBIN 30.9 pg (27.0-33.0); MEAN CORPUSCULAR HGB CONC 31.7 g/dl (32.0-36.5); MEAN CORPUSCULAR VOLUME 97.5 fl (80.0-96.0); PLATELET COUNT, AUTOMATED 194 10^3/uL (150-450); RED BLOOD COUNT 3.56 10^6/uL (4.00-5.40); WHITE BLOOD COUNT 14.2 10^3/uL (4.0-10.0)
[2020-02-27] MEDS: METOCLOPRAMIDE INJ 10MG/2ML VIAL (J2765 PER 1) IV SCH ×2 (12:33→18:43)
[2020-02-27] MEDS: SUCRALFATE SUSP 1GM/10ML UD GT SCH ×3 (12:33→23:51)
[2020-02-27 12:56] LABS: ABG BASE EXCESS -10.3 (-2.0-2.0); ABG HCO3 15.4 MEQ/L (22.0-26.0); ABG O2 SATURATION 96.9 % (95.0-99.0); ABG PARTIAL PRESSURE CO2 33.3 mmHg (35.0-45.0); ABG PARTIAL PRESSURE O2 86.3 mmHg (75.0-100.0); ABG STANDARD HCO3 16.3 MEQ/L (22.0-26.0); ABG TOTAL CO2 16.4 MEQ/L (22.0-29.0); ABG pH (ARTERIAL) 7.282 UNITS (7.350-7.450)
[2020-02-27 13:01] LABS: CALCIUM LEVEL 8.5 MG/DL (8.5-10.1); CREATININE FOR GFR 1.3 MG/DL (0.55-1.30); GLOMERULAR FILTRATION RATE 56.9 (>58); POTASSIUM SERUM 4.9 MEQ/L (3.5-5.1)
[2020-02-27] MEDS: MORPHINE 2 MG/ML 1ML VIAL (J2270) IV PRN ×3 (13:50→23:51)
[2020-02-27] MEDS: D5W/0.9% SODIUM CHLORIDE 1,000 ML IV SCH ×2 (13:51→23:50)
[2020-02-28] VITALS (37 sets, daily range): BP systolic 91–157; BP diastolic 44–94
[2020-02-28] MEDS: IPRATROPIUM 0.5MG/ALBUTEROL 2.5MG INH SOL UD 3ML (DUONEB) NEB SCH ×6 (00:36→20:53)
[2020-02-28] MEDS: METOCLOPRAMIDE INJ 10MG/2ML VIAL (J2765 PER 1) IV SCH ×3 (02:24→16:07)
[2020-02-28] MEDS: OCTREOTIDE ACETATE 100MCG/ML VIAL (J2354 PER 25MCG) IV SCH ×2 (02:24→10:22)
[2020-02-28] MEDS: SUCRALFATE SUSP 1GM/10ML UD GT SCH ×4 (05:17→23:58)
[2020-02-28] MEDS: SODIUM CHLORIDE 0.9% INJ 10 ML SYR IV SCH ×2 (05:18→18:15)
[2020-02-28] MEDS: MORPHINE 2 MG/ML 1ML VIAL (J2270) IV PRN ×4 (05:18→21:21)
[2020-02-28 05:37] LABS: HEMATOCRIT 32.2 % (36.0-47.0); HEMOGLOBIN 9.9 g/dl (12.0-15.5); MEAN CORPUSCULAR HEMOGLOBIN 30.6 pg (27.0-33.0); MEAN CORPUSCULAR HGB CONC 30.7 g/dl (32.0-36.5); MEAN CORPUSCULAR VOLUME 99.4 fl (80.0-96.0); PLATELET COUNT, AUTOMATED 175 10^3/uL (150-450); RED BLOOD COUNT 3.24 10^6/uL (4.00-5.40); WHITE BLOOD COUNT 10.8 10^3/uL (4.0-10.0)
[2020-02-28] MEDS: HumuLIN R (REGULAR) INSULIN (NovoLIN R) **100U/ML** PER UNIT SC SCH ×3 (06:13→18:15)
[2020-02-28 06:14] LABS: CALCIUM LEVEL 8.1 MG/DL (8.5-10.1); CREATININE FOR GFR 1.41 MG/DL (0.55-1.30); GLOMERULAR FILTRATION RATE 51.8 (>58); POTASSIUM SERUM 4.5 MEQ/L (3.5-5.1)
[2020-02-28 06:18] LABS: EOSINOPHILS 1 % (0-3); MONOCYTES 9 % (0-5)
[2020-02-28 06:20] LABS: LYMPHOCYTES 18 % (16-44); METAMYELOCYTES 3 % (0-0); NEUTROPHILS 68 % (28-66)
[2020-02-28 06:22] LABS: PLATELET CLUMPS SMALL AMT; PLATELET ESTIMATE NORMAL (NORMAL)
[2020-02-28] MEDS: BUDESONIDE 0.5 MG/2 ML INHALATION SUSPENSION INH SCH ×2 (07:32→20:53)
[2020-02-28] MEDS: CHLORHEXIDINE GLUCONATE 0.12 % 15ML UDC (PERIDEX ORAL RINSE) MT SCH ×2 (08:57→21:20)
[2020-02-28] MEDS: metroNIDAZOLE 500 MG in IV 1 EA IV SCH ×3 (08:57→23:59)
[2020-02-28] MEDS: NS 1,000 ML IV SCH ×2 (08:59→21:20)
[2020-02-28] MEDS: CEFEPIME HCL 1 GM in D5W MINI-BAG PLUS 50 ML IV SCH ×2 (10:22→21:20)
--- NOTE | 2020-02-28 11:39 | IPNPDOC ---
Subjective Date Seen The patient was seen on 02/28/20. Subjective Chief Complaint/HPI Better this morning. Still with some diarrhea with some blood. was on pressure support overnight. Though noted resp to drop to 8 -10 when asleep. Objective Physical Examination General Exam: Positive: Alert, Cooperative, No Acute Distress Eye Exam: Negative: Sclera icteric ENT Exam: Positive: Tongue Midline, Other ENT (tracheostomy) Neck Exam: Positive: Supple, Other (Trach in place. Short neck) Chest Exam: Positive: Diminished Heart Exam: Positive: Rate Normal, Regular Rhythm Telemetry: Positive: No significant arrhythmia Abdomen Exam: Positive: Normal bowel sounds, Soft, Hernia (very large incisional hernias.), Other (PEG placed epigastric area); Negative: Tenderness, Hepatospenomegaly Extremity Exam: Positive: Other (significant loss of muscle mass in both the thighs and legs and also inteh upper extremities. ); Negative: Clubbing, Cyanosis, Edema Skin Exam: Positive: Other skin issue (sacral decubitii) Neuro Exam: Positive: Normal Speech, Other (2/5 power in al 4 extremities, decreased tone) Psych Exam: Positive: Oriented x 3 Assessment /Plan Assessment 44 y.o female w/ prolonged hospitalization since 01/23/20 due to Acute respiratory failure and prolonged ventilation now s/p trach & PEG. Hospi talization was complicated by left upper arm DVT Axillary and basilic veins on 02/08/20, aspiration of tube feeds on 02/20/20 with aspiration pneumonitis. Now she is having GIB. Metabolic and respiratory acidosis This from Diarrhea and GIB and unable to do resp compensation. Better now will place back on trach collar. will check ABG in the PM. GIB. ? from anticoagulation CT abd did not show any definite obstruction or strangulation of jessica hernia or features of bowel ischemia continue cefipime and metronidazole. lactate OK. Dr Salinas consulted. Eliquis stopped continue Pantoprazole. Feeding to be resumed if OK with Dr Fischer. Hypotension due to GIB and acidosis now BP better though soft . Acute on chronic Respiratory failure with hypoxia and hypercarbia 2/2 Obesity hypoventilation & Asthma with now acute GIB and diarrhea. Needed prolonged intubation and ventilation now s/p trach with Passy-beatrice valve & PEG. Was back on vent support due to severe combined metabolic and respiratory acidosis. Budesonide nebs and duonebs. chronic Respiratory failure with hypoxia and hypercarbia 2/2 Obesity hypoventilation & Asthma Aspiration Pneumonitis continue cefepime and Flagyl Critical care myopathy with functional quadriparesis severe loss of muscle mass in the upper and lower extremities. Bilateral MPO boots, Back care. Continued rehab. HTN with hypertensive heart disease Now hypotensive Hold Metoprolol & Norvasc DM levemir hold as going to be NPO Lispro q 6 hours. Diastolic CHF euvolemic Morbid obesity with Obesity hypoventilation has tracheostomy. s/p left arm DVT earlier in hospitalization Hold eliquis due to GIB. Depression an insomnia Hold meds. . Pressure ulcers Large sacral decubitii skin tears on bilateral buttocks, coccyx and right upper back. speciality mattress, 2 hour repositioning. MPO boots. Plan/VTE VTE Prophylaxis Ordered?: Yes VS, I&O, 24H, Fishbone Vital Signs/I&O Vital Signs Date Time Temp Pulse Resp B/P (MAP) Pulse Ox O2 Delivery O2 Flow Rate FiO2 02/28/20 09:08 14 02/28/20 08:58 100 Ventilator 02/28/20 08:00 97.2 74 104/54 (71) 30 02/27/20 06:00 5.0 I&O- Last 24 Hours up to 6 AM 02/28/20 06:00 Intake Total 3400 ml Output Total 1445 ml Balance 1955 ml Laboratory Data 24H LABS Laboratory Tests 2 02/27/20 12:25: Nucleated Red Blood Cells % (auto) 0.2H, Anion Gap 7L, Glomerular Filtration Rate 56.9L, Calcium Level 8.5 02/27/20 12:31: Bedside Glucose (Misc Panel) 148H 02/27/20 12:40: Blood Gas Bicarbonate Standard 16.3L, Arterial Blood pH 7.282L, Arterial Blood Partial Pressure CO2 33.3L, Arterial Blood Partial Pressure O2 86.3, Arterial Blood Total CO2 16.4L, Arterial Blood HCO3 15.4L, Arterial Blood Base Excess - 10.3L, Arterial Blood Oxygen Saturation 96.9 02/27/20 18:34: Bedside Glucose (Misc Panel) 239H 02/27/20 23:49: Bedside Glucose (Misc Panel) 246H 02/28/20 05:28: Bedside Glucose (Misc Panel) 271H 02/28/20 05:30: Immature Granulocyte % (Auto) , Neutrophils (%) (Auto) , Nucleated Red Blood Cells % (auto) 0.2H, Neutrophils 68H, Band Neutrophils 1, Lymphocytes (Manual) 18, Monocytes (Manual) 9H, Eosinophils (Manual) 1, Metamyelocytes 3H, Platelet Estimate NORMAL, Clumped Platelets SMALL AMT, Anion Gap 8, Glomerular Filtration Rate 51.8L, Calcium Level 8.1L CBC/BMP Laboratory Tests 02/27/20 12:25 02/28/20 05:30 Microbiology Microbiology 02/20/20 Gram Stain - Final, Complete 02/20/20 Sputum Culture - Final, Complete 02/20/20 Blood Culture - Final, Complete NO GROWTH AFTER 5 DAYS 02/20/20 Blood Culture - Final, Complete NO GROWTH AFTER 5 DAYS LLOYD BERG MD Feb 28, 2020 11:39
[2020-02-28] MEDS: PANTOPRAZOLE 40MG VIAL (C9113 PER 1) IV SCH ×2 (12:15→21:21)
--- NOTE | 2020-02-28 13:40 | CR ---
CONSULTATION DATE: 02/27/2020 HISTORY OF PRESENT ILLNESS: The patient has had numerous medical issues associated with her hospitalization. Most recently was put on anticoagulation for an upper extremity DVT and yesterday had one bout of melena and her Eliquis was held. However, overnight/this morning she had some what appeared to be vagal response with some confusion, was cold, clammy, hypotension and essentially had some blood bowel movements. She had an acidosis and I was asked to see the patient for additional recommendations. The patient was given some fluid boluses, seemed to have made some progress improvement with this. She went down for CT scan which showed no significant abnormality, i.e. etiology for bleeding. She did have some dilated small bowel which may be secondary to blood within it, although partial bowel obstruction could not be excluded at this time. In general, no inflamed or thickened small bowel was appreciated. The patient's hematocrit early in the morning was stable. However, with those bloody bowel movements her hematocrit dropped down to 35. PAST MEDICAL HISTORY: Significant for history of hypertension, hyperlipidemia, insulin-dependent diabetes mellitus, morbid obesity, history of asthma, status epilepticus, history of respiratory failure with intubation and tracheostomy, history of DVT, history of HIT, history of nicotine dependence, history of hirsutism, nicotine dependence, remote history of crack cocaine use, history of tonsillectomy, , cholecystectomy, ventral hernia repair with wound dehiscence, partial colectomy secondary to diverticulitis, PEG tube placement. PHYSICAL EXAMINATION: GENERAL: 44-year-old black female who is morbidly obese, does respond to my questions appropriately with her vent in place. LUNGS: Clear anteriorly with a few rhonchi appreciated. HEART: Regular. ABDOMEN: Obese, nontender, mildly uncomfortable where the hernia is but she has an easily reducible ventral hernia in the infraumbilical site. She has had some bloody stool. This was quite melanotic in appearance. IMPRESSION/PLAN: The patient has GI bleed most likely an upper GI bleed given the issues with poor PO intake and I anticipate this is probably some gastritis that is most likely the etiology and thus we have ordered some medications for this, i.e. Octreotide, Carafate, proton pump inhibitors and will see how she does with this. Given that she is a poor operative candidate I would recommend at this point and she is on anticoagulation, if she resolves her bleeding with being off the Eliquis then I would forego any aggressive investigation with endoscopy, etc. However, if she has some persistence of anemia or needs further workup we could also perform upper GI via the gastrostomy tube. If she has more active bleeding issues then I would of course recommend progressing with upper and lower endoscopy, with the most likely etiology being the upper GI source.
--- NOTE | 2020-02-28 14:52 | IPN ---
PROGRESS NOTE DATE: 02/28/2020 Patient seems to be doing well overnight. She has not had any more bloody bowel movements and overall seems to be doing well. She is hoping to have some food today and gastrointestinal (GI) bleeding seems to have "resolved" or at least stabilized. Her hematocrit is slightly down this morning, although once again not having any further GI bleeding symptoms. Her abdomen is soft, nontender, nondistended. IMPRESSION/PLAN: Patient had gastrointestinal (GI) bleeding and I anticipate this was an upper GI source and at this point seems to have resolved/be currently resolving. Would recommend continuing the Carafate as well as the twice a day dosing of the pantoprazole. We can stop the octreotide and from my standpoint clamp the gastrostomy (G) tube and advance her diet. If she has ongoing issues, please re-consult me, I would be glad to see her and possibly, if necessary, proceed with an upper endoscopy as well as a possible colonoscopy, but obviously proceeding with an upper GI via the gastrostomy tube is also a reasonable alternative should you desire further evaluation.
[2020-02-28 17:32] LABS: ABG HCO3 15.5 MEQ/L (22.0-26.0); ABG O2 SATURATION 98.3 % (95.0-99.0); ABG PARTIAL PRESSURE CO2 36.9 mmHg (35.0-45.0); ABG PARTIAL PRESSURE O2 121.7 mmHg (75.0-100.0); ABG STANDARD HCO3 15.8 MEQ/L (22.0-26.0); ABG TOTAL CO2 16.6 MEQ/L (22.0-29.0)
[2020-02-28 17:37] LABS: ABG pH (ARTERIAL) 7.241 UNITS (7.350-7.450)
[2020-02-28] MEDS: RAMELTEON 8 MG TAB (ROZEREM) PO PRN (21:22)
[2020-02-28] MEDS ORDERED: GLUCOSE 4GM CHEW TABLET PO PRN (22:00)
[2020-02-28] MEDS ORDERED: GLUCAGON INJ 1MG VIAL SC PRN (22:00)
[2020-02-28] MEDS ORDERED: DEXTROSE 50% 50 ML SYRINGE IV PRN (22:00)
[2020-02-29] VITALS (9 sets, daily range): BP systolic 82–158; BP diastolic 55–72
[2020-02-29] MEDS: LEVEMIR (INSULIN DETEMIR) 1 UNITS/0.01ML SC SCH ×2 (00:05→20:53)
[2020-02-29] MEDS: METOCLOPRAMIDE INJ 10MG/2ML VIAL (J2765 PER 1) IV SCH ×3 (00:06→15:55)
[2020-02-29] MEDS: MORPHINE 2 MG/ML 1ML VIAL (J2270) IV PRN ×3 (00:07→11:10)
[2020-02-29] MEDS: IPRATROPIUM 0.5MG/ALBUTEROL 2.5MG INH SOL UD 3ML (DUONEB) NEB SCH ×6 (00:21→20:13)
[2020-02-29] MEDS: SODIUM CHLORIDE 0.9% INJ 10 ML SYR IV SCH ×2 (05:25→17:44)
[2020-02-29] MEDS: SUCRALFATE SUSP 1GM/10ML UD GT SCH ×4 (05:25→23:02)
[2020-02-29 05:35] LABS: HEMATOCRIT 33.9 % (36.0-47.0); HEMOGLOBIN 10.1 g/dl (12.0-15.5); MEAN CORPUSCULAR HEMOGLOBIN 30.8 pg (27.0-33.0); MEAN CORPUSCULAR HGB CONC 29.8 g/dl (32.0-36.5); MEAN CORPUSCULAR VOLUME 103.4 fl (80.0-96.0); PLATELET COUNT, AUTOMATED 176 10^3/uL (150-450); RED BLOOD COUNT 3.28 10^6/uL (4.00-5.40); WHITE BLOOD COUNT 10.2 10^3/uL (4.0-10.0)
[2020-02-29 05:50] LABS: EOSINOPHILS 2 % (0-3); LYMPHOCYTES 19 % (16-44); METAMYELOCYTES 3 % (0-0); MONOCYTES 6 % (0-5); MYELOCYTES 2 % (0-0); NEUTROPHILS 64 % (28-66)
[2020-02-29 05:52] LABS: PLATELET ESTIMATE NORMAL (NORMAL)
[2020-02-29 06:08] LABS: BLOOD UREA NITROGEN 53 MG/DL (7-18); CALCIUM LEVEL 8.5 MG/DL (8.5-10.1); CARBON DIOXIDE LEVEL 17 MEQ/L (21-32); CHLORIDE LEVEL 113 MEQ/L (98-107); CREATININE FOR GFR 1.18 MG/DL (0.55-1.30); GLOMERULAR FILTRATION RATE > 60.0 (>58); GLUCOSE, FASTING 158 MG/DL (70-100); POTASSIUM SERUM 4.2 MEQ/L (3.5-5.1); SODIUM LEVEL 138 MEQ/L (136-145)
[2020-02-29] MEDS ORDERED: HumaLOG INSULIN (NovoLOG) PER UNIT SC SCH ×2 (07:30→21:00)
[2020-02-29] MEDS: NS 1,000 ML IV SCH (08:19)
[2020-02-29] MEDS: HumuLIN R (REGULAR) INSULIN (NovoLIN R) **100U/ML** PER UNIT SC SCH ×3 (08:20→17:44)
[2020-02-29] MEDS: metroNIDAZOLE 500 MG in IV 1 EA IV SCH ×3 (08:20→23:02)
[2020-02-29] MEDS: CHLORHEXIDINE GLUCONATE 0.12 % 15ML UDC (PERIDEX ORAL RINSE) MT SCH ×2 (08:21→20:52)
[2020-02-29] MEDS: BUDESONIDE 0.5 MG/2 ML INHALATION SUSPENSION INH SCH ×2 (09:19→20:13)
[2020-02-29] MEDS: CEFEPIME HCL 1 GM in D5W MINI-BAG PLUS 50 ML IV SCH ×2 (10:02→20:52)
[2020-02-29] MEDS: PANTOPRAZOLE 40MG VIAL (C9113 PER 1) IV SCH ×2 (10:02→21:57)
--- NOTE | 2020-02-29 12:52 | IPNPDOC ---
Subjective Date Seen The patient was seen on 02/29/20. Subjective Chief Complaint/HPI Patient alert and oriented having ora diet. Her G tube was clamped since yesterday afternoon. This morning she was complaining of nausea so her G tube was opened to gravity and about 300 ml of gastric fluid drained. After that her nausea resolved. She denied any abdominal pain. Objective Physical Examination General Exam: Positive: Alert, Cooperative, No Acute Distress Eye Exam: Negative: Sclera icteric ENT Exam: Positive: Tongue Midline, Other ENT (tracheostomy) Neck Exam: Positive: Supple, Other (Trach in place. Short neck) Chest Exam: Positive: Diminished Heart Exam: Positive: Rate Normal, Regular Rhythm Telemetry: Positive: No significant arrhythmia Abdomen Exam: Positive: Normal bowel sounds, Soft, Hernia (very large incisional hernias.), Other (PEG placed epigastric area); Negative: Tenderness, Hepatospenomegaly Extremity Exam: Positive: Other (significant loss of muscle mass in both the thighs and legs and also inteh upper extremities. ); Negative: Clubbing, Cyanosis, Edema Skin Exam: Positive: Other skin issue (sacral decubitii) Neuro Exam: Positive: Normal Speech, Other (2/5 power in al 4 extremities, decreased tone) Psych Exam: Positive: Oriented x 3 Assessment /Plan Assessment 44 y.o female w/ prolonged hospitalization since 01/23/20 due to Acute respiratory failure and prolonged ventilation now s/p trach & PEG. Hospitalization was complicated by left upper arm DVT Axillary and basilic veins on 02/08/20, aspiration of tube feeds on 02/20/20 with aspiration pneumonitis. Now she is having GIB. Metabolic acidosis Nonaion gap This from Diarrhea and GIB and unable to do Resp compensation. continues to have low bicarb may be from G tube drainage and IVF will stop IVF. Diarrhea a little better today will recheck ABG tomorrow GIB. ? from anticoagulation with gastritis / stress ulceration CT abd did not show any definite obstruction or strangulation of the hernia or features of bowel ischemia continue cefipime and metronidazole. lactate OK. Dr Salinas was consulted. Eliquis stopped continue Pantoprazole. Feeding to be resumed Hypotension due to GIB and acidosis now resolved. Acute on chronic Respiratory failure with hypoxia and hypercarbia 2/2 Obesity hypoventilation & Asthma with now acute GIB and diarrhea. Needed prolonged intubation and ventilation now s/p trach with Passy-beatrice valve & PEG. Was back on vent support due to severe combined metabolic and respiratory acidosis. Now back to trach collar during the day and pressure support at night. Budesonide nebs and duonebs. Chronic Respiratory failure with hypoxia and hypercarbia 2/2 Obesity hypoventilation & Asthma Aspiration Pneumonitis treated. Critical care myopathy with functional quadriparesis severe loss of muscle mass in the upper and lower extremities. Bilateral MPO boots, Back care. Continued rehab. HTN with hypertensive heart disease will slowly resume norvasc and metoprolol as BP rises DM Lispro and levemir. FS Ac and HS. Diastolic CHF Volume difficult to manager outpatient with her body habitus. No edema. Morbid obesity with Obesity hypoventilation has tracheostomy. s/p left arm DVT earlier in hospitalization eliquis stopped due to GIB. Depression an insomnia restarted buspirone Pressure ulcers Large sacral decubitii skin tears on bilateral buttocks, coccyx and right upper back. speciality mattress, 2 hour repositioning. MPO boots. Pain control with [place]. Plan/VTE VTE Prophylaxis Ordered?: Yes VS, I&O, 24H, Fishbone Vital Signs/I&O Vital Signs Date Time Temp Pulse Resp B/P (MAP) Pulse Ox O2 Delivery O2 Flow Rate FiO2 02/29/20 11:20 16 02/29/20 10:00 99 142/65 (90) 99 Trach Collar 5.0 28 02/29/20 08:00 97.0 I&O- Last 24 Hours up to 6 AM 02/29/20 06:00 Intake Total 4235 ml Output Total 2225 ml Balance 2010 ml Laboratory Data 24H LABS Laboratory Tests 2 02/28/20 17:14: Blood Gas Bicarbonate Standard 15.8L, Arterial Blood pH 7.241*L, Arterial Blood Partial Pressure CO2 36.9, Arterial Blood Partial Pressure O2 121.7H, Arterial Blood Total CO2 16.6L, Arterial Blood HCO3 15.5L, Arterial Blood Base Excess - 11.0L, Arterial Blood Oxygen Saturation 98.3 02/28/20 18:11: Bedside Glucose (Misc Panel) 204H 02/29/20 00:05: Bedside Glucose (Misc Panel) 195H 02/29/20 05:15: Immature Granulocyte % (Auto) , Neutrophils (%) (Auto) , Nucleated Red Blood Cells % (auto) 0.7H, Neutrophils 64, Band Neutrophils 4, Lymphocytes (Manual) 19, Monocytes (Manual) 6H, Eosinophils (Manual) 2, Metamyelocytes 3H, Myelocytes 2H, Macrocytosis 1+, Platelet Estimate NORMAL, Anion Gap 8, Glomerular Filtration Rate > 60.0, Calcium Level 8.5 02/29/20 12:17: Bedside Glucose (Misc Panel) 153H CBC/BMP Laboratory Tests 02/29/20 05:15 Microbiology Microbiology 02/20/20 Gram Stain - Final, Complete 02/20/20 Sputum Culture - Final, Complete 02/20/20 Blood Culture - Final, Complete NO GROWTH AFTER 5 DAYS 02/20/20 Blood Culture - Final, Complete NO GROWTH AFTER 5 DAYS LLOYD BERG MD Feb 29, 2020 12:52
[2020-02-29] MEDS: ANEXSIA, NORCO 7.5MG/325MG TABLET(HYDROCODONE/APAP) PO PRN (13:35)
[2020-02-29] MEDS: clonazePAM 0.5 MG TAB PO PRN (20:55)
[2020-02-29] MEDS: NORCO, ANEXSIA 5/325MG TABLET (HYDROcodone/ACETAMINOPHEN) PO PRN (20:59)
[2020-02-29] MEDS ORDERED: HumuLIN R (REGULAR) INSULIN (NovoLIN R) **100U/ML** PER UNIT SC SCH (21:00)
[2020-02-29] MEDS: SODIUM CHLORIDE 0.9% INJ 10 ML SYR IV PRN (22:03)
[2020-03-01] VITALS (26 sets, daily range): BP systolic 72–135; BP diastolic 44–69
[2020-03-01] MEDS: IPRATROPIUM 0.5MG/ALBUTEROL 2.5MG INH SOL UD 3ML (DUONEB) NEB SCH ×7 (00:18→23:21)
[2020-03-01] MEDS: METOCLOPRAMIDE INJ 10MG/2ML VIAL (J2765 PER 1) IV SCH ×3 (00:31→17:02)
[2020-03-01] MEDS: SODIUM CHLORIDE 0.9% INJ 10 ML SYR IV PRN (00:32)
[2020-03-01] MEDS: RAMELTEON 8 MG TAB (ROZEREM) PO PRN ×2 (03:55→20:22)
[2020-03-01] MEDS: ANEXSIA, NORCO 7.5MG/325MG TABLET(HYDROCODONE/APAP) PO PRN ×2 (03:58→18:44)
[2020-03-01] MEDS: SODIUM CHLORIDE 0.9% INJ 10 ML SYR IV SCH ×3 (05:49→18:38)
[2020-03-01] MEDS: SUCRALFATE SUSP 1GM/10ML UD GT SCH ×4 (06:05→23:26)
[2020-03-01] MEDS: HumuLIN R (REGULAR) INSULIN (NovoLIN R) **100U/ML** PER UNIT SC SCH ×4 (07:30→23:58)
[2020-03-01] MEDS: BUDESONIDE 0.5 MG/2 ML INHALATION SUSPENSION INH SCH ×2 (07:44→21:20)
[2020-03-01 08:33] LABS: HEMATOCRIT 31.1 % (36.0-47.0); MEAN CORPUSCULAR HGB CONC 32.2 g/dl (32.0-36.5); MEAN CORPUSCULAR VOLUME 96.3 fl (80.0-96.0); PLATELET COUNT, AUTOMATED 198 10^3/uL (150-450); RED BLOOD COUNT 3.23 10^6/uL (4.00-5.40); WHITE BLOOD COUNT 9.6 10^3/uL (4.0-10.0)
[2020-03-01] MEDS: busPIRone 5 MG TAB NG SCH ×3 (09:00→20:23)
--- NOTE | 2020-03-01 09:00 | ECGEPIP ---
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
[2020-03-01 09:03] LABS: BLOOD UREA NITROGEN 51 MG/DL (7-18); CALCIUM LEVEL 8.6 MG/DL (8.5-10.1); CARBON DIOXIDE LEVEL 15 MEQ/L (21-32); CHLORIDE LEVEL 114 MEQ/L (98-107); CREATININE FOR GFR 0.98 MG/DL (0.55-1.30); GLOMERULAR FILTRATION RATE > 60.0 (>58); GLUCOSE, FASTING 103 MG/DL (70-100); POTASSIUM SERUM 3.9 MEQ/L (3.5-5.1); SODIUM LEVEL 138 MEQ/L (136-145)
[2020-03-01 09:04] LABS: ANISOCYTOSIS 1+; EOSINOPHILS 1 % (0-3); LYMPHOCYTES 31 % (16-44); METAMYELOCYTES 4 % (0-0); MONOCYTES 1 % (0-5); MYELOCYTES 2 % (0-0); NEUTROPHILS 57 % (28-66); PLATELET ESTIMATE NORMAL (NORMAL)
[2020-03-01] MEDS: metroNIDAZOLE 500 MG in IV 1 EA IV SCH ×3 (11:15→23:26)
[2020-03-01] MEDS ORDERED: NS 1,000 ML IV ONE (11:15)
[2020-03-01] MEDS: CHLORHEXIDINE GLUCONATE 0.12 % 15ML UDC (PERIDEX ORAL RINSE) MT SCH ×2 (11:16→20:22)
[2020-03-01] MEDS: CEFEPIME HCL 1 GM in D5W MINI-BAG PLUS 50 ML IV SCH ×2 (11:16→20:22)
[2020-03-01] MEDS: PANTOPRAZOLE 40MG VIAL (C9113 PER 1) IV SCH ×2 (11:19→23:26)
--- NOTE | 2020-03-01 11:51 | IPNPDOC ---
Subjective Date Seen The patient was seen on 03/01/20. Subjective Chief Complaint/HPI Again having moreno. 2 huge episodes of melena this am. Patient tachycardic, very uncomfortable, complains of severe pain in the legs. No fever or chills. Was on pressure support ventilation at night. Continues to have metabolic acidosis. Discussed with GI . Will arrange for a bed side EGD+/-colonoscopy today. NPO, IVF bolus. will repeat CBC at noon, lactate. Objective Physical Examination General Exam: Positive: Alert, Cooperative, Moderate Distress (pain in legs, moreno) Eye Exam: Negative: Sclera icteric ENT Exam: Positive: Tongue Midline, Other ENT (tracheostomy) Neck Exam: Positive: Supple, Other (Trach in place. Short neck) Chest Exam: Positive: Diminished Heart Exam: Positive: Tachycardic, Regular Rhythm, Normal S1, Normal S2 Telemetry: Positive: Sinus, Tachycardia Abdomen Exam: Positive: BS Hyperactive, Soft, Tenderness, Hernia (very large incisional hernias.), Other (PEG placed epigastric area); Negative: Hepatospenomegaly Extremity Exam: Positive: Other (significant loss of muscle mass in both the thighs and legs and also inteh upper extremities. ); Negative: Clubbing, Cyanosis, Edema Skin Exam: Positive: Other skin issue (sacral decubitii) Neuro Exam: Positive: Normal Speech, Other (2/5 power in the lower ex and 3/5 in the upper extremities all 4 extremities.) Psych Exam: Positive: Oriented x 3 Assessment /Plan Assessment 44 y.o female w/ prolonged hospitalization since 01/23/20 due to Acute respiratory failure and prolonged ventilation now s/p trach & PEG. Hospitalization was complicated by left upper arm DVT Axillary and basilic veins on 02/08/20, aspiration of tube feeds on 02/20/20 with aspiration pneumonitis. Now she is having GIB. GIB Melena. Stress ulceration/ PEG site bleeding/ colonic bleed CT abd did not show any definite obstruction or strangulation of the hernia or features of bowel ischemia continue cefipime and metronidazole. Eliquis stopped continue Pantoprazole, sucralfate. planned for bedside EGD today. HH q 6 hours. PRBC prn, Lactate IVF 1 liter bolus now. Metabolic acidosis Nonanion gap This from Diarrhea and GIB and unable to do Resp compensation. continues to have low bicarb may be from G tube drainage and IVF Had Hypotension due to GIB and acidosis Acute on chronic Respiratory failure with hypoxia and hypercarbia recent worsening on 02/27/20 due to GIB and diarrhea. 2/2 Obesity hypoventilation & Asthma Needed prolonged intubation and ventilation now s/p trach with Passy-beatrice valve & PEG. Was back on vent support due to severe combined metabolic and respiratory acidosis. Now back to trach collar during the day and pressure support at night. Budesonide nebs and duonebs. Chronic Respiratory failure with hypoxia and hypercarbia 2/2 Obesity hypoventilation & Asthma Aspiration Pneumonitis treated. Critical care myopathy with functional quadriparesis severe loss of muscle mass in the upper and lower extremities. Bilateral MPO boots, Back care. Continued rehab. HTN with hypertensive heart disease will slowly resume norvasc and metoprolol as BP rises DM Lispro and levemir. FS Ac and HS. 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 No edema. Morbid obesity with Obesity hypoventilation has tracheostomy. s/p left arm DVT earlier in hospitalization eliquis stopped due to GIB. Depression an insomnia restarted buspirone Pressure ulcers Large sacral decubitii skin tears on bilateral buttocks, coccyx and right upper back. speciality mattress, 2 hour repositioning. MPO boots. Pain control with [place]. Dr Fischer to evaluate the decubiti. Plan/VTE VTE Prophylaxis Ordered?: Yes VS, I&O, 24H, Fishbone Vital Signs/I&O Vital Signs Date Time Temp Pulse Resp B/P (MAP) Pulse Ox O2 Delivery O2 Flow Rate FiO2 03/01/20 06:00 21 03/01/20 04:28 16 03/01/20 04:00 97.4 108 112/67 (82) 98 Ventilator 02/29/20 20:00 5.0 I&O- Last 24 Hours up to 6 AM 03/01/20 06:00 Intake Total 1880 ml Output Total 3865 ml Balance -1985 ml Laboratory Data 24H LABS Laboratory Tests 2 02/29/20 12:17: Bedside Glucose (Misc Panel) 153H 02/29/20 17:40: Bedside Glucose (Misc Panel) 117H 02/29/20 20:43: Bedside Glucose (Misc Panel) 92 03/01/20 07:48: Immature Granulocyte % (Auto) , Neutrophils (%) (Auto) , Nucleated Red Blood Cells % (auto) 0.7H, Neutrophils 57, Band Neutrophils 4, Lymphocytes (Manual) 31, Monocytes (Manual) 1, Eosinophils (Manual) 1, Metamyelocytes 4H, Myelocytes 2H, Anisocytosis 1+, Microcytosis , Macrocytosis 1+, Platelet Estimate NORMAL, Anion Gap 9, Glomerular Filtration Rate > 60.0, Calcium Level 8.6 CBC/BMP Laboratory Tests 03/01/20 07:48 Microbiology Microbiology 02/20/20 Gram Stain - Final, Complete 02/20/20 Sputum Culture - Final, Complete 02/20/20 Blood Culture - Final, Complete NO GROWTH AFTER 5 DAYS 02/20/20 Blood Culture - Final, Complete NO GROWTH AFTER 5 DAYS LLOYD BERG MD Mar 01, 2020 11:25
[2020-03-01 11:52] LABS: ABG BASE EXCESS -12.5 (-2.0-2.0); ABG HCO3 13.8 MEQ/L (22.0-26.0); ABG O2 SATURATION 97.2 % (95.0-99.0); ABG PARTIAL PRESSURE CO2 33.3 mmHg (35.0-45.0); ABG PARTIAL PRESSURE O2 94.5 mmHg (75.0-100.0); ABG STANDARD HCO3 14.7 MEQ/L (22.0-26.0); ABG TOTAL CO2 14.8 MEQ/L (22.0-29.0)
[2020-03-01 12:08] LABS: ABG pH (ARTERIAL) 7.236 UNITS (7.350-7.450)
[2020-03-01] MEDS ORDERED: SILVER NITRATE APPLICATOR TOP STA (12:32)
--- NOTE | 2020-03-01 12:44 | CR.PDOC ---
General Date of Consultation: Mar 01, 2020 Referring Provider: ANIYA HURTADO MD Attending Physician: CESIA HINOJOSA MD Consultation Referring physician / PCP : Dr. Aniya Hurtado Reason for consult: upper GI bleeding. HPI: 44 year old female patient with prolonged hospitalization since 01/23/20 due to Acute respiratory failure and prolonged ventilation now s/p tracheostomy in Jan 2020 and PEG tube placement ( by surgery on 02/18/2020), hospital course complicated by left upper arm DVT in Axillary and basilic veins on Eliquis ( which was held since last 4 days due to melena), aspiration of tube feeds on 02/20/20 with aspiration pneumonitis, was noted with melanotic stools for the past few days. GI was consulted for the same. Patient was noted to have slight drop in Hemoglobin levels from baseline. Patient reports some generalized abdominal discomfort and on examination noted some tenderness with pressure around the PEG tube insertion site. Patient also reports some nausea but no vomiting and is able to tolerate oral diet. ( not using PEG tube). Currently on trach collar. OFF note: patient had large lower abdominal incisional hernia, reducible and containing bowel loops. Pertinent negative GI symptoms: Patient denies nausea, vomiting, abdominal pain, loss of appetite, early satiety or unintentional weight loss, hematemesis, melena or hematochezia. 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 . : No blood in urine, No burning sensation of the urine ENT: No ear discharge/ pain, No dysphagia. Eyes: No photophobia. Home medications: reviewed. No Plavix and No anticoagulants Medical h/o: As above. Surgical h/o: None on abdomen. Social h/o: Denies Alcohol, smoking, IVDA/ drugs. Family h/o of GI cancers - None Prior Endoscopies: --- EGD with PEG tube placement on 02/18/2020 by surgery team in [facility]. Prior GI evaluation: None in [facility] Exam: Vitals: reviewed General: Alert and oriented x 3, not in acute distress HEENT: No pallor, no icterus. Normal oropharynx, NO cervical lymphadenopathy. Chest: symmetric with bilateral air entry, CVS: S1, S2 heard, Abdomen: non-distended, morbidly obese, soft, mild tenderness around the PEG tube insertion site, no external bleeding, not freely moving, no rigidity or guarding, noted large incisional hernia in lower abdomen, reducible but spontaneously fills, No other palpable masses, normal bowel sounds heard. Rectal exam: Patient refused. Extremities: pulses palpable, no pedal edema, DIRECTOR [employer]: no focal motor or sensory deficits. Moves all extremities Skin: noted bilateral flank ecchymoses ( likely secondary to the Subcutaneous injections).. Labs: reviewed. Imaging: none / reviewed. Impression: -- Acute onset melanotic stools with drop in hemoglobin and hematocrit in patient on ICU with prolonged hospital course and on anticoagulants and PEG tube placement DDx- Likely PUD with bleeding vs rule out AVMs vs stress gastritis. -- Bilateral flank echymoses with palpable subcutaneous small hematomas ( likely multifactorial - Subcutaneous injections and use of anticoagulation). Recommendations: -- Patient educated about the prior test results and all questions answered. -- Keep NPO for now. -- Monitor Hemoglobin and hematocrit and transfuse as needed. -- Avoid NSAIDs. Hold eliquis if not contraindicated for now. -- Give IV pantoprazole 40 mg twice daily for now. -- Will schedule for urgent EGD for further evaluation. -- Patient educated about the procedure(s), indications, risks (including but not limited to bleeding, infection, perforation, anesthesia risks, including ), benefits and all alternatives including conservative measures without intervention. Patient verbalized understanding and consented for the procedure(s). -- Please follow operative note for post procedure recommendations. -- Plan of care educated to patient and patient verbalized understanding and agreed. All questions answered. -- Recommendations communicated to primary team. Patient to follow with PCP upon discharge for routine medical care. Vital Signs/I&O Vital Signs Date Time Temp Pulse Resp B/P (MAP) Pulse Ox O2 Delivery O2 Flow Rate FiO2 03/01/20 06:00 21 03/01/20 04:28 16 03/01/20 04:00 97.4 108 112/67 (82) 98 Ventilator 02/29/20 20:00 5.0 I&O- Last 24 Hours up to 6 AM 03/01/20 06:00 Intake Total 1880 ml Output Total 3865 ml Balance -1985 ml Laboratory Data Labs 24H Laboratory Tests 2 02/29/20 17:40: Bedside Glucose (Misc Panel) 117H 02/29/20 20:43: Bedside Glucose (Misc Panel) 92 03/01/20 07:48: Immature Granulocyte % (Auto) , Neutrophils (%) (Auto) , Nucleated Red Blood Cells % (auto) 0.7H, Neutrophils 57, Band Neutrophils 4, Lymphocytes (Manual) 31, Monocytes (Manual) 1, Eosinophils (Manual) 1, Metamyelocytes 4H, Myelocytes 2H, Anisocytosis 1+, Microcytosis , Macrocytosis 1+, Platelet Estimate NORMAL, Anion Gap 9, Glomerular Filtration Rate > 60.0, Calcium Level 8.6 03/01/20 11:39: Blood Gas Bicarbonate Standard 14.7L, Arterial Blood pH 7.236*L, Arterial Blood Partial Pressure CO2 33.3L, Arterial Blood Partial Pressure O2 94.5, Arterial Blood Total CO2 14.8L, Arterial Blood HCO3 13.8L, Arterial Blood Base Excess - 12.5L, Arterial Blood Oxygen Saturation 97.2 03/01/20 12:28: Bedside Glucose (Misc Panel) 128H CBC/BMP Laboratory Tests 03/01/20 07:48 Microbiology Microbiology 02/20/20 Gram Stain - Final, Complete 02/20/20 Sputum Culture - Final, Complete 02/20/20 Blood Culture - Final, Complete NO GROWTH AFTER 5 DAYS 02/20/20 Blood Culture - Final, Complete NO GROWTH AFTER 5 DAYS Allergies Coded Allergies: insulin lispro (Verified Allergy, Intermediate, HIVES,EYE SWELLING, 01/23/20) codeine (Verified Allergy, Unknown, hives, 01/23/20) Sulfa (Sulfonamide Antibiotics) (Verified Adverse Reaction, Unknown, "it affected my liver", 01/23/20) Home Medications Scheduled Amlodipine Besylate (Amlodipine Besylate) 5 Mg Tablet, 5 MG PO DAILY, (Reported) HAS NOT STARTED MEDICATION Atorvastatin Calcium (Atorvastatin Calcium) 40 Mg Tablet, 40 MG PO DAILY, (Reported) Fluticasone Propion/Salmeterol (Fluticasone-Salmeterol 113-14) 1 Each Aer.pow.ba, 1 PUFF INH BID, (Reported) Insulin Glargine,Hum.rec.anlog (Basaglar Kwikpen U-100) 100 Unit/1 Ml Insuln.pen, 45 UNIT SC QHS, (Reported) Levofloxacin (Levofloxacin) 250 Mg Tablet, 250 MG PO DAILY, (Reported) HAS NOT STARTED MEDICATION Lisinopril (Lisinopril) 20 Mg Tablet, 20 MG PO DAILY, (Reported) Omeprazole (Omeprazole) 40 Mg Capsule.dr, 40 MG PO DAILY, (Reported) Scheduled PRN Albuterol Sulfate (Ventolin Hfa) 18 Gm Hfa.aer.ad, 2 PUFF INH Q4H PRN for wheezing, (Reported) CESIA HINOJOSA MD Mar 01, 2020 12:44
[2020-03-01 13:00] LABS: HEMATOCRIT 38.1 % (36.0-47.0); HEMOGLOBIN 11.9 g/dl (12.0-15.5); MEAN CORPUSCULAR HEMOGLOBIN 30.4 pg (27.0-33.0); MEAN CORPUSCULAR HGB CONC 31.2 g/dl (32.0-36.5); MEAN CORPUSCULAR VOLUME 97.4 fl (80.0-96.0); PLATELET COUNT, AUTOMATED 231 10^3/uL (150-450); RED BLOOD COUNT 3.91 10^6/uL (4.00-5.40); WHITE BLOOD COUNT 12.1 10^3/uL (4.0-10.0)
[2020-03-01] MEDS ORDERED: propofoL 200 MG/20 ML VIAL As Ordered ONE (13:04)
[2020-03-01] MEDS ORDERED: PHENYLephrine 500MCG 5ML (100MCG/ML) SYRINGE As Ordered ONE (13:04)
[2020-03-01] MEDS ORDERED: LIDOCAINE 2% INJ 100 MG/5 ML SYRINGE As Ordered ONE (13:04)
[2020-03-01] MEDS ORDERED: ePHEDrine SULFATE 25 MG/5 ML(5MG/ML) SYRINGE As Ordered ONE (13:04)
[2020-03-01] MEDS ORDERED: SILVER NITRATE APPLICATOR As Ordered ONE (13:13)
[2020-03-01] MEDS ORDERED: METOCLOPRAMIDE INJ 10MG/2ML VIAL (J2765 PER 1) IV ONE (13:45)
--- NOTE | 2020-03-01 14:48 | ROOR ---
" Patient Name: Pam Varela Procedure Date: 03/01/2020 1:39 PM Date of : 1975 Age: 44 Room: ICU Gender: Female Note Status: Finalized Procedure: Upper GI endoscopy Indications: Acute post hemorrhagic anemia, Melena Providers: Travis Ramirez MD Referring MD: 2. Inpatient 2. Inpatient Requesting Provider: Medicines: Monitored Anesthesia Care Complications: No immediate complications. Procedure: Pre-Anesthesia Assessment: - Prior to the procedure, a History and Physical was performed, and patient medications and allergies were reviewed. The patient is competent. The risks and benefits of the procedure and the sedation options and risks were discussed with the patient. All questions were answered and informed consent was obtained. Patient identification and proposed procedure were verified by the physician, the nurse and the anesthesiologist in the procedure room. Mental Status Examination: alert and oriented. Airway Examination: normal oropharyngeal airway and neck mobility. Respiratory Examination: clear to auscultation. CV Examination: normal. Prophylactic Antibiotics: The patient does not require prophylactic antibiotics. Prior Anticoagulants: The patient has taken Eliquis (apixaban), last dose was 3 days prior to procedure. ASA Grade Assessment: III - A patient with severe systemic disease. After reviewing the risks and benefits, the patient was deemed in satisfactory condition to undergo the procedure. The anesthesia plan was to use monitored anesthesia care (MAC). Immediately prior to administration of medications, the patient was re-assessed for adequacy to receive sedatives. The heart rate, respiratory rate, oxygen saturations, blood pressure, adequacy of pulmonary ventilation, and response to care were monitored throughout the procedure. The physical status of the patient was re-assessed after the procedure. The Endoscope was introduced through the mouth, and advanced to the second part of duodenum. The upper GI endoscopy was accomplished without difficulty. The patient tolerated the procedure well. Findings: The examined esophagus was normal. There was evidence of an eroding gastrostomy tube present on the anterior wall of the gastric body. This was characterized by |congestion, edema and ulceration|. The Gastrostomy tube bumper was repositioned using a rat tooth grasping forceps. One non-obstructing non-bleeding cratered gastric ulcer of moderate to significant severity with a clean ulcer base (Gianluca Class III) was found on the anterior wall of the gastric body, at the PEG tube inner bumper site. The lesion was 15 mm in largest dimension. There is no evidence of perforation. A large amount of food (residue) was found in the gastric fundus, in the gastric body and in the gastric antrum. No gross lesions were noted in the duodenal bulb and in the second portion of the duodenum. Impression: - Normal esophagus. - Gastrostomy tube present, with internal bumper aroding into anterior abdominal wall, characterized by congestion, edema and ulceration. The Gastrostomy tube bumper was repositioned using a rat tooth grasping forceps. - Non-obstructing non-bleeding gastric ulcer with a clean ulcer base (Gianluca Class III). There is no evidence of perforation. - A large amount of food (residue) in the stomach. - No gross lesions in the duodenal bulb and in the second portion of the duodenum. - No specimens collected. Recommendation: - Patient has a contact number available for emergencies. The signs and symptoms of potential delayed complications were discussed with the patient. Return to normal activities tomorrow. Written discharge instructions were provided to the patient. - NPO for 1 day, then advance as tolerated to clear liquid diet for 1 day. - Advance diet as tolerated after 48 hours of above. - Continue present medications. - Use sucralfate suspension 1 gram through PEG tube QID for 4 weeks. - Use Protonix (pantoprazole) 40 mg PO twice daily - to be taken in morning (1/2 hour before breakfast) and at bedtime ( atleast 3 hours after last meal) for 8 weeks. - Resume Eliquis (apixaban) at prior dose in 2 days. Refer to primary physician for further adjustment of therapy. - Return to primary care physician. Procedure Code(s): --- Professional --- 17799, Esophagogastroduodenoscopy, flexible, transoral; diagnostic, including collection of specimen(s) by brushing or washing, when performed (separate procedure) Diagnosis Code(s): --- Professional --- K94.23, Gastrostomy malfunction K25.9, Gastric ulcer, unspecified as acute or chronic, without hemorrhage or perforation D62, Acute posthemorrhagic anemia K92.1, Melena (includes Hematochezia) CPT copyright 2019 [employer]. All rights reserved. The codes documented in this report are preliminary and upon deputy coroner investigator review may be revised to meet current compliance requirements. Travis Ramirez MD Travis Ramirez MD 03/01/2020 2:48:36 PM Electronically signed by Travis Ramirez MD Number of Addenda: 0 Note Initiated On: 03/01/2020 1:39 PM Estimated Blood Loss: Estimated blood loss: none."
[2020-03-01] MEDS: clonazePAM 0.5 MG TAB PO PRN (20:22)
[2020-03-01] MEDS: LEVEMIR (INSULIN DETEMIR) 1 UNITS/0.01ML SC SCH (20:26)
[2020-03-02] VITALS (13 sets, daily range): BP systolic 81–122; BP diastolic 50–62; O2SAT 98
[2020-03-02] MEDS: METOCLOPRAMIDE INJ 10MG/2ML VIAL (J2765 PER 1) IV SCH ×3 (00:35→17:50)
[2020-03-02] MEDS: IPRATROPIUM 0.5MG/ALBUTEROL 2.5MG INH SOL UD 3ML (DUONEB) NEB SCH ×5 (04:00→20:13)
[2020-03-02 05:29] LABS: HEMATOCRIT 34.7 % (36.0-47.0); HEMOGLOBIN 10.6 g/dl (12.0-15.5); MEAN CORPUSCULAR HEMOGLOBIN 30.4 pg (27.0-33.0); MEAN CORPUSCULAR HGB CONC 30.5 g/dl (32.0-36.5); MEAN CORPUSCULAR VOLUME 99.4 fl (80.0-96.0); PLATELET COUNT, AUTOMATED 210 10^3/uL (150-450); RED BLOOD COUNT 3.49 10^6/uL (4.00-5.40); WHITE BLOOD COUNT 10.7 10^3/uL (4.0-10.0)
[2020-03-02 05:46] LABS: BLOOD UREA NITROGEN 49 MG/DL (7-18); CALCIUM LEVEL 8.6 MG/DL (8.5-10.1); CARBON DIOXIDE LEVEL 16 MEQ/L (21-32); CHLORIDE LEVEL 116 MEQ/L (98-107); CREATININE FOR GFR 1.09 MG/DL (0.55-1.30); GLOMERULAR FILTRATION RATE > 60.0 (>58); GLUCOSE, FASTING 129 MG/DL (70-100); POTASSIUM SERUM 4.1 MEQ/L (3.5-5.1); SODIUM LEVEL 140 MEQ/L (136-145)
[2020-03-02] MEDS: HumuLIN R (REGULAR) INSULIN (NovoLIN R) **100U/ML** PER UNIT SC SCH ×4 (05:48→23:43)
[2020-03-02 05:55] LABS: ABG BASE EXCESS -13.1 (-2.0-2.0); ABG HCO3 12.3 MEQ/L (22.0-26.0); ABG O2 SATURATION 98.7 % (95.0-99.0); ABG PARTIAL PRESSURE CO2 27.2 mmHg (35.0-45.0); ABG PARTIAL PRESSURE O2 135.2 mmHg (75.0-100.0); ABG STANDARD HCO3 14.2 MEQ/L (22.0-26.0); ABG TOTAL CO2 13.1 MEQ/L (22.0-29.0); ABG pH (ARTERIAL) 7.272 UNITS (7.350-7.450)
[2020-03-02 06:09] LABS: ATYPICAL LYMPH 1 % (0-5); BASOPHILS 1 % (0-1); EOSINOPHILS 4 % (0-3); LYMPHOCYTES 18 % (16-44); METAMYELOCYTES 1 % (0-0); MONOCYTES 2 % (0-5); MYELOCYTES 2 % (0-0); NEUTROPHILS 69 % (28-66); PLATELET ESTIMATE NORMAL (NORMAL); POLYCHROMASIA 1+
[2020-03-02] MEDS: SUCRALFATE SUSP 1GM/10ML UD GT SCH ×4 (06:10→23:42)
[2020-03-02] MEDS: SODIUM CHLORIDE 0.9% INJ 10 ML SYR IV SCH ×2 (06:10→17:51)
[2020-03-02] MEDS: ANEXSIA, NORCO 7.5MG/325MG TABLET(HYDROCODONE/APAP) PO PRN ×2 (06:11→12:32)
[2020-03-02] MEDS: BUDESONIDE 0.5 MG/2 ML INHALATION SUSPENSION INH SCH ×2 (07:54→20:13)
[2020-03-02] MEDS: CHLORHEXIDINE GLUCONATE 0.12 % 15ML UDC (PERIDEX ORAL RINSE) MT SCH ×2 (09:00→20:32)
[2020-03-02] MEDS: metroNIDAZOLE 500 MG in IV 1 EA IV SCH ×3 (09:14→23:42)
[2020-03-02] MEDS: CEFEPIME HCL 1 GM in D5W MINI-BAG PLUS 50 ML IV SCH ×2 (09:14→20:32)
[2020-03-02] MEDS: busPIRone 5 MG TAB NG SCH ×3 (12:31→20:31)
[2020-03-02] MEDS: PANTOPRAZOLE 40MG VIAL (C9113 PER 1) IV SCH ×2 (12:32→23:42)
--- NOTE | 2020-03-02 15:01 | IPNPDOC ---
Text Note Date of Service The patient was seen on 03/02/20. NOTE SUBJECTIVE: -No fever or chills. -Back on trach collar this AM -EGD+ showed deep ulcer at PEG insertion site per Dr. Ramirez and he repositioned it yesterday --> slightly tugged overnight with some leakage around it -> per surgery to keep her NPO today and start nutrition tomorrow. OBJECTIVE: General: Alert, Cooperative, NAD this AM while nursing was giving her care. Mor bidly obese Eyes: EOMI, anicteric ENT: Tongue Midline,tracheostomy in place, on trach collar Neck: Supple Chest: Diminished, with some transmitted upper airway sounds Heart: Tachycardic, Regular Rhythm, Normal S1, Normal S2 Abdomen: Obese, Hyperactive bowel sounds, Soft, very large incisional hernia, tender, PEG in place Extremities: Disproportionately thin thighs and legs as well as upper extrem ities with significant muscle wasting Skin: has large stage 4 sacral decubitus ulcer as well as bilateral ischial ulcers as well Neuro Exam: Positive: Normal Speech, 2/5 power in the lower ex and 3/5 in the upper extremities Psych Exam: Positive: AO x 3 Labs and imaging: reviewed Assessment: 44 y.o W w/ prolonged hospitalization since 01/23/20 due to acute respiratory failure and prolonged ventilation now s/p trach & PEG with course c/b left upper arm DVT Axillary and basilic veins on 02/08/20, aspiration of tube feeds on 02/20/20 with aspiration pneumonitis and GIB 2/2 PEG site ulcer. GIB 2/2 PEG site ulcer. -s/p EGD with Dr. Newsome that showed PEG site ulceration, not high risk for p erf per GI -CT abd did not show any definite obstruction or strangulation of the hernia or features of bowel ischemia -continue cefipime and metronidazole. -Eliquis held, per GI may resume 03/03 PM if no further significant bleeding occurs -continue IV pantoprazole for 48h BID, and sucralfate. Then switch to PO Metabolic acidosis -Nonanion gap from Diarrhea and GIB and unable to compensate, continues to have low bicarb may be from G tube drainage Had Hypotension due to GIB and acidosis: resolved Acute on chronic Respiratory failure with hypoxia and hypercarbia -2/2 Obesity hypoventilation & Asthma -Needed prolonged intubation and ventilation now s/p trach with Passy-beatrice valve & PEG. -Was back on vent support due to severe combined metabolic and respiratory acidosis, now back to trach collar during the day and pressure support at night. -Budesonide nebs and duonebs. Aspiration Pneumonitis -treated. Critical care myopathy with functional quadriparesis -severe loss of muscle mass in the upper and lower extremities. -Bilateral MPO boots, Back care. -Continued rehab. HTN with hypertensive heart disease -Resume norvasc and metoprolol as BP rises DM -Lispro and levemir. -FS Ac and HS. -Hypoglycemia protocol Diastolic CHF -Volume difficult to block handler with her body habitus. No edema. Morbid obesity -with Obesity hypoventilation now has tracheostomy. complicating care s/p left arm DVT earlier in hospitalization -eliquis stopped due to GIB. -will plan to resume 20 PM if no further bleeding Depression an insomnia -cont buspirone Pressure ulcers -Large sacral decubitus ulcer -skin tears on bilateral buttocks, coccyx and right upper back. -speciality mattress, 2 hour repositioning. MPO boots. -Pain control with [place]. -Dr Fischer on board VS,Fishbone, I+O VS, Fishbone, I+O Laboratory Tests 03/02/20 05:00 Vital Signs Date Time Temp Pulse Resp B/P (MAP) Pulse Ox O2 Delivery O2 Flow Rate FiO2 03/02/20 13:02 22 03/02/20 12:00 5.0 28 03/02/20 12:00 97.6 106 95/52 (66) 100 Trach Collar I&O- Last 24 Hours up to 6 AM 03/02/20 06:00 Intake Total 1330 ml Output Total 2009 ml Balance -680 ml GABY SPARKS MD Mar 02, 2020 15:01
[2020-03-02 16:47] LABS: C REACTIVE PROTEIN QUANTITATIV 1.04 MG/DL (0.00-0.30)
[2020-03-02] MEDS: LEVEMIR (INSULIN DETEMIR) 1 UNITS/0.01ML SC SCH (20:41)
[2020-03-02] MEDS: RAMELTEON 8 MG TAB (ROZEREM) PO PRN (20:52)
[2020-03-02] MEDS: clonazePAM 0.5 MG TAB PO PRN (20:52)
[2020-03-03] VITALS (7 sets, daily range): BP systolic 91–122; BP diastolic 54–72; O2SAT 100
[2020-03-03] MEDS: METOCLOPRAMIDE INJ 10MG/2ML VIAL (J2765 PER 1) IV SCH ×3 (01:07→16:19)
[2020-03-03] MEDS: IPRATROPIUM 0.5MG/ALBUTEROL 2.5MG INH SOL UD 3ML (DUONEB) NEB SCH ×6 (03:53→21:03)
[2020-03-03] MEDS: SODIUM CHLORIDE 0.9% INJ 10 ML SYR IV SCH ×2 (05:29→17:53)
[2020-03-03] MEDS: SUCRALFATE SUSP 1GM/10ML UD GT SCH ×3 (05:29→17:52)
[2020-03-03] MEDS: HumuLIN R (REGULAR) INSULIN (NovoLIN R) **100U/ML** PER UNIT SC SCH ×3 (05:39→17:29)
[2020-03-03 06:35] LABS: HEMATOCRIT 27.5 % (36.0-47.0); MEAN CORPUSCULAR HGB CONC 30.5 g/dl (32.0-36.5); MEAN CORPUSCULAR VOLUME 98.2 fl (80.0-96.0); PLATELET COUNT, AUTOMATED 201 10^3/uL (150-450); WHITE BLOOD COUNT 9.7 10^3/uL (4.0-10.0)
[2020-03-03 06:48] LABS: ALBUMIN 1.8 GM/DL (3.2-5.2); BILIRUBIN,TOTAL 0.3 MG/DL (0.2-1.0); CALCIUM LEVEL 8.4 MG/DL (8.5-10.1); CREATININE FOR GFR 1.31 MG/DL (0.55-1.30); GLOMERULAR FILTRATION RATE 56.4 (>58); MAGNESIUM LEVEL 1.7 MG/DL (1.8-2.4); PHOSPHORUS LEVEL 2.7 MG/DL (2.5-4.9); TOTAL PROTEIN 4.4 GM/DL (6.4-8.2)
[2020-03-03 06:59] LABS: HEMOGLOBIN 8.4 g/dl (12.0-15.5)
[2020-03-03] MEDS: BUDESONIDE 0.5 MG/2 ML INHALATION SUSPENSION INH SCH ×2 (08:37→21:03)
[2020-03-03] MEDS: metroNIDAZOLE 500 MG in IV 1 EA IV SCH (08:58)
[2020-03-03] MEDS: CHLORHEXIDINE GLUCONATE 0.12 % 15ML UDC (PERIDEX ORAL RINSE) MT SCH ×2 (08:58→20:53)
[2020-03-03] MEDS: busPIRone 5 MG TAB NG SCH ×3 (08:58→20:52)
[2020-03-03] MEDS: CEFEPIME HCL 1 GM in D5W MINI-BAG PLUS 50 ML IV SCH (10:15)
[2020-03-03] MEDS: PANTOPRAZOLE 40MG VIAL (C9113 PER 1) IV SCH (10:15)
--- NOTE | 2020-03-03 15:18 | IPNPDOC ---
Text Note Date of Service The patient was seen on 03/03/20. NOTE SUBJECTIVE: -No fever or chills. -Back on trach collar this AM -H/H dropped again to 8.4/27.5 OBJECTIVE: General: Alert, Cooperative, NAD, morbidly obese Eyes: EOMI, anicteric ENT: Tongue Midline,tracheostomy in place, on trach collar Neck: Supple Chest: Diminished, with some transmitted upper airway sounds Heart: Tachycardic, Regular Rhythm, Normal S1, Normal S2 Abdomen: Obese, Hyperactive bowel sounds, Soft, very large incisional hernia, tender, PEG in place Extremities: Disproportionately thin thighs and legs as well as upper extremities with significant muscle wasting Skin: has large stage 4 sacral decubitus ulcer as well as bilateral ischial ulcers as well Neuro Exam: Positive: Normal Speech, 2/5 power in the lower ex and 3/5 in the upper extremities Psych Exam: Positive: AO x 3 Labs and imaging: reviewed H/H dropped again significantly to 8.4/27.5 Cr bumped to 1.31 Assessment: 44 y.o W w/ prolonged hospitalization since 01/23/20 due to acute respiratory failure and prolonged ventilation now s/p trach & PEG with course c/b left upper arm DVT Axillary and basilic veins on 02/08/20, aspiration of tube feeds on 02/20/20 with aspiration pneumonitis and GIB 2/2 PEG site ulcer. GIB 2/2 PEG site ulcer. -s/p EGD with Dr. Ramirez that showed PEG site ulceration, not high risk for perf per GI -CT abd did not show any definite obstruction or strangulation of the hernia or features of bowel ischemia -continue cefipime and metronidazole, ending today. -Eliquis held, per GI may to resume if no further significant bleeding occurs, however with H/H drop will hold -continue IV pantoprazole for 48h BID, and sucralfate. Metabolic acidosis -Nonanion gap from Diarrhea and GIB and unable to compensate, continues to have low bicarb may be from G tube drainage JAZZ: likely prerenal with low PO and high robust UOP - encourage PO, will likely give blood, so will hold on fluids Had Hypotension due to GIB and acidosis: resolved Acute on chronic Respiratory failure with hypoxia and hypercarbia -2/2 Obesity hypoventilation & Asthma -Needed prolonged intubation and ventilation now s/p trach with Passy-beatrice valve & PEG. -Was back on vent support due to severe combined metabolic and respiratory acidosis, now back to trach collar during the day and pressure support at night. -Budesonide nebs and duonebs. Aspiration Pneumonitis -treated. Critical care myopathy with functional quadriparesis -severe loss of muscle mass in the upper and lower extremities. -Bilateral MPO boots, Back care. -Continued rehab. HTN with hypertensive heart disease -Resume norvasc and metoprolol as BP rises DM -Lispro and levemir. -FS Ac and HS. -Hypoglycemia protocol Diastolic CHF -Volume difficult to director voice with her body habitus. No edema. Morbid obesity -with Obesity hypoventilation now has tracheostomy. complicating care s/p left arm DVT earlier in hospitalization -eliquis stopped due to GIB. -will plan to resume 03/03 PM if no further bleeding Depression an insomnia -cont buspirone Pressure ulcers -Large sacral decubitus ulcer -skin tears on bilateral buttocks, coccyx and right upper back. -speciality mattress, 2 hour repositioning. MPO boots. -Pain control with [place]. -Dr Fischer on board VS,Fishbone, I+O VS, Fishbone, I+O Laboratory Tests 03/03/20 05:47 Vital Signs Date Time Temp Pulse Resp B/P (MAP) Pulse Ox O2 Delivery O2 Flow Rate FiO2 03/03/20 08:37 100 Trach Collar 5.0 28 03/03/20 08:00 97.3 92 16 119/61 (80) I&O- Last 24 Hours up to 6 AM 03/03/20 06:00 Intake Total 580 ml Output Total 1090 ml Balance -510 ml GABY SPARKS MD Mar 03, 2020 09:44
[2020-03-03] MEDS: RAMELTEON 8 MG TAB (ROZEREM) PO PRN (20:52)
[2020-03-03] MEDS: clonazePAM 0.5 MG TAB PO PRN (20:52)
[2020-03-03] MEDS: LEVEMIR (INSULIN DETEMIR) 1 UNITS/0.01ML SC SCH (20:53)
[2020-03-03] MEDS: NORCO, ANEXSIA 5/325MG TABLET (HYDROcodone/ACETAMINOPHEN) PO PRN (20:53)
[2020-03-04] VITALS (7 sets, daily range): BP systolic 107–128; BP diastolic 56–73; O2SAT 97
[2020-03-04] MEDS: IPRATROPIUM 0.5MG/ALBUTEROL 2.5MG INH SOL UD 3ML (DUONEB) NEB SCH ×7 (00:41→23:33)
[2020-03-04] MEDS: METOCLOPRAMIDE INJ 10MG/2ML VIAL (J2765 PER 1) IV SCH ×3 (01:21→17:05)
[2020-03-04] MEDS: PANTOPRAZOLE 40MG VIAL (C9113 PER 1) IV SCH ×3 (01:22→23:42)
[2020-03-04] MEDS: SUCRALFATE SUSP 1GM/10ML UD GT SCH ×5 (01:22→23:42)
[2020-03-04 03:13] LABS: HEMATOCRIT 28.6 % (36.0-47.0); HEMOGLOBIN 8.6 g/dl (12.0-15.5)
[2020-03-04] MEDS: HumuLIN R (REGULAR) INSULIN (NovoLIN R) **100U/ML** PER UNIT SC SCH ×4 (06:00→18:00)
[2020-03-04] MEDS: SODIUM CHLORIDE 0.9% INJ 10 ML SYR IV SCH ×2 (06:34→18:31)
[2020-03-04 06:56] LABS: CREATININE FOR GFR 1.51 MG/DL (0.55-1.30); GLOMERULAR FILTRATION RATE 47.9 (>58); POTASSIUM SERUM 3.7 MEQ/L (3.5-5.1)
[2020-03-04] MEDS: CHLORHEXIDINE GLUCONATE 0.12 % 15ML UDC (PERIDEX ORAL RINSE) MT SCH ×2 (08:01→20:30)
[2020-03-04] MEDS: busPIRone 5 MG TAB NG SCH ×3 (08:01→20:29)
[2020-03-04] MEDS: BUDESONIDE 0.5 MG/2 ML INHALATION SUSPENSION INH SCH ×2 (08:28→19:37)
[2020-03-04] MEDS: ANEXSIA, NORCO 7.5MG/325MG TABLET(HYDROCODONE/APAP) PO PRN ×3 (11:15→22:39)
--- NOTE | 2020-03-04 13:13 | IPN ---
PROGRESS NOTE DATE: 03/02/2020 SUBJECTIVE: I was asked to reevaluate Ms. Varela's G-tube. It had some drainage from around the G-tube site as well as had issues with a developing decubiti. A new bed has been ordered for her, that should help with turning her and alleviate some of the pressure. PHYSICAL EXAMINATION: She has bilious drainage around the G-tube site. There is mild erythema to the skin but no evidence of cellulitis and it is most likely inflamed secondary to drainage from this area. It is draining more now given that the pressure is off the stomach given there was some necrosis associated with tension of the gastrostomy tube up against the abdominal wall. On her perineal exam/decubiti evaluation, she has some very superficial skin breakdown at the ischial tuberosity bilaterally, however this is relatively superficial, not extending into deep tissue. The one on the sacrum, however is much deeper and probably is a Stage III ulcer, currently not infected. No evidence of cellulitis, no evidence of subcutaneous abscess at this time. There is some necrotic skin over the top of this but otherwise she has a rectal tube in place with a Leonard catheter. IMPRESSION/PLAN: The patient has currently Optifoam on the sites and these are appropriately in place. I do feel that the new bed will make a huge difference with these healing and I would recommend seeing how that works for a few days prior to proceeding with the next step which is a debridement and possible Wound-Vac, etc to help close this area which might be extremely difficult given her morbid obesity, chronic diarrhea issues, etc. In any case, from her G-tube standpoint, there will be some leakage around it as long as it has been loose. There is going to be a fine line between keeping it tight enough so that it does not leak and recreating the ulceration at the abdominal wall. I do feel at some point though that if she is tolerating a diet that proceeding with removal of this G-tube may be the appropriate next step for her.
--- NOTE | 2020-03-04 14:05 | IPNPDOC ---
Text Note Date of Service The patient was seen on 03/04/20. NOTE SUBJECTIVE: -No fever or chills. -No pressure support overnight, did well on trach collar -H/H stable -Awake, alert, asking for PO -Had old blood/melenic stool OBJECTIVE: General: Alert, Cooperative, NAD, morbidly obese Eyes: EOMI, anicteric ENT: Tongue Midline,tracheostomy in place, on trach collar Neck: Supple Chest: Diminished, with some transmitted upper airway sounds Heart: Regular Rhythm, Normal S1, Normal S2 Abdomen: Obese, Normoactive bowel sounds, Soft, very large incisional hernia, tender, PEG in place with some leakage around it Extremities: Disproportionately thin thighs and legs as well as upper extremities with significant muscle wasting Skin: has large stage 4 sacral decubitus ulcer as well as bilateral ischial ulcers as well Neuro Exam: Positive: Normal Speech, 2/5 power in the lower ex and 3/5 in the upper extremities Psych Exam: Positive: AO x 3 Labs and imaging: reviewed Hgb stable at 8.6 Cr bumped further to 1.51 Assessment: 44 y.o W w/ prolonged hospitalization since 01/23/20 due to acute respiratory failure and prolonged ventilation now s/p trach & PEG with course c/b left upper arm DVT Axillary and basilic veins on 02/08/20, aspiration of tube feeds on 02/20/20 with aspiration pneumonitis and GIB 2/2 PEG site ulcer. GIB 2/2 PEG site ulcer. -s/p EGD with Dr. Ramirez that showed PEG site ulceration, not high risk for perf per GI -CT abd did not show any definite obstruction or strangulation of the hernia or features of bowel ischemia -s/p cefepime and metronidazole -Eliquis held, per GI may to resume if no further significant bleeding occurs. Will plan to restart tomorrow AM (03/05) after H/H check -continue IV pantoprazole for 48h BID, and sucralfate. Metabolic acidosis: resolved -Nonanion gap from Diarrhea and GIB and unable to compensate, continues to have low bicarb may be from G tube drainage JAZZ: likely prerenal with low PO and high robust UOP - encourage PO, will give 1L of fluids at 100cc/hr Had Hypotension due to GIB and acidosis: resolved Acute on chronic Respiratory failure with hypoxia and hypercarbia -2/2 Obesity hypoventilation & Asthma -Needed prolonged intubation and ventilation now s/p trach with Passy-beatrice valve & PEG. -Was back on vent support due to severe combined metabolic and respiratory acidosis, now back to trach collar. -Budesonide nebs and duonebs. Aspiration Pneumonitis -treated. Critical care myopathy with functional quadriparesis -severe loss of muscle mass in the upper and lower extremities. -Bilateral MPO boots, Back care. -Continued rehab. HTN with hypertensive heart disease -Resume norvasc and metoprolol as BP rises DM -Lispro and levemir. -FS Ac and HS. 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 No edema. Morbid obesity -with Obesity hypoventilation now has tracheostomy. complicating care s/p left arm DVT earlier in hospitalization -eliquis stopped due to GIB. -will plan to resume 1/20 PM if no further bleeding Depression an insomnia -cont buspirone Pressure ulcers -Large sacral decubitus ulcer -skin tears on bilateral buttocks, coccyx and right upper back. -speciality mattress, 2 hour repositioning. MPO boots. -Pain control with [place]. -Dr Fischer on board VS,Zay[place], I+O VS, [place], I+O Laboratory Tests 03/04/20 02:51 03/04/20 06:09 Vital Signs Date Time Temp Pulse Resp B/P (MAP) Pulse Ox O2 Delivery O2 Flow Rate FiO2 03/04/20 13:00 114 20 95 Trach Collar 28 03/04/20 12:00 98.6 127/73 (91) 03/03/20 08:37 5.0 I&O- Last 24 Hours up to 6 AM 03/04/20 06:00 Intake Total 210 ml Output Total 2610 ml Balance -2400 ml GABY SPARKS MD Mar 04, 2020 14:05
[2020-03-04] MEDS: NS 1,000 ML IV SCH ×2 (16:42→22:45)
[2020-03-04] MEDS: clonazePAM 0.5 MG TAB PO PRN (20:30)
[2020-03-04] MEDS: RAMELTEON 8 MG TAB (ROZEREM) PO PRN (20:30)
[2020-03-04] MEDS: LEVEMIR (INSULIN DETEMIR) 1 UNITS/0.01ML SC SCH (21:00)
[2020-03-05] VITALS (7 sets, daily range): BP systolic 122–142; BP diastolic 60–80
[2020-03-05] MEDS: METOCLOPRAMIDE INJ 10MG/2ML VIAL (J2765 PER 1) IV SCH ×3 (00:02→16:34)
[2020-03-05] MEDS: IPRATROPIUM 0.5MG/ALBUTEROL 2.5MG INH SOL UD 3ML (DUONEB) NEB SCH ×6 (04:00→21:37)
[2020-03-05 05:32] LABS: BASO # 0.1 10^3/uL (0.0-0.2); BASO % 0.7 % (0.0-1.0); EOS # 0.1 10^3/uL (0.0-0.5); EOS % 1.3 % (0.0-3.0); HEMATOCRIT 28.2 % (36.0-47.0); HEMOGLOBIN 8.9 g/dl (12.0-15.5); LYMPH # 2.1 10^3/uL (1.5-5.0); LYMPH % 24.6 % (24.0-44.0); MEAN CORPUSCULAR HEMOGLOBIN 30.9 pg (27.0-33.0); MEAN CORPUSCULAR HGB CONC 31.6 g/dl (32.0-36.5); MEAN CORPUSCULAR VOLUME 97.9 fl (80.0-96.0); MONO % 11.4 % (0.0-5.0); NEUTROPHILS % 57.8 % (36.0-66.0); PLATELET COUNT, AUTOMATED 215 10^3/uL (150-450); RED BLOOD COUNT 2.88 10^6/uL (4.00-5.40); WHITE BLOOD COUNT 8.6 10^3/uL (4.0-10.0)
[2020-03-05] MEDS: HumuLIN R (REGULAR) INSULIN (NovoLIN R) **100U/ML** PER UNIT SC SCH ×5 (05:57→23:48)
[2020-03-05] MEDS: SUCRALFATE SUSP 1GM/10ML UD GT SCH ×3 (05:57→18:00)
[2020-03-05] MEDS: SODIUM CHLORIDE 0.9% INJ 10 ML SYR IV SCH ×2 (05:57→18:00)
[2020-03-05 06:01] LABS: CALCIUM LEVEL 8.6 MG/DL (8.5-10.1); CREATININE FOR GFR 1.41 MG/DL (0.55-1.30); GLOMERULAR FILTRATION RATE 51.8 (>58); POTASSIUM SERUM 3.8 MEQ/L (3.5-5.1)
[2020-03-05] MEDS: BUDESONIDE 0.5 MG/2 ML INHALATION SUSPENSION INH SCH ×2 (07:38→19:53)
[2020-03-05] MEDS: CHLORHEXIDINE GLUCONATE 0.12 % 15ML UDC (PERIDEX ORAL RINSE) MT SCH (08:23)
[2020-03-05] MEDS: busPIRone 5 MG TAB NG SCH ×3 (08:24→21:30)
[2020-03-05] MEDS: PANTOPRAZOLE 40MG VIAL (C9113 PER 1) IV SCH (11:57)
--- NOTE | 2020-03-05 14:22 | IPNPDOC ---
Text Note Date of Service The patient was seen on 03/05/20. NOTE SUBJECTIVE: -No fever or chills. -Doing well on trach collar -H/H stable -Awake, alert, tolerating clears OBJECTIVE: General: Alert, Cooperative, NAD, morbidly obese Eyes: EOMI, anicteric ENT: Tongue Midline,tracheostomy in place, on trach collar Neck: Supple Chest: Diminished, with some transmitted upper airway sounds, no wheezing Heart: Regular Rhythm, Normal S1, Normal S2 Abdomen: Obese, Normoactive bowel sounds, Soft, very large incisional hernia, tender, PEG in place with some leakage around it Extremities: Disproportionately thin thighs and legs as well as upper extremities with significant muscle wasting Skin: has large stage 4 sacral decubitus ulcer as well as bilateral ischial ulcers as well Neuro Exam: Positive: Normal Speech, 3/5 power in the lower ex and 4/5 in the upper extremities Psych Exam: Positive: AO x 3 Labs and imaging: reviewed Cr now downtrending, 1.41 Assessment: 44 y.o W w/ prolonged hospitalization since 01/23/20 due to acute respiratory failure and prolonged ventilation now s/p trach & PEG with course c/b left upper arm DVT Axillary and basilic veins on 02/08/20, aspiration of tube feeds on 02/20/20 with aspiration pneumonitis and GIB 2/2 PEG site ulcer. GIB 2/2 PEG site ulcer. -s/p EGD with Dr. Ramirez that showed PEG site ulceration, not high risk for perf per GI -CT abd did not show any definite obstruction or strangulation of the hernia or features of bowel ischemia -s/p cefepime and metronidazole -Eliquis held, per GI may to resume if no further significant bleeding occurs. Will restart today -switch IV pantoprazole to PO BID, and continue sucralfate. Metabolic acidosis: resolved -Nonanion gap from Diarrhea and GIB and unable to compensate, continues to have low bicarb may be from G tube drainage JAZZ: likely prerenal with low PO and high robust UOP - encourage PO, will give 1L of fluids at 100cc/hr Had Hypotension due to GIB and acidosis: resolved Acute on chronic Respiratory failure with hypoxia and hypercarbia -2/2 Obesity hypoventilation & Asthma -Needed prolonged intubation and ventilation now s/p trach with Passy-beatrice valve & PEG. -Was back on vent support due to severe combined metabolic and respiratory acidosis, now back to trach collar on 28%. -Budesonide nebs and duonebs. Aspiration Pneumonitis -treated. Critical care myopathy with functional quadriparesis -severe loss of muscle mass in the upper and lower extremities. -Bilateral MPO boots, Back care. -Continued rehab. HTN with hypertensive heart disease -Resume norvasc and metoprolol as BP rises DM -Lispro and levemir. -FS Ac and HS. 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 No edema. Morbid obesity -with Obesity hypoventilation now has tracheostomy. complicating care s/p left arm DVT earlier in hospitalization -eliquis stopped due to GIB. -will plan to resume 03/03 PM if no further bleeding Depression an insomnia -cont buspirone Pressure ulcers -Large sacral decubitus ulcer -skin tears on bilateral buttocks, coccyx and right upper back. -speciality mattress, 2 hour repositioning. MPO boots. -Pain control with [place]. -Dr Fischer on board Dispo: downgrade to medsurg VS,Fishbone, I+O VS, Fishbone, I+O Laboratory Tests 03/05/20 04:38 Vital Signs Date Time Temp Pulse Resp B/P (MAP) Pulse Ox O2 Delivery O2 Flow Rate FiO2 03/05/20 12:00 98.4 103 23 141/65 (90) 98 Trach Collar 5.0 28 I&O- Last 24 Hours up to 6 AM 03/05/20 06:00 Intake Total 1960 ml Output Total 2050 ml Balance -90 ml GABY SPARKS MD Mar 05, 2020 14:22
[2020-03-05] MEDS: LEVEMIR (INSULIN DETEMIR) 1 UNITS/0.01ML SC SCH (21:00)
[2020-03-05] MEDS: APIXABAN 5 MG TAB (ELIQUIS) PO SCH (21:31)
[2020-03-05] MEDS: PANTOPRAZOLE 40MG TAB (PROTONIX) PO SCH (21:31)
[2020-03-05] MEDS: RAMELTEON 8 MG TAB (ROZEREM) PO PRN (21:34)
[2020-03-05] MEDS: NORCO, ANEXSIA 5/325MG TABLET (HYDROcodone/ACETAMINOPHEN) PO PRN (21:36)
[2020-03-05] MEDS: clonazePAM 0.5 MG TAB PO PRN (21:37)
[2020-03-06] MEDS: SUCRALFATE SUSP 1GM/10ML UD GT SCH ×4 (00:18→17:57)
[2020-03-06] MEDS: CHLORHEXIDINE GLUCONATE 0.12 % 15ML UDC (PERIDEX ORAL RINSE) MT SCH ×3 (00:19→21:19)
[2020-03-06] MEDS: METOCLOPRAMIDE INJ 10MG/2ML VIAL (J2765 PER 1) IV SCH ×3 (00:35→17:55)
[2020-03-06] MEDS: SODIUM CHLORIDE 0.9% INJ 10 ML SYR IV PRN (00:37)
[2020-03-06] MEDS: IPRATROPIUM 0.5MG/ALBUTEROL 2.5MG INH SOL UD 3ML (DUONEB) NEB SCH ×5 (03:15→20:12)
[2020-03-06] MEDS: SODIUM CHLORIDE 0.9% INJ 10 ML SYR IV SCH ×2 (05:19→17:56)
[2020-03-06 06:00] VITALS: BP 138/75
[2020-03-06] MEDS: HumuLIN R (REGULAR) INSULIN (NovoLIN R) **100U/ML** PER UNIT SC SCH ×3 (06:00→17:57)
[2020-03-06 06:50] LABS: BASO # 0.1 10^3/uL (0.0-0.2); BASO % 0.6 % (0.0-1.0); EOS # 0.1 10^3/uL (0.0-0.5); EOS % 1.3 % (0.0-3.0); HEMATOCRIT 29.1 % (36.0-47.0); LYMPH % 25.6 % (24.0-44.0); MEAN CORPUSCULAR HEMOGLOBIN 30.3 pg (27.0-33.0); MEAN CORPUSCULAR HGB CONC 30.9 g/dl (32.0-36.5); MONO % 12.9 % (0.0-5.0); NEUTROPHILS # 4.4 10^3/uL (1.5-8.5); NEUTROPHILS % 56.4 % (36.0-66.0); PLATELET COUNT, AUTOMATED 235 10^3/uL (150-450); RED BLOOD COUNT 2.97 10^6/uL (4.00-5.40); WHITE BLOOD COUNT 7.8 10^3/uL (4.0-10.0)
[2020-03-06 07:18] LABS: CALCIUM LEVEL 8.5 MG/DL (8.5-10.1); CREATININE FOR GFR 1.27 MG/DL (0.55-1.30); GLOMERULAR FILTRATION RATE 58.4 (>58); POTASSIUM SERUM 3.6 MEQ/L (3.5-5.1)
[2020-03-06] MEDS: BUDESONIDE 0.5 MG/2 ML INHALATION SUSPENSION INH SCH ×2 (07:22→20:12)
[2020-03-06] MEDS: busPIRone 5 MG TAB NG SCH ×3 (09:57→21:20)
[2020-03-06] MEDS: APIXABAN 5 MG TAB (ELIQUIS) PO SCH ×2 (09:57→21:20)
[2020-03-06] MEDS: PANTOPRAZOLE 40MG TAB (PROTONIX) PO SCH ×2 (09:57→21:20)
[2020-03-06] MEDS: NORCO, ANEXSIA 5/325MG TABLET (HYDROcodone/ACETAMINOPHEN) PO PRN ×2 (11:18→17:58)
--- NOTE | 2020-03-06 11:55 | IPNPDOC ---
Text Note Date of Service The patient was seen on 03/06/20. NOTE SUBJECTIVE: -No fever or chills. -Doing well on trach collar -H/H stable -Awake, alert, tolerating full liquid diet OBJECTIVE: General: Alert, Cooperative, NAD, morbidly obese Eyes: EOMI, anicteric ENT: Tongue Midline,tracheostomy in place, on trach collar Neck: Supple Chest: Diminished, with some transmitted upper airway sounds, no wheezing Heart: Regular Rhythm, Normal S1, Normal S2 Abdomen: Obese, Normoactive bowel sounds, Soft, very large incisional hernia, tender, PEG in place with some leakage around it Extremities: Disproportionately thin thighs and legs as well as upper extremities with significant muscle wasting Skin: has large stage 4 sacral decubitus ulcer as well as bilateral ischial ulcers as well Neuro: Positive: Normal Speech, 3/5 power in the lower ex and 4/5 in the upper extremities Psych: Positive: AO x 3 Labs and imaging: reviewed Assessment: 44 y.o W w/ prolonged hospitalization since 01/23/20 due to acute respiratory failure and prolonged ventilation now s/p trach & PEG with course c/b left upper arm DVT Axillary and basilic veins on 02/08/20, aspiration of tube feeds on 02/20/20 with aspiration pneumonitis and GIB 2/2 PEG site ulcer. GIB 2/2 PEG site ulcer: resolved at this time -s/p EGD with Dr. Ramirez that showed PEG site ulceration, not high risk for perf per GI -CT abd did not show any definite obstruction or strangulation of the hernia or features of bowel ischemia -s/p cefepime and metronidazole -Eliquis held when she had the bleeding, restarted now -Pantoprazole PO BID and sucralfate. -Surgery following, likely to DC PEG if she continues to do well with PO diet Metabolic acidosis: resolved -Nonanion gap from Diarrhea and GIB and unable to compensate, continues to have low bicarb may be from G tube drainage JAZZ: likely prerenal with low PO and high robust UOP, resolving -Continue to encourage PO Had Hypotension due to GIB and acidosis: resolved Acute on chronic Respiratory failure with hypoxia and hypercarbia -2/2 Obesity hypoventilation & Asthma -Needed prolonged intubation and ventilation now s/p trach with Passy-beatrice valve & PEG. -Was back on vent support due to severe combined metabolic and respiratory acidosis, now back to trach collar on 28%. -Budesonide nebs and duonebs. Aspiration Pneumonitis -treated. Critical care myopathy with functional quadriparesis -severe loss of muscle mass in the upper and lower extremities. -Bilateral MPO boots, Back care. -Continued rehab. HTN with hypertensive heart disease -Resume norvasc and metoprolol as BP rises DM -Lispro and levemir. -FS Ac and HS. 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 No edema. Morbid obesity -with Obesity hypoventilation now has tracheostomy. complicating care s/p left arm DVT earlier in hospitalization -eliquis stopped due to GIB. -will plan to resume 03/03 PM if no further bleeding Depression an insomnia -cont buspirone Pressure ulcers -Large sacral decubitus ulcer -skin tears on bilateral buttocks, coccyx and right upper back. -speciality mattress, 2 hour repositioning. MPO boots. -Pain control with [place]. -Dr Fischer on board Dispo: Medsurg VS,Fishbone, I+O VS, Fishbone, I+O Laboratory Tests 03/06/20 06:32 Vital Signs Date Time Temp Pulse Resp B/P (MAP) Pulse Ox O2 Delivery O2 Flow Rate FiO2 03/06/20 06:00 97.2 102 22 138/75 (96) 97 Trach Collar 5.0 03/05/20 22:00 28 I&O- Last 24 Hours up to 6 AM 03/06/20 06:00 Intake Total 2050 ml Output Total 2750 ml Balance -700 ml GABY SPARKS MD Mar 06, 2020 09:24
[2020-03-06 14:00] VITALS: BP 142/74
[2020-03-06] MEDS: LEVEMIR (INSULIN DETEMIR) 1 UNITS/0.01ML SC SCH (21:00)
[2020-03-06 22:00] VITALS: BP 133/73
[2020-03-07] MEDS: SUCRALFATE SUSP 1GM/10ML UD GT SCH ×5 (00:02→23:22)
[2020-03-07] MEDS: NORCO, ANEXSIA 5/325MG TABLET (HYDROcodone/ACETAMINOPHEN) PO PRN ×3 (00:02→19:01)
[2020-03-07] MEDS: METOCLOPRAMIDE INJ 10MG/2ML VIAL (J2765 PER 1) IV SCH ×3 (00:07→18:03)
[2020-03-07] MEDS: SODIUM CHLORIDE 0.9% INJ 10 ML SYR IV PRN (00:08)
[2020-03-07] MEDS: IPRATROPIUM 0.5MG/ALBUTEROL 2.5MG INH SOL UD 3ML (DUONEB) NEB SCH ×7 (00:25→23:10)
[2020-03-07] MEDS: SODIUM CHLORIDE 0.9% INJ 10 ML SYR IV SCH ×2 (05:35→18:03)
[2020-03-07 06:00] VITALS: BP 135/78
[2020-03-07 06:58] LABS: BASO % 0.6 % (0.0-1.0); EOS # 0.1 10^3/uL (0.0-0.5); EOS % 1.3 % (0.0-3.0); HEMATOCRIT 30.5 % (36.0-47.0); HEMOGLOBIN 9.3 g/dl (12.0-15.5); LYMPH # 2.2 10^3/uL (1.5-5.0); LYMPH % 31.7 % (24.0-44.0); MEAN CORPUSCULAR HEMOGLOBIN 29.8 pg (27.0-33.0); MEAN CORPUSCULAR HGB CONC 30.5 g/dl (32.0-36.5); MEAN CORPUSCULAR VOLUME 97.8 fl (80.0-96.0); MONO # 0.8 10^3/uL (0.0-0.8); MONO % 11.8 % (0.0-5.0); NEUTROPHILS # 3.6 10^3/uL (1.5-8.5); NEUTROPHILS % 52.9 % (36.0-66.0); PLATELET COUNT, AUTOMATED 240 10^3/uL (150-450); RED BLOOD COUNT 3.12 10^6/uL (4.00-5.40); WHITE BLOOD COUNT 6.9 10^3/uL (4.0-10.0)
[2020-03-07 07:17] LABS: BLOOD UREA NITROGEN 58 MG/DL (7-18); CALCIUM LEVEL 8.9 MG/DL (8.5-10.1); CARBON DIOXIDE LEVEL 18 MEQ/L (21-32); CHLORIDE LEVEL 115 MEQ/L (98-107); CREATININE FOR GFR 1.23 MG/DL (0.55-1.30); GLOMERULAR FILTRATION RATE > 60.0 (>58); GLUCOSE, FASTING 104 MG/DL (70-100); POTASSIUM SERUM 3.6 MEQ/L (3.5-5.1); SODIUM LEVEL 144 MEQ/L (136-145)
[2020-03-07] MEDS: BUDESONIDE 0.5 MG/2 ML INHALATION SUSPENSION INH SCH ×2 (07:29→20:04)
[2020-03-07] MEDS: HumuLIN R (REGULAR) INSULIN (NovoLIN R) **100U/ML** PER UNIT SC SCH ×4 (07:30→21:00)
[2020-03-07] MEDS: CHLORHEXIDINE GLUCONATE 0.12 % 15ML UDC (PERIDEX ORAL RINSE) MT SCH ×2 (09:01→21:56)
[2020-03-07] MEDS: APIXABAN 5 MG TAB (ELIQUIS) PO SCH ×2 (09:02→21:57)
[2020-03-07] MEDS: PANTOPRAZOLE 40MG TAB (PROTONIX) PO SCH ×2 (09:02→21:57)
[2020-03-07] MEDS: busPIRone 5 MG TAB NG SCH ×3 (09:02→21:57)
--- NOTE | 2020-03-07 13:04 | IPNPDOC ---
Text Note Date of Service The patient was seen on 03/07/20. NOTE SUBJECTIVE: -No fever or chills. -Doing well on trach collar -Awake, alert, tolerating consistent carb diet -c/o pain at the sacral wound. OBJECTIVE: General: Alert, Cooperative, NAD, morbidly obese Eyes: EOMI, anicteric ENT: Tongue Midline,tracheostomy in place, on trach collar Neck: Supple Chest: Diminished, with some transmitted upper airway sounds, no wheezing Heart: Regular Rhythm, Normal S1, Normal S2 Abdomen: Obese, Normoactive bowel sounds, Soft, very large incisional hernia, tender, PEG in place with some leakage around it Extremities: Disproportionately thin thighs and legs as well as upper extremities with significant muscle wasting Skin: has large stage 4 sacral decubitus ulcer as well as bilateral ischial ulcers as well Neuro: Positive: Normal Speech, 3/5 power in the lower ex and 4/5 in the upper extremities Psych: Positive: AO x 3 Labs and imaging: reviewed Assessment: 44 y.o W w/ prolonged hospitalization since 01/23/20 due to acute respiratory failure and prolonged ventilation now s/p trach & PEG with course c/b left upper arm DVT Axillary and basilic veins on 02/08/20, aspiration of tube feeds on 02/20/20 with aspiration pneumonitis and GIB 2/2 PEG site ulcer. GIB 2/2 PEG site ulcer: resolved at this time -s/p EGD with Dr. Ramirez that showed PEG site ulceration, not high risk for perf per GI -CT abd did not show any definite obstruction or strangulation of the hernia or features of bowel ischemia -s/p cefepime and metronidazole -Eliquis held when she had the bleeding, restarted now -Pantoprazole PO BID and sucralfate. -Surgery following, likely to DC PEG as she is doing well with PO diet Metabolic acidosis: resolved -Nonanion gap from Diarrhea and GIB and unable to compensate, continues to have low bicarb may be from G tube drainage JAZZ: likely prerenal with low PO and high robust UOP, resolving -Continue to encourage PO Had Hypotension due to GIB and acidosis: resolved Acute on chronic Respiratory failure with hypoxia and hypercarbia -2/2 Obesity hypoventilation & Asthma -Needed prolonged intubation and ventilation now s/p trach with Passy-beatrice valve & PEG. -Was back on vent support due to severe combined metabolic and respiratory acidosis, now back to trach collar on 28%. -Budesonide nebs and duonebs. Aspiration Pneumonitis -treated. Critical care myopathy with functional quadriparesis -severe loss of muscle mass in the upper and lower extremities. -Bilateral MPO boots, Back care. -Continued rehab. HTN with hypertensive heart disease -Resume norvasc and metoprolol as BP rises DM -Lispro and levemir. -FS Ac and HS. 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 No edema. Morbid obesity -with Obesity hypoventilation now has tracheostomy. complicating care s/p left arm DVT earlier in hospitalization -eliquis stopped due to GIB, resumed 03/06, doing well. Depression an insomnia -cont buspirone Pressure ulcers -Large sacral decubitus ulcer -skin tears on bilateral buttocks, coccyx and right upper back. -speciality mattress, 2 hour repositioning. MPO boots. -Pain control with [place]. -Dr Fischer on board Dispo: Medsurg VS,Fishbone, I+O VS, Fishbone, I+O Laboratory Tests 03/07/20 06:28 Vital Signs Date Time Temp Pulse Resp B/P (MAP) Pulse Ox O2 Delivery O2 Flow Rate FiO2 03/07/20 09:45 18 03/07/20 09:00 5.0 28 03/07/20 06:00 98.0 16 135/78 (97) 97 Trach Collar I&O- Last 24 Hours up to 6 AM 03/07/20 06:00 Intake Total 1690 ml Output Total 2600 ml Balance -910 ml GABY SPARKS MD Mar 07, 2020 13:04
[2020-03-07] MEDS ORDERED: oxyCODONE 5MG TAB PO ONE (13:15)
[2020-03-07 14:00] VITALS: BP 134/66
[2020-03-07] MEDS: LEVEMIR (INSULIN DETEMIR) 1 UNITS/0.01ML SC SCH (21:00)
[2020-03-07 22:00] VITALS: BP 149/89
[2020-03-07] MEDS: clonazePAM 0.5 MG TAB PO PRN (23:22)
[2020-03-07] MEDS: RAMELTEON 8 MG TAB (ROZEREM) PO PRN (23:23)
[2020-03-08] MEDS: METOCLOPRAMIDE INJ 10MG/2ML VIAL (J2765 PER 1) IV SCH ×3 (01:28→17:19)
[2020-03-08] MEDS: SODIUM CHLORIDE 0.9% INJ 10 ML SYR IV PRN ×2 (01:29→09:28)
[2020-03-08] MEDS: IPRATROPIUM 0.5MG/ALBUTEROL 2.5MG INH SOL UD 3ML (DUONEB) NEB SCH ×6 (03:00→23:32)
[2020-03-08] MEDS: SUCRALFATE SUSP 1GM/10ML UD GT SCH ×3 (05:24→17:18)
[2020-03-08] MEDS: SODIUM CHLORIDE 0.9% INJ 10 ML SYR IV SCH ×2 (05:25→17:18)
[2020-03-08 06:00] VITALS: BP 131/68
[2020-03-08 06:51] LABS: BASO # 0.1 10^3/uL (0.0-0.2); BASO % 0.8 % (0.0-1.0); EOS # 0.1 10^3/uL (0.0-0.5); EOS % 1.3 % (0.0-3.0); HEMATOCRIT 27.5 % (36.0-47.0); HEMOGLOBIN 8.6 g/dl (12.0-15.5); LYMPH % 33.1 % (24.0-44.0); MEAN CORPUSCULAR HEMOGLOBIN 30.6 pg (27.0-33.0); MEAN CORPUSCULAR HGB CONC 31.3 g/dl (32.0-36.5); MEAN CORPUSCULAR VOLUME 97.9 fl (80.0-96.0); MONO # 0.8 10^3/uL (0.0-0.8); MONO % 12.4 % (0.0-5.0); NEUTROPHILS # 3.1 10^3/uL (1.5-8.5); NEUTROPHILS % 50.7 % (36.0-66.0); PLATELET COUNT, AUTOMATED 223 10^3/uL (150-450); RED BLOOD COUNT 2.81 10^6/uL (4.00-5.40)
[2020-03-08 07:10] LABS: BLOOD UREA NITROGEN 52 MG/DL (7-18); CALCIUM LEVEL 8.8 MG/DL (8.5-10.1); CARBON DIOXIDE LEVEL 20 MEQ/L (21-32); CHLORIDE LEVEL 115 MEQ/L (98-107); CREATININE FOR GFR 1.16 MG/DL (0.55-1.30); GLOMERULAR FILTRATION RATE > 60.0 (>58); GLUCOSE, FASTING 115 MG/DL (70-100); POTASSIUM SERUM 3.2 MEQ/L (3.5-5.1); SODIUM LEVEL 142 MEQ/L (136-145)
[2020-03-08] MEDS: HumuLIN R (REGULAR) INSULIN (NovoLIN R) **100U/ML** PER UNIT SC SCH ×4 (07:30→20:53)
[2020-03-08] MEDS: BUDESONIDE 0.5 MG/2 ML INHALATION SUSPENSION INH SCH ×2 (07:56→19:45)
[2020-03-08] MEDS ORDERED: POTASSIUM CHLORIDE 10 MEQ SR TABLET PO ONE (09:00)
[2020-03-08] MEDS: CHLORHEXIDINE GLUCONATE 0.12 % 15ML UDC (PERIDEX ORAL RINSE) MT SCH ×2 (09:23→21:06)
[2020-03-08] MEDS: APIXABAN 5 MG TAB (ELIQUIS) PO SCH ×2 (09:24→21:06)
[2020-03-08] MEDS: PANTOPRAZOLE 40MG TAB (PROTONIX) PO SCH ×2 (09:24→21:06)
[2020-03-08] MEDS: busPIRone 5 MG TAB NG SCH ×3 (09:24→21:06)
[2020-03-08] MEDS: ANEXSIA, NORCO 7.5MG/325MG TABLET(HYDROCODONE/APAP) PO PRN (10:52)
--- NOTE | 2020-03-08 18:42 | IPNPDOC ---
Text Note Date of Service The patient was seen on 03/08/20. NOTE SUBJECTIVE: -No fever or chills. -Doing well on trach collar -Tolerating consistent carb diet OBJECTIVE: General: Alert, Cooperative, NAD, morbidly obese Eyes: EOMI, anicteric ENT: Tongue Midline,tracheostomy in place, on trach collar Neck: Supple Chest: Diminished, with some transmitted upper airway sounds, no wheezing Heart: Regular Rhythm, Normal S1, Normal S2 Abdomen: Obese, Normoactive bowel sounds, Soft, very large incisional hernia, tender, PEG in place with some leakage around it Extremities: Disproportionately thin thighs and legs as well as upper extremities with significant muscle wasting Skin: has large stage 4 sacral decubitus ulcer as well as bilateral ischial ulcers as well Neuro: Positive: Normal Speech, 3/5 power in the lower ex and 4/5 in the upper extremities Psych: Positive: AO x 3 Labs and imaging: reviewed Assessment: 44 y.o W w/ prolonged hospitalization since 01/23/20 due to acute respiratory failure and prolonged ventilation now s/p trach & PEG with course c/b left upper arm DVT Axillary and basilic veins on 02/08/20, aspiration of tube feeds on 02/20/20 with aspiration pneumonitis and GIB 2/2 PEG site ulcer. GIB 2/2 PEG site ulcer: resolved at this time -s/p EGD with Dr. Ramirez that showed PEG site ulceration, not high risk for perf per GI -CT abd did not show any definite obstruction or strangulation of the hernia or features of bowel ischemia -s/p cefepime and metronidazole -Eliquis held when she had the bleeding, restarted now doing well with stable H/H -Pantoprazole PO BID and sucralfate. -Surgery following, to DC PEG as she is doing well with PO diet Metabolic acidosis: resolved -Nonanion gap from Diarrhea and GIB and unable to compensate, continues to have low bicarb may be from G tube drainage JAZZ: likely prerenal with low PO and high robust UOP, resolved. Had Hypotension due to GIB and acidosis: resolved Acute on chronic Respiratory failure with hypoxia and hypercarbia -2/2 Obesity hypoventilation & Asthma -Needed prolonged intubation and ventilation now s/p trach with Passy-beatrice valve & PEG. -Was back on vent support due to severe combined metabolic and respiratory acidosis, now back to trach collar on %. -Budesonide nebs and duonebs. Aspiration Pneumonitis -treated. Critical care myopathy with functional quadriparesis -severe loss of muscle mass in the upper and lower extremities. -Bilateral MPO boots, Back care. -Continued rehab. HTN with hypertensive heart disease -Resume norvasc and metoprolol as BP rises DM -Lispro and levemir. -FS Ac and HS. 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 No edema. Morbid obesity -with Obesity hypoventilation now has tracheostomy. complicating care s/p left arm DVT earlier in hospitalization -eliquis stopped due to GIB, resumed 03/06, doing well. Depression an insomnia -cont buspirone Pressure ulcers -Large sacral decubitus ulcer -skin tears on bilateral buttocks, coccyx and right upper back. -speciality mattress, 2 hour repositioning. MPO boots. -Pain control with [place]. -Dr Fischer on board Dispo: Medsurg VS,Fishbone, I+O VS, [place], I+O Laboratory Tests 03/08/20 06:19 Vital Signs Date Time Temp Pulse Resp B/P (MAP) Pulse Ox O2 Delivery O2 Flow Rate FiO2 03/08/20 07:58 Trach Collar 28 03/08/20 06:00 97.6 101 21 131/68 (89) 95 5.0 I&O- Last 24 Hours up to 6 AM 03/08/20 06:00 Intake Total 1590 ml Output Total 2050 ml Balance -460 ml GABY SPARKS MD Mar 08, 2020 08:31
[2020-03-08 19:02] VITALS: BP 143/80
[2020-03-08] MEDS: LEVEMIR (INSULIN DETEMIR) 1 UNITS/0.01ML SC SCH (20:54)
[2020-03-08] MEDS: NORCO, ANEXSIA 5/325MG TABLET (HYDROcodone/ACETAMINOPHEN) PO PRN (21:07)
[2020-03-08 22:00] VITALS: BP 143/76
[2020-03-09] MEDS: SUCRALFATE SUSP 1GM/10ML UD GT SCH ×5 (00:17→23:29)
[2020-03-09] MEDS: SODIUM CHLORIDE 0.9% INJ 10 ML SYR IV PRN ×2 (00:21→09:21)
[2020-03-09] MEDS: METOCLOPRAMIDE INJ 10MG/2ML VIAL (J2765 PER 1) IV SCH ×3 (00:21→17:47)
[2020-03-09] MEDS: IPRATROPIUM 0.5MG/ALBUTEROL 2.5MG INH SOL UD 3ML (DUONEB) NEB SCH ×6 (03:47→23:22)
[2020-03-09] MEDS: SODIUM CHLORIDE 0.9% INJ 10 ML SYR IV SCH ×2 (05:55→17:49)
[2020-03-09 06:00] VITALS: BP 133/77
[2020-03-09] MEDS: HumuLIN R (REGULAR) INSULIN (NovoLIN R) **100U/ML** PER UNIT SC SCH ×4 (07:30→21:00)
[2020-03-09 07:42] LABS: BASO % 0.8 % (0.0-1.0); EOS # 0.1 10^3/uL (0.0-0.5); EOS % 1.4 % (0.0-3.0); HEMATOCRIT 27.5 % (36.0-47.0); HEMOGLOBIN 8.5 g/dl (12.0-15.5); LYMPH # 1.7 10^3/uL (1.5-5.0); LYMPH % 33.3 % (24.0-44.0); MEAN CORPUSCULAR HGB CONC 30.9 g/dl (32.0-36.5); MEAN CORPUSCULAR VOLUME 97.2 fl (80.0-96.0); MONO # 0.5 10^3/uL (0.0-0.8); MONO % 9.8 % (0.0-5.0); NEUTROPHILS # 2.6 10^3/uL (1.5-8.5); NEUTROPHILS % 52.7 % (36.0-66.0); PLATELET COUNT, AUTOMATED 220 10^3/uL (150-450); RED BLOOD COUNT 2.83 10^6/uL (4.00-5.40)
[2020-03-09] MEDS: BUDESONIDE 0.5 MG/2 ML INHALATION SUSPENSION INH SCH ×2 (07:42→19:47)
[2020-03-09 08:05] LABS: BLOOD UREA NITROGEN 47 MG/DL (7-18); CALCIUM LEVEL 9.2 MG/DL (8.5-10.1); CARBON DIOXIDE LEVEL 20 MEQ/L (21-32); CHLORIDE LEVEL 115 MEQ/L (98-107); CREATININE FOR GFR 1.08 MG/DL (0.55-1.30); GLOMERULAR FILTRATION RATE > 60.0 (>58); GLUCOSE, FASTING 110 MG/DL (70-100); POTASSIUM SERUM 3.8 MEQ/L (3.5-5.1); SODIUM LEVEL 143 MEQ/L (136-145)
[2020-03-09] MEDS: CHLORHEXIDINE GLUCONATE 0.12 % 15ML UDC (PERIDEX ORAL RINSE) MT SCH ×2 (09:00→22:20)
[2020-03-09] MEDS: busPIRone 5 MG TAB NG SCH ×3 (09:21→22:04)
[2020-03-09] MEDS: APIXABAN 5 MG TAB (ELIQUIS) PO SCH ×2 (09:21→22:04)
[2020-03-09] MEDS: PANTOPRAZOLE 40MG TAB (PROTONIX) PO SCH ×2 (09:21→22:04)
[2020-03-09] MEDS: ANEXSIA, NORCO 7.5MG/325MG TABLET(HYDROCODONE/APAP) PO PRN ×2 (11:49→17:48)
--- NOTE | 2020-03-09 13:14 | IPNPDOC ---
Text Note Date of Service The patient was seen on 03/09/20. NOTE SUBJECTIVE: -No fever or chills. -Doing well on trach collar -Tolerating consistent carb diet OBJECTIVE: General: Alert, Cooperative, NAD, morbidly obese Eyes: EOMI, anicteric ENT: Tongue Midline,tracheostomy in place, on trach collar Neck: Supple Chest: Diminished, with some transmitted upper airway sounds, no wheezing Heart: Regular Rhythm, Normal S1, Normal S2 Abdomen: Obese, Normoactive bowel sounds, Soft, very large incisional hernia, tender, PEG in place with some leakage around it Extremities: Disproportionately thin thighs and legs as well as upper extremities with significant muscle wasting Skin: has large stage 4 sacral decubitus ulcer as well as bilateral ischial ulcers as well Neuro: Positive: Normal Speech, 3/5 power in the lower ex and 4/5 in the upper extremities Psych: Positive: AO x 3 Labs and imaging: reviewed Assessment: 44 y.o W w/ prolonged hospitalization since 01/23/20 due to acute respiratory failure and prolonged ventilation now s/p trach & PEG with course c/b left upper arm DVT Axillary and basilic veins on 02/08/20, aspiration of tube feeds on 02/20/20 with aspiration pneumonitis and GIB 2/2 PEG site ulcer. GIB 2/2 PEG site ulcer: resolved at this time -s/p EGD with Dr. Ramirez that showed PEG site ulceration, not high risk for perf per GI -CT abd did not show any definite obstruction or strangulation of the hernia or features of bowel ischemia -s/p cefepime and metronidazole -Eliquis held when she had the bleeding, restarted now doing well with stable H/H -Pantoprazole PO BID and sucralfate. -Surgery following, discussed discontinuation of PEG as she is doing well with PO diet with Dr. Campbell but he recommended leaving it in for at least a few more weeks because it was c/b an associated ulcer. Suggests that if she has to go to rehab, she should be discharged with it and have it removed by surgery in the outpatient setting. Metabolic acidosis: resolved -Nonanion gap from Diarrhea and GIB and unable to compensate, continues to have low bicarb may be from G tube drainage JAZZ: likely prerenal with low PO and high robust UOP, resolved. Had Hypotension due to GIB and acidosis: resolved Acute on chronic Respiratory failure with hypoxia and hypercarbia -2/2 Obesity hypoventilation & Asthma -Needed prolonged intubation and ventilation now s/p trach with Passy-beatrice valve & PEG. -Was back on vent support due to severe combined metabolic and respiratory acidosis, now back to trach collar on 28%. -Budesonide nebs and duonebs. Aspiration Pneumonitis -treated. Critical care myopathy with functional quadriparesis -severe loss of muscle mass in the upper and lower extremities. -Bilateral MPO boots, Back care. -Continued rehab. HTN with hypertensive heart disease -Resume norvasc and metoprolol as BP rises DM -Lispro and levemir. -FS Ac and HS. -Hypoglycemia protocol Diastolic CHF -Volume difficult to slps with her body habitus. No edema. Morbid obesity -with Obesity hypoventilation now has tracheostomy. complicating care s/p left arm DVT earlier in hospitalization -eliquis stopped due to GIB, resumed 03/06, doing well. Depression an insomnia -cont buspirone Pressure ulcers -Large sacral decubitus ulcer -skin tears on bilateral buttocks, coccyx and right upper back. -speciality mattress, 2 hour repositioning. MPO boots. -Pain control with [place]. -surgery onboard Dispo: [facility] [place], I+O VSZaynab I+O Laboratory Tests 03/09/20 07:22 Vital Signs Date Time Temp Pulse Resp B/P (MAP) Pulse Ox O2 Delivery O2 Flow Rate FiO2 03/09/20 12:30 18 03/09/20 09:00 5.0 28 03/09/20 08:34 Trach Collar 03/09/20 06:00 98.0 103 133/77 (95) 99 I&O- Last 24 Hours up to 6 AM 03/09/20 06:00 Intake Total 2070 ml Output Total 2550 ml Balance -480 ml GABY SPARKS MD Mar 09, 2020 13:14
[2020-03-09] MEDS: clonazePAM 0.5 MG TAB PO PRN (14:57)
[2020-03-09 16:37] VITALS: BP 168/87
[2020-03-09 17:56] VITALS: BP 158/86
[2020-03-09] MEDS: LEVEMIR (INSULIN DETEMIR) 1 UNITS/0.01ML SC SCH (21:00)
[2020-03-09 22:00] VITALS: BP 153/84; O2SAT 97
[2020-03-09] MEDS: METOCLOPRAMIDE 5 MG TAB PO SCH (22:06)
[2020-03-09] MEDS: NORCO, ANEXSIA 5/325MG TABLET (HYDROcodone/ACETAMINOPHEN) PO PRN (23:29)
[2020-03-10] MEDS: IPRATROPIUM 0.5MG/ALBUTEROL 2.5MG INH SOL UD 3ML (DUONEB) NEB SCH ×6 (04:04→23:14)
[2020-03-10] MEDS: SUCRALFATE SUSP 1GM/10ML UD GT SCH ×3 (05:58→17:28)
[2020-03-10 06:00] VITALS: BP 147/76
[2020-03-10] MEDS: METOCLOPRAMIDE 5 MG TAB PO SCH ×3 (06:00→21:37)
[2020-03-10] MEDS: SODIUM CHLORIDE 0.9% INJ 10 ML SYR IV SCH ×2 (06:20→17:28)
[2020-03-10 06:21] LABS: BASO % 0.7 % (0.0-1.0); EOS # 0.1 10^3/uL (0.0-0.5); EOS % 1.6 % (0.0-3.0); HEMATOCRIT 27.9 % (36.0-47.0); HEMOGLOBIN 8.6 g/dl (12.0-15.5); LYMPH % 35.8 % (24.0-44.0); MEAN CORPUSCULAR HEMOGLOBIN 29.9 pg (27.0-33.0); MEAN CORPUSCULAR HGB CONC 30.8 g/dl (32.0-36.5); MEAN CORPUSCULAR VOLUME 96.9 fl (80.0-96.0); MONO # 0.6 10^3/uL (0.0-0.8); MONO % 10.7 % (0.0-5.0); NEUTROPHILS # 2.8 10^3/uL (1.5-8.5); NEUTROPHILS % 49.8 % (36.0-66.0); PLATELET COUNT, AUTOMATED 221 10^3/uL (150-450); RED BLOOD COUNT 2.88 10^6/uL (4.00-5.40); WHITE BLOOD COUNT 5.6 10^3/uL (4.0-10.0)
[2020-03-10 06:42] LABS: BLOOD UREA NITROGEN 41 MG/DL (7-18); CALCIUM LEVEL 8.9 MG/DL (8.5-10.1); CARBON DIOXIDE LEVEL 22 MEQ/L (21-32); CHLORIDE LEVEL 114 MEQ/L (98-107); CREATININE FOR GFR 0.99 MG/DL (0.55-1.30); GLOMERULAR FILTRATION RATE > 60.0 (>58); GLUCOSE, FASTING 111 MG/DL (70-100); POTASSIUM SERUM 3.3 MEQ/L (3.5-5.1); SODIUM LEVEL 143 MEQ/L (136-145)
[2020-03-10] MEDS: HumuLIN R (REGULAR) INSULIN (NovoLIN R) **100U/ML** PER UNIT SC SCH ×4 (07:30→21:38)
[2020-03-10] MEDS: BUDESONIDE 0.5 MG/2 ML INHALATION SUSPENSION INH SCH ×2 (07:45→19:54)
[2020-03-10] MEDS ORDERED: POTASSIUM CHLORIDE 10 MEQ SR TABLET PO ONE (08:00)
[2020-03-10] MEDS: CHLORHEXIDINE GLUCONATE 0.12 % 15ML UDC (PERIDEX ORAL RINSE) MT SCH ×2 (09:00→21:37)
[2020-03-10] MEDS: busPIRone 5 MG TAB NG SCH ×3 (10:06→21:37)
[2020-03-10] MEDS: APIXABAN 5 MG TAB (ELIQUIS) PO SCH ×2 (10:07→21:37)
[2020-03-10] MEDS: PANTOPRAZOLE 40MG TAB (PROTONIX) PO SCH ×2 (10:07→21:37)
[2020-03-10] MEDS: ANEXSIA, NORCO 7.5MG/325MG TABLET(HYDROCODONE/APAP) PO PRN ×2 (12:34→18:50)
[2020-03-10 14:00] VITALS: BP 140/74
[2020-03-10] MEDS: LEVEMIR (INSULIN DETEMIR) 1 UNITS/0.01ML SC SCH (21:37)
[2020-03-10 22:00] VITALS: BP 130/76
--- NOTE | 2020-03-10 22:42 | IPNPDOC ---
Subjective Date Seen The patient was seen on 03/10/20. Subjective Chief Complaint/HPI Ms. Varela is a 44 year old female who's here with acute hypercapnic hypoxemic respiratory failure s/p peg and trach. Trach was placed by Dr. Garcia on 02/02/2020. PEG was placed by Dr. Campbell on 02/18/2020. This morning, she was seen sleeping in her bed. Denies chest pain or dyspnea. Objective Physical Examination General Exam: Positive: Alert, Cooperative Eye Exam: Negative: Sclera icteric ENT Exam: Positive: Other ENT (tracheostomy) Neck Exam: Positive: Other (Trach in place. Short neck) Chest Exam: Positive: Diminished Heart Exam: Positive: Rate Normal, Regular Rhythm, Normal S1, Normal S2 Abdomen Exam: Positive: Normal bowel sounds, Soft, Hernia (very large incisional hernias.), Other (PEG placed epigastric area) Extremity Exam: Positive: Other (significant loss of muscle mass in both the thighs and legs and also inteh upper extremities. ); Negative: Clubbing, Cyanosis, Edema Skin Exam: Positive: Other skin issue (sacral decubitii) Assessment /Plan Assessment Ms. Varela is a 44 year old female who's here with acute hypercapnic hypoxemic respiratory failure s/p peg and trach. Trach was placed by Dr. Garcia on 02/02/2020. PEG was placed by Dr. Campbell on 02/18/2020. Of note, her hospital course has been complicated by left upper arm DVT (axillary and basilic veins) on 02/08/20 and aspiration of tube feeds on 02/20/2020. She has completed course of antibiotics for the aspiration pneumonia She was on anticoagulation, but developed a GIB 2/2 to PEG site ulcer. Eliquis was initially held. GIB resolved and patient was restarted on Eliquis and continues with pantoprazole BID and sucralfate. Patient can tolerate PO diet, but general surgery recommends patient to continue PEG tube for a few more weeks due to associated ulcer. To be seen outpatient for removal by general surgery. Otherwise, patient is medically stable to discharge to rehab. Planning for rehab tomorrow. Plan/VTE VTE Prophylaxis Ordered?: Yes Plan 1. GIB 2/2 PEG site ulcer -Resolved -Continue Pantoprazole PO BID and sucralfate -Can tolerate an oral diet. Will need to see general surgery in a few weeks to discuss outpatient removal of PEG tube. 2. Acute on chronic respiratory failure with hypoxia and hypercarbia -2/2 obesity hypoventilation syndrome and asthma -Now has trach collar -Budesonide and duonebs 3. Aspiration pneumonitis -Treated 4. Critical care myopathy with functional quadriparesis -Bilateral MPO boots, Back care -Rehab 5. JAZZ -Resolved 6. DM -Levemir and insulin sliding scale 7. Left arm DVT -On Eliquis 8. Morbid obesity -BMI 47.3 9. DVT ppx -Eliquis VS, I&O, 24H, Fishbone Vital Signs/I&O Vital Signs Date Time Temp Pulse Resp B/P (MAP) Pulse Ox O2 Delivery O2 Flow Rate FiO2 03/10/20 19:20 22 Trach Collar 5.0 28 03/10/20 14:00 98.1 98 140/74 (96) 100 I&O- Last 24 Hours up to 6 AM 03/10/20 06:00 Intake Total 1540 ml Output Total 2700 ml Balance -1160 ml Laboratory Data 24H LABS Laboratory Tests 2 03/10/20 06:02: Immature Granulocyte % (Auto) 1.4, Neutrophils (%) (Auto) 49.8, Lymphocytes (%) (Auto) 35.8, Monocytes (%) (Auto) 10.7H, Eosinophils (%) (Auto) 1.6, Basophils (%) (Auto) 0.7, Neutrophils # (Auto) 2.8, Lymphocytes # (Auto) 2.0, Monocytes # (Auto) 0.6, Eosinophils # (Auto) 0.1, Basophils # (Auto) 0.0, Nucleated Red Blood Cells % (auto) 0.0, Anion Gap 7L, Glomerular Filtration Rate > 60.0, Calcium Level 8.9 03/10/20 11:39: Bedside Glucose (Misc Panel) 131H 03/10/20 14:51: Coronavirus (COVID-19)(PCR) NEGATIVE 03/10/20 17:08: Bedside Glucose (Misc Panel) 168H 03/10/20 20:04: Bedside Glucose (Misc Panel) 127H CBC/BMP Laboratory Tests 03/10/20 06:02 MELANY CROWELL DO Mar 10, 2020 22:42
[2020-03-11] MEDS ORDERED: HYDR-3715 PO (00:02)
[2020-03-11] MEDS ORDERED: NYST10006 TOP (00:02)
[2020-03-11] MEDS ORDERED: PERI12LIQ MT (00:02)
[2020-03-11] MEDS ORDERED: BUSP5TA NG (00:02)
[2020-03-11] MEDS ORDERED: INSURSD SC (00:02)
[2020-03-11] MEDS ORDERED: RAME8TAB2 PO (00:02)
[2020-03-11] MEDS ORDERED: IPRA0.00 NEB (00:02)
[2020-03-11] MEDS ORDERED: METO5TAB2 PO (00:02)
[2020-03-11] MEDS ORDERED: ELIQ5TAB PO (00:02)
[2020-03-11] MEDS ORDERED: SUCR1ORA GT (00:02)
[2020-03-11] MEDS ORDERED: PANT40TA29 PO (00:02)
[2020-03-11] MEDS ORDERED: ONDA4TAB6 SL (00:02)
[2020-03-11] MEDS ORDERED: BUDE0.5S6 INH (00:02)
[2020-03-11 00:45] VITALS: BP 155/96
[2020-03-11] MEDS: SUCRALFATE SUSP 1GM/10ML UD GT SCH ×4 (00:50→17:06)
[2020-03-11] MEDS: METOPROLOL TART 25 MG TABLET PO SCH ×3 (02:35→20:13)
[2020-03-11] MEDS: IPRATROPIUM 0.5MG/ALBUTEROL 2.5MG INH SOL UD 3ML (DUONEB) NEB SCH ×6 (03:15→22:35)
[2020-03-11] MEDS: SODIUM CHLORIDE 0.9% INJ 10 ML SYR IV PRN (05:40)
[2020-03-11] MEDS: SODIUM CHLORIDE 0.9% INJ 10 ML SYR IV SCH ×2 (05:40→17:07)
[2020-03-11] MEDS: METOCLOPRAMIDE 5 MG TAB PO SCH ×3 (05:41→22:28)
[2020-03-11] MEDS: ANEXSIA, NORCO 7.5MG/325MG TABLET(HYDROCODONE/APAP) PO PRN ×2 (05:41→20:14)
[2020-03-11 06:00] VITALS: BP 157/94
[2020-03-11] MEDS: BUDESONIDE 0.5 MG/2 ML INHALATION SUSPENSION INH SCH ×2 (06:27→20:06)
[2020-03-11 06:45] VITALS: O2SAT 98
[2020-03-11 09:05] LABS: HEMATOCRIT 32.5 % (36.0-47.0); HEMOGLOBIN 10.2 g/dl (12.0-15.5); MEAN CORPUSCULAR HEMOGLOBIN 30.3 pg (27.0-33.0); MEAN CORPUSCULAR HGB CONC 31.4 g/dl (32.0-36.5); MEAN CORPUSCULAR VOLUME 96.4 fl (80.0-96.0); PLATELET COUNT, AUTOMATED 237 10^3/uL (150-450); RED BLOOD COUNT 3.37 10^6/uL (4.00-5.40); WHITE BLOOD COUNT 11.3 10^3/uL (4.0-10.0)
[2020-03-11] MEDS: HumuLIN R (REGULAR) INSULIN (NovoLIN R) **100U/ML** PER UNIT SC SCH ×5 (09:25→20:15)
[2020-03-11] MEDS: APIXABAN 5 MG TAB (ELIQUIS) PO SCH ×2 (09:28→20:14)
[2020-03-11] MEDS: busPIRone 5 MG TAB NG SCH ×3 (09:28→20:13)
[2020-03-11] MEDS: PANTOPRAZOLE 40MG TAB (PROTONIX) PO SCH ×2 (09:28→20:13)
[2020-03-11 09:29] LABS: BLOOD UREA NITROGEN 42 MG/DL (7-18); CALCIUM LEVEL 9.5 MG/DL (8.5-10.1); CARBON DIOXIDE LEVEL 20 MEQ/L (21-32); CHLORIDE LEVEL 112 MEQ/L (98-107); GLOMERULAR FILTRATION RATE > 60.0 (>58); GLUCOSE, FASTING 113 MG/DL (70-100); POTASSIUM SERUM 4.1 MEQ/L (3.5-5.1); SODIUM LEVEL 144 MEQ/L (136-145)
[2020-03-11] MEDS: CHLORHEXIDINE GLUCONATE 0.12 % 15ML UDC (PERIDEX ORAL RINSE) MT SCH ×2 (09:29→20:13)
[2020-03-11 10:18] LABS: CLOSTRIDIUM DIFFICILE PCR NEGATIVE (NEGATIVE)
[2020-03-11] MEDS ORDERED: LOPERAMIDE 2 MG CAPLET PO PRN (10:30)
[2020-03-11] MEDS: NORCO, ANEXSIA 5/325MG TABLET (HYDROcodone/ACETAMINOPHEN) PO PRN (11:23)
[2020-03-11 12:00] VITALS: BP 158/80
[2020-03-11] MEDS: ONDANSETRON 4 MG ORAL DISINTEGRATING TAB SL PRN (13:23)
--- NOTE | 2020-03-11 15:14 | IPNPDOC ---
Subjective Date Seen The patient was seen on 03/11/20. Subjective Chief Complaint/HPI Ms. Varela is a 44 year old female who's here with acute hypercapnic hypoxemic respiratory failure s/p peg and trach. Trach was placed by Dr. Garcia on 02/02/2020. PEG was placed by Dr. Campbell on 02/18/2020. Yesterday afternoon, she started to have frequent episodes of diarrhea. Checked for C.diff which was negative. This morning, she was feeling okay. Denies chest pain, dyspnea, or abdominal pain. She was tolerating food. Late morning, she was having nausea/vomiting. Initially planned for discharge to rehab, but will hold for further work up. Objective Physical Examination General Exam: Positive: Alert, Cooperative Eye Exam: Negative: Sclera icteric ENT Exam: Positive: Other ENT (tracheostomy) Neck Exam: Positive: Other (Trach in place. Short neck) Chest Exam: Positive: Diminished Heart Exam: Positive: Rate Normal, Regular Rhythm, Normal S1, Normal S2 Abdomen Exam: Positive: Normal bowel sounds, Soft, Hernia (very large incisional hernias.), Other (PEG placed epigastric area) Extremity Exam: Positive: Other (significant loss of muscle mass in both the thighs and legs and also inteh upper extremities. ); Negative: Clubbing, Cyanosis, Edema Skin Exam: Positive: Other skin issue (sacral decubitii) Assessment /Plan Assessment Ms. Varela is a 44 year old female who's here with acute hypercapnic hypoxemic respiratory failure s/p peg and trach. Trach was placed by Dr. Garcia on 02/02/2020. PEG was placed by Dr. Campbell on 02/18/2020. Of note, her hospital course has been complicated by left upper arm DVT (axillary and basilic veins) on 02/08/20 and aspiration of tube feeds on 02/20/2020. She has completed course of antibiotics for the aspiration pneumonia She was on anticoagulation, but developed a GIB 2/2 to PEG site ulcer. Eliquis was initially held. GIB resolved and patient was restarted on Eliquis and continues with pantoprazole BID and sucralfate. Patient can tolerate PO diet, but general surgery recommends patient to continue PEG tube for a few more weeks due to associated ulcer. To be seen outpatient for removal by general surgery. Yesterday, she had frequent episodes of diarrhea and late this morning she had nausea and vomiting. C.diff was negative. Other possibilities would be anxiety, gastroenteritis, or GI bleed. Hemoccult stool was positive, but hemoglobin has gone up from prior. Will check a KUB and trend CBC Plan/VTE VTE Prophylaxis Ordered?: Yes Plan 1. GIB 2/2 PEG site ulcer -Resolved -Continue Pantoprazole PO BID and sucralfate -Can tolerate an oral diet. Will need to see general surgery in a few weeks to discuss outpatient removal of PEG tube. 2. Acute on chronic respiratory failure with hypoxia and hypercarbia -2/2 obesity hypoventilation syndrome and asthma -Now has trach collar -Budesonide and duonebs 3. Aspiration pneumonitis -Treated 4. Critical care myopathy with functional quadriparesis -Bilateral MPO boots, Back care -Rehab 5. JAZZ -Resolved 6. DM -Levemir and insulin sliding scale 7. Left arm DVT -On Eliquis 8. Morbid obesity -BMI 47.3 9. DVT ppx -Eliquis Disposition: Planned for discharge this morning, but had frequent diarrhea and N/V. Negative for C.diff. Hemoccult stool positive. Will follow CBC and check a KUB. If work up is negative and feeling better tomorrow, possible discharge tomorrow. VS, I&O, 24H, [facility] Vital Signs/I&O Vital Signs Date Time Temp Pulse Resp B/P (MAP) Pulse Ox O2 Delivery O2 Flow Rate FiO2 03/11/20 12:00 99.2 88 21 158/80 (106) 91 Trach Collar 5.0 28 I&O- Last 24 Hours up to 6 AM 03/11/20 06:00 Intake Total 930 ml Output Total 2275 ml Balance -1345 ml Laboratory Data 24H LABS Laboratory Tests 2 03/10/20 17:08: Bedside Glucose (Misc Panel) 168H 03/10/20 20:04: Bedside Glucose (Misc Panel) 127H 03/11/20 00:52: Bedside Glucose (Misc Panel) 111H 03/11/20 08:41: Nucleated Red Blood Cells % (auto) 0.0, Anion Gap 12, Glomerular Filtration Rate > 60.0, Calcium Level 9.5 03/11/20 09:09: Clostridium difficile [id number] PRESUMPTIVE NEGATIVE, Clostridium difficile Toxin (PCR) NEGATIVE 03/11/20 11:52: Bedside Glucose (Misc Panel) 125H CBC/BMP Laboratory Tests 03/11/20 08:41 Microbiology Microbiology 03/11/20 Stool Occult Blood (SHENG) - Final, Complete MELANY CROWELL DO Mar 11, 2020 15:14
--- NOTE | 2020-03-11 15:19 | ECGEPIP ---
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
--- NOTE | 2020-03-11 15:32 | REP ---
INDICATION: Abdominal pain and nausea. COMPARISON: None. TECHNIQUE: Supine abdominal radiography. Three views presented. FINDINGS: The patient is rotated somewhat to the left and there is a large amount of the patient's bowel gas projecting lateral to the iliac crest. There are scattered surgical clips. Gas is seen in multiple loops of left colon and a few loops of small bowel question mild ileus. There is formed stool in the rectum. Vascular calcification is noted. IMPRESSION: Postoperative changes. Question mild ileus. Patient rotated to the left. <Electronically signed by Jamie Sevilla > 03/11/20 [id number]
[2020-03-11] MEDS: GASTROGRAFIN SOLUTION 30ML PO SCH ×2 (16:19→16:55)
--- NOTE | 2020-03-11 19:11 | REPVR ---
PROCEDURE INFORMATION: Exam: CT Abdomen And Pelvis Without Contrast Exam date and time: 03/11/2020 3:50 PM Age: 44 years old Clinical indication: Nausea and vomiting and other: Diarrhea; Additional info: Ileus, n/v with diarrhea TECHNIQUE: Imaging protocol: Computed tomography of the abdomen and pelvis without contrast. Radiation optimization: All CT scans at this facility use at least one of these dose optimization techniques: automated exposure control; mA and/or kV adjustment per patient size (includes targeted exams where dose is matched to clinical indication); or iterative reconstruction. COMPARISON: CT ABD/PEL W/PO CONTRAST ONLY 02/27/2020 11:23 AM FINDINGS: Limitations: Absence of intravenous contrast limits evaluation of vascular and visceral structures. Tubes, catheters and devices: G-tube is again noted in the stomach. Lungs: Bibasilar lung consolidation posteriorly in the lower lobes is unchanged in comparison to the prior study greater on left than right. Heart: Cardiomegaly. Coronary atherosclerosis. Liver: There are no focal liver lesions. Gallbladder and bile ducts: Cholecystectomy. Pancreas: Pancreas is not well assessed. Spleen: The spleen is normal. Adrenal glands: The adrenal glands are unremarkable. Kidneys and ureters: The kidneys are unremarkable. Stomach and bowel: There is no evidence of intestinal obstruction. There is no pericolonic inflammation or wall thickening other than probable thickening of the rectal wall. Small bowel is well as colonic loops are again seen in the left lower anterior abdominal wall hernia without evidence incarceration. Appendix: No evidence of appendicitis. Intraperitoneal space: Unremarkable. No free air. No significant fluid collection. Vasculature: There is no evidence of an infrarenal abdominal aortic aneurysm. There is marked atherosclerotic calcification. Lymph nodes: Subcentimeter periaortic/pericaval lymph nodes. Urinary bladder: The urinary bladder is decompressed by a Leonard catheter and not well assessed. Reproductive: Probable calcified leiomyoma within the uterus. Bones/joints: Unremarkable. No acute fracture. Soft tissues: Unremarkable. IMPRESSION: 1. The large and small bowel loops within the left anterior abdominal wall hernia do not appear to be incarcerated and the previously noted obstruction has resolved. There is no bowel wall thickening other than some thickening of the rectal wall. 2. Bibasilar lung consolidation which may be due to subsegmental atelectasis and/or pneumonia. Electronically signed by: Patricia Ghotra On 03/11/2020 19:10:54 PM
[2020-03-11 22:00] VITALS: BP 112/77
[2020-03-11] MEDS: LEVEMIR (INSULIN DETEMIR) 1 UNITS/0.01ML SC SCH (22:00)
[2020-03-11] MEDS: RAMELTEON 8 MG TAB (ROZEREM) PO PRN (22:28)
[2020-03-11 22:39] LABS: HEMATOCRIT 32.1 % (36.0-47.0); HEMOGLOBIN 9.6 g/dl (12.0-15.5); MEAN CORPUSCULAR HEMOGLOBIN 29.3 pg (27.0-33.0); MEAN CORPUSCULAR HGB CONC 29.9 g/dl (32.0-36.5); MEAN CORPUSCULAR VOLUME 97.9 fl (80.0-96.0); PLATELET COUNT, AUTOMATED 213 10^3/uL (150-450); RED BLOOD COUNT 3.28 10^6/uL (4.00-5.40); WHITE BLOOD COUNT 11.3 10^3/uL (4.0-10.0)
[2020-03-12] MEDS: SUCRALFATE SUSP 1GM/10ML UD GT SCH ×5 (00:23→23:02)
[2020-03-12] MEDS: IPRATROPIUM 0.5MG/ALBUTEROL 2.5MG INH SOL UD 3ML (DUONEB) NEB SCH ×6 (04:39→23:04)
[2020-03-12 05:57] LABS: BASO # 0.1 10^3/uL (0.0-0.2); BASO % 0.5 % (0.0-1.0); EOS # 0.1 10^3/uL (0.0-0.5); EOS % 0.7 % (0.0-3.0); HEMATOCRIT 30.3 % (36.0-47.0); HEMOGLOBIN 9.5 g/dl (12.0-15.5); LYMPH # 2.6 10^3/uL (1.5-5.0); MEAN CORPUSCULAR HEMOGLOBIN 30.3 pg (27.0-33.0); MEAN CORPUSCULAR HGB CONC 31.4 g/dl (32.0-36.5); MEAN CORPUSCULAR VOLUME 96.5 fl (80.0-96.0); MONO # 1.1 10^3/uL (0.0-0.8); NEUTROPHILS % 63.9 % (36.0-66.0); PLATELET COUNT, AUTOMATED 205 10^3/uL (150-450); RED BLOOD COUNT 3.14 10^6/uL (4.00-5.40)
[2020-03-12 06:00] VITALS: BP 125/70
[2020-03-12] MEDS: SODIUM CHLORIDE 0.9% INJ 10 ML SYR IV SCH ×2 (06:13→18:00)
[2020-03-12] MEDS: METOCLOPRAMIDE 5 MG TAB PO SCH ×3 (06:13→21:11)
[2020-03-12] MEDS: SODIUM CHLORIDE 0.9% INJ 10 ML SYR IV PRN (06:14)
[2020-03-12 06:24] LABS: BLOOD UREA NITROGEN 45 MG/DL (7-18); CALCIUM LEVEL 8.9 MG/DL (8.5-10.1); CARBON DIOXIDE LEVEL 20 MEQ/L (21-32); CHLORIDE LEVEL 110 MEQ/L (98-107); CREATININE FOR GFR 1.02 MG/DL (0.55-1.30); GLOMERULAR FILTRATION RATE > 60.0 (>58); GLUCOSE, FASTING 95 MG/DL (70-100); POTASSIUM SERUM 3.7 MEQ/L (3.5-5.1); SODIUM LEVEL 142 MEQ/L (136-145)
[2020-03-12] MEDS: BUDESONIDE 0.5 MG/2 ML INHALATION SUSPENSION INH SCH ×2 (07:22→20:02)
[2020-03-12] MEDS: HumuLIN R (REGULAR) INSULIN (NovoLIN R) **100U/ML** PER UNIT SC SCH ×5 (07:30→21:00)
[2020-03-12] MEDS: CHLORHEXIDINE GLUCONATE 0.12 % 15ML UDC (PERIDEX ORAL RINSE) MT SCH ×2 (09:33→23:02)
[2020-03-12] MEDS: PANTOPRAZOLE 40MG TAB (PROTONIX) PO SCH ×2 (09:33→21:11)
[2020-03-12] MEDS: APIXABAN 5 MG TAB (ELIQUIS) PO SCH ×2 (09:33→21:11)
[2020-03-12] MEDS: busPIRone 5 MG TAB NG SCH ×3 (09:33→21:12)
[2020-03-12] MEDS: METOPROLOL TART 25 MG TABLET PO SCH ×2 (09:33→21:18)
[2020-03-12] MEDS: ANEXSIA, NORCO 7.5MG/325MG TABLET(HYDROCODONE/APAP) PO PRN ×2 (12:29→18:16)
[2020-03-12] MEDS: LOPERAMIDE 2 MG CAPLET PO PRN ×2 (12:57→23:01)
[2020-03-12 14:00] VITALS: BP 114/63
[2020-03-12] MEDS: clonazePAM 0.5 MG TAB PO PRN (16:47)
--- NOTE | 2020-03-12 18:38 | IPNPDOC ---
Subjective Date Seen The patient was seen on 03/12/20. Subjective Chief Complaint/HPI Ms. Varela is a 44 year old female who's here with acute hypercapnic hypoxemic respiratory failure s/p peg and trach. Trach was placed by Dr. Garcia on 02/02/2020. PEG was placed by Dr. Campbell on 02/18/2020. Overnight she continued to have continuous diarrhea. Patient did not want rectal tube. This morning, she was still having frequent diarrhea. CT abd/pelvis did not demonstrate ileus that KUB suggested. Otherwise, patient denies chest pain or dyspnea. She reports her appetite is poor. Objective Physical Examination General Exam: Positive: Alert, Cooperative Eye Exam: Negative: Sclera icteric ENT Exam: Positive: Other ENT (tracheostomy) Neck Exam: Positive: Other (Trach in place. Short neck) Chest Exam: Positive: Diminished Heart Exam: Positive: Rate Normal, Regular Rhythm, Normal S1, Normal S2 Abdomen Exam: Positive: Normal bowel sounds, Soft, Hernia (very large incisional hernias.), Other (PEG placed epigastric area) Extremity Exam: Positive: Other (significant loss of muscle mass in both the thighs and legs and also inteh upper extremities. ); Negative: Clubbing, Cyanosis, Edema Skin Exam: Positive: Other skin issue (sacral decubitii) Assessment /Plan Assessment Ms. Varela is a 44 year old female who's here with acute hypercapnic hypoxemic respiratory failure s/p peg and trach. Trach was placed by Dr. Garcia on 02/02/2020. PEG was placed by Dr. Campbell on 02/18/2020. Of note, her hospital course has been complicated by left upper arm DVT (axillary and basilic veins) on 02/08/20 and aspiration of tube feeds on 02/20/2020. She has completed course of antibiotics for the aspiration pneumonia She was on anticoagulation, but developed a GIB 2/2 to PEG site ulcer. Eliquis was initially held. GIB resolved and patient was restarted on Eliquis and continues with pantoprazole BID and sucralfate. Patient can tolerate PO diet, but general surgery recommends patient to continue PEG tube for a few more weeks due to associated ulcer. To be seen outpatient for removal by general surgery. Yesterday, she had frequent episodes of diarrhea and late this morning she had nausea and vomiting. C.diff was negative. Other possibilities would be gastroenteritis, or GI bleed. Hemoccult stool was positive, but hemoglobin has gone up from prior and remains stable. Diarrhea continues to be frequent and continuous Plan/VTE VTE Prophylaxis Ordered?: Yes Plan 1. GIB 2/2 PEG site ulcer -Resolved -Continue Pantoprazole PO BID and sucralfate -Can tolerate an oral diet. Will need to see general surgery in a few weeks to discuss outpatient removal of PEG tube. 2. Acute on chronic respiratory failure with hypoxia and hypercarbia -2/2 obesity hypoventilation syndrome and asthma -Now has trach collar -Budesonide and duonebs 3. Aspiration pneumonitis -Treated 4. Critical care myopathy with functional quadriparesis -Bilateral MPO boots, Back care -Rehab 5. JAZZ -Resolved 6. DM -Levemir and insulin sliding scale 7. Left arm DVT -On Eliquis 8. Morbid obesity -BMI 47.3 9. Diarrhea -Unclear etiology. Initially was constipated, now having continuous diarrhea. -C.diff negative -No fecal ball to suggest overflow diarrhea -Imodium 10. DVT ppx -Eliquis VS, I&O, 24H, [facility] Vital Signs/I&O Vital Signs Date Time Temp Pulse Resp B/P (MAP) Pulse Ox O2 Delivery O2 Flow Rate FiO2 03/12/20 18:16 18 03/12/20 14:00 98.0 77 114/63 (80) 98 Trach Collar 5.0 03/12/20 09:00 28 I&O- Last 24 Hours up to 6 AM 03/12/20 05:59 Intake Total 690 ml Output Total 725 ml Balance -35 ml Laboratory Data 24H LABS Laboratory Tests 2 03/11/20 20:04: Bedside Glucose (Misc Panel) 110H 03/11/20 22:19: Nucleated Red Blood Cells % (auto) 0.0 03/12/20 05:43: Nucleated Red Blood Cells % (auto) 0.0, Immature Granulocyte % (Auto) 0.9, Neutrophils (%) (Auto) 63.9, Lymphocytes (%) (Auto) 24.0, Monocytes (%) (Auto) 1 0.0H, Eosinophils (%) (Auto) 0.7, Basophils (%) (Auto) 0.5, Neutrophils # (Auto) 7.0, Lymphocytes # (Auto) 2.6, Monocytes # (Auto) 1.1H, Eosinophils # (Auto) 0.1, Basophils # (Auto) 0.1, Anion Gap 12, Glomerular Filtration Rate > 60.0, Calcium Level 8.9 03/12/20 11:18: Bedside Glucose (Misc Panel) 113H 03/12/20 16:26: Bedside Glucose (Misc Panel) 100 CBC/BMP Laboratory Tests 03/11/20 22:19 03/12/20 05:43 Microbiology Microbiology 03/11/20 Stool Occult Blood (SHENG) - Final, Complete MELANY CROWELL DO Mar 12, 2020 18:38
[2020-03-12 22:00] VITALS: BP 120/72
[2020-03-12] MEDS: NYSTATIN 500,000 U/5 ML SUSP UDC SS SCH (23:02)
[2020-03-12] MEDS: NORCO, ANEXSIA 5/325MG TABLET (HYDROcodone/ACETAMINOPHEN) PO PRN (23:02)
[2020-03-12 23:59] VITALS: O2SAT 96
[2020-03-13] MEDS: IPRATROPIUM 0.5MG/ALBUTEROL 2.5MG INH SOL UD 3ML (DUONEB) NEB SCH ×5 (04:16→18:08)
[2020-03-13 06:00] VITALS: BP 115/62
[2020-03-13 06:21] LABS: BASO % 0.4 % (0.0-1.0); EOS # 0.1 10^3/uL (0.0-0.5); EOS % 1.1 % (0.0-3.0); HEMOGLOBIN 9.3 g/dl (12.0-15.5); LYMPH # 2.7 10^3/uL (1.5-5.0); LYMPH % 30.2 % (24.0-44.0); MEAN CORPUSCULAR HEMOGLOBIN 30.2 pg (27.0-33.0); MEAN CORPUSCULAR VOLUME 97.4 fl (80.0-96.0); MONO % 10.8 % (0.0-5.0); NEUTROPHILS % 56.6 % (36.0-66.0); PLATELET COUNT, AUTOMATED 195 10^3/uL (150-450); RED BLOOD COUNT 3.08 10^6/uL (4.00-5.40); WHITE BLOOD COUNT 8.9 10^3/uL (4.0-10.0)
[2020-03-13] MEDS: SUCRALFATE SUSP 1GM/10ML UD GT SCH ×4 (06:34→23:29)
[2020-03-13] MEDS: METOCLOPRAMIDE 5 MG TAB PO SCH ×3 (06:34→22:15)
[2020-03-13] MEDS: SODIUM CHLORIDE 0.9% INJ 10 ML SYR IV SCH ×2 (06:35→18:06)
[2020-03-13 06:43] LABS: BLOOD UREA NITROGEN 45 MG/DL (7-18); CALCIUM LEVEL 8.4 MG/DL (8.5-10.1); CARBON DIOXIDE LEVEL 21 MEQ/L (21-32); CHLORIDE LEVEL 111 MEQ/L (98-107); CREATININE FOR GFR 1.12 MG/DL (0.55-1.30); GLOMERULAR FILTRATION RATE > 60.0 (>58); GLUCOSE, FASTING 104 MG/DL (70-100); POTASSIUM SERUM 3.6 MEQ/L (3.5-5.1); SODIUM LEVEL 143 MEQ/L (136-145)
[2020-03-13] MEDS: NORCO, ANEXSIA 5/325MG TABLET (HYDROcodone/ACETAMINOPHEN) PO PRN ×2 (06:44→23:39)
[2020-03-13] MEDS: HumuLIN R (REGULAR) INSULIN (NovoLIN R) **100U/ML** PER UNIT SC SCH ×4 (07:30→22:16)
[2020-03-13] MEDS: BUDESONIDE 0.5 MG/2 ML INHALATION SUSPENSION INH SCH ×2 (08:00→18:08)
[2020-03-13] MEDS: NYSTATIN 500,000 U/5 ML SUSP UDC SS SCH ×3 (08:40→22:14)
[2020-03-13] MEDS: CHLORHEXIDINE GLUCONATE 0.12 % 15ML UDC (PERIDEX ORAL RINSE) MT SCH ×2 (08:40→22:14)
[2020-03-13] MEDS: APIXABAN 5 MG TAB (ELIQUIS) PO SCH ×2 (08:41→22:15)
[2020-03-13] MEDS: METOPROLOL TART 25 MG TABLET PO SCH ×2 (08:41→22:16)
[2020-03-13] MEDS: PANTOPRAZOLE 40MG TAB (PROTONIX) PO SCH ×2 (08:41→22:15)
[2020-03-13] MEDS: busPIRone 5 MG TAB NG SCH ×3 (08:41→22:15)
[2020-03-13] MEDS: ONDANSETRON 4 MG ORAL DISINTEGRATING TAB SL PRN (09:31)
[2020-03-13] MEDS: ANEXSIA, NORCO 7.5MG/325MG TABLET(HYDROCODONE/APAP) PO PRN ×2 (12:55→18:44)
[2020-03-13 14:00] VITALS: BP 106/67
[2020-03-13] MEDS: LOPERAMIDE 2 MG CAPLET PO PRN (16:10)
[2020-03-13] MEDS: clonazePAM 0.5 MG TAB PO PRN (16:10)
--- NOTE | 2020-03-13 18:23 | IPNPDOC ---
Subjective Date Seen The patient was seen on 03/13/20. Subjective Chief Complaint/HPI Ms. Varela is a 44 year old female who's here with acute hypercapnic hypoxemic respiratory failure s/p peg and trach. Trach was placed by Dr. Garcia on 02/02/2020. PEG was placed by Dr. Campbell on 02/18/2020. Patient was given Imodium and diarrhea has slowed down. Otherwise this morning, she reported nausea. Appetite is poor. Denies chest pain or dyspnea. Objective Physical Examination General Exam: Positive: Alert, Cooperative Eye Exam: Negative: Sclera icteric ENT Exam: Positive: Other ENT (tracheostomy) Neck Exam: Positive: Other (Trach in place. Short neck) Chest Exam: Positive: Diminished Heart Exam: Positive: Rate Normal, Regular Rhythm, Normal S1, Normal S2 Abdomen Exam: Positive: Normal bowel sounds, Soft, Hernia (very large incisional hernias.), Other (PEG placed epigastric area) Extremity Exam: Positive: Other (significant loss of muscle mass in both the thighs and legs and also inteh upper extremities. ); Negative: Clubbing, Cyanosis, Edema Skin Exam: Positive: Other skin issue (sacral decubitii) Assessment /Plan Assessment Ms. Varela is a 44 year old female who's here with acute hypercapnic hypoxemic respiratory failure s/p peg and trach. Trach was placed by Dr. Garcia on 02/02/2020. PEG was placed by Dr. Campbell on 02/18/2020. Of note, her hospital cour se has been complicated by left upper arm DVT (axillary and basilic veins) on 02/08/20 and aspiration of tube feeds on 02/20/2020. She has completed course of antibiotics for the aspiration pneumonia She was on anticoagulation, but developed a GIB 2/2 to PEG site ulcer. Eliquis was initially held. GIB resolved and patient was restarted on Eliquis and continues with pantoprazole BID and sucralfate. Patient can tolerate PO diet, but general surgery recommends patient to continue PEG tube for a few more weeks due to associated ulcer. To be seen outpatient for removal by general surgery. Yesterday, she had frequent episodes of diarrhea and late this morning she had nausea and vomiting. C.diff was negative. Other possibilities would be gastroenteritis or GI bleed. Hemoccult stool was positive, but hemoglobin has gone up from prior and remains stable. Diarrhea improved with Imodium. Otherwise, patient will need placement Plan/VTE VTE Prophylaxis Ordered?: Yes Plan 1. GIB 2/2 PEG site ulcer -Resolved -Continue Pantoprazole PO BID and sucralfate -Can tolerate an oral diet. Will need to see general surgery in a few weeks to discuss outpatient removal of PEG tube. 2. Acute on chronic respiratory failure with hypoxia and hypercarbia -2/2 obesity hypoventilation syndrome and asthma -Now has trach collar -Budesonide and duonebs 3. Aspiration pneumonitis -Treated 4. Critical care myopathy with functional quadriparesis -Bilateral MPO boots, Back care -Rehab 5. JAZZ -Resolved 6. DM -Levemir and insulin sliding scale 7. Left arm DVT -On Eliquis 8. Morbid obesity -BMI 47.3 9. Diarrhea -Unclear etiology. Initially was constipated, now having continuous diarrhea. -C.diff negative -No fecal ball to suggest overflow diarrhea -Imodium 10. DVT ppx -Eliquis Disposition:Placement VS, I&O, 24H, [facility] Vital Signs/I&O Vital Signs Date Time Temp Pulse Resp B/P (MAP) Pulse Ox O2 Delivery O2 Flow Rate FiO2 03/13/20 14:00 97.2 90 18 106/67 (80) 86 Trach Collar 5.0 03/13/20 09:00 28 I&O- Last 24 Hours up to 6 AM 03/13/20 06:00 Intake Total 945 ml Output Total 950 ml Balance -5 ml Laboratory Data 24H LABS Laboratory Tests 2 03/12/20 20:12: Bedside Glucose (Misc Panel) 107H 03/13/20 06:03: Immature Granulocyte % (Auto) 0.9, Neutrophils (%) (Auto) 56.6, Lymphocytes (%) (Auto) 30.2, Monocytes (%) (Auto) 10.8H, Eosinophils (%) (Auto) 1.1, Basophils (%) (Auto) 0.4, Neutrophils # (Auto) 5.0, Lymphocytes # (Auto) 2.7, Monocytes # (Auto) 1.0H, Eosinophils # (Auto) 0.1, Basophils # (Auto) 0.0, Nucleated Red Blood Cells % (auto) 0.0, Anion Gap 11, Glomerular Filtration Rate > 60.0, Calcium Level 8.4L 1/30/21 11:51: Bedside Glucose (Misc Panel) 97 03/13/20 13:51: Urine Color YELLOW, Urine Appearance CLOUDYH, Urine pH 5.0, Urine Specific [place] 1.010, Urine Protein NEGATIVE, Urine Glucose (UA) NEGATIVE, Urine Ketones NEGATIVE, Urine Blood 2+H, Urine Nitrite NEGATIVE, Urine Bilirubin NEGAT BORIS, Urine Urobilinogen 0.2, Urine Leukocyte Esterase TRACEH, Urine WBC (Auto) 10H, Urine RBC (Auto) 32H, Urine Hyaline Casts (Auto) 1, Urine Bacteria (Auto) NEGATIVE, Urine Squamous Epithelial Cells 0, Urine Amorphous Sediment SMALLH, Urine Mucus (Auto) SMALL, Urine Sperm (Auto) 03/13/20 16:41: Bedside Glucose (Misc Panel) 85 CBC/BMP Laboratory Tests 03/13/20 06:03 Microbiology Microbiology 03/13/20 Urine Culture, Received Pending 03/11/20 Stool Occult Blood (SHENG) - Final, Complete MELANY CROWELL DO Mar 13, 2020 18:23
[2020-03-13 22:00] VITALS: BP 113/70
[2020-03-13] MEDS ORDERED: CYCLOBENZAPRINE 5MG TABLET PO ONE (22:00)
[2020-03-13 23:16] VITALS: O2SAT 96
[2020-03-14] MEDS: IPRATROPIUM 0.5MG/ALBUTEROL 2.5MG INH SOL UD 3ML (DUONEB) NEB SCH ×7 (03:23→23:02)
[2020-03-14] MEDS: SODIUM CHLORIDE 0.9% INJ 10 ML SYR IV SCH ×2 (06:07→18:19)
[2020-03-14] MEDS: SUCRALFATE SUSP 1GM/10ML UD GT SCH ×4 (06:07→23:10)
[2020-03-14] MEDS: METOCLOPRAMIDE 5 MG TAB PO SCH ×3 (06:07→22:00)
[2020-03-14] MEDS: ANEXSIA, NORCO 7.5MG/325MG TABLET(HYDROCODONE/APAP) PO PRN ×2 (06:21→23:12)
[2020-03-14] MEDS: BUDESONIDE 0.5 MG/2 ML INHALATION SUSPENSION INH SCH ×2 (07:20→18:05)
[2020-03-14] MEDS: HumuLIN R (REGULAR) INSULIN (NovoLIN R) **100U/ML** PER UNIT SC SCH ×4 (07:30→20:57)
[2020-03-14 07:44] LABS: BASO # 0.1 10^3/uL (0.0-0.2); BASO % 0.9 % (0.0-1.0); EOS # 0.1 10^3/uL (0.0-0.5); EOS % 1.5 % (0.0-3.0); HEMOGLOBIN 9.1 g/dl (12.0-15.5); LYMPH # 2.5 10^3/uL (1.5-5.0); LYMPH % 38.5 % (24.0-44.0); MEAN CORPUSCULAR HGB CONC 30.3 g/dl (32.0-36.5); MONO # 0.6 10^3/uL (0.0-0.8); MONO % 9.7 % (0.0-5.0); NEUTROPHILS # 3.2 10^3/uL (1.5-8.5); NEUTROPHILS % 48.5 % (36.0-66.0); PLATELET COUNT, AUTOMATED 177 10^3/uL (150-450); RED BLOOD COUNT 3.03 10^6/uL (4.00-5.40); WHITE BLOOD COUNT 6.5 10^3/uL (4.0-10.0)
[2020-03-14 08:05] LABS: BLOOD UREA NITROGEN 44 MG/DL (7-18); CALCIUM LEVEL 8.5 MG/DL (8.5-10.1); CARBON DIOXIDE LEVEL 22 MEQ/L (21-32); CHLORIDE LEVEL 109 MEQ/L (98-107); CREATININE FOR GFR 1.23 MG/DL (0.55-1.30); GLOMERULAR FILTRATION RATE > 60.0 (>58); GLUCOSE, FASTING 99 MG/DL (70-100); POTASSIUM SERUM 3.6 MEQ/L (3.5-5.1); SODIUM LEVEL 143 MEQ/L (136-145)
[2020-03-14] MEDS: METOPROLOL TART 25 MG TABLET PO SCH ×2 (09:00→20:54)
[2020-03-14] MEDS: busPIRone 5 MG TAB NG SCH ×3 (09:49→20:55)
[2020-03-14] MEDS: APIXABAN 5 MG TAB (ELIQUIS) PO SCH ×2 (09:49→20:54)
[2020-03-14] MEDS: NYSTATIN 500,000 U/5 ML SUSP UDC SS SCH ×3 (09:49→20:57)
[2020-03-14] MEDS: CHLORHEXIDINE GLUCONATE 0.12 % 15ML UDC (PERIDEX ORAL RINSE) MT SCH ×2 (09:49→20:55)
[2020-03-14] MEDS: PANTOPRAZOLE 40MG TAB (PROTONIX) PO SCH ×2 (09:50→20:54)
[2020-03-14] MEDS: NORCO, ANEXSIA 5/325MG TABLET (HYDROcodone/ACETAMINOPHEN) PO PRN ×2 (09:58→16:24)
[2020-03-14 11:47] VITALS: O2SAT 95
[2020-03-14 14:00] VITALS: BP 109/68
--- NOTE | 2020-03-14 16:04 | IPNPDOC ---
Subjective Date Seen The patient was seen on 03/14/20. Subjective Chief Complaint/HPI Ms. Varela is a 44 year old female who's here with acute hypercapnic hypoxemic respiratory failure s/p peg and trach. Trach was placed by Dr. Garcia on 02/02/2020. PEG was placed by Dr. Campbell on 02/18/2020. This morning, she was feeling better. Abdominal pain improved and appetite is better. Her diarrhea has slowed down. Denies chest pain or dyspnea Objective Physical Examination General Exam: Positive: Alert, Cooperative Eye Exam: Negative: Sclera icteric ENT Exam: Positive: Other ENT (tracheostomy) Neck Exam: Positive: Other (Trach in place. Short neck) Chest Exam: Positive: Diminished Heart Exam: Positive: Rate Normal, Regular Rhythm, Normal S1, Normal S2 Abdomen Exam: Positive: Normal bowel sounds, Soft, Hernia (very large incisional hernias.), Other (PEG placed epigastric area) Extremity Exam: Positive: Other (significant loss of muscle mass in both the thighs and legs and also inteh upper extremities. ); Negative: Clubbing, Cyanosis, Edema Skin Exam: Positive: Other skin issue (sacral decubitii) Assessment /Plan Assessment Ms. Varela is a 44 year old female who's here with acute hypercapnic hypoxemic respiratory failure s/p peg and trach. Trach was placed by Dr. Garcia on 02/02/2020. PEG was placed by Dr. Campbell on 02/18/2020. Of note, her hospital course has been complicated by left upper arm DVT (axillary and basilic veins) on 02/08/20 and aspiration of tube feeds on 02/20/2020. She has completed course of antibiotics for the aspiration pneumonia She was on anticoagulation, but developed a GIB 2/2 to PEG site ulcer. Eliquis was initially held. GIB resolved and patient was restarted on Eliquis and continues with pantoprazole BID and sucralfate. Patient can tolerate PO diet, but general surgery recommends patient to continue PEG tube for a few more weeks due to associated ulcer. To be seen outpatient for removal by general surgery. Yesterday, she had frequent episodes of diarrhea and late this morning she had nausea and vomiting. C.diff was negative. Other possibilities would be gastroenteritis or GI bleed. Hemoccult stool was positive, but hemoglobin has gone up from prior and remains stable. Diarrhea improved with Imodium. Otherwise, patient will need placement. Possible discharge tomorrow if continues to feel better. Plan/VTE VTE Prophylaxis Ordered?: Yes Plan 1. GIB 2/2 PEG site ulcer -Resolved -Continue Pantoprazole PO BID and sucralfate -Can tolerate an oral diet. Will need to see general surgery in a few weeks to discuss outpatient removal of PEG tube. 2. Acute on chronic respiratory failure with hypoxia and hypercarbia -2/2 obesity hypoventilation syndrome and asthma -Now has trach collar -Budesonide and duonebs 3. Aspiration pneumonitis -Treated 4. Critical care myopathy with functional quadriparesis -Bilateral MPO boots, Back care -Rehab 5. JAZZ -Resolved 6. DM -Levemir and insulin sliding scale 7. Left arm DVT -On Eliquis 8. Morbid obesity -BMI 47.3 9. Diarrhea -Unclear etiology. Initially was constipated, now having continuous diarrhea. -C.diff negative -No fecal ball to suggest overflow diarrhea -Imodium -Improved 10. DVT ppx -Eliquis Disposition: If continues to feel better, possible discharge tomorrow VS, I&O, 24H, [facility] Vital Signs/I&O Vital Signs Date Time Temp Pulse Resp B/P (MAP) Pulse Ox O2 Delivery O2 Flow Rate FiO2 03/14/20 14:00 98.7 79 18 109/68 (82) 99 Trach Collar 5.0 03/14/20 11:47 28 I&O- Last 24 Hours up to 6 AM 03/14/20 06:00 Intake Total 1620 ml Output Total 750 ml Balance 870 ml Laboratory Data 24H LABS Laboratory Tests 2 03/13/20 16:41: Bedside Glucose (Misc Panel) 85 03/13/20 20:21: Bedside Glucose (Misc Panel) 96 03/14/20 07:17: Immature Granulocyte % (Auto) 0.9, Neutrophils (%) (Auto) 48.5, Lymphocytes (%) (Auto) 38.5, Monocytes (%) (Auto) 9.7H, Eosinophils (%) (Auto) 1.5, Basophils (%) (Auto) 0.9, Neutrophils # (Auto) 3.2, Lymphocytes # (Auto) 2.5, Monocytes # (Auto) 0.6, Eosinophils # (Auto) 0.1, Basophils # (Auto) 0.1, Nucleated Red Blood Cells % (auto) 0.0, Anion Gap 12, Glomerular Filtration Rate > 60.0, Calcium Level 8.5 03/14/20 11:20: Bedside Glucose (Misc Panel) 102 CBC/BMP Laboratory Tests 03/14/20 07:17 Microbiology Microbiology 03/13/20 Urine Culture - Final, Complete 03/11/20 Stool Occult Blood (SHENG) - Final, Complete MELANY CROWELL DO Mar 14, 2020 16:04
[2020-03-14] MEDS: clonazePAM 0.5 MG TAB PO PRN (20:54)
[2020-03-14 21:10] VITALS: O2SAT 100
[2020-03-14] MEDS: VANICREAM MOISTURIZING SKIN CREAM 113GM TUBE TOP PRN (21:55)
[2020-03-14 22:00] VITALS: BP 148/87
[2020-03-14] MEDS: RAMELTEON 8 MG TAB (ROZEREM) PO PRN (23:10)
[2020-03-15] VITALS (8 sets, daily range): BP systolic 117–150; BP diastolic 61–80; O2SAT 95–99
[2020-03-15] MEDS: IPRATROPIUM 0.5MG/ALBUTEROL 2.5MG INH SOL UD 3ML (DUONEB) NEB SCH ×6 (03:45→23:38)
[2020-03-15] MEDS: METOCLOPRAMIDE 5 MG TAB PO SCH ×3 (04:32→21:15)
[2020-03-15] MEDS: SODIUM CHLORIDE 0.9% INJ 10 ML SYR IV SCH ×2 (04:32→16:50)
[2020-03-15] MEDS: SUCRALFATE SUSP 1GM/10ML UD GT SCH ×4 (05:16→23:00)
[2020-03-15] MEDS: NORCO, ANEXSIA 5/325MG TABLET (HYDROcodone/ACETAMINOPHEN) PO PRN ×2 (05:17→21:18)
[2020-03-15 06:20] LABS: HEMATOCRIT 27.3 % (36.0-47.0); HEMOGLOBIN 8.4 g/dl (12.0-15.5); MEAN CORPUSCULAR HEMOGLOBIN 29.7 pg (27.0-33.0); MEAN CORPUSCULAR HGB CONC 30.8 g/dl (32.0-36.5); MEAN CORPUSCULAR VOLUME 96.5 fl (80.0-96.0); PLATELET COUNT, AUTOMATED 185 10^3/uL (150-450); RED BLOOD COUNT 2.83 10^6/uL (4.00-5.40); WHITE BLOOD COUNT 5.4 10^3/uL (4.0-10.0)
[2020-03-15 07:14] LABS: BLOOD UREA NITROGEN 43 MG/DL (7-18); CALCIUM LEVEL 8.3 MG/DL (8.5-10.1); CARBON DIOXIDE LEVEL 23 MEQ/L (21-32); CHLORIDE LEVEL 111 MEQ/L (98-107); CREATININE FOR GFR 1.19 MG/DL (0.55-1.30); GLOMERULAR FILTRATION RATE > 60.0 (>58); GLUCOSE, FASTING 95 MG/DL (70-100); POTASSIUM SERUM 3.5 MEQ/L (3.5-5.1); SODIUM LEVEL 141 MEQ/L (136-145)
[2020-03-15] MEDS: BUDESONIDE 0.5 MG/2 ML INHALATION SUSPENSION INH SCH ×2 (07:21→20:49)
[2020-03-15] MEDS: HumuLIN R (REGULAR) INSULIN (NovoLIN R) **100U/ML** PER UNIT SC SCH ×4 (07:30→21:15)
[2020-03-15 08:26] LABS: HEMATOCRIT 27.8 % (36.0-47.0); HEMOGLOBIN 8.6 g/dl (12.0-15.5)
[2020-03-15] MEDS: NYSTATIN 500,000 U/5 ML SUSP UDC SS SCH ×3 (08:54→21:14)
[2020-03-15] MEDS: PANTOPRAZOLE 40MG TAB (PROTONIX) PO SCH ×2 (08:54→21:15)
[2020-03-15] MEDS: busPIRone 5 MG TAB NG SCH ×3 (08:54→21:14)
[2020-03-15] MEDS: APIXABAN 5 MG TAB (ELIQUIS) PO SCH ×2 (08:54→21:14)
[2020-03-15] MEDS: CHLORHEXIDINE GLUCONATE 0.12 % 15ML UDC (PERIDEX ORAL RINSE) MT SCH ×2 (08:54→22:58)
[2020-03-15] MEDS: METOPROLOL TART 25 MG TABLET PO SCH ×2 (08:55→21:16)
[2020-03-15] MEDS ORDERED: CLON0.5T2 PO (09:21)
[2020-03-15] MEDS ORDERED: METO1TAB87 PO (09:21)
[2020-03-15] MEDS ORDERED: NYST50SS SS (09:21)
--- NOTE | 2020-03-15 09:34 | DS.PDOC ---
Discharge Summary General Date of Admission Jan 23, 2020 at 16:17 Date of Discharge Mar 15, 2020 Attending Physician: MELANY CROWELL DO Specialist/Consultants [facility] Pulmonary/ICU: Dr. Pace, Dr. Hoover, Dr. Valdes, Dr. Whitfield General surgery: Dr. Campbell, Dr. Fischer GI: Dr. Ramirez ENT: Dr. Rosa Discharge Summary PROCEDURES PERFORMED DURING STAY: 1. Trach collar placed by Dr. Garcia on 02/02/2020 2. PEG placed by Dr. Campbell on 02/18/2020 3. EGD performed by Dr. Ramirez on 03/01/2020 ADMITTING DIAGNOSES: 1. Acute on chronic hypercapnic hypoxemic respiratory failure 2. Diastolic CHF exacerbation 3. Polycythemia 4. History of HIT 5. Asthma 6. IDDM 7. Hypertension 8. Sleep apnea 9. Obesity hypoventilation syndrome 10. GERD 11. HLD 12. Obesity DISCHARGE DIAGNOSES: 1. Acute on chronic hypercapnic hypoxemic respiratory failure 2. Diastolic CHF exacerbation 3. Polycythemia 4. History of HIT 5. Asthma 6. IDDM 7. Hypertension 8. Sleep apnea 9. Obesity hypoventilation syndrome 10. GERD 11. HLD 12. Obesity 13. GIB 2/2 PEG site ulcer 14. JAZZ 15. Aspiration pneumonitis 16. Critical care myopathy with functional quadriparesis 17. Acute left arm DVT 18. Depression COMPLICATIONS/CHIEF COMPLAINT: Respiratory Failure. HISTORY OF PRESENT ILLNESS: Patient is a 44-year-old -[place] female with IDDM, HTN, HLD, Morbid Obesity and nicotine dependence who presents via EMS from [facility] for further evaluation. 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 She was found to have an SPO2 in the 70s. She was promptly sent to the ED. In the ED, she complained of feeling fatigued and hot. Otherwise, she had productive cough with clear sputum. CXR demonstrated cardiomegaly with vascular congestion. She had maintained a saturation of 77% at room air and initially required bipap to maintain saturation. Admission was called for acute hypoxic hypercapnic respiratory failure. HOSPITAL COURSE: Despite being on Bipap, patient continued to worsen and Pulm/ICU decided to intubate. It was thought that her respiratory failure was due to a combination of obesity hypoventilation syndrome, mucus plugging, MSSA /Group B strep respiratory infection, and decompensated diastolic CHF. Patient was given a course of antibiotics for both the PNA and Ecoli UTI. Patient was also diuresed for the CHF. On 02/02/2020, ENT placed the trach. On 02/08/2020, she was noted to have left upper extremity swelling. US was ordered and was positive for DVT. She was started on anticoagulation. Patient also have been on tube feeds. Pulm/ICU has been in contact with the daughter and had agreed to undergo PEG tube placement on 02/18/2020. Hospital course was complicated by upper GI bleed. Dr. Ramirez performed EGD on 03/01/2020 which demonstrated non- bleeding gastric ulcer. Otherwise, patient started to tolerate oral. General surgery was contacted for possible removal of PEG tube. General surgery recommended continuing PEG tube for several weeks due to the presence of the ulcer. She can follow up outpatient for removal of the PEG tube. Otherwise, she was initially planned for discharge on 03/12/2020, but started to develop frequent diarrhea and nausea. She had continuous diarrhea, more than 13 BMs. She was constipated prior. She was tested for C.diff which was negative. CT abd/pelvis did not suggest overflow diarrhea. She was given Imodium which resolved the diarrhea. This morning, she was feeling much better. No nausea and bowel movements have reduced to about 1 to 2 BM a day. She will be sent to [facility] today. DISCHARGE MEDICATIONS: Please see below. ALLERGIES: Please see below. PHYSICAL EXAMINATION ON DISCHARGE: VITAL SIGNS: Please see below. GENERAL: Comfortable, in no apparent distress. HEENT: EOMI, sclera clear. NECK: Trach collar placed RESPIRATORY: Lungs clear to auscultation bilaterally, no rales, wheeze or rhonchi. CARDIOVASCULAR: Regular rate and rhythm. ABDOMEN: Obese, but soft. Normal bowel sounds. MUSCLE SKELETAL: Legs bilaterally have wasted away PSYCHOLOGICAL: Normal mood and affect LABORATORY DATA: Please see below. IMAGING: Radiologist interpretation CXR (01/23/2020) Moderate cardiomegaly with vascular congestion. Possible mild interstitial edema. US left upper extremity (02/08/2020) 1. Evidence for occlusive thrombus in the left axillary and basilic veins. PROGNOSIS: Good ACTIVITY: As tolerated. DIET: Consistent carbohydrate DISCHARGE PLAN: Rehab DISPOSITION: Discharge to [facility] DISCHARGE INSTRUCTIONS: 1. Follow up with your PCP within 5 days of discharge from rehabilitation 2. Follow up with pulmonology within 5 days of discharge from rehabilitation 3. Follow up with general surgery in 3 weeks for discussion about PEG DISCHARGE CONDITION: Stable Total time spent on discharge planning, discharge summary, and medication reconciliation: 70 minutes Vital Signs/I&Os Vital Signs Date Time Temp Pulse Resp B/P (MAP) Pulse Ox O2 Delivery O2 Flow Rate FiO2 03/10/20 19:20 22 Trach Collar 5.0 28 03/10/20 14:00 98.1 98 140/74 (96) 100 I&O- Last 24 Hours up to 6 AM 03/11/20 06:00 Intake Total 630 ml Output Total 1200 ml Balance -570 ml Laboratory Data Labs 24H Laboratory Tests 2 03/10/20 06:02: Immature Granulocyte % (Auto) 1.4, Neutrophils (%) (Auto) 49.8, Lymphocytes (%) (Auto) 35.8, Monocytes (%) (Auto) 10.7H, Eosinophils (%) (Auto) 1.6, Basophils (%) (Auto) 0.7, Neutrophils # (Auto) 2.8, Lymphocytes # (Auto) 2.0, Monocytes # (Auto) 0.6, Eosinophils # (Auto) 0.1, Basophils # (Auto) 0.0, Nucleated Red Blood Cells % (auto) 0.0, Anion Gap 7L, Glomerular Filtration Rate > 60.0, Calcium Level 8.9 03/10/20 11:39: Bedside Glucose (Misc Panel) 131H 03/10/20 14:51: Coronavirus (COVID-19)(PCR) NEGATIVE 03/10/20 17:08: Bedside Glucose (Misc Panel) 168H 03/10/20 20:04: Bedside Glucose (Misc Panel) 127H CBC/BMP Laboratory Tests 03/10/20 06:02 FSBS Laboratory Tests Test 03/10/20 11:39 03/10/20 17:08 03/10/20 20:04 Range/Units Bedside Glucose (Misc Panel) 131 168 127 70-105 MG/DL Discharge Medications Scheduled Apixaban (Eliquis) 5 Mg Tablet, 5 MG PO BID Budesonide (Budesonide) 0.5 Mg/2 Ml Ampul.neb, 0.5 MG INH RBID Buspirone HCl (Buspirone HCl) 5 Mg Tablet, 5 MG NG TID Chlorhexidine Gluconate (Chlorhexidine Gluconate) 473 Ml Mouthwash, 0 ML MT BID Insulin Human Regular (Humulin R) 100 Unit/1 Ml Vial, 0 UNITS SC ACHS Per sliding scale protocol Ipratropium/Albuterol Sulfate (Iprat-Albut 0.5-3(2.5) mg/3 ml) 3 Ml Ampul.neb, 3 ML NEB RQ4H Metoclopramide HCl (Metoclopramide HCl) 5 Mg Tablet, 5 MG PO Q8H Metoprolol Tartrate (Metoprolol Tartrate) 25 Mg Tablet, 25 MG PO BID Nystatin (Nystatin Oral Susp) 100,000 Unit/1 Ml Oral.susp, 5 ML SS TID Continue for 7 more days Pantoprazole Sodium (Pantoprazole Sodium) 40 Mg Tablet.dr, 40 MG PO BID Sucralfate (Sucralfate) 1 Gm/10 Ml Oral.susp, 1 GM GT ACHS Scheduled PRN Albuterol Sulfate (Ventolin Hfa) 18 Gm Hfa.aer.ad, 2 PUFF INH Q4H PRN for wheezing, (Reported) Clonazepam (Clonazepam) 0.5 Mg Tablet, 0.25 MG PO Q8HP PRN for ANXIETY/AGITATION Hydrocodone/Acetaminophen (Hydrocodone-Acetamin 5-325 mg) 1 Each Tablet, 1 TAB PO Q6HP PRN for MILD/MODERATE PAIN (PS 1-7) Nystatin (Nystop) 60 Gm Powder, 0 DOSE TOP BIDP PRN for RASH Ondansetron (Ondansetron Odt) 4 Mg Tab.rapdis, 4 MG SL Q6HP PRN for NAUSEA OR VOMITING Ramelteon (Ramelteon) 8 Mg Tablet, 8 MG PO QHS PRN for INSOMNIA Allergies Coded Allergies: insulin lispro (Verified Allergy, Intermediate, HIVES,EYE SWELLING, 01/23/20) codeine (Verified Allergy, Unknown, hives, 01/23/20) Sulfa (Sulfonamide Antibiotics) (Verified Adverse Reaction, Unknown, "it affected my liver", 01/23/20) MELANY CROWELL DO Mar 11, 2020 00:53
[2020-03-15] MEDS: ANEXSIA, NORCO 7.5MG/325MG TABLET(HYDROCODONE/APAP) PO PRN (11:16)
[2020-03-15] MEDS: clonazePAM 0.5 MG TAB PO PRN (14:23)
[2020-03-15] MEDS: RAMELTEON 8 MG TAB (ROZEREM) PO PRN (21:14)
[2020-03-15] MEDS: VANICREAM MOISTURIZING SKIN CREAM 113GM TUBE TOP PRN (21:20)
--- NOTE | 2020-03-15 21:44 | IPNPDOC ---
Subjective Date Seen The patient was seen on 03/15/20. Subjective Chief Complaint/HPI Ms. Varela is a 44 year old female who's here with acute hypercapnic hypoxemic respiratory failure s/p peg and trach. Trach was placed by Dr. Garcia on 02/02/2020. PEG was placed by Dr. Campbell on 02/18/2020. Today, she felt well. Denied chest pain, dyspnea, nausea, or abdominal pain. She was supposed to be discharge to [facility] but was canceled due to weather. Objective Physical Examination General Exam: Positive: Alert, Cooperative Eye Exam: Negative: Sclera icteric ENT Exam: Positive: Other ENT (tracheostomy) Neck Exam: Positive: Other (Trach in place. Short neck) Chest Exam: Positive: Diminished Heart Exam: Positive: Rate Normal, Regular Rhythm, Normal S1, Normal S2 Abdomen Exam: Positive: Normal bowel sounds, Soft, Hernia (very large incisional hernias.), Other (PEG placed epigastric area) Extremity Exam: Positive: Other (significant loss of muscle mass in both the thighs and legs and also inteh upper extremities. ); Negative: Clubbing, Cyanosis, Edema Skin Exam: Positive: Other skin issue (sacral decubitii) Assessment /Plan Assessment Ms. Varela is a 44 year old female who's here with acute hypercapnic hypoxemic respiratory failure s/p peg and trach. Trach was placed by Dr. Garcia on 02/02/2020. PEG was placed by Dr. Campbell on 02/18/2020. Of note, her hospital course has been complicated by left upper arm DVT (axillary and basilic veins) on 02/08/20 and aspiration of tube feeds on 02/20/2020. She has completed course of antibiotics for the aspiration pneumonia She was on anticoagulation, but developed a GIB 2/2 to PEG site ulcer. Eliquis was initially held. GIB resolved and patient was restarted on Eliquis and continues with pantoprazole BID and sucralfate. Patient can tolerate PO diet, but general surgery recommends patient to continue PEG tube for a few more weeks due to associated ulcer. To be seen outpatient for removal by general surgery. Yesterday, she had frequent episodes of diarrhea and late this morning she had nausea and vomiting. C.diff was negative. Other possibilities would be gastroenteritis or GI bleed. Hemoccult stool was positive, but hemoglobin has gone up from prior and remains stable. Diarrhea improved with Imodium. Otherwise, patient will need placement. Pending discharge to [facility] Plan/VTE VTE Prophylaxis Ordered?: Yes Plan 1. GIB 2/2 PEG site ulcer -Resolved -Continue Pantoprazole PO BID and sucralfate -Can tolerate an oral diet. Will need to see general surgery in a few weeks to discuss outpatient removal of PEG tube. 2. Acute on chronic respiratory failure with hypoxia and hypercarbia -2/2 obesity hypoventilation syndrome and asthma -Now has trach collar -Budesonide and duonebs 3. Aspiration pneumonitis -Treated 4. Critical care myopathy with functional quadriparesis -Bilateral MPO boots, Back care -Rehab 5. JAZZ -Resolved 6. DM -Levemir and insulin sliding scale 7. Left arm DVT -On Eliquis 8. Morbid obesity -BMI 47.3 9. Diarrhea -Unclear etiology. Initially was constipated, now having continuous diarrhea. -C.diff negative -No fecal ball to suggest overflow diarrhea -Imodium -Improved 10. DVT ppx -Eliquis Disposition: If weather is better, transfer to [facility] VS, I&O, 24H, Fishbone Vital Signs/I&O Vital Signs Date Time Temp Pulse Resp B/P (MAP) Pulse Ox O2 Delivery O2 Flow Rate FiO2 03/15/20 21:18 18 03/15/20 21:16 83 127/76 03/15/20 18:00 98.0 100 Trach Collar 5.0 03/15/20 15:10 28 I&O- Last 24 Hours up to 6 AM 03/15/20 06:00 Intake Total 1550 ml Output Total 1600 ml Balance -50 ml Laboratory Data 24H LABS Laboratory Tests 2 03/15/20 06:01: Nucleated Red Blood Cells % (auto) 0.0, Anion Gap 7L, Glomerular Filtration Rate > 60.0, Calcium Level 8.3L 03/15/20 11:06: Bedside Glucose (Misc Panel) 109H 03/15/20 20:25: Bedside Glucose (Misc Panel) 104 CBC/BMP Laboratory Tests 03/15/20 06:01 03/15/20 07:56 Microbiology Microbiology 03/13/20 Urine Culture - Final, Complete 03/11/20 Stool Occult Blood (SHENG) - Final, Complete MELANY CROWELL DO Mar 15, 2020 21:44
[2020-03-16] MEDS: IPRATROPIUM 0.5MG/ALBUTEROL 2.5MG INH SOL UD 3ML (DUONEB) NEB SCH ×6 (03:14→23:34)
[2020-03-16] MEDS: clonazePAM 0.5 MG TAB PO PRN ×2 (03:23→21:48)
[2020-03-16] MEDS: NORCO, ANEXSIA 5/325MG TABLET (HYDROcodone/ACETAMINOPHEN) PO PRN ×4 (03:23→21:49)
[2020-03-16] MEDS: SODIUM CHLORIDE 0.9% INJ 10 ML SYR IV SCH ×2 (04:54→18:02)
[2020-03-16] MEDS: METOCLOPRAMIDE 5 MG TAB PO SCH ×3 (05:00→21:47)
[2020-03-16] MEDS: SUCRALFATE SUSP 1GM/10ML UD GT SCH ×3 (05:00→18:01)
[2020-03-16 06:00] VITALS: BP 126/75
[2020-03-16 06:30] LABS: HEMATOCRIT 28.9 % (36.0-47.0); HEMOGLOBIN 8.8 g/dl (12.0-15.5); MEAN CORPUSCULAR HEMOGLOBIN 29.4 pg (27.0-33.0); MEAN CORPUSCULAR HGB CONC 30.4 g/dl (32.0-36.5); MEAN CORPUSCULAR VOLUME 96.7 fl (80.0-96.0); PLATELET COUNT, AUTOMATED 195 10^3/uL (150-450); RED BLOOD COUNT 2.99 10^6/uL (4.00-5.40); WHITE BLOOD COUNT 4.9 10^3/uL (4.0-10.0)
[2020-03-16 06:57] LABS: BLOOD UREA NITROGEN 39 MG/DL (7-18); CARBON DIOXIDE LEVEL 23 MEQ/L (21-32); CHLORIDE LEVEL 111 MEQ/L (98-107); CREATININE FOR GFR 1.09 MG/DL (0.55-1.30); GLOMERULAR FILTRATION RATE > 60.0 (>58); GLUCOSE, FASTING 93 MG/DL (70-100); POTASSIUM SERUM 3.4 MEQ/L (3.5-5.1); SODIUM LEVEL 144 MEQ/L (136-145)
[2020-03-16] MEDS: BUDESONIDE 0.5 MG/2 ML INHALATION SUSPENSION INH SCH ×2 (07:06→18:33)
[2020-03-16] MEDS: HumuLIN R (REGULAR) INSULIN (NovoLIN R) **100U/ML** PER UNIT SC SCH ×4 (07:30→21:57)
[2020-03-16] MEDS ORDERED: POTASSIUM CHLORIDE 10 MEQ SR TABLET PO ONE (08:15)
[2020-03-16] MEDS: CHLORHEXIDINE GLUCONATE 0.12 % 15ML UDC (PERIDEX ORAL RINSE) MT SCH ×2 (08:52→21:47)
[2020-03-16] MEDS: NYSTATIN 500,000 U/5 ML SUSP UDC SS SCH ×3 (08:52→21:47)
[2020-03-16] MEDS: busPIRone 5 MG TAB NG SCH ×3 (08:53→21:47)
[2020-03-16] MEDS: PANTOPRAZOLE 40MG TAB (PROTONIX) PO SCH ×2 (08:53→21:47)
[2020-03-16] MEDS: APIXABAN 5 MG TAB (ELIQUIS) PO SCH ×2 (08:53→21:46)
[2020-03-16] MEDS: METOPROLOL TART 25 MG TABLET PO SCH ×2 (08:55→21:46)
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
[2020-03-16] MEDS ORDERED: CALCIUM CARBONATE 500 MG CHEW U/D PO ONE (16:45)
[2020-03-16 18:18] LABS: MAGNESIUM LEVEL 1.5 MG/DL (1.8-2.4); POTASSIUM SERUM 3.9 MEQ/L (3.5-5.1)
[2020-03-16] MEDS: LOPERAMIDE 2 MG CAPLET PO PRN (21:54)
[2020-03-16] MEDS: VANICREAM MOISTURIZING SKIN CREAM 113GM TUBE TOP PRN (21:57)
[2020-03-16 22:00] VITALS: BP 135/81
[2020-03-16 22:58] VITALS: O2SAT 95
[2020-03-17] MEDS: SUCRALFATE SUSP 1GM/10ML UD GT SCH ×5 (00:25→23:12)
[2020-03-17] MEDS: IPRATROPIUM 0.5MG/ALBUTEROL 2.5MG INH SOL UD 3ML (DUONEB) NEB SCH ×6 (03:14→23:43)
[2020-03-17] MEDS: METOCLOPRAMIDE 5 MG TAB PO SCH ×3 (05:00→21:32)
[2020-03-17] MEDS: SODIUM CHLORIDE 0.9% INJ 10 ML SYR IV SCH ×2 (05:01→18:04)
[2020-03-17 06:00] VITALS: BP 142/82
[2020-03-17] MEDS: HumuLIN R (REGULAR) INSULIN (NovoLIN R) **100U/ML** PER UNIT SC SCH ×4 (07:22→21:32)
[2020-03-17] MEDS: BUDESONIDE 0.5 MG/2 ML INHALATION SUSPENSION INH SCH ×2 (07:25→20:44)
[2020-03-17] MEDS: CHLORHEXIDINE GLUCONATE 0.12 % 15ML UDC (PERIDEX ORAL RINSE) MT SCH ×2 (08:15→21:31)
[2020-03-17] MEDS: NYSTATIN 500,000 U/5 ML SUSP UDC SS SCH ×3 (08:15→21:31)
[2020-03-17] MEDS: NORCO, ANEXSIA 5/325MG TABLET (HYDROcodone/ACETAMINOPHEN) PO PRN ×2 (08:16→18:48)
[2020-03-17] MEDS: PANTOPRAZOLE 40MG TAB (PROTONIX) PO SCH ×2 (08:16→21:32)
[2020-03-17] MEDS: APIXABAN 5 MG TAB (ELIQUIS) PO SCH ×2 (08:16→21:32)
[2020-03-17] MEDS: busPIRone 5 MG TAB NG SCH ×3 (08:16→21:32)
[2020-03-17] MEDS: METOPROLOL TART 25 MG TABLET PO SCH ×2 (08:20→21:33)
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
[2020-03-17] MEDS ORDERED: MAG SULF 1GM/100ML (MAG RUN) 1 GM in IV 1 EA IV ONE (11:30)
[2020-03-17] MEDS ORDERED: POTASSIUM CHLORIDE 10 MEQ SR TABLET PO ONE (11:30)
[2020-03-17] MEDS ORDERED: CALCIUM CARBONATE 500 MG CHEW U/D PO ONE (11:30)
[2020-03-17 12:45] LABS: MAGNESIUM LEVEL 1.5 MG/DL (1.8-2.4); POTASSIUM SERUM 3.9 MEQ/L (3.5-5.1)
[2020-03-17] MEDS: CYCLOBENZAPRINE 5MG TABLET PO SCH ×2 (13:53→21:32)
[2020-03-17 14:00] VITALS: BP 141/80
[2020-03-17 16:12] LABS: HEMATOCRIT 28.3 % (36.0-47.0); HEMOGLOBIN 8.7 g/dl (12.0-15.5); MEAN CORPUSCULAR HEMOGLOBIN 29.8 pg (27.0-33.0); MEAN CORPUSCULAR HGB CONC 30.7 g/dl (32.0-36.5); MEAN CORPUSCULAR VOLUME 96.9 fl (80.0-96.0); PLATELET COUNT, AUTOMATED 238 10^3/uL (150-450); RED BLOOD COUNT 2.92 10^6/uL (4.00-5.40); WHITE BLOOD COUNT 6.6 10^3/uL (4.0-10.0)
[2020-03-17 21:00] VITALS: O2SAT 97
[2020-03-17 22:00] VITALS: BP 144/79
[2020-03-18] MEDS: IPRATROPIUM 0.5MG/ALBUTEROL 2.5MG INH SOL UD 3ML (DUONEB) NEB SCH ×2 (03:49→07:37)
[2020-03-18] MEDS ORDERED: PILL CUTTER 1 EACH XX PRN (04:45)
[2020-03-18] MEDS: CYCLOBENZAPRINE 5MG TABLET PO SCH (05:02)
[2020-03-18] MEDS: SUCRALFATE SUSP 1GM/10ML UD GT SCH (05:02)
[2020-03-18] MEDS: METOCLOPRAMIDE 5 MG TAB PO SCH (05:03)
[2020-03-18] MEDS: SODIUM CHLORIDE 0.9% INJ 10 ML SYR IV SCH (05:03)
[2020-03-18 06:00] VITALS: BP 150/79
[2020-03-18] MEDS: HumuLIN R (REGULAR) INSULIN (NovoLIN R) **100U/ML** PER UNIT SC SCH (07:30)
[2020-03-18] MEDS: BUDESONIDE 0.5 MG/2 ML INHALATION SUSPENSION INH SCH (07:37)
[2020-03-18] MEDS ORDERED: MAGNESIUM OXIDE 400MG TAB (MAG-OX) PO SCH (08:00)
[2020-03-18] MEDS: NYSTATIN 500,000 U/5 ML SUSP UDC SS SCH (08:14)
[2020-03-18] MEDS: CHLORHEXIDINE GLUCONATE 0.12 % 15ML UDC (PERIDEX ORAL RINSE) MT SCH (08:14)
[2020-03-18 08:15] VITALS: BP 120/74; O2SAT 99
[2020-03-18] MEDS: METOPROLOL TART 25 MG TABLET PO SCH (08:15)
[2020-03-18] MEDS: PANTOPRAZOLE 40MG TAB (PROTONIX) PO SCH (08:15)
[2020-03-18] MEDS: busPIRone 5 MG TAB NG SCH (08:15)
[2020-03-18] MEDS: APIXABAN 5 MG TAB (ELIQUIS) PO SCH (08:16)
[2020-03-18 09:06] LABS: HEMATOCRIT 29.1 % (36.0-47.0); MEAN CORPUSCULAR HEMOGLOBIN 29.8 pg (27.0-33.0); MEAN CORPUSCULAR HGB CONC 30.9 g/dl (32.0-36.5); MEAN CORPUSCULAR VOLUME 96.4 fl (80.0-96.0); PLATELET COUNT, AUTOMATED 246 10^3/uL (150-450); RED BLOOD COUNT 3.02 10^6/uL (4.00-5.40); WHITE BLOOD COUNT 5.9 10^3/uL (4.0-10.0)
[2020-03-18 09:37] LABS: MAGNESIUM LEVEL 1.6 MG/DL (1.8-2.4)
[2020-03-18] MEDS: NORCO, ANEXSIA 5/325MG TABLET (HYDROcodone/ACETAMINOPHEN) PO PRN (09:38)
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
--- NOTE | 2020-03-19 11:07 | CCN ---
CRITICAL CARE NOTE DATE: 02/17/2020 SUBJECTIVE: The patient was seen and examined this morning during bedside rounds. Yesterday the patient was able to tolerate the trach collar for a longer period. She was on the trach collar from the morning until the early afternoon before she had episodes of desaturation and fatigue and was placed back on the ventilator. Of note yesterday the patient had her inner cannula cleaned but it was noted to be significantly soiled as well as kinked and was unable to be replaced despite cleaning. There is not, however, a size 7 inner cannula for her XLT trach and so she had a size 6 inner cannula placed. She appears to be having no difficulty on the ventilator with the smaller size inner cannula. She is having good tidal volume still and satting well on the same settings. The patient has been complaining of some pain in her tracheostomy site. She was receiving Morphine overnight as needed with some improvement. She also appears to be somewhat more agitated this morning and is flailing her arms around. When asked, however, she cannot always clearly indicate what her area of distress is. The patient does continue to have some blood-tinged secretions with suctioning as well as some blood from her tracheostomy site which is being packed with gauze. This morning the patient's blood pressure was on the lower side and her a.m. antihypertensive medications were on hold. OBJECTIVE: VITAL SIGNS: Temperature 97.6, pulse 98, respirations 22, blood pressure 96/50, O2 saturation 98% on 40% FiO2. Input 3.1 liters, output 2.1 liters, net positive 1 liter. GENERAL: The patient is a morbidly obese female who is sitting in bed. She is awake and alert and following commands appropriately. HEENT: Normocephalic, atraumatic. Pupils are reactive. There are moist mucous membranes noted. NECK: Supple. There is a tracheostomy in place with some dried bloody secretions and some oozing around the tracheostomy site with gauze. CARDIAC: Regular rate and rhythm, normal S1, S2 with distant heart sounds. Unable to clearly appreciate a murmur. PULMONARY: There are coarse rhonchi noted bilaterally and some diminished breath sounds at the left base. There is no wheezing noted. ABDOMEN: Morbidly obese, soft and nontender. There is a palpable hernia which is reducible. EXTREMITIES: There is no significant lower extremity edema noted bilaterally or significant upper extremity edema. There is a right PICC line in place with a dressing which is clean, dry, and intact. LABS: WBC 15.9, hemoglobin 14.4, platelets 130. Chemistry: Sodium is 142, potassium 4.6, chloride 110, bicarb is 23, BUN 86, creatinine is 1.50, glucose is 328. Calcium 9.8. Magnesium 2.7. Phosphorus 5.9. Procalcitonin is 0.65. ASSESSMENT AND PLAN: Ms. Varela is a 44-year-old female with a past medical history of insulin dependent diabetes, hypertension, hyperlipidemia, morbid obesity, history of deep venous thrombosis, obstructive sleep apnea/obesity hypoventilation syndrome with a prior history of tracheostomy placement who presented with [id number] hypoxemic and hypercarbic respiratory failure requiring intubation and mechanical ventilation and ultimately tracheostomy placement. [id number] HYPOXEMIC AND HYPERCARBIC RESPIRATORY FAILURE STATUS POST TRACHEOSTOMY. The patient has been tolerating trach collar more during the day. She does however tire out after a few hours and requires being placed back on the ventilator with the pressure support mode which she has been tolerating with settings of 12/8. We will continue weaning the patient to the trach collar as tolerated with placing her on the ventilator for respiratory distress, desaturation and at night time. We will continue the patient with positioning left side up as she continue to have persistent left-sided atelectasis on imaging. Her chest x-ray today does show some improvement in the previously noted opacities in the left lung however. She does continue to have significant rhonchorous breath sounds and is suctioning some blood-tinged secretions still. She does continue to have some oozing around her tracheostomy site as well. She is still on antibiotics with Ceftriaxone as well as Fluconazole. She does continue to have persistent leukocytosis and suspected continued component of tracheobronchitis as well as some possible sinusitis given her chronic nasogastric tube placement. We will continue to wean down her steroids. The patient is on Solu-Medrol currently 20 mg IV daily. We will wean her down to Solu-Medrol 15 mg daily. Continue with nebulized bronchodilators. Continue Chlorhexidine mouthwash and ____ care with head of bed elevation. GI. The patient has NG tube in place currently and she is on tube feeds with Nepro which she has been tolerating. The patient is planned for a PEG tube placed by Surgery tomorrow. She will be nothing by mouth after midnight. The patient also has a history of diabetes and she is on long acting insulin with sliding scale coverage. As she will be nothing by mouth, we will give her gentle fluid hydration overnight. HYPERTENSION. The patient had significant hypertension initially. She was on Lisinopril, Amlodipine, hydralazine and metoprolol. Her blood pressure appears improved and is on the lower side today and her a.m. antihypertensive medications were on hold. We will discontinue hydralazine and continue with Lisinopril, Amlodipine, and metoprolol. The patient did have increased creatinine today. She will be given gentle fluid hydration. There was also some concern earlier that she had kinking of her Leonrad and may have a degree of post-obstructive increase in her creatinine initially. DVT PROPHYLAXIS. History of prior DVT and has an upper extremity DVT on this admission. She is on Lovenox for anticoagulation which is on hold for her PEG tube tomorrow. ANXIETY/AGITATION. The patient is on Morphine as needed for pain control. She does have some episodes of agitation and possible anxiety. She may have a component of anxiety contributing to her agitation. Would be cautious of benzodiazepine but we will start her on BuSpar for anxiety. GI PROPHYLAXIS. Protonix. CODE STATUS: FULL CODE. Total critical care time spent not including procedures approximately 40 minutes.
== END 2020-03-18 09:46 | DRG 121 ==
LOC: M ED 13:42 → M ED INP 16:17 → M PCU 17:59 → M MSPAV 03-05 18:20
PROVIDERS: ADMIT Internal Medicine; ATTEND General Practice
PROC: 0BH17EZ Insertion of Endotracheal Airway into Trachea, Via Natural or Artificial Opening (ICD-10-PCS; principal; 2020-01-23)
PROC: 02HV33Z Insertion of Infusion Device into Superior Vena Cava, Percutaneous Approach (ICD-10-PCS; 2020-01-27)
PROC: 0B110F4 Bypass Trachea to Cutaneous with Tracheostomy Device, Open Approach (ICD-10-PCS; 2020-02-02)
PROC: 0BC18ZZ Extirpation of Matter from Trachea, Via Natural or Artificial Opening Endoscopic (ICD-10-PCS; 2020-02-08)
PROC: 02HV33Z Insertion of Infusion Device into Superior Vena Cava, Percutaneous Approach (ICD-10-PCS; 2020-02-09)
PROC: 0DH64UZ Insertion of Feeding Device into Stomach, Percutaneous Endoscopic Approach (ICD-10-PCS; 2020-02-18)
PROC: 0DJ08ZZ Inspection of Upper Intestinal Tract, Via Natural or Artificial Opening Endoscopic (ICD-10-PCS; 2020-03-01)
DX: J96.21 Acute and chronic respiratory failure with hypoxia (principal); J69.0 Pneumonitis due to inhalation of food and vomit; G72.81 Critical illness myopathy; I50.31 Acute diastolic (congestive) heart failure; N17.9 Acute kidney failure, unspecified; R53.2 Functional quadriplegia; R13.10 Dysphagia, unspecified; L89.153 Pressure ulcer of sacral region, stage 3; I11.0 Hypertensive heart disease with heart failure; E87.0 Hyperosmolality and hypernatremia; E87.2 Acidosis; E66.2 Morbid (severe) obesity with alveolar hypoventilation; D75.1 Secondary polycythemia; E11.65 Type 2 diabetes mellitus with hyperglycemia; Z68.43 Body mass index [BMI] 50.0-59.9, adult; E83.42 Hypomagnesemia; I47.1 Supraventricular tachycardia; D62 Acute posthemorrhagic anemia; J45.20 Mild intermittent asthma, uncomplicated; K21.9 Gastro-esophageal reflux disease without esophagitis; F32.9 Major depressive disorder, single episode, unspecified; F17.200 Nicotine dependence, unspecified, uncomplicated; Z79.899 Other long term (current) drug therapy; Z88.5 Allergy status to narcotic agent; Z88.2 Allergy status to sulfonamides; E78.5 Hyperlipidemia, unspecified; K25.9 Gastric ulcer, unspecified as acute or chronic, without hemorrhage or perforation; K92.1 Melena; R19.7 Diarrhea, unspecified; Z79.4 Long term (current) use of insulin; J96.22 Acute and chronic respiratory failure with hypercapnia; J95.01 Hemorrhage from tracheostomy stoma; K94.23 Gastrostomy malfunction

== ENCOUNTER → 2020-01-23 | Outpatient (REF) | payer OTHER ==
[~2020-01-23] MED LIST: AMLO1TAB24 PO; ATOR40TA75 PO; BASA100I SC; FLUT1INH2 INH; LEVO250T12 PO; LISI-538 PO; NYST1POW9; OMEP40CA97 PO; VENTAER INH
== END ==
LOC: M LAB REF 12:48
PROVIDERS: ATTEND Internal Medicine Nephrology
DX: N39.0 Urinary tract infection, site not specified (principal)